=== PATIENT | female | born 1965 | race Caucasian/White ===

== ENCOUNTER 2020-06-06 19:05 | Emergency (ER) | payer MEDICAID, SELFPAY ==
[2020-06-06 19:06] VITALS: BP 134/71; PULSE 82; RESP 18; TEMP 36.7; O2SAT 98; BMI 25.7
--- NOTE | 2020-06-06 20:05 | RAD_ITS ---
STUDY: X-RAY - UNILATERAL RIBS ( LEFT ) WITH CHEST REASON FOR EXAM: Female, 54 years old. Left sided rib pain under breast. TECHNIQUE - RIBS: 4 view(s) of the ribs. TECHNIQUE - CHEST: COMPARISON: None. FINDINGS - RIBS: Normal visualized ribs without a demonstrated fracture. FINDINGS - CHEST: The lungs are clear and expanded. There is no demonstrated pleural abnormality. Normal size heart. Normal mediastinum and chiki. Normal visualized pulmonary arteries. Normal visualized aortic arch and descending thoracic aorta. Normal visualized thoracic spine. Normal visualized ribs, clavicles, and shoulders. There is no demonstrated abnormality of the visualized soft tissue structures of the upper abdomen. RAD/Ribs Uni Min 3V w/PA Chest IMPRESSION: RIBS: Normal x-ray examination of the ribs. CHEST: Normal x-ray examination of the chest. Electronically Signed: Alireza Pinon, at 21:06 EST Tel , Service support ,
--- NOTE | 2020-06-06 20:13 | ED.VIS.GEN ---
History of Present Illness Chief Complaint: Chest Other Detail of Chief Complaint: Chest pain Informant: Patient Onset: Hours - 2 Context: Sudden Onset - When rolled over onto her left side after being supine trying to fix the gas pedal of her car Timing: Continuous Quality: Sore/pain Location: Left inframammary chest wall Current Severity: Mild Maximum Severity: Severe Worsened by: Deep breathing, coughing, palpation, movement Relieved by: Tylenol that she took earlier Associated Symptoms: None Narrative: Patient had the sudden onset pop followed by pain in the area of her ribs beneath her left breast. - Past Medical History (1) Rheumatoid arthritis Status: Chronic (2) Asthma Status: Chronic Past Medical History - Allergies and Home Meds Allergies/Adverse Reactions: Allergies amoxicillin Allergy (Verified 06/06/20 19:08) Swelling morphine Allergy (Verified 06/06/20 19:08) PT UNSURE OF REACTION acetaminophen [From Percocet] Adverse Reaction (Verified 06/06/20 19:08) Vomiting oxycodone [From Percocet] Adverse Reaction (Verified 06/06/20 19:08) Vomiting Primary Care Physician: Doctor,Your [STAFF PHYSICIAN] - 1 Week if not improving Smoking Status: Current every day smoker Review of Systems General: Denies: Chills, Fever, Sweats Eyes: Denies: Visual changes - bilaterally, Diplopia ENT: Denies: Rhinorrhea, Sore throat Cardiovascular: Reports: Chest pain. Denies: Palpitations Respiratory: Denies: Dyspnea, Cough, Dyspnea on exertion Gastrointestinal: Denies: Abdominal pain, Nausea, Vomiting, Diarrhea, Melena, Hematochezia Genitourinary: Denies: Dysuria, Hematuria, Frequency Musculoskeletal: Reports: Arthralgias - Chronic unchanged. Denies: Swelling Skin: Denies: Rash, Wounds Neurological: Denies: Headache, Weakness, Numbness Physical Exam Vital Signs/Narrative: Vital Signs Temp Pulse Resp BP Pulse Ox 06/06/20 19:06 98.0 F 82 18 134/71 H 98 Inital Vital Signs reviewed: Yes General: Well nourished, Well developed, No Acute Distress Head: Normocephalic, Atraumatic Eyes: Perrl, EOMI ENT: Moist mucous membranes, No rhinorrhea Neck: Supple, Nontender Cardiovascular: Regular rate, Regular rhythm, No murmurs Respiratory: No distress, CTA bilaterally, Chest tenderness - Reproducing patient's pain, inframammary left rib, approximately rib 5 or 6, to about the anterior axillary line. No crepitance or step-off palpable. Abdomen: Soft, Nontender, Nondistended, Normal bowel sounds Extremities: Nontender, No edema Skin: Normal color, No rash, No Trauma Neurological: Alert, Oriented x3, Cranial nerves II-XII grossly intact, Normal Strength, Normal Sensation, Normal Gait Psychological: Normal affect, Normal Mood Diagnostic/Tx/Re-eval - Medical Decision Making On my interpretation, 5 view x-ray of the left ribs including PA chest is negative for acute fracture and negative for pneumothorax. Patient was reassured, likely either strained intercostals, bruised the ribs, has an occult fracture that is not visible on x-ray, or subluxed the rib. At this time medically I recommend pain control. She was offered something here but declined. Advise follow-up for persistent pain longer than a week. ED Disposition - Plan for ED Patient: Disposition: Home or Assisted Living Diagnosis: Contusion of rib on left side Instructions: ED Contusion Vs Minor Fx Rib Prescriptions: Naproxen [Naprosyn] 500 mg PO BID PRN #14 tab Prescription Printed traMADol [Ultram] 50 mg PO Q4H PRN PRN 2 Days #10 tab PRN Reason: Pain Prescription Printed Referrals: Doctor,Your [STAFF PHYSICIAN] - 1 Week if not improving
[2020-06-06 21:12] VITALS: RESP 17
== END 2020-06-06 21:13 | disposition home or self-care (01) ==
PROVIDERS: Emergency Provider Emergency Medicine
DX: S20.212A Contusion of left front wall of thorax, initial encounter (principal); F17.200 Nicotine dependence, unspecified, uncomplicated; X58.XXXA Exposure to other specified factors, initial encounter
CPT/HCPCS: 71101; 99282

== ENCOUNTER 2021-11-25 18:01 | Emergency (ER) | payer MEDICAID, SELFPAY ==
[2021-11-25 18:02] VITALS: BP 136/88; PULSE 106; RESP 18; TEMP 36.1; O2SAT 99; BMI 25.7
--- NOTE | 2021-11-25 18:30 | RAD_ITS ---
STUDY: X-RAY - RIGHT HAND REASON FOR EXAM: Female, 56 years old. PAIN/SWELLING TO RIGHT HAND FOR 7 MONTHS, HAS RA BUT NOT ON MEDS TECHNIQUE: 3 view(s) of the hand. COMPARISON: None. FINDINGS: Normal radiocarpal articulation. There is a negative ulnar variant of the distal radioulnar articulation. Normal visualized carpal bones. Normal carpal articulations Normal carpometacarpal articulation of the thumb. Normal second through fifth carpometacarpal joints. Diffuse osteopenia. Normal metacarpophalangeal joint of the thumb. Normal interphalangeal joint of the thumb. Normal proximal and distal phalanges of the thumb. Normal metacarpophalangeal joints of the second through fifth fingers. Indistinct cortical margins of the second and third metacarpal heads suggesting erosions. Normal phalanges of the second through fifth fingers. The soft tissue structures are unremarkable. RAD/Hand Min 3 Views IMPRESSION: No fracture or malalignment. Mild periarticular erosions of the second and third MCP joints compatible with history provided of rheumatoid arthritis. Electronically Signed: Oskar Cary MD ([place]) at 18:53 EDT Reading Location ID and State: [facility] / [place] , Service support ,
--- NOTE | 2021-11-25 19:02 | EX.ED.UPPERE ---
HPI History of Present Illness Chief Complaint: Upper Extremity Injury Detail of Chief Complaint: Right hand pain and swelling Informant: patient Narrative Narrative: Patient presents secondary to right hand pain and swelling for the last 7 months. It has been waxing and waning. She believes it is secondary to her rheumatoid arthritis but states no one is ever x-rayed and she is concerned she may have done something more. She has been on some intermittent steroid tapers which seems to help for short time but does not resolve the issue. She also complains of some mild redness on her nose. She had a previous laceration there and states there was a retained stitch that she trimmed out 2 years after the initial injury. She has noted some increased redness to the area and is concerned it may be getting infected. [facility] Medical History Asthma Rheumatoid arthritis Home Medications naproxen 500 mg PO BID PRN #14 tab 06/06/20 [Rx Last Taken Unknown] doxycycline monohydrate 100 mg PO BID #20 cap 11/25/21 [Rx Last Taken Unknown] prednisone See Taper PO DAILY #63 tab 11/25/21 [Rx Last Taken Unknown] Allergy/AdvReac Type Severity Reaction Status Date / Time amoxicillin Allergy Swelling Verified 11/25/21 18:04 morphine Allergy PT UNSURE Verified 11/25/21 18:04 OF REACTION acetaminophen [From Percocet] AdvReac Vomiting Verified 11/25/21 18:04 oxycodone [From Percocet] AdvReac Vomiting Verified 11/25/21 18:04 Social History Smoking Status: Current every day smoker tobacco type: cigarettes and e-cigarettes ROS ROS ED Constitutional Constitutional ED: Denies chills or fever(s) Eyes Eyes: Denies change in vision ENT ENT ED: Reports other Details: Nasal erythema ; Denies sore throat Cardiovascular Cardiovascular: Denies chest pain Respiratory/Chest Respiratory/Chest: Denies cough or dyspnea Gastrointestinal Gastrointestinal: Denies abdominal pain, nausea or vomiting Genitourinary Genitourinary ED: Denies dysuria Musculoskeletal Musculoskeletal: Reports other Details: Right hand pain and swelling ; Denies back pain or neck pain Integumentary Denies rash Neurologic Neurologic: Denies headache(s) Allergic/Immunologic Allergic/Immunologic ED: Denies urticaria EXAM Physical Exam Const Vital Signs: 11/25/21 18:02 Temperature 97 F L Temperature Source Temporal Pulse Rate 106 H Respiratory Rate 18 Blood Pressure 136/88 H Blood Pressure Mean 104 Pulse Ox 99 Oxygen Delivery Method Room Air Positive well nourished and well developed General Appearance ED: well developed HEENT HEENT Narrative: Mild erythema across the nasal bridge with underlying scar from prior laceration. No focal abscess. Eyes PERRL and EOMs intact bilaterally Neck supple Chest Wall inspection of chest normal and palpation of chest normal Resp normal respiratory effort and clear to auscultation bilaterally Cardio regular rate and regular rhythm GI non-tender Palpation: soft Extremity Extremity Narrative: Mild erythema and swelling noted to the MCP joints on her right hand. No focal bony tenderness. Good cap refill and sensation distally. Mild changes noted on the MCP joints of her left hand. Psych mental status grossly normal MDM MDM MDM Narrative Medical decision making narrative: Right hand x-rays obtained. Radiography Diagnostic Testing: Clinical Impression(s) from Imaging Studies Hand X-Ray 11/25/21 18:30 IMPRESSION: No fracture or malalignment. Mild periarticular erosions of the second and third MCP joints compatible with history provided of rheumatoid arthritis. Electronically Signed: Oskar Cary MD ([place]) at 18:53 EDT Reading Location ID and State: [facility] / [place] , Service support , Treatment and Re-Evaluation Narrative: Right hand x-ray per mitral rotation reveals chronic arthritic changes consistent with RA but no acute fracture. Radiologist rotation is also reviewed. Patient be treated with a course of doxycycline as well as prednisone taper. Discharge Plan Triage Chief Complaint: Upper Extremity Injury ED Provider: Sury Treviño Dx/Rx/DC Orders Clinical Impression: Rheumatoid arthritis, Folliculitis Instructions: ED Folliculitis, ED Rheumatoid Arthritis Prescriptions: New prednisone 10 mg tablet See Taper mg PO DAILY Qty: 63 RF: 0 doxycycline monohydrate 100 MG capsule 100 mg PO BID Qty: 20 RF: 0 No Action naproxen 500 MG tablet 500 mg PO BID PRN Qty: 14 RF: 0 Primary Care Provider: Care Physician,No Primary Referrals: Ananay Lin MD [STAFF PHYSICIAN] - As Needed Care Physician,No Primary [Primary Care Provider] - Disposition Disposition: Home, Self Care
[2021-11-25] MEDS: Doxycycline 100 MG CAPSULE PO (19:13)
[2021-11-25] MEDS: predniSONE 20 MG Tablet 60 MG PO (19:13)
[2021-11-25 19:14] VITALS: BP 135/94; PULSE 74; RESP 18; O2SAT 96
== END 2021-11-25 19:18 | disposition home or self-care (01) ==
PROVIDERS: Emergency Provider Emergency Medicine; Visit Provider Emergency Medicine
DX: M06.9 Rheumatoid arthritis, unspecified (principal); L73.9 Follicular disorder, unspecified; F17.210 Nicotine dependence, cigarettes, uncomplicated
CPT/HCPCS: 73130; 99283

== ENCOUNTER 2022-04-08 10:46 | Emergency (ER) | payer MEDICAID, SELFPAY ==
[2022-04-08 10:47] VITALS: BP 112/76; PULSE 89; RESP 18; TEMP 36.1; O2SAT 94; BMI 26.6
--- NOTE | 2022-04-08 11:52 | EDS_ITS ---
HPI HPI - URI History of Present Illness Chief Complaint: Cough Informant: patient Onset/Context/Timing Onset: Weeks Context: Gradual Onset Timing: Intermittent Current Severity: Mild Maximum Severity: Mild Associated Symptoms Associated Symptoms: Positive for Hemoptysis and Productive Cough Narrative Narrative: 60-year-old female history of asthma, 20 arthritis. She smokes. States she had a cough for 10 or 11 days. Today had multiple coughing episodes and coughed up small amount of blood. Said she coughed after that and it had resolved. Denies any chest pain. No history of DVT or PE. No recent travel, surgery or immobilization. She is on no hormone replacement. No family history of clotting disorder. No leg swelling. Denies any fever shortness of breath. Denies any. Leg pain. She is on no antibiotics. Prior similar symptoms: No Recent Illness/Hospitalization: No ROS ROS ED ROS Narrative Cough of clear phlegm. Review of Systems ROS Unobtainable: Denies due to encephalopathy Constitutional Constitutional ED: Denies chills or fever(s) Eyes Eyes: Denies blurry vision ENT ENT ED: Denies ear pain Cardiovascular Cardiovascular: Denies orthopnea or paroxysmal nocturnal dyspnea Respiratory/Chest Respiratory/Chest: Reports sputum; Denies cough, dyspnea, dyspnea on exertion, orthopnea or paroxysmal nocturnal dyspnea Gastrointestinal Gastrointestinal: Denies abdominal pain, melena, nausea or vomiting Genitourinary Genitourinary ED: Denies dysuria Musculoskeletal Musculoskeletal: Denies arthralgias Integumentary Denies abscess Neurologic Neurologic: Denies headache(s) Psychiatric Psychiatric: Denies anxiety Endocrine Endocrinology: Denies cold intolerance Hematologic/Lymphatic Hematologic/Lymphatic: Denies easy bleeding Allergic/Immunologic Allergic/Immunologic ED: Denies mouth swelling [facility] Medical History Asthma Rheumatoid arthritis Home Medications naproxen 500 mg tablet 500 mg PO BID PRN #14 tabs 06/06/20 [Rx Last Taken Unknown] doxycycline monohydrate 100 mg capsule 100 mg PO BID #20 caps 11/25/21 [Rx Last Taken Unknown] prednisone 10 mg tablet See Taper PO DAILY #63 tabs 11/25/21 [Rx Last Taken Unknown] prednisone 20 mg tablet 40 mg PO DAILY 7 days #14 tabs 04/08/22 [Rx Last Taken Unknown] Allergy/AdvReac Type Severity Reaction Status Date / Time amoxicillin Allergy Swelling Verified 04/08/22 10:47 morphine Allergy PT UNSURE Verified 04/08/22 10:47 OF REACTION acetaminophen [From Percocet] AdvReac Vomiting Verified 04/08/22 10:47 oxycodone [From Percocet] AdvReac Vomiting Verified 04/08/22 10:47 Social History Smoking Status: Current every day smoker tobacco type: cigarettes and e- cigarettes EXAM Physical Exam Narrative Exam Narrative: 36-year-old female no acute distress. Vital signs stable afebrile. Pulse ox 94% on room air no signs hypoxia. H EENT exam normal. Posterior pharynx normal. No trouble swallowing or breathing. Neck nontender no JVD. No lymphadenopathy. Lungs few scattered expiratory wheezes. No rales or rhonchi. Equal symmetrical. No distress. Heart regular rate and rhythm no murmur. Abdomen soft nontender. Moving all 4 extremities. Calves are nontender without edema or cords. She is awake and alert. Const Vital Signs: 04/08/22 10:47 04/08/22 11:54 Temperature 97 F L Temperature Source Temporal Pulse Rate 89 Respiratory Rate 18 Respiratory Effort Normal Respiratory Pattern Normal Blood Pressure 112/76 Blood Pressure Mean 88 Pulse Ox 94 Oxygen Delivery Method Room Air Room Air Positive well nourished and well developed; Negative for obese, cachectic or contractures General Appearance ED: well developed and NAD; Negative for cachectic, contractures, cyanotic, diaphoretic or pallor Nutritional Appearance: Negative for cachectic or obese HEENT Reports moist mucous membranes; Denies dry mucous membranes normocephalic and atraumatic Mouth ED: No dry mucous membranes Mouth: No dry mucous membranes Teeth and Gingiva: Negative for caries Throat: Negative for posterior oropharynx normal Eyes PERRL and EOMs intact bilaterally General Eye ED: Negative for pale conjunctiva or scleral icterus Neck no lymphadenopathy, supple, no meningeal signs and no JVD Resp normal respiratory effort and No clear to auscultation bilaterally Effort and Inspection: Negative for retractions Auscultation: wheezes; Negative for rales, rhonchi or diminished lung sounds Cardio S1 normal heart sound, S2 normal heart sound and no murmurs Rate: regular rate Rhythm: regular rhythm GI non-tender, non-distended and no masses Inspection: Negative for abdominal distention Auscultation: normoactive bowel sounds Palpation: soft; Negative for tender Back/Spine no CVA tenderness and normal ROM General Back: Negative for CVA tenderness Cervical Spine: Negative for cervical spine tenderness Thoracic Spine / Upper Back: Negative for thoracic spinal tenderness Lumbar Spine / Lower Back: Negative for lumbar spinal tenderness Sacrum: Negative for tenderness Extremity normal to inspection and full ROM General Extremety ED: Negative for cyanosis or tenderness General Extremity: Negative for cyanosis Neuro oriented x3 and CN's II-XII intact bilaterally Sensorium / Orientation: alert, oriented to person, oriented to place and oriented to time Motor Exam: strength 5/5 throughout Psych mental status grossly normal Attitude: No agitated Mood & Affect: Negative for depressed or anxious Skin General Skin Exam: Negative for jaundice or pallor Lesions: no lesions Rashes: no rashes Trauma: Negative for abrasion or laceration MDM MDM MDM Narrative Medical decision making narrative: Patient with cough suspect URI/bronchitis. She is a smoker. There is history expiratory wheezes. Chest x-ray to be obtained due to hemoptysis. She has no history or risk factors for DVT or PE. Repeat exam patient doing well. She and I went over her chest x-ray results. She will be discharged home. Written for prednisone given a dose here. She will be on prednisone 40 mg a day for 7 days. Return if increased hemoptysis. Otherwise follow-up with a local primary care physician. Radiography Diagnostic Testing: Clinical Impression(s) from Imaging Studies Chest X-Ray 04/08/22 11:58 IMPRESSION: No acute cardiopulmonary process. Electronically Signed: Amy Mendoza MD at 12:08 EDT , Chest x-ray, 2 views, AP and lateral, interpreted by myself shows Discharge Plan Triage Chief Complaint: Cough ED Provider: Boy Ingram Dx/Rx/DC Orders Clinical Impression: Bronchitis, Cough with hemoptysis, Bilateral wheezing Instructions: ED Bronchitis with Wheezing (Adult) Prescriptions: New prednisone 20 mg tablet 40 mg PO DAILY 7 Days Qty: 14 0RF No Action naproxen 500 MG tablet 500 mg PO BID PRN Qty: 14 0RF prednisone 10 mg tablet See Taper PO DAILY Qty: 63 0RF Taper: Prednisone Taper 60 mg WITH BREAKFAST for 3 Days and 0 Hour 50 mg WITH BREAKFAST for 3 Days and 0 Hour 40 mg WITH BREAKFAST for 3 Days and 0 Hour 30 mg WITH BREAKFAST for 3 Days and 0 Hour 20 mg WITH BREAKFAST for 3 Days and 0 Hour 10 mg WITH BREAKFAST for 3 Days and 0 Hour doxycycline monohydrate 100 MG capsule 100 mg PO BID Qty: 20 0RF Primary Care Provider: Care Physician,No Primary Referrals: Jim Pena MD [Med Staff - Head Wrestling Coach] - 1 Week if not improving Care Physician,No Primary [Primary Care Provider] - Activity Restrictions/Additional Instructions: You have bronchitis. We will place her on prednisone to decrease the wheezing. At this time I do not think you need an antibiotic. If it does not get better that may be an option. Your chest x-ray was unremarkable. Follow-up with a local primary care physician to ensure you are improving. If you have more blood that you are coughing up if there are large clots you need to be seen in the emergency department if not you need to follow-up and we need to get a CAT scan on you. Stop smoking !!! Disposition Disposition: Home, Self Care
[2022-04-08 11:54] VITALS: O2SAT 95
--- NOTE | 2022-04-08 11:58 | RAD_ITS ---
STUDY: X-RAY CHEST REASON FOR EXAM: Female, 56 years old. Cough TECHNIQUE: Frontal and lateral views of the chest. COMPARISON: 06/06/2020 FINDINGS: The lungs are clear and expanded. There is no demonstrated pleural abnormality. Normal size heart. Normal mediastinum and chiki. Normal visualized pulmonary arteries. Normal visualized aortic arch and descending thoracic aorta. Normal visualized thoracic spine. Normal visualized ribs, clavicles, and shoulders. There is no demonstrated abnormality of the visualized soft tissue structures of the upper abdomen. RAD/Chest PA and Lateral IMPRESSION: No acute cardiopulmonary process. Electronically Signed: Amy Mendoza MD at 12:08 EDT ,
[2022-04-08] MEDS: predniSONE 20 MG Tablet 60 MG PO (13:32)
== END 2022-04-08 13:36 | disposition home or self-care (01) ==
PROVIDERS: Emergency Provider Emergency Medicine; Visit Provider Emergency Medicine
DX: J40 Bronchitis, not specified as acute or chronic (principal); M06.9 Rheumatoid arthritis, unspecified; R04.2 Hemoptysis; R06.2 Wheezing; F17.210 Nicotine dependence, cigarettes, uncomplicated; Z79.899 Other long term (current) drug therapy; Z79.52 Long term (current) use of systemic steroids
CPT/HCPCS: 71046; 99283

== ENCOUNTER 2023-03-08 13:38 | Emergency (ER) | payer MEDICAID, SELFPAY ==
[2023-03-08 13:38] VITALS: BP 125/88; PULSE 86; RESP 18; TEMP 36.6; O2SAT 98; BMI 28.4
--- NOTE | 2023-03-08 14:17 | EX.ED.GENINJ ---
HPI History of Present Illness Chief Complaint: Head Injury Narrative Narrative: 57-year-old female who denies significant past medical history presents with injury to her face and mild headache with concussion type symptoms that she has had since last evening. She states that she was standing and the kids around her were playing football. She got hit in the face and mainly the bridge of the nose with a football at around 6 or 7 PM last evening almost 18 hours ago. She denies loss of consciousness, and she does not take any blood thinners. She noticed soreness of the bridge of her nose and may be some discoloration under her eyes but she did not have any nosebleeds. She states that she is having problems concentrating and feels off. No nausea or vomiting, no paresthesias. She states she went to [facility] and was told to come to the emergency department. She also had to take off work today because she was not feeling quite right. [facility] Medical History Asthma Rheumatoid arthritis Home Medications naproxen 500 mg tablet 500 mg PO BID PRN #14 tabs 06/06/20 [Rx Last Taken Unknown] doxycycline monohydrate 100 mg capsule 100 mg PO BID #20 caps 11/25/21 [Rx Last Taken Unknown] prednisone 10 mg tablet See Taper PO DAILY #63 tabs 11/25/21 [Rx Last Taken Unknown] prednisone 20 mg tablet 40 mg (2 x 20 mg) PO DAILY 7 days #14 tabs 04/08/22 [Rx Last Taken Unknown] Allergy/AdvReac Type Severity Reaction Status Date / Time amoxicillin Allergy Swelling Verified 03/08/23 13:40 morphine Allergy PT UNSURE Verified 03/08/23 13:40 OF REACTION acetaminophen [From Percocet] AdvReac Vomiting Verified 03/08/23 13:40 oxycodone [From Percocet] AdvReac Vomiting Verified 03/08/23 13:40 Social History Smoking Status: Current every day smoker tobacco type: cigarettes and e-cigarettes ROS ROS ED ROS Narrative Constitutional: No fever, no chills. HEENT: No sore throat. No neck pain. No loss of vision. No rhinorrhea. Mild nasal tenderness. No epistaxis. Cardiovascular: No chest pain. No palpitations. No pedal edema. Respiratory: No cough, no shortness of breath. Abdominal: No abdominal pain. No nausea. No vomiting. Genitourinary: No dysuria. No hematuria. Musculoskeletal: No myalgias. No arthralgias. Neurologic: Mild headaches. No dizziness. No lightheadedness. Skin: No rash. No change in color. Psychiatric: No depression. No anxiety. EXAM Physical Exam Narrative Exam Narrative: Afebrile. Vital signs noted. HEENT: Normocephalic. Atraumatic. PERRL, EOMI. Neck soft and supple. No point tenderness or step off. Mild tenderness on nasal bridge, no crepitance, no noted ecchymosis. No nasal septal hematoma. Cardiovascular: Regular rate and rhythm. No murmurs, rubs, or gallops appreciated. Respiratory: No tachypnea. Lungs clear to auscultation bilaterally. Gastrointestinal: Abdomen soft, nontender, with normoactive bowel sounds. No rebound or guarding. Neurological: Awake. Alert. Oriented x3. Nonfocal, nonlateralizing. Skin: No rash. Normal color. No pallor. Musculoskeletal: No pedal edema. Full range of motion extremities. Const Vital Signs: 03/08/23 13:38 03/08/23 13:42 Temperature 97.8 F Temperature Source Temporal Pulse Rate 86 Respiratory Rate 18 Respiratory Effort Normal Blood Pressure 125/88 H Blood Pressure Mean 100 Pulse Ox 98 Oxygen Delivery Method Room Air Room Air MDM MDM MDM Narrative Medical decision making narrative: In the differential diagnosis is closed head injury/minor concussion with facial contusion versus facial fracture. I do not feel that she requires CT imaging of the brain or of the face, as there is no clinical evidence of any facial fracture, no extraocular muscle entrapment, and I feel she has more of a facial contusion. She was instructed on brain rest and closed head injury instructions. She will take [id number] medications. She can use ice to apply to her face as needed. She was referred to a primary care provider. She was given a note to be off work for today and tomorrow, and was told that should her symptoms persist for longer than 7 to 10 days that she needs to see a primary care physician for possible referral to a neurologist. I do not feel any laboratory work is indicated nor do I feel that she requires observation or admission. I reviewed her prior ED visits and outpatient record and found it noncontributory to her current chief complaint. She was referred to a primary care provider. Return instructions were reviewed. Disposition is discharged home in stable condition. History & Record Review Discussion w/independent historian: Patient Additional record(s) reviewed:: Prior ED visit Discharge Plan Triage Chief Complaint: Head Injury ED Provider: Suhas Black Dx/Rx/DC Orders Clinical Impression: Concussion, Contusion of face Instructions: ED Concussion, ED Facial Contusion Prescriptions: No Action naproxen 500 MG tablet 500 mg PO BID PRN Qty: 14 0RF prednisone 10 mg tablet See Taper PO DAILY Qty: 63 0RF Taper: Prednisone Taper 60 mg WITH BREAKFAST for 3 Days and 0 Hour 50 mg WITH BREAKFAST for 3 Days and 0 Hour 40 mg WITH BREAKFAST for 3 Days and 0 Hour 30 mg WITH BREAKFAST for 3 Days and 0 Hour 20 mg WITH BREAKFAST for 3 Days and 0 Hour 10 mg WITH BREAKFAST for 3 Days and 0 Hour doxycycline monohydrate 100 MG capsule 100 mg PO BID Qty: 20 0RF prednisone 20 mg tablet 40 mg PO DAILY 7 Days Qty: 14 0RF Stand Alone Forms: ED Work / School Excuse Primary Care Provider: Care Physician,No Primary Referrals: Negrito Guerrero MD [Med Staff - Active Staff] - 1 Week if not improving Care Physician,No Primary [Primary Care Provider] - Disposition Disposition: Home, Self Care Discharge Date/Time: 03/08/23 14:23
== END 2023-03-08 14:23 | disposition home or self-care (01) ==
LOC: ED 14:14
PROVIDERS: Emergency Provider Emergency Medicine; Visit Provider Emergency Medicine
DX: S06.0X0A Concussion without loss of consciousness, initial encounter (principal); S00.83XA Contusion of other part of head, initial encounter; F17.210 Nicotine dependence, cigarettes, uncomplicated; X58.XXXA Exposure to other specified factors, initial encounter
CPT/HCPCS: 99282

== ENCOUNTER 2023-04-05 00:31 | Emergency (ER) | payer MEDICAID, SELFPAY ==
[2023-04-05 00:33] VITALS: BP 146/90; PULSE 85; RESP 18; TEMP 36.8; O2SAT 96; BMI 28.3
--- NOTE | 2023-04-05 00:50 | EDS_ITS ---
HPI History of Present Illness Chief Complaint: Allergic Reaction Informant: patient Onset/Context/Timing Onset: Hours Context: Gradual Onset Narrative Narrative: Patient presents due to concern for allergic reaction. Patient states that she had fallen asleep on the couch earlier this evening. After waking she decided to try some of the new perfume that she had made. She sprayed her forearms. About 30 minutes later she noted her cheeks were red and slightly swollen. She had a focal area of itching on the inside of her right wrist only. She is not sure if she is having an allergic reaction to the perfume, but states she does not know of anything else that is new or different. She does report having a recent cough. [facility] Medical History Asthma Rheumatoid arthritis Home Medications diphenhydramine HCl 50 mg capsule 50 mg PO Q8H PRN allergic reaction #14 caps 04/05/23 [Rx Last Taken Unknown] famotidine 40 mg tablet (Pepcid) 40 mg PO DAILY #4 tabs 04/05/23 [Rx Last Taken Unknown] prednisone 20 mg tablet 40 mg (2 x 20 mg) PO DAILY #8 tabs 04/05/23 [Rx Last Taken Unknown] Allergy/AdvReac Type Severity Reaction Status Date / Time amoxicillin Allergy Swelling Verified 04/05/23 00:32 morphine Allergy PT UNSURE Verified 04/05/23 00:32 OF REACTION acetaminophen [From Percocet] AdvReac Vomiting Verified 04/05/23 00:32 oxycodone [From Percocet] AdvReac Vomiting Verified 04/05/23 00:32 Social History Smoking Status: Current every day smoker tobacco type: cigarettes and e- cigarettes ROS ROS ED Constitutional Constitutional ED: Denies chills or fever(s) Eyes Eyes: Denies change in vision or discharge from eye(s) ENT ENT ED: Reports other Details: Facial swelling and redness ; Denies discharge from eye(s), rhinorrhea or sore throat Cardiovascular Cardiovascular: Denies chest pain or palpitations Respiratory/Chest Respiratory/Chest: Reports cough and other Details: Occasional wheezing, denies currently. ; Denies dyspnea Gastrointestinal Gastrointestinal: Denies abdominal pain, diarrhea, nausea or vomiting Musculoskeletal Musculoskeletal: Denies back pain or extremity pain Integumentary Reports rash; Denies Abrasions Neurologic Neurologic: Denies headache(s) or weakness Psychiatric Psychiatric: Denies anxiety or depression Allergic/Immunologic Allergic/Immunologic ED: Denies lip swelling or urticaria EXAM Physical Exam Const Vital Signs: 04/05/23 00:33 Temperature 98.3 F Temperature Source Temporal Pulse Rate 85 Respiratory Rate 18 Blood Pressure 146/90 H Blood Pressure Mean 108 Pulse Ox 96 Oxygen Delivery Method Room Air Positive well nourished and well developed General Appearance ED: well developed HEENT Reports normocephalic and head/scalp atraumatic HEENT Narrative: Mild erythema noted to the bilateral maxilla. No eyelid edema appreciated. No tongue thickness. Eyes PERRL and EOMs intact bilaterally Neck supple Chest Wall inspection of chest normal and palpation of chest normal Resp normal respiratory effort and clear to auscultation bilaterally Cardio regular rate and regular rhythm GI normal to inspection, nondistended, normoactive bowel sounds Palpation: soft Back/Spine no CVA tenderness Extremity normal to inspection Neuro oriented x3 and no sensory deficits noted Sensorium / Orientation: alert Motor Exam: strength 5/5 throughout Psych mental status grossly normal Skin Skin Narrative: Mild erythema noted to the maxilla bilaterally. No rash appreciated to the extremities. MDM MDM MDM Narrative Medical decision making narrative: Patient did drive herself to the emergency room. In light of this she is given prednisone and Pepcid. Due to concern for her cough COVID/influenza swab is sent. Treatment and Re-Evaluation :: Swab for COVID and influenza is negative. On repeat evaluation patient resting comfortably. She still has erythema noted to the maxilla bilaterally, but it is not worsened. She has no other lesions. She is having no difficulty breathing. Patient be discharged with prescriptions for Benadryl, Pepcid, and prednisone. She will continue to monitor her surroundings to see if she can figure out what it is she came into contact with. Although she did use this new perfume tonight, she has no erythema or lesions on her arms where was directly sprayed so I am unsure this is the culprit Discharge Plan Triage Chief Complaint: Allergic Reaction ED Provider: Suyr Treviño Dx/Rx/DC Orders Clinical Impression: Allergic reaction Instructions: ED Allergic Reaction Local Other Prescriptions: New prednisone 20 mg tablet 40 mg PO DAILY Qty: 8 0RF famotidine [Pepcid] 40 mg tablet 40 mg PO DAILY Qty: 4 0RF diphenhydramine HCl 50 mg capsule 50 mg PO Q8H PRN (Reason: allergic reaction) Qty: 14 0RF Primary Care Provider: Care Physician,No Primary Referrals: Rigoberto Hwang MD [Med Staff - Telephone Assembler] - As Needed Care Physician,No Primary [Primary Care Provider] - Disposition Disposition: Home, Self Care
[2023-04-05] MEDS: Famotidine 20 MG Tablet 40 MG PO (01:00)
[2023-04-05] MEDS: predniSONE 20 MG Tablet 60 MG PO (01:00)
== END 2023-04-05 02:03 | disposition home or self-care (01) ==
PROVIDERS: Emergency Provider Emergency Medicine; Visit Provider Emergency Medicine
DX: T78.40XA Allergy, unspecified, initial encounter (principal); F17.210 Nicotine dependence, cigarettes, uncomplicated; X58.XXXA Exposure to other specified factors, initial encounter
CPT/HCPCS: 87428; 99283

== ENCOUNTER 2023-04-23 10:46 | Emergency (ER) | payer SELFPAY ==
[2023-04-23 10:46] VITALS: BP 139/89; PULSE 80; RESP 18; TEMP 35.9; O2SAT 99; BMI 29.0
--- NOTE | 2023-04-23 11:05 | EDS_ITS ---
<Statement entered by Negrito Wnag MD - 04/23/23 20:41> I have personally performed a face to face assessment of the patient and have reviewed the BOYD Note. HPI History of Present Illness Chief Complaint: Wound Narrative Narrative: 57-year-old female had skin cancer removed from her nose 4 years ago and states the area became red and swollen yesterday. No drainage. No fever or chills. PFSH PFSH Medical History Asthma Rheumatoid arthritis Home Medications diphenhydramine HCl 50 mg capsule 50 mg PO Q8H PRN allergic reaction #14 caps 04/05/23 [Rx Last Taken Unknown] famotidine 40 mg tablet (Pepcid) 40 mg PO DAILY #4 tabs 04/05/23 [Rx Last Taken Unknown] prednisone 20 mg tablet 40 mg (2 x 20 mg) PO DAILY #8 tabs 04/05/23 [Rx Last Taken Unknown] doxycycline hyclate 100 mg capsule 100 mg PO BID 7 days #14 caps 04/23/23 [Rx Last Taken Unknown] Allergy/AdvReac Type Severity Reaction Status Date / Time amoxicillin Allergy Swelling Verified 04/05/23 00:32 morphine Allergy PT UNSURE Verified 04/05/23 00:32 OF REACTION acetaminophen [From Percocet] AdvReac Vomiting Verified 04/05/23 00:32 oxycodone [From Percocet] AdvReac Vomiting Verified 04/05/23 00:32 Social History Smoking Status: Current every day smoker tobacco type: cigarettes and e- cigarettes ROS ROS ED ROS Narrative Constitutional: Negative for fever, chills, malaise. ENT: Negative for sore throat, ear pain, rhinorrhea. Neuro: Negative for headache. Skin: Positive for redness. EXAM Physical Exam Narrative Exam Narrative: CONST: Patient sitting in no acute distress. EYES: Normal inspection. ENT: Scarring and erythema and warmth over the lower bridge of the nose, no fluctuance or crepitus, no drainage. Nares are clear, normal posterior oropharynx. NECK: Normal inspection. RESP: No respiratory distress, CTAB. CVS: Regular rate and rhythm, no murmur, no gallop. SKIN: Color normal, no rash, warm, dry, intact. EXTREMITIES: Normal appearance, no pedal edema. NEURO: Oriented x4. PSYCH: Normal affect. Const Vital Signs: 04/23/23 10:46 Temperature 96.6 F L Temperature Source Temporal Pulse Rate 80 Respiratory Rate 18 Blood Pressure 139/89 H Blood Pressure Mean 105 Pulse Ox 99 Oxygen Delivery Method Room Air MDM MDM MDM Narrative Medical decision making narrative: Patient has a scar on the lower bridge of her nose from skin cancer removal 4 years ago. The area looks red and inflamed which started yesterday. Appears consistent with cellulitis. She otherwise appears well and nontoxic and has normal vital signs. I prescribed doxycycline with return precautions and she was discharged in stable condition. Discharge Plan Triage Chief Complaint: Wound ED Midlevel Provider: Brigid Calvillo ED Provider: Negrito Wang Dx/Rx/DC Orders Clinical Impression: Cellulitis of external nose Instructions: Cellulitis Dc Prescriptions: New doxycycline hyclate 100 mg capsule 100 mg PO BID 7 Days Qty: 14 0RF No Action prednisone 20 mg tablet 40 mg PO DAILY Qty: 8 0RF famotidine [Pepcid] 40 mg tablet 40 mg PO DAILY Qty: 4 0RF diphenhydramine HCl 50 mg capsule 50 mg PO Q8H PRN (Reason: allergic reaction) Qty: 14 0RF Primary Care Provider: Care Physician,No Primary Referrals: Care Physician,No Primary [Primary Care Provider] - Activity Restrictions/Additional Instructions: Please be re-evaluated if symptoms worsen Disposition Disposition: Home, Self Care
== END 2023-04-23 11:25 | disposition home or self-care (01) ==
LOC: ED 11:17
PROVIDERS: Emergency Provider Emergency Medicine; Visit Provider Emergency Medicine
DX: J34.0 Abscess, furuncle and carbuncle of nose (principal); F17.210 Nicotine dependence, cigarettes, uncomplicated
CPT/HCPCS: 99282

== ENCOUNTER 2023-07-10 15:47 | Emergency (ER) | payer SELFPAY ==
[2023-07-10] VITALS (30 sets, daily range): BP systolic 94–125; BP diastolic 56–88; PULSE 98–129; RESP 13–22; TEMP 36.6–36.9; O2SAT 90–94; BMI 29.5
--- NOTE | 2023-07-10 16:26 | EKG12_ITS ---
Test Reason : SOB Blood Pressure : / mmHG Vent. Rate : 104 BPM Atrial Rate : 104 BPM P-R Int : 144 ms QRS Dur : 088 ms QT Int : 342 ms P-R-T Axes : 063 022 049 degrees QTc Int : 449 ms Sinus tachycardia Nonspecific ST and T wave abnormality Abnormal ECG Confirmed by EDDIE AMEZQUITA, RAFY ([id number]), assignment editor MANDIE LAZO ([id number]) on 07/19/2023 9:18:04 AM Referred By: Confirmed By:RAFY MORGAN MD
--- NOTE | 2023-07-10 16:28 | ED.VIS.DYS ---
HPI History of Present Illness Chief Complaint: Shortness of Breath Informant: patient Onset/Context/Timing Onset: Yesterday Context: gradual Timing: Continuous Worsened by: Nothing Relieved by: - (Activity) Associated Symptoms cough, rhinorrhea, subjective, chills and yellow sputum; Negative for post nasal drip, ear pain, fever, sore throat, sweats, clear sputum, white sputum or green sputum Chest Pain: Positive for None Narrative Narrative: Patient presents with shortness of breath that has been getting worse since yesterday. Patient states she noted her oxygen saturations dropping today. Patient states her breathing is actually better with activity. Patient states she is coughing up some yellow sputum. Patient admits to some subjective chills but denies any fevers. Patient denies any sore throat but admits to some rhinorrhea. Patient denies any chest pain. Patient states she has been feeling lightheaded at times. 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 Milton Wilder DO) Asthma Rheumatoid arthritis Home Medications albuterol sulfate 90 mcg/actuation aerosol inhaler (Ventolin HFA) 2 puff inhalation Q4H PRN PRN Wheezing ##1 07/10/23 [Rx Last Taken Unknown] oseltamivir 75 mg capsule 75 mg PO BID #10 CAPSULES 07/10/23 [Rx Last Taken Unknown] prednisone 20 mg tablet 60 mg (3 x 20 mg) PO DAILY #15 TABLETS 07/10/23 [Rx Last Taken Unknown] Allergy/AdvReac Type Severity Reaction Status Date / Time amoxicillin Allergy Swelling Verified 07/10/23 15:57 morphine Allergy PT UNSURE Verified 07/10/23 15:57 OF REACTION acetaminophen [From Percocet] AdvReac Vomiting Verified 07/10/23 15:57 oxycodone [From Percocet] AdvReac Vomiting Verified 07/10/23 15:57 Surgical History (Updated 07/10/23 @ 16:[address] Milton Wilder DO) H/O section Hx of tubal ligation Status post surgical removal of malignant neoplasm of skin Social History Smoking Status: Current every day smoker tobacco type: cigarettes and e-cigarettes ROS ROS ED Constitutional Constitutional ED: Reports chills; Denies fever(s) Eyes Eyes: Denies blurry vision or change in vision ENT ENT ED: Reports rhinorrhea; Denies sore throat Cardiovascular Cardiovascular: Denies chest pain or palpitations Respiratory/Chest Respiratory/Chest: Reports cough and dyspnea Gastrointestinal Gastrointestinal: Denies nausea or vomiting Genitourinary Genitourinary ED: Denies dysuria or hematuria Musculoskeletal Musculoskeletal: Denies back pain or neck pain Integumentary Denies abscess or rash Neurologic Neurologic: Reports headache(s); Denies weakness Allergic/Immunologic Allergic/Immunologic ED: Denies mouth swelling or urticaria EXAM Physical Exam Const Vital Signs: 07/10/23 15:54 07/10/23 15:48 07/10/23 16:00 Temperature 98.3 F Temperature Source Oral Pulse Rate 115 H 109 H Respiratory Rate 18 18 Respiratory Effort Short of Breath Respiratory Pattern Normal Blood Pressure 123/70 H 120/72 Blood Pressure Mean 87 88 Pulse Ox 91 93 Oxygen Delivery Method Room Air Nasal Cannula Oxygen Flow Rate (L/min) 2 07/10/23 16:02 07/10/23 16:37 07/10/23 16:57 Temperature 98.0 F Temperature Source Oral Pulse Rate 105 H 129 H Respiratory Rate 16 21 H Respiratory Effort Short of Breath Respiratory Pattern Normal Normal Blood Pressure 112/66 Blood Pressure Mean 81 Pulse Ox 94 Oxygen Delivery Method Nasal Cannula Room Air Oxygen Flow Rate (L/min) 2 07/10/23 16:08 07/10/23 16:10 07/10/23 16:15 Temperature Temperature Source Pulse Rate 106 H 105 H 100 Respiratory Rate 17 13 14 Respiratory Effort Respiratory Pattern Blood Pressure 115/68 Blood Pressure Mean 82 Pulse Ox Oxygen Delivery Method Oxygen Flow Rate (L/min) 07/10/23 16:20 07/10/23 16:30 07/10/23 16:40 Temperature Temperature Source Pulse Rate 104 H 109 H 109 H Respiratory Rate 19 H 13 13 Respiratory Effort Respiratory Pattern Blood Pressure 112/66 Blood Pressure Mean 80 Pulse Ox 94 Oxygen Delivery Method Room Air Oxygen Flow Rate (L/min) 07/10/23 16:55 07/10/23 16:54 07/10/23 18:00 Temperature 97.9 F Temperature Source Oral Pulse Rate 129 H 107 H Respiratory Rate 21 H 18 22 H Respiratory Effort Respiratory Pattern Blood Pressure 121/56 H Blood Pressure Mean 77 Pulse Ox 93 90 94 Oxygen Delivery Method Nasal Cannula Room Air Nasal Cannula Oxygen Flow Rate (L/min) 2 2 07/10/23 17:00 07/10/23 17:00 07/10/23 17:10 Temperature Temperature Source Pulse Rate 121 H 115 H Respiratory Rate 18 18 Respiratory Effort Respiratory Pattern Blood Pressure 122/68 H 122/68 H Blood Pressure Mean 85 85 Pulse Ox Oxygen Delivery Method Oxygen Flow Rate (L/min) 07/10/23 17:15 07/10/23 17:20 07/10/23 17:30 Temperature Temperature Source Pulse Rate 110 H 108 H Respiratory Rate 14 18 Respiratory Effort Respiratory Pattern Blood Pressure 121/60 H 108/60 Blood Pressure Mean 77 73 Pulse Ox Oxygen Delivery Method Oxygen Flow Rate (L/min) 07/10/23 17:40 07/10/23 17:45 07/10/23 17:50 Temperature Temperature Source Pulse Rate 104 H 103 H 102 H Respiratory Rate 18 13 16 Respiratory Effort Respiratory Pattern Blood Pressure 104/62 Blood Pressure Mean 76 Pulse Ox Oxygen Delivery Method Oxygen Flow Rate (L/min) 07/10/23 18:00 07/10/23 18:05 07/10/23 18:10 Temperature Temperature Source Pulse Rate 107 H 101 H Respiratory Rate 22 H 15 Respiratory Effort Respiratory Pattern Blood Pressure 121/56 H Blood Pressure Mean 71 Pulse Ox 94 Oxygen Delivery Method Nasal Cannula Oxygen Flow Rate (L/min) 2 07/10/23 18:15 07/10/23 18:20 07/10/23 18:30 Temperature Temperature Source Pulse Rate 106 H 101 H 100 Respiratory Rate 17 20 H 16 Respiratory Effort Respiratory Pattern Blood Pressure 94/68 111/66 Blood Pressure Mean 77 78 Pulse Ox 94 Oxygen Delivery Method Room Air Oxygen Flow Rate (L/min) Positive well nourished and well developed General Appearance ED: well developed and NAD HEENT Reports moist mucous membranes atraumatic Neck supple and no JVD Resp normal respiratory effort Auscultation: wheezes expiratory wheezes and throughout Cardio regular rate and regular rhythm GI non-tender and non-distended Palpation: soft Neuro oriented x3, CN's II-XII intact bilaterally and no sensory deficits noted Maribel Coma Scale: document GCS findings Spontaneous Obeys Commands Oriented 15 Sensorium / Orientation: alert Motor Exam: strength 5/5 throughout Psych mental status grossly normal Skin no wounds MDM MDM MDM Narrative Medical decision making narrative: Differential diagnosis includes COPD exacerbation, pneumonia, cardiac dysrhythmia, cardiac ischemia, pulmonary embolism, pneumothorax, urinary tract infection, and sepsis. Chest x-ray will be obtained to assess for pneumonia and pneumothorax. EKG will be obtained to assess for cardiac dysrhythmia and cardiac ischemia. CBC will be obtained to assess for leukocytosis and anemia. Basic metabolic profile will be obtained to assess for electrolyte abnormality and renal function. High-sensitivity troponin will be obtained to assess for cardiac ischemia. RSV rapid antigen will be obtained to assess for RSV infection. COVID-19 rapid antigen will be obtained to assess for COVID-19 infection. Influenza A and influenza B antigens will be obtained to assess for influenza infection. Lab Data Attestation: I reviewed the patient's lab results. Lab results narrative: CBC was reviewed and was within normal limits. Basic metabolic profile was reviewed. Potassium was low at 3.0. Glucose was slightly elevated at 116. The remainder was within normal limits. High-sensitivity troponin was reviewed and was normal at 3. D-dimer was reviewed and was elevated at 1.23. Urinalysis was reviewed. There is no evidence of urinary tract infection or hematuria. COVID-19 rapid antigen was reviewed and was negative. RSV rapid antigen was reviewed and was negative. Influenza A and influenza B antigens were reviewed and were positive for influenza A. Labs: Laboratory Results - last 24 hr 07/10/23 07/10/23 16:50 16:55 WBC 5.0 RBC 4.85 Hgb 13.7 Hct 42.5 MCV 87.6 MCH 28.2 MCHC 32.2 RDW Std Deviation 39.8 RDW Coeff of Patrick 12.5 Plt Count 176 MPV 9.8 Immature Gran % (Auto) 0.400 Neut % (Auto) 47.4 Lymph % (Auto) 35.4 [place] % (Auto) 16.2 H Eos % (Auto) 0.0 Baso % (Auto) 0.6 Absolute Neuts (auto) 2.4 Absolute Lymphs (auto) 1.77 Nucleated RBC % 0 D-Dimer Quant (PE/DVT) 1.23 H* Sodium 139 Potassium 3.0 L Chloride 107 Carbon Dioxide 26.0 Anion Gap 6 BUN 20 H Creatinine 0.75 Estim Creat Clear Calc 75.37 Est GFR (MDRD) Af Amer 103 Est GFR (MDRD) Non-Af 85 BUN/Creatinine Ratio 26.7 H Glucose 116 H Calcium 9.1 Troponin I High Sens 3 Urine Color Yellow Urine Clarity Clear Urine pH 5.0 Ur Specific [place] 1.030 Urine Protein 30 H Urine Glucose (UA) Normal Urine Ketones 5 H Urine Occult Blood 50 H Urine Nitrite Negative Urine Bilirubin Negative Urine Urobilinogen Normal Ur Leukocyte Esterase 25 H Urine RBC 0-5 SEEN Urine WBC 0-5 SEEN Ur Squamous Epith Cells 0-5 SEEN Urine Bacteria 1+ Urine Mucus 1+ Radiography Chest X-Ray - ED: 2 View, Read by ED Physician, Read by Radiologist and No Acute Disease CTA PE Study: No Evidence of PE and No Evidence of Dissection Diagnostic Testing: Clinical Impression(s) from Imaging Studies Chest X-Ray 07/10/23 17:00 IMPRESSION: Minimal right middle lobe atelectasis, otherwise no acute cardiopulmonary disease. Electronically Signed: Lulu Pat MD at 17:17 EST Reading Location ID and State: [facility] / [email or web address] , Service support , Chest CTA 07/10/23 17:55 IMPRESSION: Negative CTA chest examination, without a demonstrated pulmonary embolism or arterial dissection. Mild multifocal multilobar atelectasis otherwise no acute cardiopulmonary disease. Emphysematous changes as described. Low-attenuation structure within the right thyroid lobe measuring 3 mm, if indicated, follow-up with ultrasound in nonacute setting recommended. Electronically Signed: Lulu Pat MD at 18:22 EST Reading Location ID and State: [facility] / [place] , Service support , PA and lateral chest x-ray was obtained. There are 2 views. On my independent interpretation, lung dubois showed right middle lobe atelectasis. There is normal cardiac silhouette. Bony thorax is normal. There is no acute process noted. Radiologist also interpreted the x-ray and agrees. Because of the elevated D-dimer, CTA of the chest was obtained. There is no evidence of pulmonary embolism or aortic dissection. There are emphysematous changes noted. There is no acute cardiopulmonary process noted. This was interpreted by the radiologist was also independently reviewed by myself. EKG Initial EKG: Attestation: I personally reviewed and interpreted this EKG as follows: Interpretation: Sinus Tachycardia (104) and Non-Specific ST Changes Comments: EKG was obtained. On my independent interpretation, it showed a sinus tachycardia with a rate of 104. [place] interval, QRS interval, and QTc intervals were all normal. [place] was normal. There are nonspecific ST-T wave changes. Prior EKG tracings: not available for review Prior: No Prior Treatment and Re-Evaluation :: Patient was given a DuoNeb aerosol. Patient was given a dose of potassium. Patient was advised of her findings. Patient is feeling better on reevaluation. Patient was able to ambulate to the bathroom and back and maintain oxygen saturation of 93% on room air. Patient was given a dose of Tamiflu here. Patient was given a prescription for Tamiflu. Patient was also given a dose of prednisone here. Patient was also given a prescription for prednisone. Patient was also given a prescription for an albuterol inhaler. Patient was instructed to continue Tylenol and ibuprofen as needed for any aches or fevers. Patient was instructed to follow-up with her primary care physician in 3 to 5 days. Patient understood and was agreeable with the plan. All questions were answered. Discharge Plan Triage Chief Complaint: Shortness of Breath Other Complaint: Cold Sx Dizziness ED Provider: Milton Wilder Dx/Rx/DC Orders Clinical Impression: Influenza A, Dyspnea, Asthma Instructions: ED Influenza (Adult) Prescriptions: New prednisone 20 mg tablet 60 mg PO DAILY Qty: 15 0RF oseltamivir [oseltamivir] 75 mg capsule 75 mg PO BID Qty: 10 0RF albuterol sulfate [Ventolin HFA] 90 mcg/actuation HFA aerosol inhaler 2 puff inhalation Q4H PRN PRN (Reason: Wheezing) Qty: 1 0RF Discontinued albuterol sulfate 2 puff inhalation Q4H PRN Primary Care Provider: Care Physician,No Primary Referrals: Maira Bond DO [Med Staff - Instructor Physical] - 3-5 Days Care Physician,No Primary [Primary Care Provider] - Disposition Disposition: Home, Self Care
[2023-07-10] MEDS: Ipratropium/Albuterol Sulfate 3 ML AMPUL.NEB INHALATION (16:32)
[2023-07-10 17:00] LABS: Absolute Lymphocyte Count 1.77 X10^3/uL (0.83-4.51); Absolute Neutrophil Count 2.4 X10^3/uL (2.0-7.7); Basophil# 0.03 X10^3/uL; Basophil% 0.6 % (0-1); Hematocrit 42.5 % (37-47); Hemoglobin 13.7 g/dL (12.0-15.0); Lymphocyte # 1.77 X10^3/ul (0.83-4.51); Lymphocyte % 35.4 % (19-41); Mean Corp Hgb Conc 32.2 g/dL (32-36); Mean Corpuscular Hgb 28.2 pg (27.0-32.0); Mean Corpuscular Volume 87.6 fL (81-99); Mean Platelet Vol. 9.8 fl (6.2-12.0); Monocyte# 0.81 X10^3/uL; Monocyte% 16.2 % (0-10); NRBC Flagged by Analyzer 0 % (0-5); Neutrophil # 2.37 X10^3/uL (2.7-7.7); Neutrophil % 47.4 % (47-70); Platelet Count 176 K/mm3 (150-450); RBC Distribution Width CV 12.5 % (11.6-14.6); RBC Distribution Width SD 39.8 fl (35.1-43.9); Red Blood Count 4.85 M/mm3 (4.2-5.4)
--- NOTE | 2023-07-10 17:00 | RAD_ITS ---
STUDY: X-RAY CHEST REASON FOR EXAM: Female, 57 years old. Dyspnea TECHNIQUE: PA and lateral views of the chest. COMPARISON: 04/08/2022. FINDINGS: Minimal right middle lobe atelectasis, otherwise the lungs are clear and expanded. There is no demonstrated pleural abnormality. Normal size heart. Normal mediastinum and chiki. Normal visualized pulmonary arteries. Normal visualized aortic arch and descending thoracic aorta. Normal visualized thoracic spine. Normal visualized ribs, clavicles, and shoulders. There is no demonstrated abnormality of the visualized soft tissue structures of the upper abdomen. RAD/Chest PA and Lateral IMPRESSION: Minimal right middle lobe atelectasis, otherwise no acute cardiopulmonary disease. Electronically Signed: Lulu Pat MD at 17:17 EST ,
[2023-07-10 17:09] LABS: Color, Urine Yellow (Yellow); Glucose, Dipstick Normal (Normal); Ketone-Dipstick 5 mg/dl (Negative); Leukocyte Esterase-Dipstick 25 /ul (Negative); Nitrite-Dipstick Negative (Negative); Occult Blood-Urine 50 /ul (Negative); Protein-Dipstick 30 mg/dl (Negative); Urine Bilirubin Dipstick Negative (Negative); Urine Clarity Clear (Clear); Urine Urobilinogen Normal (Normal)
[2023-07-10 17:15] LABS: Anion Gap 6 (5-15); BUN 20 mg/dL (7-18); BUN/Creat Ratio 26.7 RATIO (10-20); Calcium,Total 9.1 mg/dL (8.5-10.1); Chloride 107 mmol/L (98-107); Creatinine, Serum 0.75 mg/dL (0.55-1.02); EST Glomerular Filtration Rate 85 mL/min (>60); Est Glom Filt Rate - Afr Amer 103 mL/min (>60); Estimated Creatinine Clearance 75.37 ml/min; Glucose 116 mg/dL (74-106); Sodium Level 139 mmol/L (136-145); Troponin-I HS 3 pg/mL (3.0-54.0)
[2023-07-10 17:18] LABS: Bacteria 1+ /hpf (None Seen); Mucous, Urine 1+ /hpf (<or=2+); Red Blood Cells-Urine 0-5 SEEN /hpf (0-5); Squamous Epithelial Cells - UA 0-5 SEEN /hpf (5-10); White Blood Cells 0-5 SEEN /hpf (0-5)
[2023-07-10 17:24] LABS: D-Dimer Quantitative (DVT/PE) 1.23 FEU/ug/m (0.27-0.49)
[2023-07-10] MEDS: Potassium Chloride Oral Tablet 20 MEQ 40 MEQ PO (17:50)
--- NOTE | 2023-07-10 17:55 | CT_ITS ---
STUDY: CTA CHEST REASON FOR EXAM: Female, 57 years old. Elevated D-dimer RADIATION DOSAGE (If Supplied By Facility): CTDIvol = ( 8.41 ) mGy, DLP = ( 348.66 ) mGycm TECHNIQUE: The examination was performed with the intravenous administration of IV 100mL Isovue-370. Post-processing of the angiographic images was performed, with multiplanar reformation and 3D reconstruction. Individualized dose optimization techniques were used for this CT. COMPARISON: None. FINDINGS: Exam is limited due to motion/breathing artifact. There is low attenuation structure within the right thyroid lobe measuring 3.5 mm. Normal enhancement of the main pulmonary artery and right and left pulmonary arteries. Normal enhancement of the bilateral peripheral pulmonary arteries. There is no demonstrated pulmonary embolism. There is mild atherosclerotic calcification of the aortic arch with tortuosity. There is no demonstrated aortic dissection. Normal heart and pericardium. Normal mediastinum. Normal hilar regions. Normal visualized trachea and bronchi. The lungs are well expanded. Mild diffuse emphysematous changes throughout the lung dubois, more significant in the lung apices. Multifocal mild atelectasis involving the bilateral lower lobe and left upper lobe. Otherwise lung dubois are clear. Normal pleura. Normal chest wall structures. Diffuse osteopenia with multilevel degenerative disease of the spine. No acute fracture or subluxation. Normal visualized upper abdomen. CT/CTA Chest W/WO Contrast IMPRESSION: Negative CTA chest examination, without a demonstrated pulmonary embolism or arterial dissection. Mild multifocal multilobar atelectasis otherwise no acute cardiopulmonary disease. Emphysematous changes as described. Low-attenuation structure within the right thyroid lobe measuring 3 mm, if indicated, follow-up with ultrasound in nonacute setting recommended. Electronically Signed: Lulu Pat MD at 18:22 EST ,
[2023-07-10] MEDS: predniSONE 20 MG Tablet 60 MG PO (18:43)
[2023-07-10] MEDS: Oseltamivir Phosphate 75 MG Capsule PO (18:43)
== END 2023-07-10 19:04 | disposition home or self-care (01) ==
PROVIDERS: Emergency Provider Emergency Medicine; Visit Provider Emergency Medicine
DX: J10.1 Influenza due to other identified influenza virus with other respiratory manifestations (principal); R06.00 Dyspnea, unspecified; J45.909 Unspecified asthma, uncomplicated; F17.210 Nicotine dependence, cigarettes, uncomplicated; F17.290 Nicotine dependence, other tobacco product, uncomplicated
CPT/HCPCS: 71046; 71275; 80048; 81001; 84484; 85025; 85379; 87040; 87428; 87807; 93005; 94640; 99285; Q9967; A4216

== ENCOUNTER 2024-05-21 14:30 | Outpatient (RCR) | payer MEDICAID, SELFPAY ==
--- NOTE | 2024-04-19 13:11 | HP.OTEVAL_ITS ---
Patient's Visit Information Visit Information Visit Information: DUNIA PENNINGTON is a 58 year old F, referred to Occupational Therapy by LUIS MANUEL Howard, with a diagnosis of RA. Date of Evaluation: 04/19/24 Occupational Therapist: Sil Hassan Subjective Subjective: This 58 year old arrives with dx of RA. pt has had dx for 8 years recently had to stop working in November due to worsening of dx and symptoms. 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 Pt is R hand dominant. Pt reports her R hand is worse than L unable to straighten it. increased assistance with self care tasks including fastening of bra and pulling pants up all the way over waist. daughter with down syndrome assists with cooking tasks. pt occ drops items when holding on to them. denies numbness or tingling. pt would benefit from OT services in order to provide training in joint protection and positioning as well as bracing and pain management. Pain R hand: Current Pain Intensity: 4 L hand: Current Pain Intensity: 6 Objective Objective/Observation: Pt arrives R hand MP swollen and ulnarly deviated ROM Shoulder: L 90 degrees R 105 degrees Elbow: L -45/WFL R -40/WFL Forearm: L supination wfl R supination 10 degrees Wrist: L 45/15 R 35/15 MP: L R -45/65 R 0/55 IP: L 0/ 90 R 0/55 Opposition: wfl ROM Comments: R hand 4 cm from palm MF L hand 6 cm from palm on MF R hand MP joints ulnar deviated no nodules present Strength Shoulder: R shoulder flexion 0# L shoulder flexion 4.6# Elbow: R bicep 4.4# L bicep 0# R tricep 9.2# L tricep 16# Casework Specialist: L 0# R 0# Lateral Pinch: L 3# R 0# Tripod Pinch: L 0# R 0# Edema Other: R MPs 20 cm L 19 cm Sensation Sensation Comments: denies [place] Peg Right: 35 sec Left: 28 sec Quick DASH-Disab of Arm,Shoulder& Hand Quick DASH Score: 63.6350 Goals Goal:: pt will improve L hand strength by 5# or more (0#) in order to improve I in ADL and IADL tasks pt will improve R hand strength by 5# or more (0#) in order to improve I in ADL and IADL tasks pt will improve R lateral pinch strength to 3# or more in order to maximize I in ADL and IADL tasks pt will improve B tripod pinch strength to 2# or more in order to maximize I in ADL and IADL tasks Goal:: pt will demonstrate ability to make composite fist with B hands for improved I in ADL and IADL tasks pt will improve B arm elbow extension to -10 or less in order to maximize I in ADL and IADL tasks Goal:: pt will decrease pain in B hands to 2/10 or less in order to maximize I in self care day to day tasks Goal:: Pt will improve R hand MP swelling equal to L side (19 cm) in order to maximize ROM and function Goal:: pt will verbalize/ demonstrate 100% accuracy in joint positioning and protection during day to day tasks Goal:: pt will be able to fasten own bra with AR in order to return to PLOF Goal:: pt will improve quick dash score by 15 points or more (63.63) in order to maximize functional use of B hands Goal:: pt will demonstrate 100% accuracy in proper fit and wear of appropriate bracing to prevent further joint deformity by discharge pt will be able to verbalize at least x3 different adaptive/ compensatory techniques to utilize day to day to maximize I in self care IADL tasks(adaptive cutting board ect) Rehabilitation General Assessment: This 58 year old female arrives with dx of RA presenting with decreased ROM, strength increased pain ulnar deviation of MPs R hand causing decreased ability to perform ADL/ IADL tasks. pt would benefit from OT services at this time 1-2x a week for 4-6 weeks in order to provide pain management ed on joint positioning and protection educate on options for bracing as well as adaptive equipment and promote proper ROM and strength for return to daily tasks. Rehabilitation Potential: Good Anticipated Interventions Anticipated Interventions: A/AAROM/PROM, Strengthening, Edema Control, Triggerpoint Release, Modalities, Orthoses, Joint Protection/Energy Conservation, Fine Motor Coord/[place], Education re assistive Equipment, Education re Diagnosis and Home Program Visit Plan Frequency: 1-2x /Week Duration: 4-6 Weeks General Plan: AROM/AAROM/PROM strengthening edema management bracing/ orthosis joint protection and positioning tendon glide pain management TEXT: Thank you for the opportunity to evaluate your patient. For Medicare and Medicare HMO plans, please review the plan of care and approve it. It will need to be FAXED BACK to us at [phone] for Medicare purposes. Please let me know if there are questions or concerns regarding this plan of care. Physician Signature: Date:
--- NOTE | 2024-04-23 13:00 | HP.PTEVAL_ITS ---
Patient's Visit Information Visit Information Visit Information: DUNIA PENNINGTON is a 58 year old F referred to Physical Therapy by LUIS MANUEL Howard with a diagnosis of NECK AND CHEPE ARM PAIN. Date of Evaluation: 04/19/24 Physical Therapist: Rossana Gaines, PT, Cert MDT Visit Plan Frequency: 2x /Week Duration: 4-6 Weeks Plan: Scapular Strengthening and B Pec/UT/Levator/Scalene Stretching to help red uce stress on Cervical Spine with Daily Activities. US at 1.3 W/CM2 100% to R Neck Musculature in Sitting. Moist Heat to Neck as needed. Instruction in Proper Posture Control, Ergonomics with ADL's and Appropriate Activity Modifications. HEP Instructions. Subjective Subjective: Work/Leisure: CURRENTLY UNEMPLOYED. Disability: NO. PATIENT HAS APPLIED. Present symptoms: CHEPE NECK AND UE PAIN. PATIENT JUST CAME FROM CONSULT WITH OT FOR CHEPE HANDS. PATIENT DENIES NUMBNESS AND TINGLING AND STATES SHE HAS CHIEF C/O PAIN AND STIFFNESS IN HER NECK AND SHLD'S. PT IS GOING TO FOCUS ON NECK AND SHLD'S TODAY. PATIENT IS AGREEABLE. Present since: ABOUT 8-10 YEARS AGO Pain Scale: Worst - 8/10 Least - 0/10 Currently: 7/10 Commenced as a result of: NO APPARENT REASON OTHER THAN LOOKING DOWN ALL THE TIME AT WORK. NOW BELIEVES IT IS FROM RA. Symptoms at onset: UPPER ARM PAIN. Worse: LOOKING DOWN ALOT, MOVING HEAD FROM SIDE TO SIDE, TRYING TO LIFT, USING ARMS Better: ICE PACKS, HEAT, BACK AND BODY MEDICINE, IBUPROFEN Disturbed sleep: YES Previous history/Previous treatment: STEROIDS OFF AND ON SEVERAL YEARS. NO NECK OR SHLD SURGERY. NO NECK OR SHLD INJECTIONS. This episode: CYMBALTA X 5 DAYS BUT STOPPED DUE TO SIDE EFFECTS. Dizziness: NO Tinnitus: NO Nausea: YES - CONSTANT Shortness of Breath: NO Difficulty Swollowing: AT TIMES Gait: NOT USING ANY AD'S. DENIES ANY FALLS. CAN DO HER OWN GROCERY SHOPPING. Unexplained weight loss: NO Imaging: NECK X-RAY BY [facility] 2 YEARS AGO AND DX'S WITH ARTHRITIS PER PATIENT REPORT. OTHERWISE NO NECK OR SHLD IMAGING PER PATIENT REPORT. PMH/Recent major surgery: RA. SKIN CANCER. ASTHMA. ANXIETY. DEPRESSION. Objective Objective: Sitting Posture/Standing Posture: POOR. VERY GUARDED AND RESTLESS. FORWARD HEAD AND ROUNDED SHOULDERS. Active Correction of posture: ABLE TO PARTIALLY CORRECT. DOES NOT MAINTAIN. DECREASES C/O NECK PAIN AND INCREASES C/O R SHLD PAIN. Other Observations: INDEP SLOW ANTALGIC GAIT INTO PT WITHOUT AD OR LOB. Sensory deficit: CHEPE UE LIGHT TOUCH SENSATION IS GROSSLY INTACT AND SYMMETRICAL - FOREARM AND HANDS NT. ROM deficit: 103 DEG ACTIVE ELEVATION R UE. 115 DEG ACTIVE ELEVATION L UE. PATIENT IS R HAND DOMINANT. Motor deficit: R SHLD STRENGTH GROSSLY 2+/5. L SHLD 3-/5. Reflexes: 2+ CHEPE BICEPS. Dural Signs: POSITIVE CHEPE UE'S. Cervical Mvmt Loss: Flex: MOD Pro: NIL Ext: MOD Ret: MOD RSB: MOD LSB: MOD R Rot: MIN L Rot: MIN PATIENT C/O INCREASED NECK AND SHLD PAIN WITH ROM TESTING ALL PLANES BUT ESPECIALLY NECK FLEXION. Postural strength: POOR Palpation: INCREASED MUSCLE TONE OF CHEPE UPPER BACK, NECK AND SHLD MUSCULATURE THROUGHOUT WITH MULTIPLE TRIGGER POINTS AND C/O TENDERNESS. TREATMENT: POSTURE CORRECTION/TRAINING. Balance/Special Test Scores Oswestry Neck Score: 24 Goals Goal 1:: DECREASE C/O NECK AND SHLD PAIN BY AT LEAST 50% TO EASE ADL'S Goal Time Frame: 4-6 Weeks Goal 2:: IMPROVE PERSONAL CARE, READING, SLEEP, DRIVING, LIFTING, WORK AND RECREATIONAL FUNCTION Goal Time Frame: 4-6 Weeks Goal 3:: INSTRUCT IN PROPHYLAXIS Goal Time Frame: 4-6 Weeks Rehabilitation Potential Physical Therapy Diagnosis: NECK AND SHOULDER STIFFNESS AND WEAKNESS. INCREASED MUSCLE TONE OF NECK AND SHOULDERS AND C/O TENDERNESS. Rehabilitation Potential: Fair Anticipated Interventions Patient/Client Instruction: Educate patient on: Condition, Plan of Care and Risk Factors For the Purpose of:: To improve self management Therapeutic Exercise to Include: Strength training, Body mechanics, Postural training, Flexibilty training, Neuromotor development, Relaxation training, Active ROM and Scapular Strength/Stabilization For the Purpose of:: To decrease pain, To increase ROM, To improve muscle performance and motor function, To improve ability to perform ADL's, To increase tolerance to activity/condition/position, To decrease level of supervision to perform tasks, To decrease soft tissue restriction, To increase flexibility/ROM and To improve self management Thermo therapy (hot pack): Yes Ultrasound (thermal/non thermal): Yes For the Purpose of:: To decrease pain and To improve nutrient delivery to tissue Text: Thank you for the opportunity to evaluate your patient. For Medicare and Medicare HMO plans, please review the plan of care and approve it. It will need to be FAXED BACK to us at [phone] for Medicare purposes. For Medicare only, by signing this I certify the plan of care. Please let me know if there are questions or concerns regarding this plan of care. Physician Signature: Date:
--- NOTE | 2024-05-17 15:31 | OTREVAL_ITS ---
Re-Evaluation Intro: Beverley Acuna, MEHDI-C, It has been my pleasure to treat DUNIA PENNINGTON over the last 9 visits for RA. Please see the progress note below for an update on the occupational therapy plan of care! Subjective Subjective: pt arrives after PT doing well. pt wearing braces on B hands which she reports have been helping her. states pain is good with her braces on even after going to PT currently at a 2. pt has one more visit sched for next week would like to continue therapy after because she believes it is helping her however has to figure out a car issue. 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 family development specialist 2# R hand family development specialist 0# L hand lateral pinch 2# R hand lateral pinch 0# L and R tripod pinch 0# pt is 1 cm MF to palm on L hand and 1.5 cm MF to palm on R hand unable to make full fist yet at this time MP joints positioned in UD -- joint deformity and subluxation limiting ROM Plan Plan Frequency: 1-2x /Week Duration: 4-6 Weeks Visits in this POC: 1-2x week (4-6 weeks) Plan: Continue POC: 1-2x week (4-6 weeks) Goals Goals Patient Goals: Regain Strength, Decrease Pain, Decrease Swelling/Stiffness, Use Hand/Wrist/Arm Normally Again, Increase ROM, Be More Independent in ADLS, Resume Former Household Responsibilities (Cooking,Cleaning,Yard, etc.) and Resume Hobbies Goal:: pt will improve L hand strength by 5# or more (0#) in order to improve I in ADL and IADL tasks L 2# pt will improve R hand strength by 5# or more (0#) in order to improve I in ADL and IADL tasks R 0# pt will improve R lateral pinch strength to 3# or more in order to maximize I in ADL and IADL tasks R0# L2# pt will improve B tripod pinch strength to 2# or more in order to maximize I in ADL and IADL tasks R and L 0# Goal:: pt will demonstrate ability to make composite fist with B hands for improved I in ADL and IADL tasks L 1cm MF to palm R1.5 cm MF to palm pt will improve B arm elbow extension to -10 or less in order to maximize I in ADL and IADL tasks Goal:: pt will decrease pain in B hands to 2/10 or less in order to maximize I in self care day to day tasks fluctuates depending on day Goal:: Pt will improve R hand MP swelling equal to L side (19 cm) in order to maximize ROM and function R 19.3 cm L 19 cm Goal:: pt will verbalize/ demonstrate 100% accuracy in joint positioning and protection during day to day tasks ongoing Goal:: pt will be able to fasten own bra with [place] in order to return to PLOF now able to do it with increased time Goal:: pt will improve quick dash score by 15 points or more (63.63) in order to maximize functional use of B hands Goal:: pt will demonstrate 100% accuracy in proper fit and wear of appropriate bracing to prevent further joint deformity by discharge GOAL MET pt will be able to verbalize at least x3 different adaptive/ compensatory techniques to utilize day to day to maximize I in self care IADL tasks(adaptive cutting board ect) GOAL MET Anticipated Interventions Anticipated Interventions Anticipated Interventions: A/AAROM/PROM, Strengthening, Edema Control, Triggerpoint Release, Modalities, Orthoses, Joint Protection/Energy Conservation, Fine Motor Coord/[place], Education re assistive Equipment, Education re Diagnosis and Home Program Re-Evaluation Ending Re-evaluation ending: Please do not hesitate to contact me at [phone] by phone or if you have questions or concerns regarding this new plan of care! Sincerely, Sil Hassan
--- NOTE | 2024-05-21 15:18 | HP.PTDCSUM_ITS ---
Discharge Summary D/C summary: It has been my pleasure to treat DUNIA PENNINGTON referred by Beverley Acuna NP- C, with the diagnosis of NECK AND CHEPE ARM PAIN for a total of 8 visit(s). Discharge Date: 05/21/24 Please see the following information for a summary of their discharge status. Subjective Subjective: PATIENT REPORTS SHE FEELS BETTER WHEN SHE COMES TO THERAPY AND THE EX'S REALLY HELP. SHE STATES THAT EVEN THOUGH THIS IS HELPING SHE NEEDS A BREAK AND WILL BE STOPPING OT AND PT FOR NOW. SHE PLANS TO CONTINUE THE HOME EX'S. HURTING TODAY FROM DOING MORE CLEANING THAN USUAL. Pain NECK: Pain Intensity (Out of 10): 3 SHLD'S: Pain Intensity (Out of 10): 3 Overall Improvement % Improvement: 30 Objective Objective/Function: PATIENT WAS SEEN TODAY FOR RE-ASSESSMENT OF PROGRESS TOWARD THE SET PT GOALS AND THE NEED FOR FURTHER PHYSICAL THERAPY VS READINESS FOR DISCHARGE. THIS PATIENT HAS MADE GREAT PROGRESS IN A RELATIVELY SHORT PERIOD OF TIME. SHE IS INDEP WITH A HEP AND ALTHOUGH SHE IS A GOOD CANDIDATE TO CONTINUE PT SHE WOULD LIKE TO TAKE A BREAK SO WE WILL D/C HER FOR NOW. UPONE EXAM TODAY: ROM deficit: 145 DEG ACTIVE ELEVATION R UE. 155 DEG ACTIVE ELEVATION L UE. PATIENT IS R HAND DOMINANT. Motor deficit: R SHLD STRENGTH GROSSLY 3+/5. L SHLD 3+/5 WITH MMT AT 90 DEG. Dural Signs: POSITIVE CHEPE UE'S. Cervical Mvmt Loss: Flex: NIL Pro: NIL Ext: MOD Ret: MOD RSB: MOD LSB: MOD R Rot: MIN L Rot: MIN PATIENT C/O TIGHTNESS WITH CERVICAL ROM TESTING ALL PLANES BUT LITTLE TO NO PAIN WITH TESTING. Postural strength: POOR Palpation: PATIENT CONTINUES TO HAVE INCREASED MUSCLE TONE OF CHEPE UPPER BACK, NECK AND SHLD MUSCULATURE THROUGHOUT WITH MULTIPLE TRIGGER POINTS AND C/O TENDERNESS BUT IMPROVED COMPARED TO INITIAL EVAL. Goals Goal 1:: DECREASE C/O NECK AND SHLD PAIN BY AT LEAST 50% TO EASE ADL'S Goal Progress: Progressing Goal 2:: IMPROVE PERSONAL CARE, READING, SLEEP, DRIVING, LIFTING, WORK AND REC REATIONAL FUNCTION Goal Progress: Goal Met Goal 3:: INSTRUCT IN PROPHYLAXIS Goal Progress: Goal Met Plan Plan: D/C D/C Information d/c sentence: If there are questions or concerns regarding this patient's physical therapy, please feel free to call me at [phone]. Thank you for the referral of this patient. Sincerely, Rossana Gaines, PT, Cert MDT Balance/Gait/Functional tests Balance/Special Test Scores Oswestry Neck Score: 15 Improvement % Improvement: 30
== END 2024-05-21 19:00 | disposition home or self-care (01) ==
LOC: PT 14:30
PROVIDERS: PCP Nurse Practitioner Primary Care; Referring Provider Nurse Practitioner Primary Care; Visit Provider Nurse Practitioner Primary Care
DX: M06.9 Rheumatoid arthritis, unspecified (principal); M79.601 Pain in right arm; M79.602 Pain in left arm; M54.2 Cervicalgia
CPT/HCPCS: 97035; 97110; 97140; 97162; 97165; 97530

== ENCOUNTER 2024-06-21 21:09 | Emergency (ER) | payer MEDICAID, SELFPAY ==
[2024-06-21 21:11] VITALS: BP 127/79; PULSE 88; RESP 16; TEMP 36.6; O2SAT 99; BMI 29.0
--- NOTE | 2024-06-21 21:38 | EKG12_ITS ---
Test Reason : DYSRHYTHMIA Blood Pressure : */* mmHG Vent. Rate : 69 BPM Atrial Rate : 69 BPM P-R Int : 146 ms QRS Dur : 80 ms QT Int : 392 ms P-R-T Axes : 59 29 38 degrees QTcB Int : 420 ms Normal sinus rhythm Normal ECG Confirmed by Nando Castro ([id number]), news copy editor MANDIE LAZO ([id number]) on 06/22/2024 1:47:03 PM Referred By: Confirmed By: Nando Castro
--- NOTE | 2024-06-21 21:39 | EX.ED.DYSGE1 ---
HPI History of Present Illness Chief Complaint: Abd Pain Informant: patient and family Narrative Narrative: Here with daughter epigastric pain nausea and vomiting x 4. No hematemesis. No diarrhea. She ate around 3 PM 6 hours ago had to take some Tums afterwards. Similar incident in the past self-limiting she discussed with her PCP was told would happen again to let her know. No abdominal surgeries in the past. No urinary symptoms. No chest pains. Denies any black or bloody stools. Denies any alcohol history. Prior similar symptoms: Yes PFSH PFSH Medical History Asthma Rheumatoid arthritis Home Medications ?Medication ?Instructions ?Recorded ?Last Taken ?Type albuterol sulfate 90 mcg/actuation 2 puff inhalation Q4H PRN PRN 07/10/23 Unknown Rx aerosol inhaler (Ventolin HFA) Wheezing ##1 oseltamivir 75 mg capsule 75 mg PO BID #10 CAPSULES 07/10/23 Unknown Rx prednisone 20 mg tablet 60 mg (3 x 20 mg) PO DAILY #15 07/10/23 Unknown Rx TABLETS ondansetron 4 mg disintegrating 4 mg PO Q8H PRN PRN Nausea #10 tabs 06/21/24 Unknown Rx tablet pantoprazole 40 mg tablet,delayed 40 mg PO DAILY #30 tabs 06/21/24 Unknown Rx release sucralfate 1 gram tablet (Carafate) 1 g PO Q6H #60 tabs 06/21/24 Unknown Rx Allergy/AdvReac Type Severity Reaction Status Date / Time amoxicillin Allergy Swelling Verified 06/21/24 21:13 morphine Allergy PT UNSURE Verified 06/21/24 21:13 OF REACTION acetaminophen (From Percocet) AdvReac Vomiting Verified 06/21/24 21:13 oxycodone (From Percocet) AdvReac Vomiting Verified 06/21/24 21:13 Surgical History Status post surgical removal of malignant neoplasm of skin H/O section Hx of tubal ligation Social History household members: family housing: apartment Smoking Status: Current every day smoker tobacco type: cigarettes and e-cigarettes ROS ROS ED Constitutional Constitutional ED: Denies chills, fever(s) or sweats Eyes Eyes: Denies change in vision ENT ENT ED: Denies dysphagia or sore throat Cardiovascular Cardiovascular: Denies chest pain, leg edema, palpitations or racing heartbeat Respiratory/Chest Respiratory/Chest: Denies cough, dyspnea or dyspnea on exertion Gastrointestinal Gastrointestinal: Reports abdominal pain, nausea and vomiting; Denies diarrhea Genitourinary Genitourinary ED: Denies dysuria, hematuria or urinary frequency Musculoskeletal Musculoskeletal: Denies back pain, extremity pain or neck pain Integumentary Denies rash or wounds Neurologic Neurologic: Denies headache(s), paresthesias or weakness EXAM Physical Exam Const Vital Signs: 06/21/24 21:11 Temperature 98 F Temperature Source Oral Pulse Rate 88 Respiratory Rate 16 Blood Pressure 127/79 H Blood Pressure Mean 95 Pulse Ox 99 Oxygen Delivery Method Room Air Positive well nourished and well developed General Appearance ED: well developed and NAD HEENT Reports moist mucous membranes normocephalic and atraumatic Eyes EOMs intact bilaterally and conjunctivae normal General Eye ED: Yes normal appearance of both eyes Neck no lymphadenopathy and supple General: Negative for tenderness Chest Wall Chest: Negative for tenderness Resp normal respiratory effort and normal air movement Effort and Inspection: symmetric chest movement; Negative for respiratory distress Cardio regular rate, regular rhythm and no murmurs Peripheral Pulses: pulses 2+ throughout GI normal to inspection, nondistended, normoactive bowel sounds GI Narrative: Epigastric tenderness negative Hernandez's McBurney's. No guarding or rebound. Palpation: Negative for guarding or rebound tenderness present Back/Spine no CVA tenderness and no thoracic nor lumbar tenderness Extremity normal to inspection General Extremety ED: Negative for edema or tenderness General Extremity: Negative for edema Neuro oriented x3 and no sensory deficits noted Sensorium / Orientation: awake and alert Skin no rashes or lesions noted and no wounds MDM MDM MDM Narrative Medical decision making narrative: Interventions / MDM: Differential diagnosis: Gastritis Diagnosis considered but do not suspect: No clinical cholecystitis or appendicitis. Pancreatitis however lipase normal. My EKG interpretation: Sinus rate of 69, no ST or T wave changes. Imaging independently reviewed and interpreted by myself: N/A External documents reviewed: N/A Test considered but not ordered:N/A ED course: Epigastric abdominal pain vomiting for the past few hours. Nonsurgical abdomen. Dry mucosal membranes. Will check abdominal labs IV fluids Zofran ordered. Pepcid ordered. GI cocktail ordered. 2250: Abdominal labs normal. Lipase at 65. Hemoglobin 13.1. Creatinine 0.85. Reevaluations transient relief of symptoms GI cocktail she was able to sleep a little bit. Symptoms slightly returned. Discussed gastritis with the patient. She will be placed on sucralfate and PPI. Zofran to use as needed. She will monitor for tarry black stools. Given follow-up with GI and her PCP. All questions were answered. Re-evaluation: stable Disposition discussed with patient/family/significant other: Patient and daughter Case discussed with consulting clinician: N/A This note was generated with [employer] dictation software. It may contain incorrect words, spelling, and punctuation that were not noted in checking the note before signing. Lab Data Attestation: I reviewed the patient's lab results. Labs: Laboratory Results - last 24 hr 06/21/24 21:32 WBC 5.3 RBC 5.02 Hgb 13.1 Hct 40.4 MCV 80.5 L MCH 26.1 L MCHC 32.4 RDW Std Deviation 41.7 RDW Coeff of Patrick 14.2 Plt Count 260 MPV 9.2 Immature Gran % (Auto) 0.200 Neut % (Auto) 58.0 Lymph % (Auto) 30.9 [place] % (Auto) 8.9 Eos % (Auto) 1.1 Baso % (Auto) 0.9 Absolute Neuts (auto) 3.1 Absolute Lymphs (auto) 1.63 Nucleated RBC % 0 Sodium 140 Potassium 3.9 Chloride 107 Carbon Dioxide 29.0 Anion Gap 4 L BUN 16 Creatinine 0.85 Estim Creat Clear Calc 75.94 Est GFR (MDRD) Af Amer 89 Est GFR (MDRD) Non-Af 74 BUN/Creatinine Ratio 18.9 Glucose 129 H Calcium 10.4 H Total Bilirubin 0.40 AST 19 ALT 27 Alkaline Phosphatase 99 Total Protein 8.2 Albumin 3.6 Globulin 4.6 H Albumin/Globulin Ratio 0.8 L Lipase 65 Discharge Plan Triage Chief Complaint: Abd Pain ED Provider: Lincoln Moulton Dx/Rx/DC Orders Clinical Impression: Gastritis, Abdominal pain, Vomiting Instructions: Abdominal Pain, ED Gastritis (Adult) Prescriptions: New sucralfate [Carafate] 1 gram tablet 1 g PO Q6H Qty: 60 0RF pantoprazole 40 mg tablet,delayed release (DR/EC) 40 mg PO DAILY Qty: 30 0RF ondansetron 4 mg tablet,disintegrating 4 mg PO Q8H PRN PRN (Reason: Nausea) Qty: 10 0RF No Action prednisone 20 mg tablet 60 mg PO DAILY Qty: 15 0RF oseltamivir [oseltamivir] 75 mg capsule 75 mg PO BID Qty: 10 0RF albuterol sulfate [Ventolin HFA] 90 mcg/actuation HFA aerosol inhaler 2 puff inhalation Q4H PRN PRN (Reason: Wheezing) Qty: 1 0RF Primary Care Provider: PodlogBeverley moyer NP Referrals: Fabrizio Monroy DO [Med Staff - Active Staff] - 1-2 Weeks PodlogBeverley moyer NP, DRIVER'S EDUCATION INSTRUCTOR-C [Primary Care Provider] - 1-2 Weeks Activity Restrictions/Additional Instructions: EKG normal. Abdominal labs are normal. Take medication as prescribed. Follow-up with GI and your PCP. Print Language: Tamazight Disposition Disposition: Home, Self Care
[2024-06-21] MEDS: Famotidine 200 MG/20 ML MDV 20 MG in 0.9% Normal Saline (Pres. free 8 ML 300 MG IV (21:45)
[2024-06-21] MEDS: Mag Hydrox/Al Hydrox/Simeth 30 ML UDC PO (21:45)
[2024-06-21] MEDS: Ondansetron 4 MG/2 ML Vial IV (21:45)
[2024-06-21] MEDS: 0.9% Normal Saline (1000mL) 1,000 ML 999 ML IV (21:45)
[2024-06-21] MEDS: Lidocaine 2% Viscous15 ML UDC 15 ML PO (21:45)
[2024-06-21 21:54] LABS: Absolute Lymphocyte Count 1.63 X10^3/uL (0.83-4.51); Absolute Neutrophil Count 3.1 X10^3/uL (2.0-7.7); Basophil# 0.05 X10^3/uL; Basophil% 0.9 % (0-1); Eosinophil# 0.06 X10^3/uL; Eosinophils% 1.1 % (0-5); Hematocrit 40.4 % (37-47); Hemoglobin 13.1 g/dL (12.0-15.0); Lymphocyte # 1.63 X10^3/ul (0.83-4.51); Lymphocyte % 30.9 % (19-41); Mean Corp Hgb Conc 32.4 g/dL (32-36); Mean Corpuscular Hgb 26.1 pg (27.0-32.0); Mean Corpuscular Volume 80.5 fL (81-99); Mean Platelet Vol. 9.2 fl (6.2-12.0); Monocyte# 0.47 X10^3/uL; Monocyte% 8.9 % (0-10); NRBC Flagged by Analyzer 0 % (0-5); Neutrophil # 3.06 X10^3/uL (2.7-7.7); Platelet Count 260 K/mm3 (150-450); RBC Distribution Width CV 14.2 % (11.6-14.6); RBC Distribution Width SD 41.7 fl (35.1-43.9); Red Blood Count 5.02 M/mm3 (4.2-5.4); White Blood Count 5.3 K/mm3 (4.4-11.0)
[2024-06-21 22:12] LABS: ALB/GLOB Ratio 0.8 RATIO (0.9-2.4); AST(SGOT) 19 U/L (15-37); Alanine Aminotransfer ALT/SGPT 27 U/L (13-56); Albumin, Serum 3.6 g/dL (3.2-5.0); Alkaline Phosphatase 99 U/L (45-117); Anion Gap 4 (5-15); BUN 16 mg/dL (7-18); BUN/Creat Ratio 18.9 RATIO (10-20); Calcium,Total 10.4 mg/dL (8.5-10.1); Chloride 107 mmol/L (98-107); Creatinine, Serum 0.85 mg/dL (0.55-1.02); EST Glomerular Filtration Rate 74 mL/min (>60); Est Glom Filt Rate - Afr Amer 89 mL/min (>60); Estimated Creatinine Clearance 75.94 ml/min; Globulin 4.6 g/dL (2.2-4.2); Glucose 129 mg/dL (74-106); Lipase 65 U/L (13-75); Potassium 3.9 mmol/L (3.5-5.1); Protein, Total 8.2 g/dL (6.4-8.2); Sodium Level 140 mmol/L (136-145)
[2024-06-21 23:11] VITALS: PULSE 77; RESP 18; O2SAT 96
== END 2024-06-21 23:48 | disposition home or self-care (01) ==
PROVIDERS: Emergency Provider Emergency Medicine; PCP Nurse Practitioner Primary Care; Visit Provider Emergency Medicine
DX: K29.70 Gastritis, unspecified, without bleeding (principal); F17.210 Nicotine dependence, cigarettes, uncomplicated; F17.290 Nicotine dependence, other tobacco product, uncomplicated
CPT/HCPCS: 80053; 83690; 85025; 93005; 96361; 96374; 96376; 99283; A4216; J2405

== ENCOUNTER 2025-01-22 13:27 | Emergency (ER) | payer MEDICAID, SELFPAY ==
[2025-01-22 13:30] VITALS: BP 144/65; PULSE 130; RESP 18; TEMP 36.3; O2SAT 93; BMI 26.6
--- NOTE | 2025-01-22 14:32 | EKG12_ITS ---
Test Reason : Blood Pressure : */* mmHG Vent. Rate : 89 BPM Atrial Rate : 89 BPM P-R Int : 120 ms QRS Dur : 82 ms QT Int : 354 ms P-R-T Axes : -21 6 0 degrees QTcB Int : 430 ms Normal sinus rhythm Normal ECG Confirmed by EDDIE AMEZQUITA, RAFY ([id number]), features editor MANDIE LAZO ([id number]) on 01/24/2025 6:34:40 AM Referred By: Confirmed By: RFAY MORGAN MD
[2025-01-22 14:49] LABS: Hematocrit 43.7 % (37-47); Hemoglobin 14.6 g/dL (12.0-15.0); Immature Granulocytes Count 0.020 X10^3/uL (0.0-0.0); Mean Corp Hgb Conc 33.4 g/dL (32-36); Mean Corpuscular Volume 80.8 fL (81-99); Mean Platelet Vol. 9.0 fl (6.2-12.0); NRBC Flagged by Analyzer 0 % (0-5); Platelet Count 250 K/mm3 (150-450); RBC Distribution Width CV 13.7 % (11.6-14.6); RBC Distribution Width SD 39.9 fl (35.1-43.9); Red Blood Count 5.41 M/mm3 (4.2-5.4); White Blood Count 6.5 K/mm3 (4.4-11.0)
--- NOTE | 2025-01-22 14:53 | ED.VIS.CHEST ---
HPI History of Present Illness Chief Complaint: Chest Other Narrative Narrative: Chief complaint and HPI: Epigastric abdominal pain. 59-year-old female with past medical history of rheumatoid arthritis not on medication presents for evaluation of epigastric abdominal pain. Patient states on 01/19 she developed epigastric abdominal pain which she describes as burning, radiates up into her throat. States she took some Mylanta with mild relief. She states she had some nausea and vomiting associated with this however this has improved. She states she has a remote history of GERD and was prescribed a PPI however she does not take this. She denies any pain in the chest. She denies any fever, chills, shortness of breath, diarrhea, constipation, dysuria. Review of systems: See HPI Medications: As listed on the chart Allergies: As listed on the chart PFSH: Per chart Vital signs: As listed on the chart. Reviewed. Physical exam: Gen: A&O x3, NAD Head: Normocephalic, atraumatic Eyes: No sclera icterus, conjunctiva clear ENT: Moist mucous membranes Neck: Trachea midline, No JVD CV: RRR, no murmurs, no peripheral edema Resp: Lungs CTA BL, no w/r/c GI: Abd soft, non-distended, nontender, no r/r/g : No CVA tenderness Musc: Full ROM, no deformity Skin: Warm, dry Neuro: Alert, oriented, grossly intact, sensation intact Psych: Cooperative, appropriate mood and affect [facility] Medical History (Updated 01/22/25 @ 13:57 by Roselia Carvajal) GERD (gastroesophageal reflux disease) Asthma Rheumatoid arthritis Home Medications ?Medication ?Instructions ?Recorded ?Last Taken ?Type albuterol sulfate 90 mcg/actuation 2 puff inhalation Q4H PRN PRN 07/10/23 Unknown Rx aerosol inhaler (Ventolin HFA) Wheezing ##1 oseltamivir 75 mg capsule 75 mg PO BID #10 CAPSULES 07/10/23 Unknown Rx prednisone 20 mg tablet 60 mg (3 x 20 mg) PO DAILY #15 07/10/23 Unknown Rx TABLETS ondansetron 4 mg disintegrating 4 mg PO Q8H PRN PRN Nausea #10 tabs 06/21/24 Unknown Rx tablet pantoprazole 40 mg tablet,delayed 40 mg PO DAILY #30 tabs 06/21/24 Unknown Rx release sucralfate 1 gram tablet (Carafate) 1 g PO Q6H #60 tabs 06/21/24 Unknown Rx Allergy/AdvReac Type Severity Reaction Status Date / Time amoxicillin Allergy Swelling Verified 01/22/25 13:29 morphine Allergy PT UNSURE Verified 01/22/25 13:29 OF REACTION acetaminophen (From Percocet) AdvReac Vomiting Verified 01/22/25 13:29 oxycodone (From Percocet) AdvReac Vomiting Verified 01/22/25 13:29 Surgical History Status post surgical removal of malignant neoplasm of skin H/O section Hx of tubal ligation Social History household members: family housing: apartment Smoking Status: Current every day smoker tobacco type: e-cigarettes EXAM Physical Exam Const Vital Signs: 01/22/25 13:30 01/22/25 13:52 Temperature 97.3 F L Temperature Source Temporal Pulse Rate 130 H Respiratory Rate 18 Respiratory Effort Normal Non-Labored Respiratory Pattern Normal Blood Pressure 144/65 H Blood Pressure Mean 91 Pulse Ox 93 Oxygen Delivery Method Room Air MDM MDM MDM Narrative Medical decision making narrative: 59-year-old female with past medical history of rheumatoid arthritis not on medication presents for evaluation of epigastric abdominal pain. Patient states on 01/19 she developed epigastric abdominal pain which she describes as burning, radiates up into her throat. States she took some Mylanta with mild relief. Has a remote history of GERD and supposed to be on PPI however does not take it. Differential diagnosis includes but is not limited to GERD, gastritis, PUD, pancreatitis, suspect less likely ACS as patient is not having chest pain. Patient is nontender on physical exam therefore do not think CT abdomen and pelvis is needed. Pepcid, GI cocktail ordered with NS bolus. Laboratory workup ordered. EKG reviewed see below. CBC without leukocytosis or anemia. Platelets unremarkable. CMP unremarkable without significant electrolyte abnormality or SILVERIO. No transaminitis. Lipase unremarkable. Troponin unremarkable. On reevaluation, patient states her pain has resolved. I suspect her pain is secondary to GERD. She is supposed to be taking a PPI but does not take this. She states she does not have any pills at home. Will place her on 40 mg of Protonix daily. Follow-up with PCP and GI. Return precautions explained. She appeared understand the plan. EKG: Interpreted by me/EM physician: EKG shows normal sinus rhythm without any acute ischemic changes. Heart rate 89 Impression: 1. Epigastric abdominal 2. GERD, noncompliant with medication Lab Data Labs: Laboratory Results - last 24 hr 01/22/25 14:41 WBC 6.5 RBC 5.41 H Hgb 14.6 Hct 43.7 MCV 80.8 L MCH 27.0 MCHC 33.4 RDW Std Deviation 39.9 RDW Coeff of Patrick 13.7 Plt Count 250 MPV 9.0 Immature Gran % (Auto) 0.300 Neut % (Auto) 52.1 Lymph % (Auto) 27.7 [place] % (Auto) 15.8 H Eos % (Auto) 3.2 Baso % (Auto) 0.9 Absolute Neuts (auto) 3.4 Absolute Lymphs (auto) 1.79 Nucleated RBC % 0 Sodium 137 Potassium 3.6 Chloride 100 Carbon Dioxide 23.3 Anion Gap 14 BUN 21 H Creatinine 0.92 Estim Creat Clear Calc 69.03 Est GFR (MDRD) Non-Af 72 BUN/Creatinine Ratio 22.6 H Glucose 111 H Calcium 9.2 Total Bilirubin 0.67 AST 19 ALT 16 Alkaline Phosphatase 89 Troponin T High Sens < 6 Total Protein 7.8 Albumin 3.8 Globulin 4.0 Albumin/Globulin Ratio 1.0 Lipase 36 Discharge Plan Triage Chief Complaint: Chest Other ED Provider: Reynold Gerard Dx/Rx/DC Orders Prescriptions: No Action prednisone 20 mg tablet 60 mg PO DAILY Qty: 15 0RF oseltamivir [oseltamivir] 75 mg capsule 75 mg PO BID Qty: 10 0RF albuterol sulfate [Ventolin HFA] 90 mcg/actuation HFA aerosol inhaler 2 puff inhalation Q4H PRN PRN (Reason: Wheezing) Qty: 1 0RF sucralfate [Carafate] 1 gram tablet 1 g PO Q6H Qty: 60 0RF pantoprazole 40 mg tablet,delayed release (DR/EC) 40 mg PO DAILY Qty: 30 0RF ondansetron 4 mg tablet,disintegrating 4 mg PO Q8H PRN PRN (Reason: Nausea) Qty: 10 0RF Primary Care Provider: Podlogar,Beverley [employer] MANAGER Referrals: Podlogar,Beverley [employer] PRO[employer]S MANAGER, [employer] MANAGER-C [Primary Care Provider] - Print Language: Mohawk
[2025-01-22] MEDS: Lidocaine 2% Viscous15 ML UDC 15 ML PO (15:00)
[2025-01-22] MEDS: 0.9% Normal Saline (1000mL) 1,000 ML 1000 ML IV (15:00)
[2025-01-22] MEDS: Famotidine 200 MG/20 ML MDV 20 MG in 0.9% Normal Saline (Pres. free 8 ML 300 MG IV (15:00)
[2025-01-22 16:27] LABS: AST(SGOT) 19 U/L (<=31); Alanine Aminotransfer ALT/SGPT 16 U/L (<=34); Albumin, Serum 3.8 g/dL (3.5-5.0); Alkaline Phosphatase 89 U/L (35-104); Anion Gap 14 (5-15); BUN 21 mg/dL (4-19); BUN/Creat Ratio 22.6 RATIO (10-20); Calcium,Total 9.2 mg/dL (7.6-11.0); Carbon Dioxide 23.3 mmol/L (21.0-32.0); Chloride 100 mmol/L (98-108); Estimated Creatinine Clearance 69.03 ml/min (50-250); Globulin 4.0 g/dL (2.2-4.2); Glucose 111 mg/dL (70-99); Lipase 36 U/L (13-75); Potassium 3.6 mmol/L (3.3-5.1); Troponin T High Sensitivity < 6 ng/L (<=14)
[2025-01-22 16:45] VITALS: BP 128/87; PULSE 90; RESP 17; TEMP 36.8; O2SAT 96
== END 2025-01-22 17:03 | disposition home or self-care (01) ==
PROVIDERS: Emergency Provider Surgery; PCP Nurse Practitioner Primary Care; Visit Provider Surgery
DX: R10.13 Epigastric pain (principal); K21.9 Gastro-esophageal reflux disease without esophagitis
CPT/HCPCS: 80053; 83690; 84484; 85025; 93005; 96360; 96361; 99284

== ENCOUNTER → 2025-03-09 | Outpatient (CLI) | payer MEDICAID, SELFPAY ==
--- NOTE | 2025-03-09 10:47 | US_ITS ---
PROCEDURE: ABDOMEN LIMITED 03/09/2025 REASON FOR EXAM: ABD PAIN Evaluation of right upper quadrant organs. TECHNIQUE: ABDOMEN LIMITED COMPARISON: None. FINDINGS: Liver: Liver size is normal with a length of 14.0 cm. Echogenicity is within normal limits. Bile ducts are not dilated normal hepatic color flow Gallbladder: Gallbladder length is 9.1 cm, within normal limits. Sonographic Hernandez's sign is absent. Multiple gallstones identified. No pericholecystic fluid. Gallbladder wall thickness: 2 mm. CBD diameter: 5 mm. Pancreas: Head and body of pancreas appear within normal limits. The tail is not visible. Kidneys: The right kidney measures 9.9 x 4.1 x 4.3 cm. Normal size and cortical thickness. No calculi identified. Cortical thickness is 1.0 cm. US/Abdomen Limited IMPRESSION: Cholelithiasis with multiple gallstones. No other abnormalities are detected. No cholecystitis Reading [facility]
--- OUTSIDE RECORDS SUMMARY | 2025-03-09 10:49 | XMS RPT_ITS | CCD ---
Author Organization [facility] Care Team Providers Care Chucker Name Role Phone Evie Coates Unavailable Unavailable Casey Hayes Unavailable Unavailable Allan [facility] [place].Candi HORVATH Primary Care Provider Allan [facility] [place].Candi HORVATH Primary Care Provider Unavailable Primary Care Provider Unavaildileep e Unavailable Primary Care Provider Unavaildileep e Martha Art MD Primary Care Provider Podlogar [facility] [place].Beverley HORVATH Unavailable NEGRITO PANDA Attending Unavailable Podlogar [employer] [place].Beverley HORVATH Unavailable MARTHA ART Primary Care Unavailab le PODLOGAR, BEVERLEY Attending Unavailable PODLOGAR, BEVERLEY Referring Unavailable MARTHA ART Primary Care Unavailab le PODLOGAR, BEVERLEY Referring Unavailable MARTHA ART Primary Care Unavailab le MARTHA ART Primary Care Unavailab le PODLOGAR, BEVERLEY Attending Unavailable PODLOGAR, BEVERLEY Referring Unavailable MARTHA ART Primary Care Unavailab le Knoble [facility] [place].Olimpia HORVATH Unavailable Knoble [facility] [place].Olimpia HORVATH Unavailable Knoble [facility].Olimpia HORVATH Unavailable Podlogar INTERNET SECURITY SPECIALIST-Beverley Hutchins Primary Care Provider Dr. Reynold Gerard DO Emergency Provider Kn[place]le [facility] [place].Olimpia HORVATH Unavailable Dr. Reynold Gerard DO Attending Provider Podlogar INTERNET SECURITY SPECIALIST-CBeverley Referring Provider Alejandra Gutierrez Attending Provider [phone] Alejandra Gee Attending Unavailable Podlogar INTERNET SECURITY SPECIALIST, Beverley Primary Care Unavailable Podlogar INTERNET SECURITY SPECIALIST, Beverley Referring Unavailable Podlogar INTERNET SECURITY SPECIALIST, Beverley Primary Care Unavailable Podlogar INTERNET SECURITY SPECIALIST, Beverley Attending Unavailable Podlogar INTERNET SECURITY SPECIALIST, Beverley Referring Unavailable Lincoln Moulton Attending Unavailable Podlogar INTERNET SECURITY SPECIALIST, Beverley Primary Care Unavailable Reynold Gerard Attending Unavailabl e Podlogar INTERNET SECURITY SPECIALIST, Beverley Primary Care Unavailable Podlogar INTERNET SECURITY SPECIALIST, Beverley Primary Care Unavailable Eliana Fabrizio Attending Unavailable Podlogar INTERNET SECURITY SPECIALIST, Beverley Primary Care Unavailable Alejandra Gee Attending Unavailable Alejandra Gee Referring Unavailable Allergies Allergy Classification Reported Allergen(s) Allergy Type Date of Onset Reaction(s) Facility (6 sources) Acetaminophen Drug Allergy 11-25-2021 [facility] (20 sources) Amoxicillin; Translations: [AMOXICILLIN] Drug Allergy 01-20-2017 Itching [facility] (20 sources) Morphine; Translations: [MORPHINE] Drug Allergy 01-20-2017 Unknown [facility] (6 sources) oxyCODONE Drug Allergy 11-25-2021 Vomiting [facility] (16 sources) Acetaminophen / HYDROcodone; Translations: [HYDROCODONE-ACETA MINOPHEN] Drug Allergy 01-20-2017 GI Upset [facility] (16 sources) Acetaminophen / oxyCODONE; Translations: [OXYCODONE-ACETAMI NOPHEN] [facility] Drug Allergy 01-22-2025 [facility] (1 source) Amoxicillin Drug Allergy 01-22-2025 [facility] (1 source) Morphine Drug Allergy 01-22-2025 [facility] (1 source) oxyCODONE Drug Allergy 01-22-2025 [facility] Medications Current Medications Medication Drug Class(es) Dates Sig (Normalized) Sig (Original) [id number] 200 actuat albuterol 0.09 mg/actuat metered dose inhaler (20 sources) beta2-Adrenergic Agonist Start: 03-08-2025 albuterol (PROVENTIL) 2.5 mg /3 mL (0.083 %) nebulizer solution Indications: Moderate asthma with acute exacerbation, unspecified whether persistent (HCC) Use 3 mL via nebulizer every 4 hours as needed for wheezing/shortness of breath. Use over 5-15minutes. 90 mL 03/08/2025 Active Start: 03-08-2025 take 2 puff(s) by in halation every four hours as needed albuterol HFA (PROAIR HFA) 90 mcg/actuation inhaler Inhale 2 puffs as instructed every 4 hours as needed. 1 each 03/08/2025 Active Start: 07-10-2023 Albuterol Sulf ate (Ventolin Hfa) 90 mcg/actuation HFA aerosol inhaler Active 2 NMA INHALATION EVERY 4 HOURS NEEDED as needed for Wheezing 1 0 July 10, 2023 1:00am Start: 07-10-2023 End: 07-10-2023 albuterol sulfate Discontinu ed 2 NMA INHALATION EVERY 4 HOURS NEEDED July 10, 2023 1:00am July 10, 2023 7:45pm SOB and wheezing Start: 07-10-2023 take 1 puff(s) by in halation every four hours as needed Albuterol Sulfate (Ventolin Hfa) 90 mcg/actuation HFA aerosol inhaler Active 2 PUFF INHALATION EVERY 4 HOURS NEEDED 1 July 10, 2023 12:00am Start: 07-10-2023 End: 07-10-2023 take 1 puff(s) by inhalation every four hours as needed albuterol sulfate Discontinued 2 PUFF INHALATION EVERY 4 HOURS NEEDED July 10, 2023 12:00am July 10, 2023 6:45pm Start: 11-21-2020 End: 03-27-2024 take 2 puff(s) by inhalation every four hours as needed albuterol HFA (PROAIR HFA) 90 mcg/actuation inhaler Inhale 2 Puffs as instructed every 4 hours as needed. 1 Each 11/21/2020 03/27/2024 Discontinued (Course of therapy completed) Start: 10-10-2020 End: 03-27-2024 albuterol (PROVENTIL) 2.5 mg /3 mL (0.083 %) nebulizer solution Indications: Moderate asthma with acute exacerbation, unspecified whether persistent Use 3 mL via nebulizer every 4 hours as needed for Wheezing/Shortness of Breath. Use over 5-15minutes. 1 Package 3 10/10/2020 03/27/2024 Discontinued (Course of therapy completed) Start: 10-10-2020 End: 03-27-2024 take 2 puff(s) by inhalation every six hours as needed albuterol HFA (PROAIR HFA) 90 mcg/actuation inhaler Indications: Moderate asthma with acute exacerbation, unspecified whether persistent Inhale 2 Puffs as instructed every 6 hours as needed. 18 g 6 10/10/2020 03/27/2024 Discontinued (Course of therapy completed) Comment on above: Inhale 2 Puffs as in structed every 6 hours as needed. Use 3 mL via nebuliz er every 4 hours as needed for Wheezing/Shortness of Breath. Use over 5-15minutes. Inhale 2 Puffs as in structed every 4 hours as needed. fluticasone propionate 0.05 mg/actuat metered dose nasal spray (6 sources) Corticosteroid Start: 025 take 2 spray(s) nasal route once daily fluticasone (FLONASE) 50 mcg/actuation nasal spray Indications: Seasonal allergic rhinitis, unspecified trigger Use 2 Sprays in each nostril once daily. 16 g 2 09/24/2024 Active olopatadine 1 mg/ml ophthalmic solution (6 sources) Histamine-1 Receptor Inhibitor Start: 025 take 1 drop(s) into the eye(s) twice daily olopatadine (PATANOL) 0.1 % ophthalmic solution Indications: Seasonal allergic rhinitis, unspecified trigger Use 1 Drop in both eyes two times a day. 5 mL 1 09/24/2024 Active pantoprazole 20 mg delayed release oral tablet (11 sources) Proton Pump Inhibitor Start: 025 take 1 tablet by mouth once daily pantoprazole DR (PROTONIX) 20 mg tablet Indications: Gastroesophageal reflux disease, unspecified whether esophagitis present Take 1 tablet by mouth once daily. 42 tablet 09/24/2024 Active Start: 06-21-2024 End: 02-05-2025 take 1 tablet by mouth once daily Pantoprazole (Protonix) 40 mg tablet,delayed release (DR/EC) Active 40 mg PO DAILY 90 3 February 05, 2025 2:20pm Completed/Discontinued Medications Medication Drug Class(es) Dates Sig (Normalized) Sig (Original) B Complex Vitamins capsule (7 sources) Start: 03-22-2018 End: 03-27-2024 take 1 capsule by mouth once daily B Complex Vitamins capsule Take 1 capsule by mouth once daily. 03/22/2018 03/27/2024 Discontinued (Course of therapy completed) Start: 03-22-2018 take 1 capsule by mo ut once daily B Complex Vitamins capsule Take 1 capsule by mouth once daily. 0 03/22/2018 Active Comment on above: Take 1 capsule by mo uth once daily. benzonatate 100 mg oral capsule (7 sources) Non-narcotic Antitussive Start: End: benzonatate (TESSALON PERLE) 100 mg capsule Tessalon Perles 1-2 every 8 hours, do not combine this with robitussin or delsym 30 capsule 11/21/2020 03/27/2024 Discontinued (Course of therapy completed) Comment on above: Tessalon Perles 1-2 every 8 hours, do not combine this with robitussin or delsym cholecalciferol 0.05 mg oral capsule (7 sources) Vitamin D Start: End: take 2 capsules by mouth once daily Cholecalciferol, Vitamin D3, (VITAMIN D-3) 2,000 unit cap Take 2 capsules by mouth once daily. 60 capsule 11 09/11/2018 03/27/2024 Discontinued (Course of therapy completed) Comment on above: Take 2 capsules by m outh once daily. diclofenac sodium 0.01 mg/mg topical gel (7 sources) Nonsteroidal Anti-inflammatory Drug Start: 019 End: 024 apply 2 g topically four times daily diclofenac sodium (VOLTAREN) 1 % topical gel Apply 2 g to affected area four times daily. 100 g 1 12/04/2018 03/27/2024 Discontinued (Course of therapy completed) Comment on above: Apply 2 g to affecte d area four times daily. diphenhydrAMINE hydrochloride 50 mg oral capsule (3 sources) Histamine-1 Receptor Antagonist Start: 023 End: take 1 capsule by mouth every eight hours as needed Diphenhydramine Hcl 50 mg capsule Discontinued 50 mg PO Q8H as needed for allergic reaction 14 0 April 05, 2023 12:00am July 10, 2023 5:02pm doxycycline hyclate 100 mg oral capsule (10 sources) Tetracycline-class Drug Start: 023 End: 023 take 1 capsule by mouth twice daily Doxycycline Hyclate 100 mg capsule Discontinued 100 mg PO TWICE A DAY 14 7 0 April 23, 2023 12:00am July 10, 2023 5:03pm Start: 03-23-2022 End: 04-02-2022 take 1 tablet by mouth twice daily doxycycline (VIBRA-TABS) 100 mg tablet Indications: Bacterial skin infection Take 1 tablet by mouth twice daily for 10 days. 20 tablet 0 03/23/2022 04/02/2022 Active Start: 11-25-2021 End: 04-05-2023 take 1 capsule by mouth twice daily Doxycycline Monohydrate 100 MG capsule Discontinued 100 mg PO TWICE A DAY November 25, 2021 12:00am April 05, 2023 12:37am Comment on above: Take 1 tablet by [facility] twice daily for 10 days. DULoxetine 30 mg delayed release oral capsule (4 sources) Serotonin and Norepinephrine Reuptake Inhibitor Start: 03-27-20 End: 09-25-19 take 1 capsule by mouth once daily DULoxetine (CYMBALTA) 30 mg capsule Indications: Depression, unspecified depression type Take 1 capsule by mouth once daily. 30 capsule 1 03/27/2024 09/24/2024 Discontinued (Course of therapy completed) famotidine 40 mg oral tablet (3 sources) Histamine-2 Receptor Antagonist Start: 04-05-20 End: 07-10-20 take 1 tablet by mouth once daily Famotidine (Pepcid) 40 mg tablet Discontinued 40 mg PO DAILY 4 0 April 05, 2023 12:00am July 10, 2023 5:03pm naproxen 500 mg oral tablet (6 sources) Nonsteroidal Anti-inflammatory Drug Start: 06-06-20 End: 04-05-20 take 1 tablet by mouth twice daily as needed Naproxen 500 MG tablet Discontinued 500 mg PO TWICE DAILY NEEDED June 06, 2020 1:00am April 05, 2023 12:37am ondansetron 4 mg disintegrating oral tablet (2 sources) Serotonin-3 Receptor Antagonist Start: 06-21-20 End: 02-06-20 take 1 tablet by mouth every eight hours as needed for nausea Ondansetron 4 mg tablet,disintegrati ng Discontinued 4 mg PO EVERY 8 HOURS NEEDED as needed for Nausea June 21, 2024 1:00am February 05, 2025 2:01pm oseltamivir 75 mg oral capsule (3 sources) Neuraminidase Inhibitor Start: 07-10-20 End: 02-06-20 take 1 capsule by mouth twice daily Oseltamivir 75 mg capsule Discontinued 75 mg PO TWICE A DAY July 10, 2023 1:00am February 05, 2025 2:01pm pravastatin sodium 10 mg oral tablet (7 sources) HMG-CoA Reductase Inhibitor Start: 01-02-20 End: 03-27-20 take 1 tablet by mouth once daily pravastatin (PRAVACHOL) 10 mg tablet Take 1 tablet by mouth once daily. 30 tablet 5 01/01/2019 03/27/2024 Discontinued (Course of therapy completed) Comment on above: Take 1 tablet by [facility] once daily. predniSONE 10 mg oral tablet (20 sources) Start: 02-02-20 End: 03-27-20 predniSONE (DELTASONE) 10 mg tablet Take 4 tabs daily for 3 days, then 2 tabs daily for 3 days, then 1 tab daily for 3 days with food. 21 tablet 02/02/2024 03/27/2024 Discontinued (Course of therapy completed) Start: 12-03-2023 End: 12-15-2023 predniSONE (DELTASONE) 10 mg tablet Take 6 tabs for 3 days, then 4 tabs for 3 days, then 2 tabs for 3 days then 1 tab for 3 days with food. 39 tablet 0 12/03/2023 12/15/2023 Active Start: 07-10-2023 End: 02-05-2025 take 3 tablets by mouth once daily Prednisone 20 mg tablet Discontinued 60 mg PO DAILY July 10, 2023 1:00am February 05, 2025 2:01pm Start: 07-10-2023 take 60 mg by mouth once daily Prednisone Active 60 MG PO DAILY July 10, 2023 12:00am Start: 04-08-2022 End: 07-10-2023 take 2 tablets by mouth once daily Prednisone 20 mg tablet Discontinued 40 mg PO DAILY 8 0 April 05, 2023 12:00am July 10, 2023 5:03pm Start: 04-08-2022 End: 07-10-2023 take 40 mg by mouth once daily Prednisone Discontinued 40 MG PO DAILY 8 April 04, 2023 11:00pm July 10, 2023 4:03pm Start: 11-25-2021 End: 04-05-2023 Prednisone 10 mg tablet Disc ontinued 0 mg PO DAILY 63 0 November 25, 2021 12:00am April 05, 2023 12:37am Please contact the information source for Taper Schedule details. Start: 11-25-2021 End: 04-05-2023 Prednisone Discontinued 0 MG PO DAILY 63 November 24, 2021 11:00pm April 04, 2023 11:37pm pseudoephedrine hydrochloride 30 mg oral tablet (7 sources) alpha-Adrenergic Agonist Start: 11-21-2020 End: 03-27-2024 take 2 tablets by mouth twice daily pseudoephedrine (SUDAFED) 30 mg tablet Take 2 tablets by mouth twice daily. 24 tablet 11/21/2020 03/27/2024 Discontinued (Course of therapy completed) Comment on above: Take 2 tablets by mo [facility] twice daily. sucralfate 1000 mg oral tablet (2 sources) Aluminum Complex Start: 06-21-2024 End: 02-05-2025 take 1 tablet by mouth every six hours Sucralfate (Carafate) 1 gram tablet Discontinued 1 g PO EVERY 6 HOURS 60 0 June 21, 2024 1:00am February 05, 2025 2:01pm traMADol hydrochloride 50 mg oral tablet (6 sources) Opioid Agonist Start: 06-06-2020 End: 06-08-2020 take 1 tablet by mouth every four hours as needed for pain Tramadol 50 MG tablet Discontinued 50 mg PO EVERY 4 HOURS NEEDED as needed for Pain 10 2 June 06, 2020 1:00am June 07, 2020 1:00am June 08, 2020 1:03am Problems Active Problems Problem Classification Problem Date Documented Date Episodic/Chronic Abdominal pain (6 sources) Abdominal pain; Translations: [Unspecified abdominal pain] Onset: 01-28-2025 06-29-2024 Episodic Allergic reactions (18 sources) Environmental allergy; Translations: [Other allergy status, other than to drugs and biological substances] 05-23-2018 Episodic Anxiety disorders (15 sources) Anxiety; Translations: [Anxiety disorder, unspecified] Onset: 09-29-2018 09-29-2018 Chronic Asthma (20 sources) Asthma; Translations: [Unspecified asthma, uncomplicated] 05-23-2018 Chronic Cardiac dysrhythmias (3 sources) Tachycardia; Translations: [Tachycardia, unspecified] Onset: 09-24-2024 09-24-2024 Episodic Chronic obstructive pulmonary disease and bronchiectasis (5 sources) Bronchitis; Translations: [Bronchitis, not specified as acute or chronic] 04-16-2022 Episodic Esophageal disorders (7 sources) Gastroesophageal reflux disease; Translations: [Gastro-esophageal reflux disease without esophagitis] Onset: 09-24-2024 09-24-2024 Chronic Gastritis and duodenitis (2 sources) Gastritis; Translations: [Gastritis, unspecified, without bleeding] 06-29-2024 Episodic Genitourinary symptoms and ill-defined conditions (2 sources) Foul smelling urine; Translations: [Unspecified abnormal findings in urine] Onset: 09-24-2024 09-24-2024 Episodic Influenza (3 sources) Influenza due to Influenza A virus; Translations: [Influenza due to other identified influenza virus with other respiratory manifestations] 07-10-2023 Episodic Intracranial injury (4 sources) Concussion injury of body structure; Translations: [Concussion] 03-08-2023 Episodic Mood disorders (2 sources) Depressive disorder; Translations: [Depression, unspecified depression type] 03-27-2024 Chronic Mood disorders (1 source) Mood disorders; Translations: [Depression, unspecified depression type] Onset: 03-27-2024 Nausea and vomiting (2 sources) Vomiting; Translations: [Vomiting, unspecified] 06-29-2024 Episodic Other connective tissue disease (1 source) Pain of bilateral upper limbs; Translations: [Pain in right arm] 03-27-2024 Episodic Other injuries and conditions due to external causes (1 source) Injury of head; Translations: [Unspecified injury of head, initial encounter] 03-08-2023 Episodic Other injuries and conditions due to external causes (2 sources) Other specified injuries of thorax, initial encounter; Translations: [Contusion of rib on left side] 06-07-2020 Episodic Other lower respiratory disease (5 sources) Wheezing; Translations: [Wheezing] 04-16-2022 Episodic Other lower respiratory disease (5 sources) Hemoptysis; Translations: [Hemoptysis] 04-16-2022 Episodic Other lower respiratory disease (3 sources) Dyspnea; Translations: [Dyspnea, unspecified] 07-10-2023 Episodic Other nervous system disorders (15 sources) Carpal tunnel syndrome; Translations: [Carpal tunnel syndrome, unspecified upper limb] Onset: 03-28-2014 12-04-2018 Chronic Other nutritional; endocrine; and metabolic disorders (15 sources) Overweight; Translations: [Overweight] 05-23-2018 Episodic Other screening for suspected conditions (not mental disorders or infectious disease) (20 sources) Raised low density lipoprotein cholesterol; Translations: [Other specified abnormal findings of blood chemistry] Onset: 12-04-2018 05-23-2018 Episodic Other skin disorders (6 sources) Folliculitis; Translations: [Follicular disorder, unspecified] 12-03-2021 Episodic Other skin disorders (15 sources) Skin lesion; Translations: [Disorder of the skin and subcutaneous tissue, unspecified] 05-23-2018 Episodic Other upper respiratory disease (1 source) Seasonal allergic rhinitis; Translations: [Other seasonal allergic rhinitis] 09-24-2024 Chronic Other upper respiratory disease (1 source) Other seasonal allergic rhinitis; Translations: [Seasonal allergic rhinitis, unspecified trigger] Onset: 09-24-2024 Chronic Other upper respiratory disease (3 sources) Cellulitis of external nose ; Translations: [Abscess, furuncle and carbuncle of nose] 05-01-2023 Episodic Residual codes; unclassified (15 sources) Tobacco use and exposure - finding; Translations: [Tobacco use] 05-23-2018 Episodic Residual codes; unclassified (1 source) Swelling; Translations: [Edema, unspecified] 04-19-2023 Episodic Rheumatoid arthritis and related disease (20 sources) Rheumatoid arthritis; Translations: [Rheumatoid arthritis, unspecified] Onset: 05-23-2018 05-23-2018 Chronic Skin and subcutaneous tissue infections (1 source) Bacterial infection of skin; Translations: [Local infection of the skin and subcutaneous tissue, unspecified] Episodic Superficial injury; contusion (8 sources) Contusion of rib; Translations: [Contusion of left front wall of thorax, initial encounter] 06-07-2020 Episodic Unclassified (1 source) Unknown / UNK(Unknown) Onset: 04-06-2018 Past or Other Problems Problem Classification Problem Date Documented Da te Episodic/Chronic Fracture of lower limb (20 sources) Closed fracture of upper end of fibula; Translations: [Other fracture of upper and lower end of unspecified fibula, initial encounter for closed fracture] Onset: 01-29-2016 12-04-2018 Episodic Immunizations and screening for infectious disease (3 sources) Patient encounter status; Translations: [Encounter for immunization] Onset: 03-27-2024 03-27-2024 Episodic Other and unspecified benign neoplasm (15 sources) Lipoma (clinical); Translations: [Benign lipomatous neoplasm, unspecified] Onset: 12-04-2018 12-04-2018 Episodic Other connective tissue disease (15 sources) Pain in limb; Translations: [Pain in unspecified limb] Onset: 10-27-2016 12-04-2018 Episodic Other connective tissue disease (15 sources) Lateral epicondylitis; Translations: [Lateral epicondylitis, unspecified elbow] Onset: 03-28-2014 12-04-2018 Episodic Other connective tissue disease (1 source) Pain in right arm; Translations: [Bilateral arm pain] Onset: 03-27-2024 Episodic Other connective tissue disease (1 source) Pain in left arm; Translations: [Bilateral arm pain] Onset: 03-27-2024 Episodic Other non-traumatic joint disorders (11 sources) Arthralgia of the upper arm; Translations: [Pain in unspecified elbow] Onset: 03-28-2014 12-04-2018 Episodic Other non-traumatic joint disorders (4 sources) Pain in upper arm; Translations: [Pain in unspecified elbow] Onset: 03-28-2014 12-04-2018 Episodic Screening and history of mental health and substance abuse codes (1 source) Encounter for screening for depression; Translations: [Screening for depression] Onset: 03-27-2024 Episodic Spondylosis; intervertebral disc disorders; other back problems (2 sources) Neck pain; Translations: [Cervicalgia] Onset: 03-27-2024 03-27-2024 Episodic Sprains and strains (15 sources) Sprain of foot; Translations: [Unspecified sprain of unspecified foot, initial encounter] Onset: 01-29-2016 12-04-2018 Episodic Unclassified (1 source) COLD,COUGH,CONGESTI ON Onset: 04-06-2018 Results Test Name Value Interpretation Reference Range Facility Gastroenterology Visit Repor chris 02-05-2025 Gastroenterology Visit Report [facility] [address] [place] [address] OFFICE VISIT Date of Service: 02/05/25 MR#: [id number] Acct: [id number] Name: DUNIA VARGAS Rep #: [id number] : 1965 Provider: IVORY Loya Age/Sex: 59/F [place] [facility] [place]: [place] Intake Vital Signs 01/22/25 13:30 Height 5 ft 6 in Intake Visit Reasons: Hospital FU Chief Complaint: epigastric pain Allergies amoxicillin Allergy (Verified 01/22/25 13:29) Swelling morphine Allergy (Verified 01/22/25 13:29) PT UNSURE OF REACTION acetaminophen (From Percocet) Adverse Reaction (Verified 01/22/25 13:29) Vomiting oxycodone (From Percocet) Adverse Reaction (Verified 01/22/25 13:29) Vomiting Nurse's Note: OV 02/05/25 Pt here for a f/u from ER. Pt reports gas, bloating, and heartburn. Denies nausea, vomiting, and abdominal pain. Pt has no prior hx of EGD or colonoscopy. Pt take pantoprazole daily. [facility] Medical History (Updated 02/05/25 @ 14:30 by IVORY Loya) GERD (gastroesophageal reflux disease) Asthma Rheumatoid arthritis Surgical History Status post surgical removal of malignant neoplasm of skin H/O section Hx of tubal ligation Social History household members: family housing: apartment Smoking Status: Current every day smoker tobacco type: e-cigarettes HPI HPI Chief Complaint: epigastric pain Details: DUNIA VARGAS, is a 59 F who presents to the office today for establishment with [facility]. [facility] ED 12.5.25 for abd pain [facility] 7.8.25 for epigastric pain. Hx of GERD not on PPI. Started on PPI and discharged OV 7.22.25 Pt has had 3 episodes over the past year of epigastric pain lasting about 3 hours. The last episode started in the middle of the night after eating a hamburger the night before. She had spasaming in her epigastric region followed by nausea and vomiting. This will last about 3 hours. She has not noticed any aggravating or alleviating factors. She does still have her gallbladder. No hx of EGD or colonoscopy. She notes her brother just had pre cancerous polyps removed. ROS Const Constitutional: No fatigue, fever(s) or weight change ENT ENT: No difficulty swallowing Gastro GI: Positive for bloating, constipation, heartburn, feeling full early and excessive flatus; No abdominal pain, belching, change in bowel habits, change in stool character, coffee ground emesis, cramping, diarrhea, difficulty swallowing, incontinent of stools, Vomiting blood/hematemesis, Blood in stool, loose stools, Black,tarry stools, nausea/dyspepsia, pain with swallowing, vomiting or other Musc Musculoskeletal: Positive for joint pain, joint swelling, muscle weakness, stiffness and Arthritis Skin Skin: No yellowing of the eye or itchy eyes Psych Psychiatric: No anxiety and No depression Endo Endocrine: No fatigue or weight change Aller/Imm Allergy/Immunologic: No itchy eyes Tahir/Lymp Hematologic/Lymphatic: No easy bleeding or easy bruising Exam Const General: cooperative and comfortable Orientation: alert HENMT Head: normal to inspection Eyes General: appearance normal, both eyes and all related structures Neck Neck: normal visual inspection Chest Chest palpation inspection: normal inspection of the chest Resp Effort Inspection: normal respiratory effort Cardio Rate: regular rate Rhythm: regular rhythm GI Inspection: normal to inspection Auscultation: normal bowel sounds Palpation: soft, not firm, no guarding and nontender Assessment and Plan Assessment and Plan (1) Abdominal pain: Status: Inactive (2) GERD (gastroesophageal reflux disease): Status: Acute Plan: Dunia is a 59 yo female pt here today for evaluation of episodes of epigastric pain. Pt has had these episodes 3x over the past year starting with epigastric pain and n/v following. She was seen in the ED on two occasions for these symptoms. GI cocktail has helped. She is on PPI daily. Will order gallbladder US to rule out biliary colic. She will also undergo EGD to evaluate her upper GI tact for inflammation, erosion or ulcers. SHe has never had a screening colonoscopy therefore will undergo screening at the same time. She was agreeable to plan. -Continue PPI -Gallbladder US -EGD -Colonscopy Orders: Orders Gallbladder Today R10.9 - Unspecified abdominal pain Medications: Changed From pantoprazole (Protonix) 40 mg PO DAILY 30 days 30 tabs 0RF To pantoprazole (Protonix) 40 mg PO DAILY 90 tabs 3RF Discontinued oseltamivir Discontinued Reason: Pt no longer taking 75 mg PO BID 10 CAPSULES 0RF prednisone Discontinued Reason: Pt no longer taking 60 mg (3 x 20 mg) PO DAILY 15 TABLETS 0RF sucralfate (C (more content not included)... Normal [facility] 12 Lead EKGon 01-22-2025 12 Lead EKG [facility] [address] [place] [address] 12 Lead EKG 01/22/25 1448 MR#: [id number] Acct: [id number] Name: DUNIA VARGAS Rep #: [id number] : 1965 59 From: Luis Madrid MD Attending Dr: Status: DEP ER Ordering Dr: Reynold Gerard DO Date: 5 Location: ED Sex: F C Admitted: Test Reason : Blood Pressure : */* mmHG Vent. Rate : 89 BPM Atrial Rate : 89 BPM P-R Int : 120 ms QRS Dur : 82 ms QT Int : 354 ms P-R-T Axes : -21 6 0 degrees QTcB Int : 430 ms Normal sinus rhythm Normal ECG Confirmed by LUIS MADRID MD ([id number]), website/blog editor MANDIE LAZO ([id number]) on 01/24/2025 6:34:40 AM Referred By: Confirmed By: LUIS MADRID MD 01/24/25 0634 Date Luis Madrid MD CC: INTERNET SECURITY SPECIALISTLou Lowery Podlogar; Dr. Reynold Gerard DO Signed Normal [facility] Absolute lymphocyte countOrd ered By: Reynold Gerard on 01-22-2025 Lymphocytes Auto (Unsp spec) [#/Vol] 1.79 10*3/uL 0.83-4.51 [facility] Absolute neutrophil countOrd ered By: Reynold Gerard on 01-22-2025 Neutrophils (Bld) [#/Vol] 3.4 10*3/uL 2.0-7.7 [facility] Anion gap in Serum or Plasma Ordered By: Reynold Gerard on 01-22-2025 Anion gap [Moles/Vol] 14 mmol/L 5-15 [facility] Automated lymphocyte count a s percentage of total leukocytesOrdered By: Reynold Gerard on 01-22-2025 Lymphocytes/100 WBC Auto (Unsp spec) 27.7 % 19-41 [facility] BUN/creatinine ratioOrdered By: Reynold Moustapha on 01-22-2025 Urea nitrogen/Creatinine [Mass ratio] 22.6 mg/mg High 10-20 [facility] Basophil percentageOrdered B y: Reynold Gerard on 01-22-2025 Basophils/100 WBC (Bld) 0.9 % 0-[address] [facility] Bilirubin, totalOrdered By: Reynold Gerard on 01-22-2025 Bilirubin [Mass/Vol] 0.67 mg/dL 0.00-1.30 [facility] CBC W/Diff, Automatedon Absolute Lymph 1.79 X10 3/uL Normal 0.83-4.51 [facility] Comment on above: Performed By: #### L 100.0100, L501.4021, L501.2450, L500.4050 #### [facility] [address] [place], [address] Absolute Neut 3.4 X10 3/uL Normal 2.0-7.7 [facility] Comment on above: Performed By: #### L 100.0100, L501.4021, L501.2450, L500.4050 #### [facility] [address] [place], [address] Basophils/100 WBC (Bld) 0.9 % Normal 0-[address] [facility] Comment on above: Performed By: #### L 100.0100, L501.4021, L501.2450, L500.4050 #### [facility] [address] [place], [address] Eosinophils/100 WBC (Bld) 3.2 % Normal 0-5 [facility] Comment on above: Performed By: #### L 100.0100, L501.4021, L501.2450, L500.4050 #### [facility] [address] [place], [address] Erythrocyte distribution width (RBC) [Ratio] 13.7 % Normal 11.6-14.6 [facility] Comment on above: Performed By: #### L 100.0100, L501.4021, L501.2450, L500.4050 #### [facility] [address] [place], [address] Hematocrit (Bld) [Volume fraction] 43.7 % Normal 37-47 [facility] Comment on above: Performed By: #### L 100.0100, L501.4021, L501.2450, L500.4050 #### [facility] [address] [place], [address] Hemoglobin (Bld) [Mass/Vol] 14.6 g/dL Normal 12.0-15.0 [facility] Comment on above: Performed By: #### L 100.0100, L501.4021, L501.2450, L500.4050 #### [facility] [address] [place], [address] IG% 0.300 Normal 0.0-0.9 [facility] Comment on above: Result Comment: IG% - Immature Granulocytes (promyelocytes, myelocytes and metamyelocytes) > 1% indicates that a LEFT SHIFT is Present. Performed By: #### L 100.0100, L501.4021, L501.2450, L500.4050 #### [facility] [address] [place], [address] Lymphocytes/100 WBC (Bld) 27.7 % Normal 19-41 [facility] Comment on above: Performed By: #### L 100.0100, L501.4021, L501.2450, L500.4050 #### [facility] [address], [address] MCH (RBC) [Entitic mass] 27.0 pg Normal 27.0-32.0 [facility] Comment on above: Performed By: #### L 100.0100, L501.4021, L501.2450, L500.4050 #### [facility] [address] [place], [address] MCHC (RBC) [Mass/Vol] 33.4 g/dL Normal 32-36 [facility] Comment on above: Performed By: #### L 100.0100, L501.4021, L501.2450, L500.4050 #### [facility] [address], [address] MCV (RBC) [Entitic vol] 80.8 fL Low 81-[address] [facility] Comment on above: Performed By: #### L 100.0100, L501.4021, L501.2450, L500.4050 #### [facility] [address] [place], [address] Monocytes/100 WBC (Bld) 15.8 % High 0-[address] [facility] Comment on above: Performed By: #### L 100.0100, L501.4021, L501.2450, L500.4050 #### [facility] [address] [place], [address] Neutrophils/100 WBC (Bld) 52.1 % Normal 47-70 [facility] Comment on above: Performed By: #### L 100.0100, L501.4021, L501.2450, L500.4050 #### [facility] [address], [address] Nucleated RBC (Bld) [#/Vol] 0 10*3/uL Normal 0-5 [facility] Comment on above: Performed By: #### L 100.0100, L501.4021, L501.2450, L500.4050 #### [facility] [address], [address] Platelet mean volume (Bld) [Entitic vol] 9.0 fL Normal 6.2-12.0 [facility] Comment on above: Performed By: #### L 100.0100, L501.4021, L501.2450, L500.4050 #### [facility] [address] [place], [address] Platelets (Bld) [#/Vol] 250 10*3/uL Normal 150-450 [facility] Comment on above: Performed By: #### L 100.0100, L501.4021, L501.2450, L500.4050 #### [facility] [address], [address] RBC (Bld) [#/Vol] 5.41 10*6/uL High 4.2-5.4 [facility] Comment on above: Performed By: #### L 100.0100, L501.4021, L501.2450, L500.4050 #### [facility] [address] [place], [address] RDW SD 39.9 fl Normal 35.1-43.9 [facility] Comment on above: Performed By: #### L 100.0100, L501.4021, L501.2450, L500.4050 #### [facility] [address] [place], [address] WBC (Bld) [#/Vol] 6.5 10*3/uL Normal 4.4-11.0 [facility] Comment on above: Performed By: #### L 100.0100, L501.4021, L501.2450, L500.4050 #### [facility] [address], [address] Carbon dioxide, total [Moles /volume] in Central venous bloodOrdered By: Reynold Gerard on 01-22-2025 CO2 [Moles/Vol] 23.3 mmol/L 21.0-32.0 [facility] Chloride assayOrdered By: João Gerard on 01-22-2025 Chloride [Moles/Vol] 100 mmol/L 98-108 [facility] Comprehensive Metabolic Prof ilon 01-22-2025 Albumin [Mass/Vol] 3.8 g/dL Normal 3.5-5.0 [facility] Comment on above: Performed By: #### L 100.0100, L501.4021, L501.2450, L500.4050 #### [facility] [address], [address] Albumin/Globulin [Mass ratio] 1.0 {ratio} Normal 0.9-2.4 [facility] Comment on above: Performed By: #### L 100.0100, L501.4021, L501.2450, L500.4050 #### [facility] [address] [place], [address] ALK PHOS 89 U/L Normal 35-104 [facility] Comment on above: Performed By: #### L 100.0100, L501.4021, L501.2450, L500.4050 #### [facility] [address] [place], [address] ALT [Catalytic activity/Vol] 16 U/L Normal <=34 [facility] Comment on above: Performed By: #### L 100.0100, L501.4021, L501.2450, L500.4050 #### [facility] [address] [place], [address] AST [Catalytic activity/Vol] 19 U/L Normal <=31 [facility] Comment on above: Performed By: #### L 100.0100, L501.4021, L501.2450, L500.4050 #### [facility] [address] [place], [address] Bilirubin [Mass/Vol] 0.67 mg/dL Normal 0.00-1.30 [facility] Comment on above: Performed By: #### L 100.0100, L501.4021, L501.2450, L500.4050 #### [facility] [address] [place], [address] BUN/CRE 22.6 RATIO High 10-20 [facility] Comment on above: Performed By: #### L 100.0100, L501.4021, L501.2450, L500.4050 #### [facility] [address] [place], [address] Calcium [Mass/Vol] 9.2 mg/dL Normal 7.6-11.0 [facility] Comment on above: Performed By: #### L 100.0100, L501.4021, L501.2450, L500.4050 #### [facility] [address] [place], [address] Chloride [Moles/Vol] 100 mmol/L Normal 98-108 [facility] Comment on above: Performed By: #### L 100.0100, L501.4021, L501.2450, L500.4050 #### [facility] [address] [place], [address] CO2 [Moles/Vol] 23.3 mmol/L Normal 21.0-32.0 [facility] Comment on above: Performed By: #### L 100.0100, L501.4021, L501.2450, L500.4050 #### [facility] [address] [place], [address] Creatinine [Mass/Vol] 0.92 mg/dL Normal 0.70-1.20 [facility] Comment on above: Performed By: #### L 100.0100, L501.4021, L501.2450, L500.4050 #### [facility] [address] [place], [address] ECRCL 69.03 ml/min Normal 50-250 [facility] Comment on above: Performed By: #### L 100.0100, L501.4021, L501.2450, L500.4050 #### [facility] [address] [place], [address] GAP 14 Normal 5-15 [facility] Comment on above: Performed By: #### L 100.0100, L501.4021, L501.2450, L500.4050 #### [facility] [address] [place], [address] GFR/1.73 sq M.predicted among non-blacks MDRD (S/P/Bld) [Vol rate/Area] 72 mL/min/{1.73_m2} Normal >60 [facility] Comment on above: Result Comment: mL/m in/1.73m2 CKD-EPI Creatinine Equation (2020) Performed By: #### L 100.0100, L501.4021, L501.2450, L500.4050 #### [facility] [address] [place], [address] Globulin (S) [Mass/Vol] 4.0 g/dL Normal 2.2-4.2 [facility] Comment on above: Performed By: #### L 100.0100, L501.4021, L501.2450, L500.4050 #### [facility] [address] [place], [address] Glucose [Mass/Vol] 111 mg/dL High 70-99 [facility] Comment on above: Performed By: #### L 100.0100, L501.4021, L501.2450, L500.4050 #### [facility] [address] [place], [address] Potassium [Moles/Vol] 3.6 mmol/L Normal 3.3-5.1 [facility] Comment on above: Performed By: #### L 100.0100, L501.4021, L501.2450, L500.4050 #### [facility] [address] [place], [address] Sodium [Moles/Vol] 137 mmol/L Normal 133-145 [facility] Comment on above: Performed By: #### L 100.0100, L501.4021, L501.2450, L500.4050 #### [facility] [address] [place], [address] T PROT 7.8 g/dL Normal 5.9-8.4 [facility] Comment on above: Performed By: #### L 100.0100, L501.4021, L501.2450, L500.4050 #### [facility] [address] [place], [address] Urea nitrogen [Mass/Vol] 21 mg/dL High 4-19 [facility] Comment on above: Performed By: #### L 100.0100, L501.4021, L501.2450, L500.4050 #### [facility] [address] [place], [address] Emergency Department Summary on 01-22-2025 Emergency Department Summary [facility] Medical Records Department [address] [place] [address] Emergency Department Summary 01/22/25 MR#: [id number] Acct: [id number] Name: DUNIA VARGAS Rep #: [id number] : 1965 59 From: Reynold Gerard DO PCP: Beverley Acuna, INTERNET SECURITY SPECIALIST-C Status:REG ER Location: ED HPI History of Present Illness Chief Complaint: Chest Other Narrative Narrative: Chief complaint and HPI: Epigastric abdominal pain. 59-year-old female with past medical history of rheumatoid arthritis not on medication presents for evaluation of epigastric abdominal pain. Patient states on 01/19 she developed epigastric abdominal pain which she describes as burning, radiates up into her throat. States she took some Mylanta with mild relief. She states she had some nausea and vomiting associated with this however this has improved. She states she has a remote history of GERD and was prescribed a PPI however she does not take this. She denies any pain in the chest. She denies any fever, chills, shortness of breath, diarrhea, constipation, dysuria. Review of systems: See HPI Medications: As listed on the chart Allergies: As listed on the chart PFSH: Per chart Vital signs: As listed on the chart. Reviewed. Physical exam: Gen: A O x3, NAD Head: Normocephalic, atraumatic Eyes: No sclera icterus, conjunctiva clear ENT: Moist mucous membranes Neck: Trachea midline, No JVD CV: RRR, no murmurs, no peripheral edema Resp: Lungs CTA BL, no w/r/c GI: Abd soft, non-distended, nontender, no r/r/g : No CVA tenderness Musc: Full ROM, no deformity Skin: Warm, dry Neuro: Alert, oriented, grossly intact, sensation intact Psych: Cooperative, appropriate mood and affect [facility] Medical History (Updated 01/22/25 @ 13:57 by Roselia Carvajal) GERD (gastroesophageal reflux disease) Asthma Rheumatoid arthritis Home Medications ???Medication ???Instructions ???Recorded ???Last Taken ???Type albuterol sulfate 90 mcg/actuation 2 puff inhalation Q4H PRN PRN Unknown Rx aerosol inhaler (Ventolin HFA) Wheezing ##1 oseltamivir 75 mg capsule 75 mg PO BID #10 CAPSULES 07/10/23 Unknown Rx prednisone 20 mg tablet 60 mg (3 x 20 mg) PO DAILY #15 Unknown Rx TABLETS ondansetron 4 mg disintegrating 4 mg PO Q8H PRN PRN Nausea #10 tab s 06/21/24 Unknown Rx tablet pantoprazole 40 mg tablet,delayed 40 mg PO DAILY #30 tabs 06/21/24 Unknown Rx release sucralfate 1 gram tablet (Carafate) 1 g PO Q6H #60 tabs 06/21/24 Un known Rx Allergy/AdvReac Type Severity Reaction Status Date / Time amoxicillin Allergy Swelling Verified 01/22/25 13:29 morphine Allergy PT UNSURE Verified 01/22/25 13:29 OF REACTION acetaminophen (From Percocet) AdvReac Vomiting Verified 01/22/25 13:29 oxycodone (From Percocet) AdvReac Vomiting Verified 01/22/25 13:29 Surgical History Status post surgical removal of malignant neoplasm of skin H/O section Hx of tubal ligation Social History household members: family housing: apartment Smoking Status: Current every day smoker tobacco type: e-cigarettes EXAM Physical Exam Const Vital Signs: 01/22/25 13:30 01/22/25 13:52 Temperature 97.3 F L Temperature Source Temporal Pulse Rate 130 H Respiratory Rate 18 Respiratory Effort Normal Non-Labored Respiratory Pattern Normal Blood Pressure 144/65 H Blood Pressure Mean 91 Pulse Ox 93 Oxygen Delivery Method Room Air MDM MDM MDM Narrative Medical decision making narrative: 59-year-old female with past medical history of rheumatoid arthritis not on medication presents for evaluation of epigastric abdominal pain. Patient states on 01/19 she developed epigastric abdominal pain which she describes as burning, radiates up into her throat. States she took some Mylanta with mild relief. Has a remote history of GERD and supposed to be on PPI however does not take it. Differential diagnosis includes but is not limited to GERD, gastritis, PUD, pancreatitis, suspect less likely ACS as patient is not having chest pain. Patient is nontender on physical exam therefore do not think CT abdomen and pelvis is needed. Pepcid, GI cocktail ordered with NS bolus. Laboratory workup ordered. EKG reviewed see below. CBC without leukocytosis or anemia. Platelets unremarkable. CMP unremarkable without significant electrolyte abnormality or SILVERIO. No transaminitis. Lipase unremarkable. Troponin unremarkable. On reevaluation, patient states her pain has resolved. I suspect her pain is secondary to GERD. She is supposed to be taking a PPI but does not take this. She states she does not have any pills at home. Will place her on 40 mg of Protonix da (more content not included)... Normal [facility] Eosinophil percentageOrdered By: Reynold Gerard on 01-22-2025 Eosinophils/100 WBC (Bld) 3.2 % 0-5 [facility] Erythrocyte distribution wid th ratioOrdered By: Reynold Gerard on 01-22-2025 Erythrocyte distribution width (RBC) [Ratio] 13.7 % 11.6-14.6 [facility] Erythrocyte distribution wid th standard deviationOrdered By: Reynold Rose on 01-22-2025 Erythrocyte distribution width (RBC) [Ratio] 39.9 fl 35.1-43.9 [facility] Glomerular filtration rate ( GFR) estimation/1.73 sq m using serum, plasma, or whole bOrdered By: Reynold Gerard on 01-22-2025 GFR/1.73 sq M.predicted among non-blacks MDRD (S/P/Bld) [Vol rate/Area] 72 mL/min/{1.73_m2} >60 [facility] Comment on above: mL/min/1.73m2 CKD-EP I Creatinine Equation (2020) Hematocrit Auto (Bld) [Volum e fraction]Ordered By: Reynold Gerard on 01-22-2025 Hematocrit (Bld) [Volume fraction] 43.7 % 37-47 [facility] Hemoglobin measurementOrdere d By: Reynold Gerard on 01-22-2025 Hemoglobin (Bld) [Mass/Vol] 14.6 g/dL 12.0-15.0 [facility] Immature granulocytes/100 WB C Auto (Bld)Ordered By: Reynold Gerard on 01-22-2025 Immature granulocytes/100 WBC (Bld) 0.300 % 0.0-0.9 [facility] Comment on above: IG% - Immature Granu locytes (promyelocytes, myelocytes and metamyelocytes) > 1% indicates that a LEFT SHIFT is Present. L501.4021on 01-22-2025 Trop T High Sen < 6 Normal <=14 [facility] Comment on above: Performed By: #### L 100.0100, L501.4021, L501.2450, L500.4050 #### [facility] [address] [facility] [place], [address] Laboratory - Chemistry and C hemistry - challengeOrdered By: Reynold Gerard on 01-22-2025 AST [Catalytic activity/Vol] 19 U/L <32 [facility] Lipaseon 01-22-2025 Lipase [Catalytic activity/Vol] 36 U/L Normal 13-75 [facility] Comment on above: Result Comment: Plea note: LIPASE revised reference range effective 22. New Lipase methodology. Expected to produce lower values than the previous assay method. NEW Reference Range: 13 - 75 U/L Performed By: #### L 100.0100, L501.4021, L501.2450, L500.4050 #### [facility] [address] [place], [address] Lipase measurementOrdered By : Reynold Gerard on 01-22-2025 Lipase [Catalytic activity/Vol] 36 U/L 13-75 [facility] Comment on above: Please note:LIPASE r evised reference range effective 22. New Lipase methodology. Expected to produce lower values than the previous assay method. NEW Reference Range: 13 - 75 U/L MCV (mean corpuscular volume ) determinationOrdered By: Reynold Gerard on 01-22-2025 MCV (RBC) [Entitic vol] 80.8 fL Low 81-[address] [facility] Mean corpuscular hemoglobin (MCH) determinationOrdered By: Reynold Gerard on 01-22-2025 MCH (RBC) [Entitic mass] 27.0 pg 27.0-32.0 [facility] Mean corpuscular hemoglobin concentration (MCHC) determinationOrdered By: Reynold Gerard on 01-22-2025 MCHC (RBC) [Mass/Vol] 33.4 g/dL 32-36 [facility] Mean platelet volume determi nationOrdered By: Reynold Gerard on 01-22-2025 Platelet mean volume (Bld) [Entitic vol] 9.0 fL 6.2-12.0 [facility] Monocyte percentageOrdered B y: Reynold Gerard on 01-22-2025 Monocytes/100 WBC (Bld) 15.8 % High 0-[address] [facility] Neutrophil percentageOrdered By: Reynold Gerard on 01-22-2025 Neutrophils/100 WBC (Bld) 52.1 % 47-70 [facility] Nucleated red blood cell per centageOrdered By: Reynold Gerard on 01-22-2025 Nucleated RBC/100 WBC (Bld) [Ratio] 0 % 0-5 [facility] Platelet countOrdered By: João Gerard on 01-22-2025 Platelets (Bld) [#/Vol] 250 10*3/uL 150-450 [facility] Potassium measurement (mass/ volume)Ordered By: Reynold Gerard on 01-22-2025 Potassium (Unsp spec) [Mass/Vol] 3.6 mmol/L 3.3-5.1 [facility] RBC Auto (Bld) [#/Vol]Ordere d By: Reynold Gerard on 01-22-2025 RBC (Bld) [#/Vol] 5.41 10*6/uL High 4.2-5.4 [facility] Serum creatinine measurement (mass/volume)Ordered By: Reynold Gerard on 01-22-2025 Creatinine [Mass/Vol] 0.92 mg/dL 0.70-1.20 [facility] Serum globulin measurementOr dered By: Reynold Gerard on 01-22-2025 Globulin (S) [Mass/Vol] 4.0 g/dL 2.2-4.2 [facility] Serum glucose measurement (m ass/volume)Ordered By: Reynold Gerard on 01-22-2025 Glucose [Mass/Vol] 111 mg/dL High 70-99 [facility] Serum or plasma alanine jj otransferase (ALT) measurementOrdered By: Reynold Gerard on 01-22-2025 ALT [Catalytic activity/Vol] 16 U/L <35 [facility] Serum or plasma albumin lidya urement (mass/volume)Ordered By: Reynold Rose on 01-22-2025 Albumin [Mass/Vol] 3.8 g/dL 3.5-5.0 [facility] Serum or plasma albumin/glob ulin mass ratioOrdered By: Reynold Gerard on 01-22-2025 Albumin/Globulin [Mass ratio] 1.0 {ratio} 0.9-2.4 [facility] [facility] Serum or plasma alkaline robert sphatase measurementOrdered By: Reynold Gerard on 01-22-2025 ALP [Catalytic activity/Vol] 89 U/L 35-104 [facility] Serum or plasma calcium lidya urement (mass/volume)Ordered By: Reynold Rose on 01-22-2025 Calcium [Mass/Vol] 9.2 mg/dL 7.6-11.0 [facility] Serum or plasma urea nitroge n measurement (mass/volume)Ordered By: Reynold Gerard on 01-22-2025 Urea nitrogen [Mass/Vol] 21 mg/dL High 4-19 [facility] Sodium levelOrdered By: Scotty Gerard on 01-22-2025 Sodium [Moles/Vol] 137 mmol/L 133-145 [facility] Total proteinOrdered By: James Gerard on 01-22-2025 Protein [Mass/Vol] 7.8 g/dL 5.9-8.4 [facility] Troponin T.cardiac [Mass/vol ume] in Serum or Plasma by High sensitivity methodOrdered By: Reynold Gerard on 01-22-2025 Troponin T.cardiac High sensitivity method [Mass/Vol] < 6 ng/L <14 [facility] White blood cell (WBC) count Ordered By: Reynold Gerard on 01-22-2025 WBC (Bld) [#/Vol] 6.5 10*3/uL 4.4-11.0 [facility] No Panel Informationon 10-13 Interpretation and review of laboratory results Normal [facility] T4 FREE/FREE THYROXINEon Free T4 [Mass/Vol] 1.2 ng/dL 0.9 - 1.7 ng/dL [facility] THYROID STIMULATING HORMONEo n 10-13-2024 TSH Qn 1.5 m[IU]/L [facility] T4 Free SerPl-mCncon 025 Free T4 [Mass/Vol] 1.2 ng/dL Normal 0.9-1.7 [facility] Comment on above: Order Comment: Debbie bernal Type: BLOOD SPECIMENOrdering Facility: [facility] Address: [address] [place] [address] Performed By: #### 3 024-7, 3016-3 ####[facility] LABCLIA [id number] [address] OF [facility] THYROID PEROXIDASE ANTIBODYo n 10-12-2024 Interpretation and review of laboratory results Normal [facility] TPO Ab Qn NINF [facility] Comment on above: Thyroid Peroxidase A ntibody test is used as an aid in diagnosis of autoimmune thyroid disease. Clinical correlation is required. [facility] TPO Ab Qn [IU]/mL Normal <5.6 [facility] Comment on above: Order Comment: Debbie bernal Type: BLOOD SPECIMENOrdering Facility: [facility] Address: [address] [place] [address] Result Comment: Thyr oid Peroxidase Antibody test is used as an aid in diagnosis of autoimmune thyroid disease. Clinical correlation is required. Performed By: #### M ICRO ####[facility] LABCLIA [id number] [place] [address] [place] TSH SerPl-aCncon 10-12-2024 TSH Qn 1.500 m[IU]/L Normal 0.270-4.200 [facility] Comment on above: Order Comment: Speci men Type: BLOOD SPECIMENOrdering Facility: [facility] Address: [address] [place] [address] Performed By: #### 3 024-7, 3016-3 ####[facility] LABCLIA [id number] [address] OF [place] Janine [facility]-20[facility] DUNIA VARGAS ([id number]) 1965 F Date Time Provider Department 09/25/24 [facility] During your visit today, we recorded the following information about you: Cee Portillo RN 09/25/2024 2:51 PM Signed Patient was seen yesterday by Sander Acuna CNP and was ordered Flonase for allergies. Reports she began to use the medication but today her sinus congestion is worse. Today she has sinus headache and is very stuffy today. Denies fever, chills, N/V/D, body aches, Pt asking if she should continue the Flonase? Pt states she contacted her pharmacy and they stated pt may have sinus infection and may require an antibiotic. Please advise patient. Cee Portillo RN Podlogar, DEBORAH Lowery.COSMETICS COUNTER MANAGER 09/25/2024 2:57 PM Signed She can try some saline nasal spray if she wishes. I would give the Flonase at least a week to see if it helps. If she feels she may have a sinus infection she would need appointment. Beverley Podlogar, [employer] [place].Cee Ortiz RN 09/25/2024 3:48 PM Signed Patient notified. Cee Portillo RN Allergies As of Date: 09/25/2024 Noted Allergy Reaction AMOXICILLIN 01/20/2017 9 - Itching HYDROCODONE-ACETAMINOP HEN 01/20/2017 8 - GI Upset MORPHINE 01/20/2017 16 - Unknown OXYCODONE-ACETAMINOPHE N 01/20/2017 8 - GI Upset Date Reviewed: 09/24/2024 Reviewed by: Marlon Licea LPN - Fully Assessed Reason for Visit: Patient Question [8887] Prescriptions as of 09/25/2024 - olopatadine (PATANOL) 0.1 % ophthalmic solution Use 1 Drop in both eyes two times a day. - fluticasone (FLONASE) 50 mcg/actuation nasal spray Use 2 Sprays in each nostril once daily. - pantoprazole DR (PROTONIX) 20 mg tablet Take 1 tablet by mouth once daily. Problem List As Of Date 09/25/2024 Noted Resolved Tobacco use [Z72.0] Skin lesion [L98.9] RA (rheumatoid arthritis) (HCC) [M06.9] Overweight [E66.3] High serum low-density lipoprotein (LDL) [R79.8* Environmental allergies [Z91.09] Asthma [J45.909] Anxiety [F41.9] 09/29/2018 Encounter for screening [Z13.9] 12/04/2018 Fatty tumor [D17.9] 12/04/2018 Sprain of foot [S93.609A] 01/29/2016 Pain in limb [M79.609] 10/27/2016 Lateral epicondylitis [M77.10] 03/28/2014 Closed fracture of upper end of fibula [S82.839*01/29/2016 Carpal tunnel syndrome [G56.00] 03/28/2014 Arthralgia of upper arm [M25.529] 03/28/2014 Closed fracture of lateral malleolus [S82.63XA] 01/29/2016 Encounter Status:Closed by CEE PORTILLO on 09/25/24 Normal [facility] CBC W Auto Differential pane l (Bld)on 09-24-2024 Basophils (Bld) [#/Vol] 0.06 10*3/uL [facility] Basophils/100 WBC (Bld) 0.9 % [facility] Differential cell count method Nom (Bld) Auto [facility] Eosinophils (Bld) [#/Vol] 0.21 10*3/uL [facility] Eosinophils/100 WBC (Bld) 3.3 % [facility] Erythrocyte distribution width (RBC) [Ratio] 14.3 % 11.5 - 15.0 % [facility] Hematocrit (Bld) [Volume fraction] 41.6 % 36.0 - 46.0 % [facility] Hemoglobin (Bld) [Mass/Vol] 13.4 g/dL 11.5 - 15.5 g/dL [facility] Immature granulocytes (Bld) [#/Vol] [facility] Immature granulocytes/100 WBC (Bld) 0.2 % [facility] Lymphocytes (Bld) [#/Vol] 3.61 10*3/uL [facility] Lymphocytes/100 WBC (Bld) 56.6 % [facility] MCH (RBC) [Entitic mass] 26.2 pg 26. 0 - 34.0 pg [facility] MCHC (RBC) [Mass/Vol] 32.2 g/dL 30.5 - 36.0 g/dL [facility] MCV (RBC) [Entitic vol] 81.3 fL 80.0 - 100.0 fL [facility] Monocytes (Bld) [#/Vol] 0.79 10*3/uL [facility] Monocytes/100 WBC (Bld) 12.4 % [facility] Neutrophils (Bld) [#/Vol] 1.7 10*3/uL [facility] Neutrophils/100 WBC (Bld) 26.6 % [facility] Nucleated RBC (Bld) [#/Vol] [facility] Nucleated RBC/100 WBC (Bld) [Ratio] 0 % /100 WBC [facility] Platelet mean volume (Bld) [Entitic vol] 9.6 fL 9.0 - 12.7 fL [facility] Platelets (Bld) [#/Vol] 289 10*3/uL [facility] RBC (Bld) [#/Vol] 5.12 10*6/uL 3.90 - 5.2 0 m/uL [facility] WBC (Bld) [#/Vol] 6.38 10*3/uL [facility] Basophils (Bld) [#/Vol] 0.06 10*3/uL Normal <0.11 [facility] Comment on above: Order Comment: Speci men Type: BLOOD SPECIMENOrdering Facility: [facility] Address: [address] [place] [address] Performed By: #### 5 7021-8 ####[facility] LABCLIA [id number] [place] [address] [place] Basophils/100 WBC (Bld) 0.9 % Normal [facility] Comment on above: Order Comment: Speci men Type: BLOOD SPECIMENOrdering Facility: [facility] Address: [address] [place] [address] Performed By: #### 5 7021-8 ####[facility] LABCLIA [id number] [place] [address] [place] Differential cell count method Nom (Bld) Auto Normal [facility] Comment on above: Order Comment: Speci men Type: BLOOD SPECIMENOrdering Facility: [facility] Address: [address] [place] [address] Performed By: #### 5 7021-8 ####[facility] LABCLIA [id number] [place] [address] [place] Eosinophils (Bld) [#/Vol] 0.21 10*3/uL Normal <0.46 [facility] Comment on above: Order Comment: Speci men Type: BLOOD SPECIMENOrdering Facility: [facility] Address: [address] [place] [address] Performed By: #### 5 7021-8 ####[facility] LABCLIA [id number] [place] [address] [place] Eosinophils/100 WBC (Bld) 3.3 % Normal [facility] Comment on above: Order Comment: Speci men Type: BLOOD SPECIMENOrdering Facility: [facility] Address: [address] [place] [address] Performed By: #### 5 7021-8 ####[facility] LABCLIA [id number] [place] [address] [place] Erythrocyte distribution width (RBC) [Ratio] 14.3 % Normal 11.5-15.0 [facility] Comment on above: Order Comment: Speci men Type: BLOOD SPECIMENOrdering Facility: [facility] Address: [address] [place] [address] Performed By: #### 5 7021-8 ####[facility] LABCLIA [id number] [place] [address] [place] Hematocrit (Bld) [Volume fraction] 41.6 % Normal 36.0-46.0 [facility] Comment on above: Order Comment: Speci men Type: BLOOD SPECIMENOrdering Facility: [facility] Address: [address] [place] [address] Performed By: #### 5 7021-8 ####[facility] LABCLIA [id number] [place] [address] [place] Hemoglobin (Bld) [Mass/Vol] 13.4 g/dL Normal 11.5-15.5 [facility] Comment on above: Order Comment: Speci men Type: BLOOD SPECIMENOrdering Facility: [facility] Address: [address] [place] [address] Performed By: #### 5 7021-8 ####[facility] LABCLIA [id number] [place] [address] [place] Immature granulocytes (Bld) [#/Vol] 10*3/uL Normal <0.10 [facility] Comment on above: Order Comment: Speci men Type: BLOOD SPECIMENOrdering Facility: [facility] Address: [address] [place] [address] Performed By: #### 5 7021-8 ####[facility] LABCLIA [id number] [place] [address] [place] Immature granulocytes/100 WBC (Bld) 0.2 % Normal [facility] Comment on above: Order Comment: Speci men Type: BLOOD SPECIMENOrdering Facility: [facility] Address: [address] [place] [address] Performed By: #### 5 7021-8 ####[facility] LABCLIA [id number] [place] [address] [place] Lymphocytes (Bld) [#/Vol] 3.61 10*3/uL Normal 1.00-4.00 [facility] Comment on above: Order Comment: Speci men Type: BLOOD SPECIMENOrdering Facility: [facility] Address: [address] [place] [address] Performed By: #### 5 7021-8 ####[facility] LABCLIA [id number] [place] [address] [place] Lymphocytes/100 WBC (Bld) 56.6 % Normal [facility] Comment on above: Order Comment: Speci men Type: BLOOD SPECIMENOrdering Facility: [facility] Address: [address] [place] [address] Performed By: #### 5 7021-8 ####[facility] LABCLIA [id number] [place] [id number] [place] MCH (RBC) [Entitic mass] 26.2 pg Normal 26.0-34.0 [facility] Comment on above: Order Comment: Speci men Type: BLOOD SPECIMENOrdering Facility: [facility] Address: [address] [place] [address] Performed By: #### 5 7021-8 ####[facility] LABCLIA [id number] [place] [id number] [place] MCHC (RBC) [Mass/Vol] 32.2 g/dL Normal 30.5-36.0 [facility] Comment on above: Order Comment: Speci men Type: BLOOD SPECIMENOrdering Facility: [facility] Address: [address] [place] [address] Performed By: #### 5 7021-8 ####[facility] LABCLIA [id number] [place] [address] [place] MCV (RBC) [Entitic vol] 81.3 fL Normal 80.0-100.0 C [facility] Comment on above: Order Comment: Speci men Type: BLOOD SPECIMENOrdering Facility: [facility] Address: [address] [place] [address] Performed By: #### 5 7021-8 ####[facility] LABCLIA [id number] [place] [address] [place] Monocytes (Bld) [#/Vol] 0.79 10*3/uL Normal <0.87 [facility] Comment on above: Order Comment: Speci men Type: BLOOD SPECIMENOrdering Facility: [facility] Address: [address] [place] [address] Performed By: #### 5 7021-8 ####[facility] LABCLIA [id number] [place] [address] [place] Monocytes/100 WBC (Bld) 12.4 % Normal [facility] Comment on above: Order Comment: Speci men Type: BLOOD SPECIMENOrdering Facility: [facility] Address: [address] [place] [address] Performed By: #### 5 7021-8 ####[facility] LABCLIA [id number] [place] [address] [place] Neutrophils (Bld) [#/Vol] 1.70 10*3/uL Normal 1.45-7.50 [facility] Comment on above: Order Comment: Speci men Type: BLOOD SPECIMENOrdering Facility: [facility] Address: [address] [place] [address] Performed By: #### 5 7021-8 ####[facility] LABCLIA [id number] [place] [address] [place] Neutrophils/100 WBC (Bld) 26.6 % Normal [facility] Comment on above: Order Comment: Speci men Type: BLOOD SPECIMENOrdering Facility: [facility] Address: [address] [place] [address] Performed By: #### 5 7021-8 ####[facility] LABCLIA [id number] [place] [address] [place] Nucleated RBC (Bld) [#/Vol] 10*3/uL Normal <0.01 [facility] Comment on above: Order Comment: Speci men Type: BLOOD SPECIMENOrdering Facility: [facility] Address: [address] [place] [address] Performed By: #### 5 7021-8 ####[facility] LABIA [id number] [place] [address] [place] Nucleated RBC/100 WBC (Bld) [Ratio] 0.0 /100 WBC Normal [facility] Comment on above: Order Comment: Speci men Type: BLOOD SPECIMENOrdering Facility: [facility] Address: [address] [place] [address] Performed By: #### 5 7021-8 ####[facility] LABCLIA [id number] [place] [address] [place] Platelet mean volume (Bld) [Entitic vol] 9.6 fL Normal 9.0-12.7 [facility] Comment on above: Order Comment: Speci men Type: BLOOD SPECIMENOrdering Facility: [facility] Address: [address] [place] [address] Performed By: #### 5 7021-8 ####[facility] LABCLIA [id number] [place] [address] [place] Platelets (Bld) [#/Vol] 289 10*3/uL Normal 150-400 [facility] Comment on above: Order Comment: Speci men Type: BLOOD SPECIMENOrdering Facility: [facility] Address: [address] [place] [address] Performed By: #### 5 7021-8 ####[facility] [id number] [place] [address] [place] RBC (Bld) [#/Vol] 5.12 10*6/uL Normal 3.90-5.20 [facility] Comment on above: Order Comment: Speci men Type: BLOOD SPECIMENOrdering Facility: [facility] Address: [address] [place] [address] Performed By: #### 5 7021-8 ####[facility] [id number] [place] [address] [place] WBC (Bld) [#/Vol] 6.38 10*3/uL Normal 3.70-11.00 [facility] Comment on above: Order Comment: Speci men Type: BLOOD SPECIMENOrdering Facility: [facility] Address: [address] [place] [address] Performed By: #### 5 7021-8 ####[facility] [id number] [place] [id number] [place] CNOVon 09-24-2024 CNOV Office Visit (FAMPWS ) DUNIA VARGAS ([id number]) 1965 F Date Time Provider Department 09/24/24 2:00 PM BEVERLEY ACUNA During your visit today, we recorded the following information about you: Pulse Respiration Blood pressure Weight 105/minute 18/minute 112/86 76.2 kg Beverley Acuna APRN.COSMETICS COUNTER MANAGER 09/24/2024 3:58 PM Signed 09/21/2024 Patient presents with: F/U 6 months SUBJECTIVE: This is a 58 year old that is here today for Above Complaints. Itchy and watery eyes. Does have seasonal allergies. Has some runny nose and stuffy nose. Not taking anything OTC for symptoms. Used to use Flonase OTC but can't afford unless prescribed Depression: not able to tolerate Cymbalta due to it made her gums bleed. Feels her depression is getting some better since weather is getting better. Does not attend counseling. Denies SI or HI Urine is a little darker at times. Reports it smells. Denies fevers, chills, abdominal pain, back pain, urinary frequency, dysuria or hematuria Some nausea at times. Was taking some pantoprazole prescribed at the hospital for abdominal pain. Admits to reflux at times Worried about her heart rate. Seems to be elevated the last few times she has been here. Sometimes feels like it beats fast. Admits she does have some anxiety at times. Drinks pop most of the day. Not much water. Denies accompanying lightheadedness, dizziness, SOB, dyspnea, or chest pain Latest Ref Rng 09/24/2024 GLUCOSE UA (POCT) Negative mg/dL Negative BILIRUBIN UA (POCT) Negative Negative KETONE UA (POCT) Negative mg/dL Negative SPECIFIC GRAVITY UA (POCT) 1.005 - 1.030 >=1.030 HEMOGLOBIN/BLOOD UA (POCT) Negative Negative PH UA (POCT) 4.5 - 8.0 5.5 PROTEIN UA (POCT) Negative mg/dL 30 ! UROBILINOGEN UA (POCT) Normal E.U./dL 0.2 NITRITE UA (POCT) Negative Negative LEUKOCYTES UA (POCT) Negative Negative COLOR UA (POCT) Dark yellow CLARITY UA (POCT) Slightly Cloudy Legend: ! Abnormal PAST MEDICAL HISTORY Diagnosis Date Asthma Basal cell carcinoma Environmental allergies High serum low-density lipoprotein (LDL) Overweight RA (rheumatoid arthritis) (HCC) Skin lesion Tobacco use ALLERGIES Amoxicillin, Hydrocodone-Acetaminop hen, Morphine, and Oxycodone-Acetaminophe n MEDICATIONS Current Outpatient Medications Medication Sig DULoxetine (CYMBALTA) 30 mg capsule Take 1 capsule by mouth once daily. No current facility-administered medications for this visit. Medications and allergies reviewed by this provider. SOCIAL HISTORY Social History Tobacco Use Smoking status: Former Current packs/day: 0.00 Average packs/day: 1 pack/day for 38.0 years (38.0 ttl pk-yrs) Types: Cigarettes Quit date: 07/10/2023 Years since quittin.2 Smokeless tobacco: Never Vaping Use Vaping status: Some Days Substances: Nicotine, CBD Devices: Disposable Substance Use Topics Alcohol use: Not Currently Drug use: No REVIEW OF SYSTEMS All other reviewed and negative other than HPI. OBJECTIVE: BP 112/86 Pulse 105 Resp 18 Wt 76.2 kg (168 lb) LMP (LMP Unknown) SpO2 97% BMI 27.86 kg/m? . Vital signs reviewed by this provider. APPEARANCE Well appearing, alert, in no acute distress, well-hydrated, well nourished. EYES conjunctiva and sclera normal. HEART normal S1 and S2, no murmurs, no gallops, no JVD appreciated and Rate tachycardia LUNG clear to auscultation. No wheezes rhonchi or rales ABDOMEN bowel sounds normoactive, no bruits, soft, non-tender, non-distended BACK: No CVA tenderness SKIN Skin color, texture, turgor normal, no suspicious rashes or lesions to exposed skin Latest Ref Rng 03/27/2024 WBC 3.70 - 11.00 k/uL 6.09 RBC 3.90 - 5.20 m/uL 5.23 (H) Hemoglobin 11.5 - 15.5 g/dL 14.1 Hematocrit 36.0 - 46.0 % 42.6 MCV 80.0 - 100.0 fL 81.5 MCH 26.0 - 34.0 pg 27.0 MCHC 30.5 - 36.0 g/dL 33.1 RDW-CV 11.5 - 15.0 % 13.6 Platelet Count 150 - 400 k/uL 281 MPV 9.0 - 12.7 fL 9.7 Neut% % 39.0 Abs Neut (ANC) 1.45 - 7.50 k/uL 2.38 Lymph% % 45.6 Abs Lymph 1.00 - 4.00 k/uL 2.78 Riley% % 12.2 Abs Riley <0.87 k/uL 0.74 Eosin% % 2.0 Abs Eosin <0.46 k/uL 0.12 Baso% % 1.0 Abs Baso <0.11 k/uL 0.06 Immature Gran % % 0.2 IMMATURE GRANS (ABS) <0.10 k/uL <0.03 NRBC /100 WBC 0.0 Absolute nRBC <0.01 k/uL <0.01 DTYPE Auto Protein, Total 6.3 - 8.0 g/dL 7.9 Albumin 3.9 - 4.9 g/dL 4.0 Calcium 8.5 - 10.2 mg/dL 10.0 Bilirubin, Total 0.2 - 1.3 mg/dL 0.3 Alkaline Phosphatase 34 - 123 U/L 98 AST 13 - 35 U/L 21 ALT 7 - 38 U/L 25 Glucose 74 - 99 mg/dL 91 BUN 7 - 21 mg/dL 15 Creatinine 0.58 - 0.96 mg/dL 0.82 Sodium 136 - 144 mmol/L 137 Potassium 3.7 - 5.1 mmol/L 4.4 Chloride 98 - 107 mmol/L 101 CO2 22 - 30 mmol/L 22 Anion Gap 8 - 15 mmol/L 14 eGFR >=60 mL/min/1.73m? 84 Cholesterol, Total <200 mg/dL 210 (H) Triglyceride <150 mg/dL 109 HDL Cholesterol >39 (more content not included)... Normal [facility] Comprehensive metabolic 2000 panelon 09-24-2024 Albumin [Mass/Vol] 4.1 g/dL Normal 3.9-4.9 [facility] Comment on above: Order Comment: Speci men Type: BLOOD SPECIMENOrdering Facility: [facility] Address: [address] [place] [address] Performed By: #### 2 4323-8, 3016-3 ####[facility] LABCLIA [id number] [address] [place] ALP [Catalytic activity/Vol] 90 U/L Normal 34-123 [facility] Comment on above: Order Comment: Speci men Type: BLOOD SPECIMENOrdering Facility: [facility] Address: [address] [place] [id number] Performed By: #### 2 4323-8, 3016-3 ####[facility] LABCLIA [id number] [address] [address] [place] ALT [Catalytic activity/Vol] 30 U/L Normal 7-38 [facility] Comment on above: Order Comment: Speci men Type: BLOOD SPECIMENOrdering Facility: [facility] Address: [address] [place], [place] [address] Performed By: #### 2 4323-8, 3015-3 ####[facility] LABCLIA [id number] [place] [id number] [place] Anion gap [Moles/Vol] 13 mmol/L Normal 8-15 [facility] Comment on above: Order Comment: Speci men Type: BLOOD SPECIMENOrdering Facility: [facility] Address: [address] [place] [address] Performed By: #### 2 4323-8, 6-3 ####[facility] LABCLIA [id number] [place] [id number] [place] AST [Catalytic activity/Vol] 26 U/L Normal 13-35 [facility] Comment on above: Order Comment: Speci men Type: BLOOD SPECIMENOrdering Facility: [facility] Address: [address] [place], [place] [id number] Performed By: #### 2 4323-8, 6-3 ####[facility] LABCLIA [id number] [address] [address] [place] Bilirubin [Mass/Vol] 0.3 mg/dL Normal 0.2-1.3 [facility] Comment on above: Order Comment: Speci men Type: BLOOD SPECIMENOrdering Facility: [facility] Address: [address] [place], [place] [id number] Performed By: #### 2 4323-8, 6-3 ####[facility] LABCLIA [id number] [facility] [place] [place] [id number] [address] [place] Calcium [Mass/Vol] 9.7 mg/dL Normal 8.5-10.2 [facility] Comment on above: Order Comment: Speci men Type: BLOOD SPECIMENOrdering Facility: [facility] Address: [address] [place], [place] [id number] Performed By: #### 2 4323-8, 6-3 ####[facility] LABCLIA [id number] [facility] [address] [place] [address] [place] Chloride [Moles/Vol] 104 mmol/L Normal 98-107 [facility] Comment on above: Order Comment: Speci men Type: BLOOD SPECIMENOrdering Facility: [facility] Address: [address] [place] [address] Performed By: #### 2 4323-8, 3015-3 ####[facility] [facility] LABCLIA [id number] [facility] [address] [place] [address] [place] CO2 [Moles/Vol] 26 mmol/L Normal 22-30 [facility] Comment on above: Order Comment: Speci men Type: BLOOD SPECIMENOrdering Facility: [facility] Address: [address] [place], [place] [address] Performed By: #### 2 4323-8, 6-3 ####[facility] LABCLIA [id number] [facility] [address] [place] [address] [place] Creatinine [Mass/Vol] 0.88 mg/dL Normal 0.58-0.96 [facility] Comment on above: Order Comment: Speci men Type: BLOOD SPECIMENOrdering Facility: [facility] Address: [address] [place], [place] [address] Performed By: #### 2 4323-8, 6-3 ####[facility] LABCLIA [id number] [facility] [address] [address] [place] Creatinine and Glomerular filtration rate.predicted panel (S/P/Bld) 77 mL/min/1.73m??? Normal >=60 [facility] Comment on above: Order Comment: Debbie bernal Type: BLOOD SPECIMENOrdering Facility: [facility] Address: [address] [place] [address] Result Comment: Sallie mated Glomerular Filtration Rate (eGFR) is calculated using the 2020 CKD-EPI creatinine equation. This equation utilizes serum creatinine, sex, and age as parameters. The creatinine assay has traceable calibration to isotope dilution-mass spectrometry. Refer to KDIGO guidelines for clinical interpretation. In patients with unstable renal function, e.g. those with acute kidney injury, the eGFR may not accurately reflect actual GFR. Performed By: #### 2 4323-8, 6-3 ####[facility] LABCLIA [id number] [place] [address] [place] Glucose [Mass/Vol] 97 mg/dL Normal 74-99 [facility] Comment on above: Order Comment: Debbie bernal Type: BLOOD SPECIMENOrdering Facility: [facility] Address: [address] [place] [address] Result Comment: The [place] Diabetes Association (ADA) provides guidance for cutoff values for fasting glucose and random glucose. The ADA defines fasting as no caloric intake for at least 8 hours. Fasting plasma glucose results between 100 to 125 mg/dL indicate increased risk for diabetes (prediabetes). Fasting plasma glucose results greater than or equal to 126 mg/dL meet the criteria for diagnosis of diabetes. In the absence of unequivocal hyperglycemia, results should be confirmed by repeat testing. In a patient with classic symptoms of hyperglycemia or hyperglycemic crisis, random plasma glucose results greater than or equal to 200 mg/dL meet the criteria for diagnosis of diabetes. Reference: Standards of Medical Care in Diabetes 2016, [place] [employer] Association. Diabetes Care. 2016.39(Suppl 1). Performed By: #### 2 4323-8, 6-3 ####[facility] LABCLIA [id number] [place] [id number] [place] Potassium [Moles/Vol] 3.8 mmol/L Normal 3.7-5.1 [facility] Comment on above: Order Comment: Speci men Type: BLOOD SPECIMENOrdering Facility: [facility] Address: [address] [place], [place] [address] Performed By: #### 2 4323-8, 3015-3 ####[facility] LABCLIA [id number] [address] [address] [place] Protein [Mass/Vol] 7.9 g/dL Normal 6.3-8.0 [facility] Comment on above: Order Comment: Speci men Type: BLOOD SPECIMENOrdering Facility: [facility] Address: [address] [place] [address] Performed By: #### 2 4323-8, 3015-3 ####[facility] LABCLIA [id number] [place] [id number] [place] Sodium [Moles/Vol] 143 mmol/L Normal 136-144 [facility] Comment on above: Order Comment: Speci men Type: BLOOD SPECIMENOrdering Facility: [facility] Address: [address] [place], [place] [address] Performed By: #### 2 4323-8, 3 ####[facility] LABCLIA [id number] [place] [id number] [place] Urea nitrogen [Mass/Vol] 17 mg/dL Normal 7-21 [facility] Comment on above: Order Comment: Speci men Type: BLOOD SPECIMENOrdering Facility: [facility] Address: [address] [place], [place] [address] Performed By: #### 2 4323-8, 6-3 ####[facility] LABCLIA [id number] [address] [address] [place] [id number] 09-24-2024 ECG01 Ventricular Rate : 9 9 BPM Atrial Rate : 99 BPM P-R Interval : 118 ms QRS Duration : 82 ms Q-T Interval : 358 ms QTC Calculation(Bazett) : 459 ms Calculated P [place] : -18 degrees Calculated R [place] : 15 degrees Calculated T [place] : 26 degrees NORMAL SINUS RHYTHM NORMAL ECG Confirmed by MD TRAN QARAB ([id number]) on 09/25/2024 2:45:50 PM NAME : DUNIA VARGAS PID : [id number] : 1965 Gender : Female Race : ORD : Procedure Date : Sep 24 2024 14:40:48 Edit Date : Sep 25 2024 14:45:50 Diagnosis: NORMAL SINUS RHYTHM NORMAL ECG Confirmed by MD TRAN QARAB ([id number]) on 09/25/2024 2:45:50 PM Test Reason : Location : 136 : [place] Overread By : MD TRAN QARAB Edited By : MD TRAN QARAB Referred By : Podlogar, Acquired by : [id number], Normal [facility] TSH SerPl-aCncon 09-24-2024 TSH Qn 4.330 m[IU]/L High 0.270-4.200 [facility] Comment on above: Order Comment: Speci men Type: BLOOD SPECIMENOrdering Facility: [facility] Address: [address] [place] [address] Performed By: #### 2 4323-8, 3016-3 ####[facility] LABCLIA [id number] [place] [address] [place] UA DIP, URINE (POC)on 2024 BILIRUBIN UA (POCT) Negative Negative [facility] CLARITY UA (POCT) Slightly Cloudy [facility] COLOR UA (POCT) Dark yellow [facility] GLUCOSE UA (POCT) Negative Negative mg/dL [facility] Hemoglobin Ql (U) Negative Negative [facility] Interpretation and review of laboratory results Abnormal [facility] KETONE UA (POCT) Negative Negative mg/dL [facility] LEUKOCYTES UA (POCT) Negative Negative [facility] NITRITE UA (POCT) Negative Negative [facility] PH UA (POCT) 5.5 4.5 - 8.0 [facility] Protein Ql (U) 30 mg/dL Abnormal Negative [facility] SPECIFIC GRAVITY UA (POCT) >=1.030 1.005 - 1.030 [facility] UROBILINOGEN UA (POCT) 0.2 Liset l E.U./dL [facility] Location:[facility], [address], [place], [address] [facility] POINT OF CARE [facility] 12 Lead EKGon 06-21-2024 12 Lead EKG [facility] Services [address] [place] [address] 12 Lead EKG 06/21/24 2156 MR#: [id number] Acct: [id number] Name: DUNIA VARGAS Rep #: [id number] : 1965 58 From: Nando Castro MD Attending Dr: Status: DEP ER Ordering Dr: Lincoln Moulton DO Date: 06/21/24 Location: ED Sex: F C Admitted: Test Reason : DYSRHYTHMIA Blood Pressure : */* mmHG Vent. Rate : 69 BPM Atrial Rate : 69 BPM P-R Int : 146 ms QRS Dur : 80 ms QT Int : 392 ms P-R-T Axes : 59 29 38 degrees QTcB Int : 420 ms Normal sinus rhythm Normal ECG Confirmed by Nando Castro ([id number]), website/blog editor MANDIE LAZO ([id number]) on 06/22/2024 1:47:03 PM Referred By: Confirmed By: Nando Castro 06/22/24 1347 Date Nando Castro MD CC: INTERNET SECURITY SPECIALIST-C Beverley Podlogar; Dr. Lincoln Moulton DO Signed Normal [facility] CBC W/Diff, Automatedon 12-0 Absolute Lymph 1.63 X10 3/uL Normal 0.83-4.51 [facility] Comment on above: Performed By: #### L 500.4050, L100.0100, L501.2450 #### [facility] [address] [place], [place], [id number] Absolute Neut 3.1 X10 3/uL Normal 2.0-7.7 [facility] Comment on above: Performed By: #### L 500.4050, L100.0100, L501.2450 #### [facility] [address] [place], [address] Basophils/100 WBC (Bld) 0.9 % Normal 0-[address] [facility] Comment on above: Performed By: #### L 500.4050, L100.0100, L501.2450 #### [facility] [address] [place], [address] Eosinophils/100 WBC (Bld) 1.1 % Normal 0-5 [facility] Comment on above: Performed By: #### L 500.4050, L100.0100, L501.2450 #### [facility] [address] [place], [address] Erythrocyte distribution width (RBC) [Ratio] 14.2 % Normal 11.6-14.6 [facility] Comment on above: Performed By: #### L 500.4050, L100.0100, L501.2450 #### [facility] [address] [place], [address] Hematocrit (Bld) [Volume fraction] 40.4 % Normal 37-47 [facility] Comment on above: Performed By: #### L 500.4050, L100.0100, L501.2450 #### [facility] [address] [place], [address] Hemoglobin (Bld) [Mass/Vol] 13.1 g/dL Normal 12.0-15.0 [facility] Comment on above: Performed By: #### L 500.4050, L100.0100, L501.2450 #### [facility] [address] [place], [address] IG% 0.200 Normal 0.0-0.9 [facility] Comment on above: Result Comment: IG% - Immature Granulocytes (promyelocytes, myelocytes and metamyelocytes) > 1% indicates that a LEFT SHIFT is Present. Performed By: #### L 500.4050, L100.0100, L501.2450 #### [facility] [address] [place], [address] Lymphocytes/100 WBC (Bld) 30.9 % Normal 19-41 [facility] Comment on above: Performed By: #### L 500.4050, L100.0100, L501.2450 #### [facility] [address] [place], [address] MCH (RBC) [Entitic mass] 26.1 pg Low 27.0-32.0 [facility] Comment on above: Performed By: #### L 500.4050, L100.0100, L501.2450 #### [facility] [address] [place], [address] MCHC (RBC) [Mass/Vol] 32.4 g/dL Normal 32-36 [facility] Comment on above: Performed By: #### L 500.4050, L100.0100, L501.2450 #### [facility] [address] [place], [address] MCV (RBC) [Entitic vol] 80.5 fL Low 81-99 [facility] Comment on above: Performed By: #### L 500.4050, L100.0100, L501.2450 #### [facility] [address] [place], [address] Monocytes/100 WBC (Bld) 8.9 % Normal 0-10 [facility] Comment on above: Performed By: #### L 500.4050, L100.0100, L501.2450 #### [facility] [address] [place], [address] Neutrophils/100 WBC (Bld) 58.0 % Normal 47-70 [facility] Comment on above: Performed By: #### L 500.4050, L100.0100, L501.2450 #### [facility] [address] [place], [address] Nucleated RBC (Bld) [#/Vol] 0 10*3/uL Normal 0-5 [facility] Comment on above: Performed By: #### L 500.4050, L100.0100, L501.2450 #### [facility] [address] [place], [address] Platelet mean volume (Bld) [Entitic vol] 9.2 fL Normal 6.2-12.0 [facility] Comment on above: Performed By: #### L 500.4050, L100.0100, L501.2450 #### [facility] [address] [place], [address] Platelets (Bld) [#/Vol] 260 10*3/uL Normal 150-450 [facility] Comment on above: Performed By: #### L 500.4050, L100.0100, L501.2450 #### [facility] [address] [place], [address] RBC (Bld) [#/Vol] 5.02 10*6/uL Normal 4.2-5.4 [facility] Comment on above: Performed By: #### L 500.4050, L100.0100, L501.2450 #### [facility] [address] [place], [address] RDW SD 41.7 fl Normal 35.1-43.9 [facility] Comment on above: Performed By: #### L 500.4050, L100.0100, L501.2450 #### [facility] [address] [place], [address] WBC (Bld) [#/Vol] 5.3 10*3/uL Normal 4.4-11.0 [facility] Comment on above: Performed By: #### L 500.4050, L100.0100, L501.2450 #### [facility] [address] [place], [address] Comprehensive Metabolic Prof ilon 06-21-2024 Albumin [Mass/Vol] 3.6 g/dL Normal 3.2-5.0 [facility] Comment on above: Performed By: #### L 500.4050, L100.0100, L501.2450 #### [facility] [address] [place], [address] Albumin/Globulin [Mass ratio] 0.8 {ratio} Low 0.9-2.4 [facility] Comment on above: Performed By: #### L 500.4050, L100.0100, L501.2450 #### [facility] [address] [place], [address] ALK P 99 U/L Normal 45-117 [facility] Comment on above: Performed By: #### L 500.4050, L100.0100, L501.2450 #### [facility] [address] [place], [address] ALT [Catalytic activity/Vol] 27 U/L Normal 13-56 [facility] Comment on above: Performed By: #### L 500.4050, L100.0100, L501.2450 #### [facility] [address] [place], [address] AST [Catalytic activity/Vol] 19 U/L Normal 15-37 [facility] Comment on above: Performed By: #### L 500.4050, L100.0100, L501.2450 #### [facility] [address] [place], [address] Bilirubin [Mass/Vol] 0.40 mg/dL Normal 0.20-1.00 [facility] Comment on above: Result Comment: For patients on eltrombopag therapy, use of Dimension [place] TBIL is not recommended. Performed By: #### L 500.4050, L100.0100, L501.2450 #### [facility] [address] [place], [address] BUN/CRE 18.9 RATIO Normal 10-20 [facility] Comment on above: Performed By: #### L 500.4050, L100.0100, L501.2450 #### [facility] [address] [place], [address] CA,Total 10.4 mg/dL High 8.5-10.1 [facility] Comment on above: Performed By: #### L 500.4050, L100.0100, L501.2450 #### [facility] [address] [place], [address] Chloride [Moles/Vol] 107 mmol/L Normal 98-107 [facility] Comment on above: Performed By: #### L 500.4050, L100.0100, L501.2450 #### [facility] [address] [place], [address] CO2 [Moles/Vol] 29.0 mmol/L Normal 21.0-32.0 [facility] Comment on above: Performed By: #### L 500.4050, L100.0100, L501.2450 #### [facility] [address] [place], [address] Creatinine [Mass/Vol] 0.85 mg/dL Normal 0.55-1.02 [facility] Comment on above: Result Comment: The validity of the calculated GFR GFRAA in patients over 70 years has not been determined. Clinical correlation is essential. Performed By: #### L 500.4050, L100.0100, L501.2450 #### [facility] [address] [place], [address] ECRCL 75.94 ml/min Normal [facility] Comment on above: Performed By: #### L 500.4050, L100.0100, L501.2450 #### [facility] [address] [place], [address] EST GFR - AA 89 mL/min Normal >60 [facility] Comment on above: Result Comment: Afri can [place] GFR Calc Performed By: #### L 500.4050, L100.0100, L501.2450 #### [facility] [address] [place], [address] GAP 4 Low 5-15 [facility] Comment on above: Performed By: #### L 500.4050, L100.0100, L501.2450 #### [facility] [address] [place], [address] GFR/1.73 sq M.predicted among non-blacks MDRD (S/P/Bld) [Vol rate/Area] 74 mL/min/{1.73_m2} Normal >60 [facility] Comment on above: Result Comment: Non- GFR Calc Performed By: #### L 500.4050, L100.0100, L501.2450 #### [facility] [address] [place], [address] Globulin (S) [Mass/Vol] 4.6 g/dL High 2.2-4.[address] [facility] Comment on above: Performed By: #### L 500.4050, L100.0100, L501.2450 #### [facility] [address] [place], [address] Glucose [Mass/Vol] 129 mg/dL High 74-106 [facility] Comment on above: Result Comment: Fast ing Glucose result greater than or equal to 126 mg/dL suggests DIABETES MELLITUS per A.D.A. criteria. Performed By: #### L 500.4050, L100.0100, L501.2450 #### [facility] [address] [place], [address] Potassium [Moles/Vol] 3.9 mmol/L Normal 3.5-5.1 [facility] Comment on above: Performed By: #### L 500.4050, L100.0100, L501.2450 #### [facility] [address] [place], [address] Sodium [Moles/Vol] 140 mmol/L Normal 136-145 [facility] Comment on above: Performed By: #### L 500.4050, L100.0100, L501.2450 #### [facility] [address] [place], [address] T PROT 8.2 g/dL Normal 6.4-8.2 [facility] Comment on above: Performed By: #### L 500.4050, L100.0100, L501.2450 #### [facility] [address] [place], [address] Urea nitrogen [Mass/Vol] 16 mg/dL Normal 7-18 [facility] Comment on above: Performed By: #### L 500.4050, L100.0100, L501.2450 #### [facility] [address] [place], [address] Emergency Department Summary on 06-21-2024 Emergency Department Summary [facility] Medical Records Department [address] [place] [address] Emergency Department Summary 06/21/24 MR#: [id number] Acct: [id number] Name: DUNIA VARGAS Rep #: [id number] : 1965 58 From: Lincoln Cochran PCP: Beverley Acuna, INTERNET SECURITY SPECIALIST-C Status:REG ER Location: ED HPI History of Present Illness Chief Complaint: Abd Pain Informant: patient and family Narrative Narrative: Here with daughter epigastric pain nausea and vomiting x 4. No hematemesis. No diarrhea. She ate around 3 PM 6 hours ago had to take some Tums afterwards. Similar incident in the past self- limiting she discussed with her PCP was told would happen again to let her know. No abdominal surgeries in the past. No urinary symptoms. No chest pains. Denies any black or bloody stools. Denies any alcohol history. Prior similar symptoms: Yes PFSH PFSH Medical History Asthma Rheumatoid arthritis Home Medications ???Medication ???Instructions ???Recorded ???Last Taken ???Type albuterol sulfate 90 mcg/actuation 2 puff inhalation Q4H PRN PRN 07/10/23 Unknown Rx aerosol inhaler (Ventolin HFA) Wheezing ##1 oseltamivir 75 mg capsule 75 mg PO BID #10 CAPSULES 07/10/23 Unknown Rx prednisone 20 mg tablet 60 mg (3 x 20 mg) PO DAILY #15 07/10/23 Unknown Rx TABLETS ondansetron 4 mg disintegrating 4 mg PO Q8H PRN PRN Nausea #10 tabs 06/21/24 Unknown Rx tablet pantoprazole 40 mg tablet,delayed 40 mg PO DAILY #30 tabs 06/21/24 Unknown Rx release sucralfate 1 gram tablet (Carafate) 1 g PO Q6H #60 tabs 06/21/24 Unknown Rx Allergy/AdvReac Type Severity Reaction Status Date / Time amoxicillin Allergy Swelling Verified 06/21/24 21:13 morphine Allergy PT UNSURE Verified 06/21/24 21:13 OF REACTION acetaminophen (From Percocet) AdvReac Vomiting Verified 06/21/24 21:13 oxycodone (From Percocet) AdvReac Vomiting Verified 06/21/24 21:13 Surgical History Status post surgical removal of malignant neoplasm of skin H/O section Hx of tubal ligation Social History household members: family housing: apartment Smoking Status: Current every day smoker tobacco type: cigarettes and e-cigarettes ROS ROS ED Constitutional Constitutional ED: Denies chills, fever(s) or sweats Eyes Eyes: Denies change in vision ENT ENT ED: Denies dysphagia or sore throat Cardiovascular Cardiovascular: Denies chest pain, leg edema, palpitations or racing heartbeat Respiratory/Chest Respiratory/Chest: Denies cough, dyspnea or dyspnea on exertion Gastrointestinal Gastrointestinal: Reports abdominal pain, nausea and vomiting; Denies diarrhea Genitourinary Genitourinary ED: Denies dysuria, hematuria or urinary frequency Musculoskeletal Musculoskeletal: Denies back pain, extremity pain or neck pain Integumentary Denies rash or wounds Neurologic Neurologic: Denies headache(s), paresthesias or weakness EXAM Physical Exam Const Vital Signs: 06/21/24 21:11 Temperature 98 F Temperature Source Oral Pulse Rate 88 Respiratory Rate 16 Blood Pressure 127/79 H Blood Pressure Mean 95 Pulse Ox 99 Oxygen Delivery Method Room Air Positive well nourished and well developed General Appearance ED: well developed and NAD HEENT Reports moist mucous membranes normocephalic and atraumatic Eyes EOMs intact bilaterally and conjunctivae normal General Eye ED: Yes normal appearance of both eyes Neck no lymphadenopathy and supple General: Negative for tenderness Chest Wall Chest: Negative for tenderness Resp normal respiratory effort and normal air movement Effort and Inspection: symmetric chest movement; Negative for respiratory distress Cardio regular rate, regular rhythm and no murmurs Peripheral Pulses: pulses 2+ throughout GI normal to inspection, nondistended, normoactive bowel sounds GI Narrative: Epigastric tenderness negative Hernandez's McBurney's. No guarding or rebound. Palpation: Negative for guarding or rebound tenderness present Back/Spine no CVA tenderness and no thoracic nor lumbar tenderness Extremity normal to inspection General Extremety ED: Negative for edema or tenderness General Extremity: Negative for edema Neuro oriented x3 and no sensory deficits noted Sensorium / Orientation: awake and alert Skin no rashes or lesions noted and no wounds MDM MDM MDM Narrative Medical decision making narrative: Interventions / MDM: Differential diagnosis: Gastritis Diagnosis considered but do not suspect: No clinical cholecystitis or appendicitis. Pancreatitis however lipase normal. My EKG interpretation: Sinus rate of 69, no ST or T wave changes. Imaging indepen (more content not included)... Normal [facility] Lipaseon 06-21-2024 Lipase [Catalytic activity/Vol] 65 U/L Normal 13-75 [facility] Comment on above: Result Comment: Mohit wright note: LIPASE revised reference range effective 22. New Lipase methodology. Expected to produce lower values than the previous assay method. NEW Reference Range: 13 - 75 U/L Performed By: #### L 500.4050, L100.0100, L501.2450 #### [facility] [address] [place], [address] PT D/C Summary (1)on 024 PT D/C Summary (1) [facility] [address] [place] [address] / REHABILITATION SERVICES DISCHARGE SUMMARY MR#: [id number] Acct: [id number] Name: DUNIA VARGAS Rep #: [id number] : 1965 58 From: Rossana Gaines PT, Cert. MDT Referring Dr.: LUIS MANUEL Acuna Status: REG R Insurance: [employer] SELF PAY INSURANCE Discharge Summary D/C summary: It has been my pleasure to treat DUNIA VARGAS referred by LUIS MANUEL Howard, with the diagnosis of NECK AND CHEPE ARM PAIN for a total of 8 visit(s). Discharge Date: 05/21/24 Please see the following information for a summary of their discharge status. Subjective Subjective: PATIENT REPORTS SHE FEELS BETTER WHEN SHE COMES TO THERAPY AND THE EX'S REALLY HELP. SHE STATES THAT EVEN THOUGH THIS IS HELPING SHE NEEDS A BREAK AND WILL BE STOPPING OT AND PT FOR NOW. SHE PLANS TO CONTINUE THE HOME EX'S. HURTING TODAY FROM DOING MORE CLEANING THAN USUAL. Pain NECK: Pain Intensity (Out of 10): 3 SHLD'S: Pain Intensity (Out of 10): 3 Overall Improvement % Improvement: 30 Objective Objective/Function: PATIENT WAS SEEN TODAY FOR RE-ASSESSMENT OF PROGRESS TOWARD THE SET PT GOALS AND THE NEED FOR FURTHER PHYSICAL THERAPY VS READINESS FOR DISCHARGE. THIS PATIENT HAS MADE GREAT PROGRESS IN A RELATIVELY SHORT PERIOD OF TIME. SHE IS INDEP WITH A HEP AND ALTHOUGH SHE IS A GOOD CANDIDATE TO CONTINUE PT SHE WOULD LIKE TO TAKE A BREAK SO WE WILL D/C HER FOR NOW. UPONE EXAM TODAY: ROM deficit: 145 DEG ACTIVE ELEVATION R UE. 155 DEG ACTIVE ELEVATION L UE. PATIENT IS R HAND DOMINANT. Motor deficit: R SHLD STRENGTH GROSSLY 3+/5. L SHLD 3+/5 WITH MMT AT 90 DEG. Dural Signs: POSITIVE CHEPE UE'S. Cervical Mvmt Loss: Flex: NIL Pro: NIL Ext: MOD Ret: MOD RSB: MOD LSB: MOD R Rot: MIN L Rot: MIN PATIENT C/O TIGHTNESS WITH CERVICAL ROM TESTING ALL PLANES BUT LITTLE TO NO PAIN WITH TESTING. Postural strength: POOR Palpation: PATIENT CONTINUES TO HAVE INCREASED MUSCLE TONE OF CHEPE UPPER BACK, NECK AND SHLD MUSCULATURE THROUGHOUT WITH MULTIPLE TRIGGER POINTS AND C/O TENDERNESS BUT IMPROVED COMPARED TO INITIAL EVAL. Goals Goal 1:: DECREASE C/O NECK AND SHLD PAIN BY AT LEAST 50% TO EASE ADL'S Goal Progress: Progressing Goal 2:: IMPROVE PERSONAL CARE, READING, SLEEP, DRIVING, LIFTING, WORK AND RECREATIONAL FUNCTION Goal Progress: Goal Met Goal 3:: INSTRUCT IN PROPHYLAXIS Goal Progress: Goal Met Plan Plan: D/C D/C Information d/c sentence: If there are questions or concerns regarding this patient's physical therapy, please feel free to call me at [phone]. Thank you for the referral of this patient. Sincerely, Rossana Gaines, PT, Cert MDT Balance/Gait/Functiona l tests Balance/Special Test Scores Oswestry Neck Score: 15 Improvement % Improvement: 30 05/21/24 1519 CC: LUIS MANUEL Lowery Podlogar HALINA Signed Normal [facility] Re-Evalution OT 05-17-2024 Re-Evalution OT [facility] Occupational Therapy Health[address] [place] [address] / REEVALUATION / MEDICARE RECERTIFICATION OCCUPATIONAL THERAPY MR#: [id number] Acct: [id number] Name: DUNIA VARGAS Rep #: [id number] : 1965 58 From: Sil Hassan Referring Dr.: LUIS MANUEL Lowery Podlogjoão Status: REG RCR Insurance: [facility]/[employer] [facility] Eval Date: SELF PAY INSURANCE Re-Evaluation Intro: Beverley Acuna, LUIS MANUEL, It has been my pleasure to treat DUNIA VARGAS over the last 9 visits for RA. Please see the progress note below for an update on the occupational therapy plan of care! Subjective Subjective: pt arrives after PT doing well. pt wearing braces on B hands which she reports have been helping her. states pain is good with her braces on even after going to PT currently at a 2. pt has one more visit sched for next week would like to continue therapy after because she believes it is helping her however has to figure out a car issue. 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 audio technician 2# R hand audio technician 0# L hand lateral pinch 2# R hand lateral pinch 0# L and R tripod pinch 0# pt is 1 cm MF to palm on L hand and 1.5 cm MF to palm on R hand unable to make full fist yet at this time MP joints positioned in UD -- joint deformity and subluxation limiting ROM Plan Plan Frequency: 1-2x /Week Duration: 4-6 Weeks Visits in this POC: 1-2x week (4-6 weeks) Plan: Continue POC: 1-2x week (4-6 weeks) Goals Goals Patient Goals: Regain Strength, Decrease Pain, Decrease Swelling/Stiffness, Use Hand/Wrist/Arm Normally Again, Increase ROM, Be More Independent in ADLS, Resume Former Household Responsibilities (Cooking,Cleaning,Yard , etc.) and Resume Hobbies Goal:: pt will improve L hand strength by 5# or more (0#) in order to improve I in ADL and IADL tasks L 2# pt will improve R hand strength by 5# or more (0#) in order to improve I in ADL and IADL tasks R 0# pt will improve R lateral pinch strength to 3# or more in order to maximize I in ADL and IADL tasks R0# L2# pt will improve B tripod pinch strength to 2# or more in order to maximize I in ADL and IADL tasks R and L 0# Goal:: pt will demonstrate ability to make composite fist with B hands for improved I in ADL and IADL tasks L 1cm MF to palm R1.5 cm MF to palm pt will improve B arm elbow extension to -10 or less in order to maximize I in ADL and IADL tasks Goal:: pt will decrease pain in B hands to 2/10 or less in order to maximize I in self care day to day tasks fluctuates depending on day Goal:: Pt will improve R hand MP swelling equal to L side (19 cm) in order to maximize ROM and function R 19.3 cm L 19 cm Goal:: pt will verbalize/ demonstrate 100% accuracy in joint positioning and protection during day to day tasks ongoing Goal:: pt will be able to fasten own bra with NC in order to return to PLOF now able to do it with increased time Goal:: pt will improve quick dash score by 15 points or more (63.63) in order to maximize functional use of B hands Goal:: pt will demonstrate 100% accuracy in proper fit and wear of appropriate bracing to prevent further joint deformity by discharge GOAL MET pt will be able to verbalize at least x3 different adaptive/ compensatory techniques to utilize day to day to maximize I in self care IADL tasks(adaptive cutting board ect) GOAL MET Anticipated Interventions Anticipated Interventions Anticipated Interventions: A/AAROM/PROM, Strengthening, Edema Control, Triggerpoint Release, Modalities, Orthoses, Joint Protection/Energy Conservation, Fine Motor Coord/Kodi, Education re assistive Equipment, Education re Diagnosis and Home Program Re-Evaluation Ending Re-evaluation ending: Please do not hesitate to contact me at [phone] by phone or if you have questions or concerns regarding this new plan of care! Sincerely, Sil Hassan 05/17/24 1535 CC: LUIS MANUEL Lowery Podlogar CK Signed For Medicare only, by signing this I certify the plan of care. Physicians Signature Date Normal [facility] Inital Evaluation (1) - PTon 04-23-2024 Inital Evaluation (1) - PT [facility] Physical Therapy [facility] [address] [place] [address]. [address] [place] [address] / REHABILITATION SERVICES INITIAL EVALUATION MR#: [id number] Acct: [id number] Name: DUNIA VARGAS Rep #: [id number] : 1965 58 From: Rossana A Cross PT, Cert. MDT Referring : LUIS MANUEL Howard Status: REG RCR Insurance: [facility]/[employer] SELF PAY INSURANCE Patient's Visit Information Visit Information Visit Information: DUNIA VARGAS is a 58 year old F referred to Physical Therapy by LUIS MANUEL Howard with a diagnosis of NECK AND CHPEE ARM PAIN. Date of Evaluation: 04/19/24 Physical Therapist: Rossana Gaines, PT, Cert MDT Visit Plan Frequency: 2x /Week Duration: 4-6 Weeks Plan: Scapular Strengthening and B Pec/UT/Levator/Scalene Stretching to help reduce stress on Cervical Spine with Daily Activities. US at 1.3 W/CM2 100% to R Neck Musculature in Sitting. Moist Heat to Neck as needed. Instruction in Proper Posture Control, Ergonomics with ADL's and Appropriate Activity Modifications. HEP Instructions. Subjective Subjective: Work/Leisure: CURRENTLY UNEMPLOYED. Disability: NO. PATIENT HAS APPLIED. Present symptoms: CHEPE NECK AND UE PAIN. PATIENT JUST CAME FROM CONSULT WITH OT FOR CHEPE HANDS. PATIENT DENIES NUMBNESS AND TINGLING AND STATES SHE HAS CHIEF C/O PAIN AND STIFFNESS IN HER NECK AND SHLD'S. PT IS GOING TO FOCUS ON NECK AND SHLD'S TODAY. PATIENT IS AGREEABLE. Present since: ABOUT 8-10 YEARS AGO Pain Scale: Worst - 8/10 Least - 0/10 Currently: 7/10 Commenced as a result of: NO APPARENT REASON OTHER THAN LOOKING DOWN ALL THE TIME AT WORK. NOW BELIEVES IT IS FROM RA. Symptoms at onset: UPPER ARM PAIN. Worse: LOOKING DOWN ALOT, MOVING HEAD FROM SIDE TO SIDE, TRYING TO LIFT, USING ARMS Better: ICE PACKS, HEAT, BACK AND BODY MEDICINE, IBUPROFEN Disturbed sleep: YES Previous history/Previous treatment: STEROIDS OFF AND ON SEVERAL YEARS. NO NECK OR SHLD SURGERY. NO NECK OR SHLD INJECTIONS. This episode: CYMBALTA X 5 DAYS BUT STOPPED DUE TO SIDE EFFECTS. Dizziness: NO Tinnitus: NO Nausea: YES - CONSTANT Shortness of Breath: NO Difficulty Swollowing: AT TIMES Gait: NOT USING ANY AD'S. DENIES ANY FALLS. CAN DO HER OWN GROCERY SHOPPING. Unexplained weight loss: NO Imaging: NECK X-RAY BY [facility] 2 YEARS AGO AND DX'S WITH ARTHRITIS PER PATIENT REPORT. OTHERWISE NO NECK OR SHLD IMAGING PER PATIENT REPORT. PMH/Recent major surgery: RA. SKIN CANCER. ASTHMA. ANXIETY. DEPRESSION. Objective Objective: Sitting Posture/Standing Posture: POOR. VERY GUARDED AND RESTLESS. FORWARD HEAD AND ROUNDED SHOULDERS. Active Correction of posture: ABLE TO PARTIALLY CORRECT. DOES NOT MAINTAIN. DECREASES C/O NECK PAIN AND INCREASES C/O R SHLD PAIN. Other Observations: INDEP SLOW ANTALGIC GAIT INTO PT WITHOUT AD OR LOB. Sensory deficit: CHEPE UE LIGHT TOUCH SENSATION IS GROSSLY INTACT AND SYMMETRICAL - FOREARM AND HANDS NT. ROM deficit: 103 DEG ACTIVE ELEVATION R UE. 115 DEG ACTIVE ELEVATION L UE. PATIENT IS R HAND DOMINANT. Motor deficit: R SHLD STRENGTH GROSSLY 2+/5. L SHLD 3-/5. Reflexes: 2+ CHEPE BICEPS. Dural Signs: POSITIVE CHEPE UE'S. Cervical Mvmt Loss: Flex: MOD Pro: NIL Ext: MOD Ret: MOD RSB: MOD LSB: MOD R Rot: MIN L Rot: MIN PATIENT C/O INCREASED NECK AND SHLD PAIN WITH ROM TESTING ALL PLANES BUT ESPECIALLY NECK FLEXION. Postural strength: POOR Palpation: INCREASED MUSCLE TONE OF CHEPE UPPER BACK, NECK AND SHLD MUSCULATURE THROUGHOUT WITH MULTIPLE TRIGGER POINTS AND C/O TENDERNESS. TREATMENT: POSTURE CORRECTION/TRAINING. Balance/Special Test Scores Oswestry Neck Score: 24 Goals Goal 1:: DECREASE C/O NECK AND SHLD PAIN BY AT LEAST 50% TO EASE ADL'S Goal Time Frame: 4-6 Weeks Goal 2:: IMPROVE PERSONAL CARE, READING, SLEEP, DRIVING, LIFTING, WORK AND RECREATIONAL FUNCTION Goal Time Frame: 4-6 Weeks Goal 3:: INSTRUCT IN PROPHYLAXIS Goal Time Frame: 4-6 Weeks Rehabilitation Potential Physical Therapy Diagnosis: NECK AND SHOULDER STIFFNESS AND WEAKNESS. INCREASED MUSCLE TONE OF NECK AND SHOULDERS AND C/O TENDERNESS. Rehabilitation Potential: Fair Anticipated Interventions Patient/Client Instruction: Educate patient on: Condition, Plan of Care and Risk Factors For the Purpose of:: To improve self management Therapeutic Exercise to Include: Strength training, Body mechanics, Postural training, Flexibilty training, Neuromotor development, Relaxation training, Active ROM and Scapular Strength/Stabilizati on For the Purpose of:: To decrease pain, To increase ROM, To improve muscle performance and motor function, To improve ability to perform ADL's, To increase tolerance to activity/condition/pos ition, To decrease level of supervision to perform tasks, To decrease soft tissue restriction, To increase flexibility/ROM and To improve self management Thermo t (more content not included)... Normal [facility] LEFT 2 VIEW KNEEon LEFT 2 VIEW KNEE EXAMINATION: TWO XRAY VIEWS OF THE LEFT KNEE 04/23/2024 2:49 pm COMPARISON: None. HISTORY: ORDERING SYSTEM PROVIDED HISTORY: PAIN FINDINGS: No evidence of acute fracture or dislocation. No focal osseous lesion. No evidence of joint effusion. No focal soft tissue abnormality. IMPRESSION: No acute abnormality of the knee. Normal [facility] RIGHT 2V HANDon 04-23-2024 RIGHT 2V HAND EXAMINATION: TWO XRAY VIEWS OF THE RIGHT HAND 04/23/2024 2:49 pm COMPARISON: None. HISTORY: ORDERING SYSTEM PROVIDED HISTORY: PAIN FINDINGS: Right hip alignment anatomic. No acute fracture. Generalized osteopenia [id number] degenerative change primarily interphalangeal joints. Soft tissues unremarkable. IMPRESSION: No acute findings. Degenerative change. Normal [facility] OT General Evaluationon OT General Evaluation [facility] Occupational Therapy Health[address] [place] [address] / REHABILITATION SERVICES INITIAL EVALUATION MR#: [id number] Acct: [id number] Name: DUNIA VARGAS Rep #: [id number] : 1965 58 From: Sil Hassan Referring Dr.: LUIS MANUEL Acuna Status: REG R Insurance: [facility] [employer] Pending sale to [facility] Date: SELF PAY INSURANCE Patient's Visit Information Visit Information Visit Information: DUNIA VARGAS is a 58 year old F, referred to Occupational Therapy by LUIS MANUEL Howard, with a diagnosis of RA. Date of Evaluation: 04/19/24 Occupational Therapist: Sil Hassan Subjective Subjective: This 58 year old arrives with dx of RA. pt has had dx for 8 years recently had to stop working in November due to worsening of dx and symptoms. 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 Pt is R hand dominant. Pt reports her R hand is worse than L unable to straighten it. increased assistance with self care tasks including fastening of bra and pulling pants up all the way over waist. daughter with down syndrome assists with cooking tasks. pt occ drops items when holding on to them. denies numbness or tingling. pt would benefit from OT services in order to provide training in joint protection and positioning as well as bracing and pain management. Pain R hand: Current Pain Intensity: 4 L hand: Current Pain Intensity: 6 Objective Objective/Observation: Pt arrives R hand MP swollen and ulnarly deviated ROM Shoulder: L 90 degrees R 105 degrees Elbow: L -45/WFL R -40/WFL Forearm: L supination wfl R supination 10 degrees Wrist: L 45/15 R 35/15 MP: L R -45/65 R 0/55 IP: L 0/ 90 R 0/55 Opposition: wfl ROM Comments: R hand 4 cm from palm MF L hand 6 cm from palm on MF R hand MP joints ulnar deviated no nodules present Strength Shoulder: R shoulder flexion 0# L shoulder flexion 4.6# Elbow: R bicep 4.4# L bicep 0# R tricep 9.2# L tricep 16# Associate Professor Of Automation: L 0# R 0# Lateral Pinch: L 3# R 0# Tripod Pinch: L 0# R 0# Edema Other: R MPs 20 cm L 19 cm Sensation Sensation Comments: denies Nine Hole Peg Right: 35 sec Left: 28 sec Quick DASH-Disab of Arm,Shoulder Hand Quick DASH Score: 63.6350 Goals Goal:: pt will improve L hand strength by 5# or more (0#) in order to improve I in ADL and IADL tasks pt will improve R hand strength by 5# or more (0#) in order to improve I in ADL and IADL tasks pt will improve R lateral pinch strength to 3# or more in order to maximize I in ADL and IADL tasks pt will improve B tripod pinch strength to 2# or more in order to maximize I in ADL and IADL tasks Goal:: pt will demonstrate ability to make composite fist with B hands for improved I in ADL and IADL tasks pt will improve B arm elbow extension to -10 or less in order to maximize I in ADL and IADL tasks Goal:: pt will decrease pain in B hands to 2/10 or less in order to maximize I in self care day to day tasks Goal:: Pt will improve R hand MP swelling equal to L side (19 cm) in order to maximize ROM and function Goal:: pt will verbalize/ demonstrate 100% accuracy in joint positioning and protection during day to day tasks Goal:: pt will be able to fasten own bra with NC in order to return to PLOF Goal:: pt will improve quick dash score by 15 points or more (63.63) in order to maximize functional use of B hands Goal:: pt will demonstrate 100% accuracy in proper fit and wear of appropriate bracing to prevent further joint deformity by discharge pt will be able to verbalize at least x3 different adaptive/ compensatory techniques to utilize day to day to maximize I in self care IADL tasks(adaptive cutting board ect) Rehabilitation General Assessment: This 58 year old female arrives with dx of RA presenting with decreased ROM, strength increased pain ulnar deviation of MPs R hand causing decreased ability to perform ADL/ IADL tasks. pt would benefit from OT services at this time 1-2x a week for 4-6 weeks in order to provide pain management ed on joint positioning and protection educate on options for bracing as well as adaptive equipment and promote proper ROM and strength for return to daily tasks. Rehabilitation Potential: Good Anticipated Interventions Anticipated Interventions: A/AAROM/PROM, Strengthening, Edema Control, Triggerpoint Release, Modalities, Orthoses, Joint Protection/Energy Conservation, Fine Motor Coord/Kodi, Education re assistive Equipment, Education re Diagnosis and Home Program Visit Plan Frequency: 1-2x /Week Duration: 4-6 Weeks General Plan: AROM/AAROM/PROM strengthening edema management bracing/ orthosis joint protection and positioning tendon glide pain management TEXT: Thank you for the opportunity to evaluate your patient. For Medicare and Medicare HMO plans, please review the plan of c (more content not included)... Normal [facility] Janine 04-09-2024 ANDRIY Telephone (FAMPWS) DUNIA VARGAS ([id number]) 1965 F Date Time Provider Department 04/09/24 BEVERLEY ACUNA During your visit today, we recorded the following information about you: Daria Dye LPN 04/09/2024 1:09 PM Signed Pt is calling to request PT order to be faxed to [facility]. Pt reports her son is going to therapy there so it would be easier on her for them to be in the same place. Pt is also requesting a consult to OT. Pt reports when she was signing up for PT the person noticed she has trouble with her hands because of rheumatoid arthritis and suggested OT also. Fax orders for PT and OT to [facility] @ [phone]. RAMESH Romano Christopher B, MD 04/09/2024 2:54 PM Signed Please fax rx [facility] to [facility]. I did not assess patient, so will wait for Beverley to return to determine if she would benefit from OT. Ladi Becker LPN 04/09/2024 4:20 PM Signed Phoned patient and advised her of provider's message. Advised her the order will be faxed and sent via senior operator. And once Beverley advises on the OT we will let her know on that as well. She voiced understanding. Ladi Becker LPN PodlogBeverley moyer APRN.ALEXANDRU 04/10/2024 7:15 AM Signed Order for OT placed, please fax as patient requested. Beverley Acuna APRN.Marlon Roche LPN 04/10/2024 8:30 AM Signed Unable to fax to [facility]. Orders, office note, demographics and insurance cards printed. Taken to senior operator to be taken to [facility]. Telephoned patient and notified. Marlon Licea LPN Allergies As of Date: 04/09/2024 Noted Allergy Reaction AMOXICILLIN 01/20/2017 9 - Itching HYDROCODONE-ACETAMINOP HEN 01/20/2017 8 - GI Upset MORPHINE 01/20/2017 16 - Unknown OXYCODONE-ACETAMINOPHE N 01/20/2017 8 - GI Upset Date Reviewed: 03/27/2024 Reviewed by: Marlon Licea LPN - Fully Assessed Reason for Visit: Orders [681] Primary Visit Diagnosis:Rheumatoid arthritis, involving unspecified site, unspecified whether rheumatoid factor present (HCC) [M06.9] Order(s):CONSULT TO [facility] APPRENTICE [[id number]] Order #: [id number]: 1 FUTURE Prescriptions as of 04/10/2024 - DULoxetine (CYMBALTA) 30 mg capsule Take 1 capsule by mouth once daily. Problem List As Of Date 04/09/2024 Noted Resolved Tobacco use [Z72.0] Skin lesion [L98.9] RA (rheumatoid arthritis) (HCC) [M06.9] Overweight [E66.3] High serum low-density lipoprotein (LDL) [R79.8* Environmental allergies [Z91.09] Asthma [J45.909] Anxiety [F41.9] 09/29/2018 Encounter for screening [Z13.9] 12/04/2018 Fatty tumor [D17.9] 12/04/2018 Sprain of foot [S93.609A] 01/29/2016 Pain in limb [M79.609] 10/27/2016 Lateral epicondylitis [M77.10] 03/28/2014 Closed fracture of upper end of fibula [S82.839*01/29/2016 Carpal tunnel syndrome [G56.00] 03/28/2014 Arthralgia of upper arm [M25.529] 03/28/2014 Closed fracture of lateral malleolus [S82.63XA] 01/29/2016 Encounter Status:Closed by MARLON LICEA [facility] Tele[facility] (INTMWS) DUNIA VARGAS ([id number]) 1965 F Date Time Provider Department 04/03/24 PODLOGARBEVERLEY During your visit today, we recorded the following information about you: Becki Willis LPN 04/03/2024 9:54 AM Signed Patient started on Cymbalta 30mg once daily, unable to eat, sleeping all the time, gums are bleeding. Patient did look up, advised to contact the Doctor if gums are bleeding. Patient has only been on the medication x5 days, has not taken yet today. Please review AND advise. Becki Willis LPN Podlogar, DEBORAH Lowery.ALEXANDRU 04/03/2024 10:11 AM Signed I would recommend she stop the medication. If gum bleeding persists follow-up in office. Beverley Gibsonlogar, DEBORAH.Candi Holder RN 04/03/2024 10:25 AM Signed Pt called and is notified of providers results and instructions. Pt voices understanding. Candi Lee RN Allergies As of Date: 04/03/2024 Noted Allergy Reaction AMOXICILLIN 01/20/2017 9 - Itching HYDROCODONE-ACETAMINOP HEN 01/20/2017 8 - GI Upset MORPHINE 01/20/2017 16 - Unknown OXYCODONE-ACETAMINOPHE N 01/20/2017 8 - GI Upset Date Reviewed: 03/27/2024 Reviewed by: Marlon Licea LPN - Fully Assessed Reason for Visit: Patient Update [1234] Prescriptions as of 04/03/2024 - DULoxetine (CYMBALTA) 30 mg capsule Take 1 capsule by mouth once daily. Problem List As Of Date 04/03/2024 Noted Resolved Tobacco use [Z72.0] Skin lesion [L98.9] RA (rheumatoid arthritis) (HCC) [M06.9] Overweight [E66.3] High serum low-density lipoprotein (LDL) [R79.8* Environmental allergies [Z91.09] Asthma [J45.909] Anxiety [F41.9] 09/29/2018 Encounter for screening [Z13.9] 12/04/2018 Fatty tumor [D17.9] 12/04/2018 Sprain of foot [S93.609A] 01/29/2016 Pain in limb [M79.609] 10/27/2016 Lateral epicondylitis [M77.10] 03/28/2014 Closed fracture of upper end of fibula [S82.839*01/29/2016 Carpal tunnel syndrome [G56.00] 03/28/2014 Arthralgia of upper arm [M25.529] 03/28/2014 Closed fracture of lateral malleolus [S82.63XA] 01/29/2016 Encounter Status:Closed by CANDI LEE on 04/03/24 Normal [facility] CBC W Auto Differential pane l (Bld)on 03-27-2024 Basophils (Bld) [#/Vol] 0.06 10*3/uL Normal <0.11 [facility] Comment on above: Order Comment: Speci men Type: BLOOD SPECIMENOrdering Facility: [facility] Address: [address] [place] [address] Performed By: #### 5 7021-8 ####[facility] LABCLIA [id number] [place] [address] [place] Basophils/100 WBC (Bld) 1.0 % Normal [facility] Comment on above: Order Comment: Speci men Type: BLOOD SPECIMENOrdering Facility: [facility] Address: [address] [place] [address] Performed By: #### 5 7021-8 ####[facility] LABCLIA [id number] [place] [address] [place] Differential cell count method Nom (Bld) Auto Normal [facility] Comment on above: Order Comment: Speci men Type: BLOOD SPECIMENOrdering Facility: [facility] Address: [address] [place] [address] Performed By: #### 5 7021-8 ####[facility] LABCLIA [id number] [place] [address] [place] Eosinophils (Bld) [#/Vol] 0.12 10*3/uL Normal <0.46 [facility] Comment on above: Order Comment: Speci men Type: BLOOD SPECIMENOrdering Facility: [facility] Address: [address] [place] [address] Performed By: #### 5 7021-8 ####[facility] LABCLIA [id number] [place] [address] [place] Eosinophils/100 WBC (Bld) 2.0 % Normal [facility] Comment on above: Order Comment: Speci men Type: BLOOD SPECIMENOrdering Facility: [facility] Address: [address] [place] [address] Performed By: #### 5 7021-8 ####[facility] LABCLIA [id number] [place] [address] [place] Erythrocyte distribution width (RBC) [Ratio] 13.6 % Normal 11.5-15.0 [facility] Comment on above: Order Comment: Speci men Type: BLOOD SPECIMENOrdering Facility: [facility] Address: [address] [place] [address] Performed By: #### 5 7021-8 ####[facility] LABCLIA [id number] [place] [address] [place] Hematocrit (Bld) [Volume fraction] 42.6 % Normal 36.0-46.0 [facility] Comment on above: Order Comment: Speci men Type: BLOOD SPECIMENOrdering Facility: [facility] Address: [address] [place] [address] Performed By: #### 5 7021-8 ####[facility] LABCLIA [id number] [place] [address] [place] Hemoglobin (Bld) [Mass/Vol] 14.1 g/dL Normal 11.5-15.5 [facility] Comment on above: Order Comment: Speci men Type: BLOOD SPECIMENOrdering Facility: [facility] Address: [address] [place] [address] Performed By: #### 5 7021-8 ####[facility] LABCLIA [id number] [place] [address] [place] Immature granulocytes (Bld) [#/Vol] 10*3/uL Normal <0.10 [facility] Comment on above: Order Comment: Speci men Type: BLOOD SPECIMENOrdering Facility: [facility] Address: [address] [place] [address] Performed By: #### 5 7021-8 ####[facility] LABCLIA [id number] [place] [address] [place] Immature granulocytes/100 WBC (Bld) 0.2 % Normal [facility] Comment on above: Order Comment: Speci men Type: BLOOD SPECIMENOrdering Facility: [facility] Address: [address] [place] [address] Performed By: #### 5 7021-8 ####[facility] LABIA [id number] [place] [address] [place] Lymphocytes (Bld) [#/Vol] 2.78 10*3/uL Normal 1.00-4.00 [facility] Comment on above: Order Comment: Speci men Type: BLOOD SPECIMENOrdering Facility: [facility] Address: [address] [place] [address] Performed By: #### 5 7021-8 ####[facility] LABIA [id number] [address] [place] Lymphocytes/100 WBC (Bld) 45.6 % Normal [facility] Comment on above: Order Comment: Speci men Type: BLOOD SPECIMENOrdering Facility: [facility] Address: [address] [place] [address] Performed By: #### 5 7021-8 ####[facility] LABIA [id number] [place] [address] [place] MCH (RBC) [Entitic mass] 27.0 pg Normal 26.0-34.0 [facility] Comment on above: Order Comment: Speci men Type: BLOOD SPECIMENOrdering Facility: [facility] Address: [address] [place] [address] Performed By: #### 5 7021-8 ####[facility] LABCLIA [id number] [place] [address] [place] MCHC (RBC) [Mass/Vol] 33.1 g/dL Normal 30.5-36.0 [facility] Comment on above: Order Comment: Speci men Type: BLOOD SPECIMENOrdering Facility: [facility] Address: [address] [place] [address] Performed By: #### 5 7021-8 ####[facility] LABCLIA [id number] [place] [address] [place] MCV (RBC) [Entitic vol] 81.5 fL Normal 80.0-100.0 [facility] Comment on above: Order Comment: Speci men Type: BLOOD SPECIMENOrdering Facility: [facility] Address: [address] [place] [address] Performed By: #### 5 7021-8 ####[facility] LABIA [id number] [place] [address] [place] Monocytes (Bld) [#/Vol] 0.74 10*3/uL Normal <0.87 [facility] Comment on above: Order Comment: Speci men Type: BLOOD SPECIMENOrdering Facility: [facility] Address: [address] [place] [address] Performed By: #### 5 7021-8 ####[facility] LABCLIA [id number] [place] [address] [place] Monocytes/100 WBC (Bld) 12.2 % Normal [facility] Comment on above: Order Comment: Speci men Type: BLOOD SPECIMENOrdering Facility: [facility] Address: [address] [place] [address] Performed By: #### 5 7021-8 ####[facility] LABIA [id number] [place] [address] [place] Neutrophils (Bld) [#/Vol] 2.38 10*3/uL Normal 1.45-7.50 [facility] Comment on above: Order Comment: Speci men Type: BLOOD SPECIMENOrdering Facility: [facility] Address: [address] [place] [address] Performed By: #### 5 7021-8 ####[facility] LABCLIA [id number] [place] [address] [place] Neutrophils/100 WBC (Bld) 39.0 % Normal [facility] Comment on above: Order Comment: Speci men Type: BLOOD SPECIMENOrdering Facility: [facility] Address: [address] [place] [address] Performed By: #### 5 7021-8 ####[facility] LABCLIA [id number] [place] [address] [place] Nucleated RBC (Bld) [#/Vol] 10*3/uL Normal <0.01 [facility] Comment on above: Order Comment: Speci men Type: BLOOD SPECIMENOrdering Facility: [facility] Address: [address] [place] [address] Performed By: #### 5 7021-8 ####[facility] LABIA [id number] [place] [address] [place] Nucleated RBC/100 WBC (Bld) [Ratio] 0.0 /100 WBC Normal [facility] Comment on above: Order Comment: Speci men Type: BLOOD SPECIMENOrdering Facility: [facility] Address: [address] [place] [address] Performed By: #### 5 7021-8 ####[facility] LABCLIA [id number] [place] [address] [place] Platelet mean volume (Bld) [Entitic vol] 9.7 fL Normal 9.0-12.7 [facility] Comment on above: Order Comment: Speci men Type: BLOOD SPECIMENOrdering Facility: [facility] Address: [address] [place] [address] Performed By: #### 5 7021-8 ####[facility] LABIA [id number] [place] [address] [place] Platelets (Bld) [#/Vol] 281 10*3/uL Normal 150-400 [facility] Comment on above: Order Comment: Speci men Type: BLOOD SPECIMENOrdering Facility: [facility] Address: [address] [place] [address] Performed By: #### 5 7021-8 ####[facility] LABIA [id number] [place] [address] [place] RBC (Bld) [#/Vol] 5.23 10*6/uL High 3.90-5.20 [facility] Comment on above: Order Comment: Speci men Type: BLOOD SPECIMENOrdering Facility: [facility] Address: [address] [place] [address] Performed By: #### 5 7021-8 ####[facility] LABIA [id number] [place] [address] [place] WBC (Bld) [#/Vol] 6.09 10*3/uL Normal 3.70-11.00 [facility] Comment on above: Order Comment: Speci men Type: BLOOD SPECIMENOrdering Facility: [facility] Address: [address] [place] [address] Performed By: #### 5 7021-8 ####[facility] LABIA [id number] [place] [id number] [facility] [place] CNOVon 03-27-2024 CNOV Office Visit (FAMPWS ) DUNIA [id number]) 1965 F Date Time Provider Department 03/27/24 2:00 PM BEVERLEY ACUNA During your visit today, we recorded the following information about you: Pulse Respiration Blood pressure Weight 107/minute 18/minute 104/84 78.7 kg Height 1.654 m Beverley Acuna APRN.COSMETICS COUNTER MANAGER 03/27/2024 3:06 PM Signed 03/27/2024 Patient presents with: Establish Care SUBJECTIVE: This is a 58 year old that is here today for Above Complaints. Has not seen primary care provider for some time Reports she has a hx of RA but has only seen rheumatology once. Reports pain to all joints but arms and her neck are the worst. [facility] and getting prednisone tapers which help for a short amount of time. Also using OTC NSAIDs with some short term relief Admits to depressive symptoms which she reports is mostly related to her pain. Has been on antidepressants in the past but not sure which one. Does not attend counseling. Denies SI, HI or insomnia Past medical, surgical,, family, social hx, medications, allergies and health maintenance reviewed and updated PAST MEDICAL HISTORY No date: Asthma No date: Environmental allergies No date: High serum low-density lipoprotein (LDL) No date: Overweight No date: RA (rheumatoid arthritis) (HCC) No date: Skin lesion No date: Tobacco use ALLERGIES Amoxicillin, Hydrocodone-Acetaminop hen, Morphine, and Oxycodone-Acetaminophe n MEDICATIONS Current Outpatient Medications Medication Sig DULoxetine (CYMBALTA) 30 mg capsule Take 1 capsule by mouth once daily. No current facility-administered medications for this visit. Medications and allergies reviewed by this provider. SOCIAL HISTORY Social History Tobacco Use Smoking status: Every Day Current packs/day: 1.00 Average packs/day: 1 pack/day for 38.0 years (38.0 ttl pk-yrs) Types: Cigarettes Smokeless tobacco: Never Vaping Use Vaping status: current everyday user Substances: Nicotine, CBD Substance Use Topics Alcohol use: Yes Drug use: No REVIEW OF SYSTEMS GENERAL: No weight loss, malaise or fevers HEENT: Negative for frequent or significant headaches, No changes in hearing or vision, no nose bleeds or other nasal problems NECK: Negative for lumps, goiter, and significant neck swelling RESPIRATORY: Negative for cough, hemoptysis, wheezing, COPD, dyspnea or shortness of breath CARDIOVASCULAR: Negative for chest pain, leg swelling, hypertension, CHF or palpitations GI: No nausea, vomiting, or diarrhea and some nausea for a week or so : No history of dysuria, frequency or incontinence SUPPLY TEACHER: Negative for abnormal vaginal bleeding, abnormal vaginal discharge MUSCULOSKELETAL: See HPI SKIN: Negative for lesions, rash, and itching PSYCH: See HPI HEMATOLOGY/LYMPHOLOGY: Negative for prolonged bleeding, bruising easily or swollen nodes ENDOCRINE: Negative for cold or heat intolerance, polyuria, polydipsia and goiter NEURO: No history of headaches, syncope, paralysis, seizures or tremors All other reviewed and negative other than HPI. OBJECTIVE: BP 104/84 Pulse 107 Resp 18 Ht 165.4 cm (5' 5.12) Wt 78.7 kg (173 lb 8 oz) LMP (LMP Unknown) SpO2 95% BMI 28.77 kg/m? . Vital signs reviewed by this provider. APPEARANCE Well appearing, alert, in no acute distress, well-hydrated, well nourished. EYES conjunctiva and sclera normal. EARS External ears normal, canals clear NECK Supple, no adenopathy; thyroid symmetric, normal size, no bruits HEART RRR with normal S1 and S2, no murmurs, no gallops, no JVD appreciated LUNG clear to auscultation. No wheezes, rhonchi or rales ABDOMEN bowel sounds normoactive, no bruits, soft, non-tender, non-distended EXTREMITIES some swelling of hands with nodules of metacarpals. BLE WNL SKIN Skin color, texture, turgor normal, no suspicious rashes or lesions to exposed skin Spirometry Never done DTaP,Tdap,Td Vaccine(1 - Tdap) Never done Hepatitis B Vaccine(1 of 3 - 19+ 3-dose series) Never done Mammogram Screening Never done Colorectal Cancer Screening Never done Cervical Cancer Screening due on 06/23/2013 Lung Cancer Screening Never done Diabetes Screening due on 10/11/2023 Covid-19 Vaccine( - season) Never done Hepatitis C Screening due on 03/27/2025 HIV Screening due on 03/27/2025 Shingrix Vaccine(2 of 2) due on 05/22/2024 Annual PCP Team Chronic Disease Visit due on 03/27/2025 Depression Screening due on 03/27/2025 Lipid Screening due on 10/10/2025 Influenza Vaccine Completed ASSESSMENT/PLAN: 1. Encounter for medical examination to establish care - ICD9: V70.9, ICD10: Z00.00 (primary diagnosis) - Counseled on healthy diet and regular exercise - Mammogram ordered - exam recommended once yearly - Lung cancer screening recommended - Smoking cessation encouraged; d (more content not included)... Normal [facility] Comprehensive metabolic 2000 panelon 03-27-2024 Albumin [Mass/Vol] 4.0 g/dL Normal 3.9-4.9 [facility] Comment on above: Order Comment: Speci men Type: BLOOD SPECIMENOrdering Facility: [facility] Address: [address] [place] [address] Performed By: #### 2 4323-8, 01087-2 ####[facility] LABCLIA [id number] [place] [address] [place] ALP [Catalytic activity/Vol] 98 U/L Normal 34-123 [facility] Comment on above: Order Comment: Speci men Type: BLOOD SPECIMENOrdering Facility: [facility] Address: [address] [place] [address] Performed By: #### 2 4323-8, 07216-2 ####[facility] LABCLIA [id number] [place] [address] [place] ALT [Catalytic activity/Vol] 25 U/L Normal 7-38 [facility] Comment on above: Order Comment: Speci men Type: BLOOD SPECIMENOrdering Facility: [facility] Address: [address] [place] [address] Performed By: #### 2 4323-8, 68036-9 ####[facility] LABCLIA [id number] [place] [address] [place] Anion gap [Moles/Vol] 14 mmol/L Normal 8-15 [facility] Comment on above: Order Comment: Speci men Type: BLOOD SPECIMENOrdering Facility: [facility] Address: [address] [place] [address] Performed By: #### 2 4323-8, 87357-8 ####[facility] LABCLIA [id number] [place] [address] [place] AST [Catalytic activity/Vol] 21 U/L Normal 13-35 [facility] Comment on above: Order Comment: Speci men Type: BLOOD SPECIMENOrdering Facility: [facility] Address: [address] [place] [address] Performed By: #### 2 4323-8, 84455-2 ####[facility] LABCLIA [id number] [place] [address] [place] Bilirubin [Mass/Vol] 0.3 mg/dL Normal 0.2-1.3 [facility] Comment on above: Order Comment: Speci men Type: BLOOD SPECIMENOrdering Facility: [facility] Address: [address] [place] [address] Performed By: #### 2 4323-8, 35696-3 ####[facility] LABCLIA [id number] [place] [address] [place] Calcium [Mass/Vol] 10.0 mg/dL Normal 8.5-10.2 [facility] Comment on above: Order Comment: Speci men Type: BLOOD SPECIMENOrdering Facility: [facility] Address: [address] [place] [address] Performed By: #### 2 4323-8, 68834-8 ####[facility] LABCLIA [id number] [place] [address] [place] Chloride [Moles/Vol] 101 mmol/L Normal 98-107 [facility] Comment on above: Order Comment: Speci men Type: BLOOD SPECIMENOrdering Facility: [facility] Address: [address] [place] [address] Performed By: #### 2 4323-8, 08773-5 ####[facility] LABCLIA [id number] [place] [address] [place] CO2 [Moles/Vol] 22 mmol/L Normal 22-30 [facility] Comment on above: Order Comment: Speci men Type: BLOOD SPECIMENOrdering Facility: [facility] Address: [address] [place] [address] Performed By: #### 2 4323-8, 39072-7 ####[facility] LABIA [id number] [place] [address] [place] Creatinine [Mass/Vol] 0.82 mg/dL Normal 0.58-0.96 [facility] Comment on above: Order Comment: Speci men Type: BLOOD SPECIMENOrdering Facility: [facility] Address: [address] [place] [address] Performed By: #### 2 4323-8, 10136-4 ####[facility] [id number] [place] [address] [place] Creatinine and Glomerular filtration rate.predicted panel (S/P/Bld) 84 mL/min/1.73m??? Normal >=60 [facility] Comment on above: Order Comment: Speci men Type: BLOOD SPECIMENOrdering Facility: [facility] Address: [address] [place] [address] Result Comment: Sallie mated Glomerular Filtration Rate (eGFR) is calculated using the 2020 CKD-EPI creatinine equation. This equation utilizes serum creatinine, sex, and age as parameters. The creatinine assay has traceable calibration to isotope dilution-mass spectrometry. Refer to KDIGO guidelines for clinical interpretation. In patients with unstable renal function, e.g. those with acute kidney injury, the eGFR may not accurately reflect actual GFR. Performed By: #### 2 4323-8, 33102-6 ####[facility] LABIA [id number] [place] [address] [place] Glucose [Mass/Vol] 91 mg/dL Normal 74-99 [facility] Comment on above: Order Comment: Speci men Type: BLOOD SPECIMENOrdering Facility: [facility] Address: [address] [place] [address] Result Comment: The [place] Diabetes [employer] (ADA) provides guidance for cutoff values for fasting glucose and random glucose. The ADA defines fasting as no caloric intake for at least 8 hours. Fasting plasma glucose results between 100 to 125 mg/dL indicate increased risk for diabetes (prediabetes). Fasting plasma glucose results greater than or equal to 126 mg/dL meet the criteria for diagnosis of diabetes. In the absence of unequivocal hyperglycemia, results should be confirmed by repeat testing. In a patient with classic symptoms of hyperglycemia or hyperglycemic crisis, random plasma glucose results greater than or equal to 200 mg/dL meet the criteria for diagnosis of diabetes. Reference: Standards of Medical Care in Diabetes 2016, [place] [employer]. Diabetes Care. 2016.39(Suppl 1). Performed By: #### 2 4323-8, 80299-3 ####[facility] LABCLIA [id number] [place] [address] [place] Potassium [Moles/Vol] 4.4 mmol/L Normal 3.7-5.1 [facility] Comment on above: Order Comment: Debbie bernal Type: BLOOD SPECIMENOrdering Facility: [facility] Address: [address] [place] [address] Performed By: #### 2 4323-8, 55908-9 ####[facility] LABCLIA [id number] [place] [address] [place] Protein [Mass/Vol] 7.9 g/dL Normal 6.3-8.0 [facility] Comment on above: Order Comment: Debbie bernal Type: BLOOD SPECIMENOrdering Facility: [facility] Address: [address] [place] [address] Performed By: #### 2 4323-8, 50963-8 ####[facility] LABCLIA [id number] [place] [address] [place] Sodium [Moles/Vol] 137 mmol/L Normal 136-144 [facility] Comment on above: Order Comment: Speci men Type: BLOOD SPECIMENOrdering Facility: [facility] Address: [address] [place] [address] Performed By: #### 2 4323-8, 25874-5 ####[facility] LABCLIA [id number] [address] [address] [place] Urea nitrogen [Mass/Vol] 15 mg/dL Normal 7-21 [facility] Comment on above: Order Comment: Speci men Type: BLOOD SPECIMENOrdering Facility: [facility] Address: [address] [place] [address] Performed By: #### 2 4323-8, 93302-7 ####[facility] LABCLIA [id number] [place] [address] [place] Lipid 1996 panelon 4 Cholesterol [Mass/Vol] 210 mg/dL High <200 [facility] Comment on above: Order Comment: Speci men Type: BLOOD SPECIMENOrdering Facility: [facility] Address: [address] [place] [address] Result Comment: <200 mg/dL, Desirable 200-239 mg/dL, Borderline high >239 mg/dL, High Performed By: #### 2 4323-8, 74088-7 ####[facility] LABCLIA [id number] [place] [address] [place] Cholesterol in HDL [Mass/Vol] 42 mg/dL Normal >39 [facility] Comment on above: Order Comment: Speci men Type: BLOOD SPECIMENOrdering Facility: [facility] Address: [address] [place] [address] Result Comment: 40-5 9 mg/dL, Acceptable >59 mg/dL, High: Negative risk factor for coronary heart disease <40 mg/dL, Low: Positive risk factor for coronary heart disease Performed By: #### 2 4323-8, 96136-3 ####[facility] LABCLIA [id number] [place] [address] [place] Cholesterol in LDL [Mass/Vol] 146 mg/dL High <100 [facility] Comment on above: Order Comment: Speci men Type: BLOOD SPECIMENOrdering Facility: [facility] Address: [address] [place] [address] Result Comment: <100 mg/dL, Optimal 100-129 mg/dL, Near optimal/above optimal 130-159 mg/dL, Borderline high 160-189 mg/dL, High >189 mg/dL, Very high Secondary prevention optimal LDL Cholesterol levels are recommended to be < 70 mg/dL Performed By: #### 2 4323-8, 17310-1 ####[facility] LABCLIA [id number] [address] [place] Cholesterol in LDL/Cholesterol in HDL [Mass ratio] 3.48 {ratio} High <2.54 [facility] Comment on above: Order Comment: Speci men Type: BLOOD SPECIMENOrdering Facility: [facility] Address: [address] [place] [address] Result Comment: Refe rence: 1. National Cholesterol Education Program ATP III Guideline At-A-Glance Quick Desk Reference: National Heart, Lung, and Blood [place]. National Institutes of Health. 2001: NIH Publication No. 01-3305. 2. An International Atherosclerosis Society position paper: global recommendations for the management of dyslipidemia: executive summary, Atherosclerosis. 2014: 232(2):410-413. Performed By: #### 2 4323-8, 24711-4 ####[facility] LABCLIA [id number] [place] [address] [place] Cholesterol in VLDL [Mass/Vol] 22 mg/dL Normal <30 [facility] Comment on above: Order Comment: Farzanai men Type: BLOOD SPECIMENOrdering Facility: [facility] Address: [address] [place] [address] Performed By: #### 2 4323-8, ####[facility] LABCLIA [id number] [place] [address] [place] Cholesterol non HDL [Mass/Vol] 168 mg/dL High <130 [facility] Comment on above: Order Comment: Speci men Type: BLOOD SPECIMENOrdering Facility: [facility] Address: [address] [place] [address] Result Comment: <130 mg/dL, Optimal 130-159 mg/dL, Near optimal/above optimal 160-189 mg/dL, Borderline high 190-219 mg/dL, High >219 mg/dL, Very high Secondary prevention optimal non HDL Cholesterol levels are recommended to be <100 mg/dL Performed By: #### 2 4323-8, 55777-1 ####[facility] LABCLIA [id number] [place] [address] [place] Cholesterol.total/Choles terol in HDL [Mass ratio] 5.00 {ratio} Normal <5.10 [facility] Comment on above: Order Comment: Speci men Type: BLOOD SPECIMENOrdering Facility: [facility] Address: [address] [place] [address] Performed By: #### 2 4323-8, 23256-1 ####[facility] LABCLIA [id number] [place] [address] [place] FASTING TIME 10 hrs Normal [facility] Comment on above: Order Comment: Speci men Type: BLOOD SPECIMENOrdering Facility: [facility] Address: [address] [place] [address] Performed By: #### 2 4323-8, 03993-3 ####[facility] LABCLIA [id number] [place] [address] [place] Triglyceride [Mass/Vol] 109 mg/dL Normal <150 [facility] Comment on above: Order Comment: Speci men Type: BLOOD SPECIMENOrdering Facility: [facility] Address: [address] [place] [address] Result Comment: <150 mg/dL, Normal 150-199 mg/dL, Borderline high 200-499 mg/dL, High >499 mg/dL, Very high Performed By: #### 2 4323-8, 50606-9 ####[facility] ROSLYN [id number] [address] [facility] CNOVon 02-02-2024 CNOV Office Visit (UCWSTR ) DUNIA VARGAS ([id number]) 1965 F Date Time Provider Department 02/02/24 4:15 PM DORIS ESQUIVEL [facility] During your visit today, we recorded the following information about you: Temperature Pulse Respiration Blood pressure 98.1 degrees 103/minute 18/minute 123/80 Weight 79.3 kg Doris Esquivel APRN.COSMETICS COUNTER MANAGER 02/02/2024 4:41 PM Signed This note was created using NoteWriter. Subjective Dunia Vargas is a 58 year old female. 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 She was encouraged to f/u with PCP and/or RA. Dr. Art accepted here to his panel. No appt made. The history is provided by the patient. No adoption counselor was used. Illness The current episode started more than 1 week ago. The onset was sudden. The problem occurs continuously. The problem has been rapidly worsening. Associated symptoms include muscle aches and neck pain. Pertinent negatives include no fever, no decreased vision, no double vision, no eye itching, no photophobia, no abdominal pain, no diarrhea, no nausea, no vomiting, no congestion, no ear discharge, no ear pain, no headaches, no hearing loss, no mouth sores, no rhinorrhea, no sore throat, no stridor, no swollen glands, no cough, no rash, no eye discharge, no eye pain and no eye redness. She has been Eating and drinking normally. Urine output has been normal. The last void occurred Less than 6 hours ago. 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 Services received include medications given. PAST MEDICAL HISTORY Diagnosis Date Asthma Environmental allergies High serum low-density lipoprotein (LDL) Overweight RA (rheumatoid arthritis) (HCC) Skin lesion Tobacco use PAST SURGICAL HISTORY Procedure Laterality Date CATARACT EXTRACTION HX Bilateral 2004 TUBAL LIGATION HX 1995 ALLERGIES Amoxicillin, Hydrocodone-Acetaminop hen, Morphine, and Oxycodone-Acetaminophe n MEDICATIONS albuterol HFA (PROAIR HFA) 90 mcg/actuation inhaler Inhale 2 Puffs as instructed every 4 hours as needed. albuterol HFA (PROAIR HFA) 90 mcg/actuation inhaler Inhale 2 Puffs as instructed every 6 hours as needed. albuterol (PROVENTIL) 2.5 mg /3 mL (0.083 %) nebulizer solution Use 3 mL via nebulizer every 4 hours as needed for Wheezing/Shortness of Breath. Use over 5-15minutes. B Complex Vitamins capsule Take 1 capsule by mouth once daily. Cholecalciferol, Vitamin D3, (VITAMIN D-3) 2,000 unit cap Take 2 capsules by mouth once daily. predniSONE (DELTASONE) 10 mg tablet Take 4 tabs daily for 3 days, then 2 tabs daily for 3 days, then 1 tab daily for 3 days with food. pseudoephedrine (SUDAFED) 30 mg tablet Take 2 tablets by mouth twice daily. (Patient not taking: Reported on 03/23/2022) benzonatate (TESSALON PERLE) 100 mg capsule Tessalon Perles 1-2 every 8 hours, do not combine this with robitussin or delsym (Patient not taking: Reported on 03/23/2022) pravastatin (PRAVACHOL) 10 mg tablet Take 1 tablet by mouth once daily. (Patient not taking: Reported on 09/26/2019 ) diclofenac sodium (VOLTAREN) 1 % topical gel Apply 2 g to affected area four times daily. (Patient not taking: Reported on 09/26/2019 ) FAMILY HISTORY Problem Relation Age of Onset Cancer Mother COPD Father COPD Brother Cancer Brother Kidney No Known Problems Brother Social History Tobacco Use Smoking status: Every Day Packs/day: 1.00 Years: 38.00 Additional pack years: 0.00 Total pack years: 38.00 Types: Cigarettes Smokeless tobacco: Never Vaping Use Vaping Use: current everyday user Substances: Nicotine, CBD Substance Use Topics Alcohol use: Yes Drug use: No Review of Systems Constitutional: Negative for activity change, appetite change and fever. HENT: Negative for congestion, ear discharge, ear pain, hearing loss, mouth sores, rhinorrhea and sore throat. Eyes: Negative for double vision, photophobia, pain, discharge, redness and itching. Respiratory: Negative for cough and stridor. Gastrointestinal: Negative for abdominal pain, diarrhea, nausea and vomiting. Musculoskeletal: Positive for arthralgias, back pain, myalgias, neck pain and neck stiffness. Skin: Negative for rash. Neurological: Negative for headaches. Hematological: Negative for adenopathy. Does not bruise/bleed easily. Psychiatric/Behavioral : Negative for agitation and behavioral problems. Objective LMP (LMP Unknown) BP 123/80 Pulse 103 Temp 36.7 ?C (98.1 ?F) Resp 18 Wt 79.3 kg (174 lb 13.2 oz) LMP (LMP Unknown) (more content not included)... Normal [place] 01-13-2024 [facility] Telephone (FAMWS) DUNIA VARGAS ([id number]) 1965 F Date Time Provider Department 01/13/24 MARTHA ART During your visit today, we recorded the following information about you: Deirdre Martin 01/13/2024 11:[address] Art is okay with patient establishing care with his practice. Deirdre Martin January 13, 2024 11:29 AM Allergies As of Date: 01/13/2024 Noted Allergy Reaction AMOXICILLIN 01/20/2017 9 - Itching HYDROCODONE-ACETAMINOP HEN 01/20/2017 8 - GI Upset MORPHINE 01/20/2017 16 - Unknown OXYCODONE-ACETAMINOPHE N 01/20/2017 8 - GI Upset Date Reviewed: 12/03/2023 Reviewed by: Poornima Obrien MA - Fully Assessed Reason for Visit: Patient Establishing Care with Dr. Art [Other] Prescriptions as of 01/13/2024 - pseudoephedrine (SUDAFED) 30 mg tablet Take 2 tablets by mouth twice daily. - benzonatate (TESSALON PERLE) 100 mg capsule Tessalon Perles 1-2 every 8 hours, do not combine this with robitussin or delsym - albuterol HFA (PROAIR HFA) 90 mcg/actuation inhaler Inhale 2 Puffs as instructed every 4 hours as needed. - albuterol HFA (PROAIR HFA) 90 mcg/actuation inhaler Inhale 2 Puffs as instructed every 6 hours as needed. - albuterol (PROVENTIL) 2.5 mg /3 mL (0.083 %) nebulizer solution Use 3 mL via nebulizer every 4 hours as needed for Wheezing/Shortness of Breath. Use over 5-15minutes. - pravastatin (PRAVACHOL) 10 mg tablet Take 1 tablet by mouth once daily. - B Complex Vitamins capsule Take 1 capsule by mouth once daily. - diclofenac sodium (VOLTAREN) 1 % topical gel Apply 2 g to affected area four times daily. - Cholecalciferol, Vitamin D3, (VITAMIN D-3) 2,000 unit cap Take 2 capsules by mouth once daily. 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] 12/04/2018 Sprain of foot [S93.609A] 01/29/2016 Pain in limb [M79.609] 10/27/2016 Lateral epicondylitis [M77.10] 03/28/2014 Closed fracture of upper end of fibula [S82.839*01/29/2016 Carpal tunnel syndrome [G56.00] 03/28/2014 Arthralgia of upper arm [M25.529] 03/28/2014 Closed fracture of lateral malleolus [S82.63XA] 01/29/2016 Encounter Status:Closed by DEIRDRE MARTIN on 01/13/24 Normal [facility] CNOVon 12-03-2023 CNOV Office Visit (UCWSTR ) TESSIE VARGASA Aurelia ([id number]) 1965 F Date Time Provider Department 12/03/23 9:30 AM WILFREDO HAWLEY [facility] During your visit today, we recorded the following information about you: Temperature Pulse Respiration Blood pressure 99.2 degrees 92/minute 16/minute 122/60 Weight 82.7 kg Wilfredo Hawley PA-C 12/03/2023 10:34 AM Signed This note was created using Knipriter. Subjective Dunia Vargas is a 58 year old female. HPI Presents with generalized arthralgias over the past 2 months. She has a history of RA that is not currently being treated. She states she has never been on medication for it. She tries to do homeopathic remedies but had a reaction to 1 that caused her face to swell so has not really been on anything. She has chronic deformities in her right hand and that has been more swollen recently. Her left hand also has been swollen. She has not increased pain in her neck and shoulders as well as her knees. No injuries. No fevers or chills. She does not currently have a PCP or medicare specialist. Review of Systems Constitutional: Negative. HENT: Negative. Respiratory: Negative. Cardiovascular: Negative. Gastrointestinal: Negative. Genitourinary: Negative. Musculoskeletal: Positive for arthralgias and joint swelling. Skin: Negative. All other systems reviewed and are negative. PAST MEDICAL HISTORY Diagnosis Date Asthma Environmental allergies High serum low-density lipoprotein (LDL) Overweight RA (rheumatoid arthritis) (HCC) Skin lesion Tobacco use Current Outpatient Medications Medication Sig Dispense Refill albuterol HFA (PROAIR HFA) 90 mcg/actuation inhaler Inhale 2 Puffs as instructed every 4 hours as needed. 1 Each 0 albuterol HFA (PROAIR HFA) 90 mcg/actuation inhaler Inhale 2 Puffs as instructed every 6 hours as needed. 18 g 6 albuterol (PROVENTIL) 2.5 mg /3 mL (0.083 %) nebulizer solution Use 3 mL via nebulizer every 4 hours as needed for Wheezing/Shortness of Breath. Use over 5-15minutes. 1 Package 3 B Complex Vitamins capsule Take 1 capsule by mouth once daily. Cholecalciferol, Vitamin D3, (VITAMIN D-3) 2,000 unit cap Take 2 capsules by mouth once daily. 60 capsule 11 predniSONE (DELTASONE) 10 mg tablet Take 6 tabs for 3 days, then 4 tabs for 3 days, then 2 tabs for 3 days then 1 tab for 3 days with food. 39 tablet 0 pseudoephedrine (SUDAFED) 30 mg tablet Take 2 tablets by mouth twice daily. (Patient not taking: Reported on 03/23/2022) 24 tablet 0 benzonatate (TESSALON PERLE) 100 mg capsule Tessalon Perles 1-2 every 8 hours, do not combine this with robitussin or delsym (Patient not taking: Reported on 03/23/2022) 30 capsule 0 pravastatin (PRAVACHOL) 10 mg tablet Take 1 tablet by mouth once daily. (Patient not taking: Reported on 09/26/2019 ) 30 tablet 5 diclofenac sodium (VOLTAREN) 1 % topical gel Apply 2 g to affected area four times daily. (Patient not taking: Reported on 09/26/2019 ) 100 g 1 No current facility-administered medications for this visit. PAST SURGICAL HISTORY Procedure Laterality Date CATARACT EXTRACTION HX Bilateral 2004 TUBAL LIGATION HX 1995 FAMILY HISTORY Problem Relation Age of Onset Cancer Mother COPD Father COPD Brother Cancer Brother Kidney No Known Problems Brother Social History Tobacco Use Smoking status: Every Day Packs/day: 1.00 Years: 38.00 Additional pack years: 0.00 Total pack years: 38.00 Types: Cigarettes Smokeless tobacco: Never Vaping Use Vaping Use: current everyday user Substances: Nicotine, CBD Substance Use Topics Alcohol use: Yes Drug use: No Objective BP 122/60 Pulse 92 Temp 37.3 ?C (99.2 ?F) Resp 16 Wt 82.7 kg (182 lb 5.1 oz) LMP (LMP Unknown) SpO2 98% BMI 28.96 kg/m? Physical Exam Vitals reviewed. Constitutional: Appearance: Normal appearance. HENT: Head: Normocephalic and atraumatic. Cardiovascular: Rate and Rhythm: Normal rate and regular rhythm. Heart sounds: Normal heart sounds. Pulmonary: Effort: Pulmonary effort is normal. Breath sounds: Normal breath sounds. Musculoskeletal: Comments: Patient has chronic hypertrophic changes to the MCPs of her hands bilaterally, right worse than left. Some generalized swelling noted to her hands as well. Pain with range of motion of the hands. Pain with range of motion of the shoulder and neck. Pain with ambulation. Skin: General: Skin is warm and dry. Neurological: Mental Status: She is alert. Assessment and Plan ASSESSMENT/PLAN: 1. Rheumatoid arthritis flare (HCC) - ICD9: 714.0, ICD10: M06.9 I will treat with a prednisone taper. Discussed with patient however I would recommend following up with PCP to establish. Also would recommend rheumatology. Patient educated on the longstanding effects of untreated RA. Patient voiced understanding to plan. Wilfredo Hawley, (more content not included)... Normal [facility] Absolute lymphocyte countOrd ered By: Milton Wilder on 07-10-2023 Lymphocytes Auto (Unsp spec) [#/Vol] 1.77 10*3/uL 0.83-4.51 [facility] Basophil percentageOrdered B y: Milton Wilder on 07-10-2023 Basophil percentage 0-5 SEEN /hpf 0-5 [facility] Basophils/100 WBC (Bld) 0.6 % 0-[address] [facility] Chloride [Moles/Vol] 107 mmol[facility]L 98-[facility] Eosin[facility]/100 WBC (Bld) 0.0 % 0-5 [facility] Glucose [Mass/Vol] 116 mg/dL 74-[facility] Comment on above: Fasting Glucose resu lt from 100 to 125 mg/dL suggests IMPAIRED HOMEOSTASIS per A.D.A. criteria. Neutrophils (Bld) [#/Vol] 2.4 10*3/uL 2.0-7.7 [facility] Neutrophils/100 WBC (Bld) 47.4 % 47-70 [facility] Potassium [Moles/Vol] 3.0 mmol/L 3.5-5.1 [facility] Sodium [Moles/Vol] 139 mmol/L 136-145 [facility] WBC (Bld) [#/Vol] 5.0 10*3/uL 4.4-11.0 [facility] Bilirubin Test strip Ql (U)O rdered By: Milton Wilder on 07-10-2023 Bilirubin Ql (U) Negative Negative [facility] Blood erythrocytes count (nu mber/volume)Ordered By: Milton Wilder on 07-10-2023 RBC (Bld) [#/Vol] 4.85 10*6/uL 4.2-5.4 [facility] Blood hemoglobin measurement (mass/volume)Ordered By: Milton Wilder on 07-10-2023 Hemoglobin (Bld) [Mass/Vol] 13.7 g/dL 12.0-15.0 [facility] Blood lymphocytes/100 leukoc ytesOrdered By: Milton Wilder on 07-10-2023 Lymphocytes/100 WBC (Bld) 35.4 % 19-41 [facility] Blood monocytes/100 leukocyt esOrdered By: Milton Wilder on 07-10-2023 Monocytes/100 WBC (Bld) 16.2 % 0-10 [facility] Blood platelet mean volumeOr dered By: Milton Wilder on 07-10-2023 Platelet mean volume (Bld) [Entitic vol] 9.8 fL 6.2-12.0 [facility] Determination of erythrocyte mean corpuscular volume (MCV)Ordered By: Milton Wilder on 07-10-2023 MCV (RBC) [Entitic vol] 87.6 fL 81-[address] [facility] Hematocrit Auto (Bld) [Volum e fraction]Ordered By: Milton Wilder on 07-10-2023 Hematocrit (Bld) [Volume fraction] 42.5 % 37-47 [facility] Influenza virus A and B and SARS-CoV-2 (COVID-19) Ag panel - Upper respiratory specimOrdered By: Milton Wilder on 07-10-2023 SARS-CoV-2 & FLU Antigen (Rapid) Influenzae A [facility] Ketones Test strip Ql (U)Ord ered By: Milton Wilder on 07-10-2023 Ketones Ql (U) 5 mg/dl Negative [facility] Laboratory - Chemistry and C hemistry - challengeOrdered By: Milton Wilder on 07-10-2023 CO2 [Moles/Vol] 26.0 mmol/L 21.0-32.0 [facility] Urea nitrogen/Creatinine [Mass ratio] 26.7 mg/mg 10-20 [facility] - Hematology and Cell countsOrdered By: Milton Wilder on 07-10-2023 Erythrocyte distribution width (RBC) [Entitic vol] 39.8 fL 35.1-43.9 [facility] Erythrocyte distribution width (RBC) [Ratio] 12.5 % 11.6-14.6 [facility] Immature granulocytes/100 WBC (Bld) 0.400 % 0.0-0.9 [facility] Comment on above: IG% - Immature Granu locytes (promyelocytes, myelocytes and metamyelocytes) > 1% indicates that a LEFT SHIFT is Present. MCH (RBC) [Entitic mass] 28.2 pg 27.0-32.0 [facility] Nucleated RBC/100 WBC (Bld) [Ratio] 0 % 0-5 [facility] MCHC Auto (RBC) [Mass/Vol]Or dered By: Milton Wilder on 07-10-2023 MCHC (RBC) [Mass/Vol] 32.2 g/dL 32-36 [facility] Mucus LM Ql (Urine sed)Order ed By: Milton Wilder on 07-10-2023 Mucus Ql (Urine sed) 1+ /hpf [facility] Nitrite Test strip Ql (U)Ord ered By: Milton Wilder on 07-10-2023 Nitrite Ql (U) Negative Negative [facility] No Panel InformationOrdered By: Milton Wilder on 07-10-2023 D-Dimer Quantitative (PE/DVT) 1.23 FEU/ug/m 0.27-0.49 [facility] Comment on above: D-Dimer ELEVATED (>0 .49): Additional studies and clinicalassessments are indicated to conclude diagnosis of:Deep Vein Thrombosis (DVT) or Pulmonary Embolism (PE)CRITICAL VALUE VERIFIED. CALLED TO [id number]/24/23 1707 Edyta Hodge.RESULTS READ BACK BY SAME . Estimated Creatinine Clearance Calc 75.37 ml/min [facility] Estimated GFR (MDRD) Amer 103 mL/min >60 [facility] Comment on above: GFR Calc Estimated GFR (MDRD) Non-Af Amer 85 mL/min >60 [facility] Comment on above: Non- GFR Calc Troponin I High Sensitivity 3 pg/mL 3.0-54.0 [facility] Comment on above: Please Note: New Nicole t Units and Gender Specific Reference Ranges. For more information see Policy Stat Procedure [place] High Sensitivity Troponin (TNIH) and attachments. Platelets bldOrdered By: Nelsy Wilder on 07-10-2023 Platelets (Bld) [#/Vol] 176 10*3/uL 150-450 [facility] Protein Test strip Ql (U)Ord ered By: Milton Wilder on 07-10-2023 Protein Ql (U) 30 mg/dl Negative [facility] Serum or plasma calcium lidya urement (mass/volume)Ordered By: Milton Wilder on 07-10-2023 Calcium [Mass/Vol] 9.1 mg/dL 8.5-10.1 [facility] Serum or plasma creatinine m easurement (mass/volume)Ordered By: Milton Wilder on 07-10-2023 Creatinine [Mass/Vol] 0.75 mg/dL 0.55-1.02 [facility] Comment on above: The validity of the calculated GFR & GFRAA in patients over 70 years has not been determined. Clinical correlation is essential. Serum or plasma urea nitroge n measurement (mass/volume)Ordered By: Milton Wilder on 07-10-2023 Urea nitrogen [Mass/Vol] 20 mg/dL 7-18 [facility] Squamous epithelial cells de tection in urine sediment by light microscopyOrdered By: Milton Wilder on 07-10-2023 Epithelial cells.squamous LM Ql (Urine sed) 0-5 SEEN /hpf 5-10 [facility] Thin prep Papanicolaou smear with manual screeningOrdered By: Milton Wilder on 07-10-2023 Thin prep Papanicolaou smear with manual screening 6 5-15 [facility] Urine blood detectionOrdered By: Milton Wilder on 07-10-2023 RBC Ql (U) 50 /ul Negative [facility] RBC Ql (U) 0-5 SEEN /hpf 0-5 [facility] Urine clarityOrdered By: Nelsy Wilder on 07-10-2023 Clarity (U) Clear Clear [facility] Urine color determinationOrd ered By: Milton Wilder on 07-10-2023 Color (U) Yellow Yellow [facility] Urine glucose detectionOrder ed By: Milton Wilder on 07-10-2023 Glucose Ql (U) Normal mg/dl Normal [facility] Urine leukocyte esterase det ection by dipstickOrdered By: Milton Wilder on 07-10-2023 Leukocyte esterase Test strip Ql (U) 25 /ul Negative [facility] Urine pHOrdered By: Milton stone on 07-10-2023 pH (U) 5.0 [pH] 5.0 - 8.0 [facility] Urine sediment bacteria coun t by microscopy (number/high power field)Ordered By: Milton Wilder on 07-10-2023 Bacteria LM.HPF (Urine sed) [#/Area] 1 /[HPF] None Seen [facility] Urine specific gravity measu rementOrdered By: Milton Wilder on 07-10-2023 Specific gravity (U) [Rel density] 1.030 1.002-1.030 [facility] Urobilinogen Auto test strip Ql (U)Ordered By: Milton Wilder on 07-10-2023 Urobilinogen Ql (U) Normal mg/dl Normal [facility] Influenza virus A and B and SARS-CoV-2 (COVID-19) Ag panel - Upper respiratory specimOrdered By: Sury Treviño on 04-05-2023 SARS-CoV-2 (COVID-19) RNA RADHA+probe Ql (Resp) [facility] HEPATIC PANELon 02-13-2019 A:G RATIO 1.68 Normal 1.1-2.5 [facility] Comment on above: Performed By: #### L 100.0030 #### [facility] - LABORATORY [address] [place] [address] [id number] Albumin [Mass/Vol] 4.2 g/dL Normal 3.5-5.2 [facility] Comment on above: Performed By: #### L 100.0030 #### [facility] [address] [place] [address] [phone] ALK. PHOS 74 U/L Normal 35-105 [facility] Comment on above: Performed By: #### L 100.0030 #### [facility] [address] [place] [address] 44676 ALT [Catalytic activity/Vol] 17 U/L Normal 5-33 [facility] Comment on above: Performed By: #### L 100.0030 #### [facility] [address] [place] [address] 01048 AST [Catalytic activity/Vol] 18 U/L Normal 5-32 [facility] Comment on above: Performed By: #### L 100.0030 #### [facility] [address] [place] [address] 71217 Bilirubin Ql (U) 0.3 mg/dL Normal 0.2-1.2 [facility] Comment on above: Performed By: #### L 100.0030 #### [facility] [address] [place] [address] 88359 DIRECT BILIRUBI <0.2 Normal 0.0-0.3 [facility] Comment on above: Performed By: #### L 100.0030 #### [facility] [address] [place] [address] 51301 Globulin (S) [Mass/Vol] 2.5 g/dL Normal 1.5-4.5 [facility] Comment on above: Performed By: #### L 100.0030 #### [facility] [address] [place] [address] 27899 Protein [Mass/Vol] 6.7 g/dL Normal 6.4-8.3 [facility] Comment on above: Performed By: #### L 100.0030 #### [facility] [address] [place] [address] 37588 VITAMIN Don 12-29-2018 VITAMIN D 36.2 ng/mL Normal 30-100 [facility] Comment on above: Performed By: #### L 100.0005, L100.0040, L304.0470 #### [facility] [address] [place] [address] 12889 CBCon 12-28-2018 Basophils (Bld) [#/Vol] 0.10 x10(3) Normal 0.00-0.10 [facility] Comment on above: Performed By: #### L 200.0010 #### [facility] [address] [place] [address] 95572 Basophils/100 WBC (Bld) 1.2 % High 0.0-1.0 [facility] Comment on above: Performed By: #### L 200.0010 #### [facility] [address] [place] [address] 71551 Eosinophils (Bld) [#/Vol] 0.20 x10(3) Normal 0.00-0.54 [facility] Comment on above: Performed By: #### L 200.0010 #### [facility] [address] [place] [address] 01479 Eosinophils/100 WBC (Bld) 4.3 % Normal 0.5-4.9 [facility] Comment on above: Performed By: #### L 200.0010 #### [facility] [address] [place] [address] 92337 Erythrocyte distribution width (RBC) [Ratio] 13.9 % Normal 12.5-15.7 [facility] Comment on above: Performed By: #### L 200.0010 #### [facility] [address] [place] [address] 45099 Hematocrit (Bld) [Volume fraction] 44.4 % Normal 36.0-48.0 [facility] Comment on above: Performed By: #### L 200.0010 #### [facility] [address] [place] [address] 05511 Hemoglobin (Bld) [Mass/Vol] 15.3 g/dL Normal 12.0-16.0 [facility] Comment on above: Performed By: #### L 200.0010 #### [facility] [address] [place] [address] 94679 Lymphocytes (Bld) [#/Vol] 2.60 x10(3) Normal 1.00-3.50 [facility] Comment on above: Performed By: #### L 200.0010 #### [facility] [address] [place] [address] 89450 Lymphocytes/100 WBC (Bld) 54.2 % High 16.0-48.0 [facility] Comment on above: Performed By: #### L 200.0010 #### [facility] [address] [place] [address] 08574 MCH (RBC) [Entitic mass] 29.4 pg Normal 28.5-32.9 [facility] Comment on above: Performed By: #### L 200.0010 #### [facility] [address] [place] [address] 90002 MCHC (RBC) [Mass/Vol] 34.5 g/dL Normal 33.0-36.0 [facility] Comment on above: Performed By: #### L 200.0010 #### [facility] [address] [place] [address] 14385 MCV (RBC) [Entitic vol] 85.3 fL Normal 80.0-99.0 [facility] Comment on above: Performed By: #### L 200.0010 #### [facility] [address] [place] [address] 80305 Monocytes (Bld) [#/Vol] 0.60 x10(3) Normal 0.30-0.80 [facility] Comment on above: Performed By: #### L 200.0010 #### [facility] [address] [place] [address] 64279 Monocytes/100 WBC (Bld) 11.8 % High 4.3-11.2 [facility] Comment on above: Performed By: #### L 200.0010 #### [facility] [address] [place] [address] 79809 Neutrophils (Bld) [#/Vol] 1.40 x10(3) Normal 1.40-6.50 [facility] Comment on above: Performed By: #### L 200.0010 #### [facility] [address] [place] [address] 67067 Neutrophils/100 WBC (Bld) 28.5 % Low 45.0-73.0 [facility] Comment on above: Performed By: #### L 200.0010 #### [facility] - LABORATORY [address] [place] [address] 91215 Platelet mean volume (Bld) [Entitic vol] 8.1 fL Normal 7.5-9.5 [facility] Comment on above: Performed By: #### L 200.0010 #### ML [facility] [address] [place] [address] 52469 Platelets (Bld) [#/Vol] 195 X10(3) Normal 150-450 U [facility] Comment on above: Performed By: #### L 200.0010 #### [facility] - LABORATORY [address] [place] [address] 69786 RBC (Bld) [#/Vol] 5.21 x10(6) High 3.30-5.00 [facility] Comment on above: Performed By: #### L 200.0010 #### [facility] - LABORATORY [address] [place] [address] 46771 WBC (Bld) [#/Vol] 4.8 x10(3) Normal 4.5-10.0 [facility] Comment on above: Performed By: #### L 200.0010 #### [facility] - LABORATORY [address] [place] [address] 95380 [facility] 12-28-2018 A:G RATIO 1.50 Normal 1.1-2.5 [facility] Comment on above: Performed By: #### L 100.0005, L100.0040, L304.0470 #### [facility] - LABORATORY [address] [place] [address] 37428 Albumin [Mass/Vol] 4.2 g/dL Normal 3.5-5.2 [facility] Comment on above: Performed By: #### L 100.0005, L100.0040, L304.0470 #### [facility] - [facility]ATORY [address] [place] [address] 09983 ALK. PHOS 83 U/L Normal 35-105 [facility] Comment on above: Performed By: #### L 100.0005, L100.0040, L304.0470 #### [facility] - [facility]ATORY [address] [place] [address] 13649 ALT [Catalytic activity/Vol] 16 U/L Normal 5-33 [facility] Comment on above: Performed By: #### L 100.0005, L100.0040, L304.0470 #### [facility] - [facility]ATORY [address] [place] [address] 93077 Anion gap [Moles/Vol] 16.7 mmol/L Normal 15-22 [facility] Comment on above: Performed By: #### L 100.0005, L100.0040, L304.0470 #### [facility] - [facility]ATORY [address] [place] [address] 68733 AST [Catalytic activity/Vol] 18 U/L Normal 5-32 [facility] Comment on above: Performed By: #### L 100.0005, L100.0040, L304.0470 #### [facility] - [facility]ATORY [address] [place] [address] 18748 Bilirubin Ql (U) 0.3 mg/dL Normal 0.2-1.2 [facility] Comment on above: Performed By: #### L 100.0005, L100.0040, L304.0470 #### [facility] - [facility]ATORY [address] [place] [address] 81018 Calcium [Mass/Vol] 9.5 mg/dL Normal 8.6-10.0 [facility] Comment on above: Performed By: #### L 100.0005, L100.0040, L304.0470 #### [facility] - LABORATORY [address] [place] [address] 29710 Chloride [Moles/Vol] 104 mmol/L Normal 98-107 [facility] Comment on above: Performed By: #### L 100.0005, L100.0040, L304.0470 #### - LABORATORY [address] [place] [address] 04286 CO2 [Moles/Vol] 27 mmol/L Normal 22-29 [facility] Comment on above: Performed By: #### L 100.0005, L100.0040, L304.0470 #### [facility] [address] [place] [address] 06279 Creatinine [Mass/Vol] 0.90 mg/dL Normal 0.50-0.90 [facility] Comment on above: Performed By: #### L 100.0005, L100.0040, L304.0470 #### [facility] [address] [place] [address] 87868 eGFR if AFR ANEL > 60 ml/min/1.73m2 Normal [facility] Comment on above: Result Comment: eGFR >= 60 Indicates normal kidney function. * eGFR IS AN ESTIMATE * (AFR ANEL = ) (non-AFR AM = NON-) MDRD calculation used in the eGFR should not be used to dose medications. For further limitations of the eGFR please refer to the Physician Website or the National Kidney Disease Education Program website (www.nkdep.nih.gov). Performed By: #### L 100.0005, L100.0040, L304.0470 #### [facility] - [facility]ORATORY [address] [place] [address] 00534 eGFR nonAFR Anel > 60 ml/Min/1.73m2 Normal [facility] Comment on above: Performed By: #### L 100.0005, L100.0040, L304.0470 #### [facility] [address] [place] [address] 48076 Globulin (S) [Mass/Vol] 2.8 g/dL Normal 1.5-4.5 [facility] Comment on above: Performed By: #### L 100.0005, L100.0040, L304.0470 #### [facility] [address] [place] [address] 62028 Glucose [Mass/Vol] 100 mg/dL Normal 74-106 [facility] Comment on above: Performed By: #### L 100.0005, L100.0040, L304.0470 #### [facility] [address] [place] [address] 24064 Potassium [Moles/Vol] 4.7 mmol/L Normal 3.5-5.0 [facility] Comment on above: Performed By: #### L 100.0005, L100.0040, L304.0470 #### [facility] [address] [place] [address] 17042 Protein [Mass/Vol] 7.0 g/dL Normal 6.4-8.3 [facility] Comment on above: Performed By: #### L 100.0005, L100.0040, L304.0470 #### [facility] [address] [place] [address] 28388 Sodium [Moles/Vol] 143 mmol/L Normal 135-145 [facility] Comment on above: Performed By: #### L 100.0005, L100.0040, L304.0470 #### [facility] [address] [place] [address] 82382 Urea nitrogen [Mass/Vol] 14 mg/dL Normal 6-20 [facility] Comment on above: Performed By: #### L 100.0005, L100.0040, L304.0470 #### [facility] [address] [place] [address] 76081 LIPID PANELon 12-28-2018 Cholesterol [Mass/Vol] 256 mg/dL High 130-200 [facility] Comment on above: Performed By: #### L 100.0005, L100.0040, L304.0470 #### [facility] [address] [place] [address] 69585 Cholesterol in HDL [Mass/Vol] 37 mg/dL Normal [facility] Comment on above: Result Comment: Pratima onal Cholesterol Education Program (NCEP) guidelines: <40 mg/dL: Low HDL-Cholesterol(major risk factor for CHD) > or = 60 mg/dL: High HDL-Cholesterol(negative risk factor for CHD) HDL-cholesterol is affected by a number of factors, e.g., smoking, exercise, hormones, sex, and age. 4th Generation Test; Results may be approximately 7% lower than previous values. Performed By: #### L 100.0005, L100.0040, L304.0470 #### [facility] - [facility]ATORY [address] [place] [address] 86218 Cholesterol in LDL [Mass/Vol] 188 mg/dL Normal [facility] Comment on above: Result Comment: LDL: OPTIMAL FOR PEOPLE AT VERY HIGH RISK <70 OPTIMAL <100 NEAR OPTIMAL 100-129 BORDERLINE HIGH 130-159 HIGH 160-189 VERY HIGH >=190 Source: 2008 NCEP ATP III, ADA Guidelines Reviewed: October, Performed By: #### L 100.0005, L100.0040, L304.0470 #### [facility] - [facility]ATORY [address] [place] [address] 64055 Cholesterol in LDL/Cholesterol in HDL [Mass ratio] 5.1 Normal [facility] Comment on above: Performed By: #### L 100.0005, L100.0040, L304.0470 #### [facility] [address] [place] [address] 17095 Cholesterol in VLDL [Mass/Vol] 31 mg/dL Normal 6-40 [facility] Comment on above: Performed By: #### L 100.0005, L100.0040, L304.0470 #### [facility] - [facility]ATORY [address] [place] [address] 11598 Triglyceride [Mass/Vol] 156 mg/dL Normal U [facility] Comment on above: Result Comment: TRIG : DESIRABLE: <150 mg/dL Performed By: #### L 100.0005, L100.0040, L304.0470 #### [facility] - LABORATORY [address] [place] [address] 30957 EMERGENCY DEPARTMENT REPORTo n 07-09-2018 EMERGENCY [place]PART[place] [address] HEALTH INFORMATION MANAGEMENT EMERGENCY DEPARTMENT REPORT Patient: DUNIA VARGAS HARJINDER BOBO D.O. [id number] F Status: [facility] ER ED Date of Service: 07/08/18 CHIEF COMPLAINT This is a 52-year-old with a chief complaint of right wrist pain. HISTORY OF PRESENT ILLNESS The patient says she was yesterday taking apart a bed and that bothered her a lot. Previously she had been caring for her special needs daughter and they got into a tussle and she ended up straining her wrist that day too she thinks. She has RA as well. She had been on Naprosyn and Motrin before but those have been discontinued. MEDICATIONS She is on Robaxin and Proventil. PHYSICAL EXAMINATION On exam vital signs are stable. She is afebrile. An alert, well-developed, well-nourished female in no distress. Examination of her wrist reveals that she does have discomfort with palpation of the distal radius. Radial deviation of the wrist against resistance is painful for her. Equal radial pulses. I do not appreciate focal deficits. Her skin is warm and dry. IMPRESSION Tendinitis. Her plain films are negative. PLAN I will put her on an NSAID and have her follow up with ortho as necessary. She is discharged in good condition. 08/03/18 0132 HARJINDER BOBO D.O. cc: HARJINDER BOBO D.O. << Signature on File>> Reported By: HARJINDER BOBO D.O. Signed By: HARJINDER BOBO D.O. Tests performed at: [address] [address] Normal [facility] FOREARMon 07-08-[address] [address] Name: DUNIA VARGAS Phys: HARJINDER BOBO D.O. : 67 Age: 52 Sex: F Acct: [id number] Loc: ED Exam Date: 07/08/18 Status: REG ER Radiology No.: [id number] Unit Number: [id number] Exam # Type/Exam [id number] RAD / FOREARM RT Clinical history: Right wrist pain. Comparison: None. AP and lateral views of the right forearm are obtained. There is no fracture or pathologic bone lesion. There is no evidence of any pathologic periosteal bone reaction. Soft tissues are normal. Adjacent articular structures, as visualized, are within normal limits. IMPRESSION: Normal right forearm. Professional interpretation provided by [facility], [place] on [id number]. Thank you for this referral. < > Reported By: FRANCK LÓPEZ M.D. Signed In [employer] By: FRANCK LÓPEZ M.D. << Signature on File>> Reported By: FRANCK LÓPEZ M.D. Signed By: FRANCK LÓPEZ M.D. Tests performed at: [address] [address] [facility] 04-06-2018 [facility] DATE OF SERVICE: 04/06/2018A 52-year-old female with chief complaint of cough, congestion, shortness of breath,fatigue. Patient states the symptoms have been present for the past 2 weeks. She isvery short of breath, has been using her albuterol more frequently. She has triedTussin [id number] which helps sometimes. 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 Currently smokes a pack of cigarettes daily, is on Wellbutrin to quitsmoking and uses albuterol.ALLERGIES: MORPHINE, AMOXICILLIN, PERCOCET.PHYSICAL EXAMINATION: Vital Signs: Are stable including pulse oximetry of 96%.General: Patient is in no acute distress. HEENT: Tympanic membranes intact.Frontal and maxillary sinus tenderness to palpation. Nasal turbinate hypertrophy.Oral mucosa is moist. Normal posterior pharynx. Neck: No cervical lymphadenopathy.Heart: Regular rate and rhythm. No murmurs, rubs, or gallops. Lungs: Havediffuse wheezes and rhonchi.ASSESSMENT:1. Sinusitis.2. Asthma exacerbation/bronchiti s.PLAN: Z-Reinier daily for 5 days. Prednisone 40 mg daily for 10 days. Continuealbuterol. Followup as needed. Evie Coates, [facility]/[id number]: 04/06/2018 19:21DT: 04/11/2018 10:22SSI File#: [id number] #: [id number]/Reviewe d by04/29/18 0917 [facility] PATIENT NAME: DUNIA VARGAS [id number] [facility] [address] [place] MEDICAL REC #: [id number] [address] STATCARE REPORT STATCARE PHYSICIAN Normal [facility] Normal [facility] VITAMIN Don 03-16-2018 VITAMIN D 46.4 ng/mL Normal 30-100 [facility] Comment on above: Performed By: #### L 100.0005, L100.0040, L304.0470 #### [facility] - LABORATORY [address] [place] [address] 95929 CBCon 03-15-2018 Basophils (Bld) [#/Vol] 0.10 x10(3) Normal 0.00-0.10 [facility] Comment on above: Performed By: #### L 200.0010 #### [facility] - LABORATORY [address] [place] [address] 96096 Basophils/100 WBC (Bld) 1.0 % Normal 0.0-1.0 U [facility] Comment on above: Performed By: #### L 200.0010 #### [facility] - LABORATORY [address] [place] [address] 23184 Eosinophils (Bld) [#/Vol] 0.20 x10(3) Normal 0.00-0.54 [facility] Comment on above: Performed By: #### L 200.0010 #### ML [facility] [address] [place] [address] 13317 Eosinophils/100 WBC (Bld) 4.4 % Normal 0.5-4.9 [facility] Comment on above: Performed By: #### L 200.0010 #### ML [facility] [address] [place] [address] 60330 Erythrocyte distribution width (RBC) [Ratio] 13.7 % Normal 12.5-15.7 [facility] Comment on above: Performed By: #### L 200.0010 #### ML [facility] [address] [place] [address] 99145 Hematocrit (Bld) [Volume fraction] 42.8 % Normal 36.0-48.0 [facility] Comment on above: Performed By: #### L 200.0010 #### ML [facility] [address] [place] [address] 53648 Hemoglobin (Bld) [Mass/Vol] 14.7 g/dL Normal 12.0-16.0 [facility] Comment on above: Performed By: #### L 200.0010 #### ML [facility] [address] [place] [address] 96828 Lymphocytes (Bld) [#/Vol] 2.70 x10(3) Normal 1.00-3.50 [facility] Comment on above: Performed By: #### L 200.0010 #### [facility] [address] [place] [address] 09359 Lymphocytes/100 WBC (Bld) 50.0 % High 16.0-48.0 [facility] Comment on above: Performed By: #### L 200.0010 #### ML [facility] [address] [place] [address] 46821 MCH (RBC) [Entitic mass] 30.4 pg Normal 28.5-32.9 [facility] Comment on above: Performed By: #### L 200.0010 #### ML [facility] [address] [place] [address] 96455 MCHC (RBC) [Mass/Vol] 34.4 g/dL Normal 33.0-36.0 [facility] Comment on above: Performed By: #### L 200.0010 #### ML - LABORATORY [address] [place] [address] 32576 MCV (RBC) [Entitic vol] 88.6 fL Normal 80.0-99.0 [facility] Comment on above: Performed By: #### L 200.0010 #### ML [facility] [address] [place] [address] 06733 Monocytes (Bld) [#/Vol] 0.60 x10(3) Normal 0.30-0.80 [facility] Comment on above: Performed By: #### L 200.0010 #### ML [facility] [address] [place] [address] 40666 Monocytes/100 WBC (Bld) 11.3 % High 4.3-11.2 [facility] Comment on above: Performed By: #### L 200.0010 #### ML [facility] [address] [place] [address] 43808 Neutrophils (Bld) [#/Vol] 1.80 x10(3) Normal 1.40-6.50 [facility] Comment on above: Performed By: #### L 200.0010 #### ML [facility] [address] [place] [address] 77211 Neutrophils/100 WBC (Bld) 33.3 % Low 45.0-73.0 [facility] Comment on above: Performed By: #### L 200.0010 #### ML [facility] [address] [place] [address] 84098 Platelet mean volume (Bld) [Entitic vol] 8.3 fL Normal 7.5-9.5 [facility] Comment on above: Performed By: #### L 200.0010 #### ML [facility] [address] [place] [address] 41451 Platelets (Bld) [#/Vol] 235 X10(3) Normal 150-450 U [facility] Comment on above: Performed By: #### L 200.0010 #### ML [facility] [address] [place] [address] RBC (Bld) [#/Vol] 4.84 x10(6) Normal 3.30-5.00 [facility] Comment on above: Performed By: #### L 200.0010 #### [facility] [address] [place] [address] 56710 WBC (Bld) [#/Vol] 5.3 x10(3) Normal 4.5-10.0 [facility] Comment on above: Performed By: #### L 200.0010 #### [facility] [address] [place] [address] 39359 CMPon 03-15-2018 A:G RATIO 1.83 Normal 1.1-2.5 [facility] Comment on above: Performed By: #### L 100.0005, L100.0040, L304.0470 #### ML [facility] [address] [place] [address] 32197 Albumin [Mass/Vol] 4.4 g/dL Normal 3.5-5.2 [facility] Comment on above: Performed By: #### L 100.0005, L100.0040, L304.0470 #### [facility] [address] [place] [address] 73022 ALK. PHOS 77 U/L Normal 35-105 [facility] Comment on above: Performed By: #### L 100.0005, L100.0040, L304.0470 #### ML [facility] [address] [place] [address] 05535 ALT [Catalytic activity/Vol] 20 U/L Normal 5-33 [facility] Comment on above: Performed By: #### L 100.0005, L100.0040, L304.0470 #### ML [facility] [address] [place] [address] 14063 Anion gap [Moles/Vol] 15.3 mmol/L Normal 15-22 [facility] Comment on above: Performed By: #### L 100.0005, L100.0040, L304.0470 #### [facility] [address] [place] [address] 60681 AST [Catalytic activity/Vol] 18 U/L Normal 5-32 [facility] Comment on above: Performed By: #### L 100.0005, L100.0040, L304.0470 #### [facility] - [facility]AT[facility] [address] [place] [address] 09557 Bilirubin Ql (U) 0.3 mg/dL Normal 0.2-1.2 [facility] Comment on above: Performed By: #### L 100.0005, L100.0040, L304.0470 #### [facility] - [facility] [address] [place] [address] 17376 Calcium [Mass/Vol] 9.3 mg/dL Normal 8.6-10.0 [facility] Comment on above: Performed By: #### L 100.0005, L100.0040, L304.0470 #### [facility] [address] [place] [address] 44679 Chloride [Moles/Vol] 106 mmol/L Normal 98-107 [facility] Comment on above: Performed By: #### L 100.0005, L100.0040, L304.0470 #### [facility] - [facility] [address] [place] [address] 54101 CO2 [Moles/Vol] 24 mmol/L Normal 22-29 [facility] Comment on above: Performed By: #### L 100.0005, L100.0040, L304.0470 #### [facility] [address] [place] [address] 59854 Creatinine [Mass/Vol] 0.74 mg/dL Normal 0.50-0.90 [facility] Comment on above: Performed By: #### L 100.0005, L100.0040, L304.0470 #### [facility] [address] [place] [address] 91607 eGFR if AFR ANEL > 60 ml/min/1.73m2 Normal [facility] Comment on above: Result Comment: eGFR >= 60 Indicates normal kidney function. * eGFR IS AN ESTIMATE * (AFR ANEL = ) (non-AFR AM = NON-) MDRD calculation used in the eGFR should not be used to dose medications. For further limitations of the eGFR please refer to the Physician Website or the National Kidney Disease Education Program website (www.nkdep.nih.gov). Performed By: #### L 100.0005, L100.0040, L304.0470 #### [facility] [address] [place] [address] 35712 eGFR nonAFR Anel > 60 ml/Min/1.73m2 Normal U [facility] Comment on above: Performed By: #### L 100.0005, L100.0040, L304.0470 #### [facility] [address] [place] [address] 19001 Globulin (S) [Mass/Vol] 2.4 g/dL Normal 1.5-4.5 [facility] Comment on above: Performed By: #### L 100.0005, L100.0040, L304.0470 #### [facility] [address] [place] [address] 64482 Glucose [Mass/Vol] 96 mg/dL Normal 74-106 [facility] Comment on above: Performed By: #### L 100.0005, L100.0040, L304.0470 #### [facility] [address] [place] [address] 01699 Potassium [Moles/Vol] 4.3 mmol/L Normal 3.5-5.0 [facility] Comment on above: Performed By: #### L 100.0005, L100.0040, L304.0470 #### [facility] [address] [place] [address] 47225 Protein [Mass/Vol] 6.8 g/dL Normal 6.4-8.3 [facility] Comment on above: Performed By: #### L 100.0005, L100.0040, L304.0470 #### - LABORATORY [address] [place] [address] 37366 Sodium [Moles/Vol] 141 mmol/L Normal 135-145 [facility] Comment on above: Performed By: #### L 100.0005, L100.0040, L304.0470 #### [facility] [address] [place] [address] 21591 Urea nitrogen [Mass/Vol] 20 mg/dL Normal 6-20 [facility] Comment on above: Performed By: #### L 100.0005, L100.0040, L304.0470 #### [facility] [address] [place] [address] 94681 LIPID PANELon 03-15-2018 Cholesterol [Mass/Vol] 266 mg/dL High 130-200 [facility] Comment on above: Performed By: #### L 100.0005, L100.0040, L304.0470 #### [facility] [address] [place] [address] 57136 Cholesterol in HDL [Mass/Vol] 41 mg/dL Normal [facility] Comment on above: Result Comment: Pratima onal Cholesterol Education Program (NCEP) guidelines: <40 mg/dL: Low HDL-Cholesterol(major risk factor for CHD) > or = 60 mg/dL: High HDL-Cholesterol(negative risk factor for CHD) HDL-cholesterol is affected by a number of factors, e.g., smoking, exercise, hormones, sex, and age. 4th Generation Test; Results may be approximately 7% lower than previous values. Performed By: #### L 100.0005, L100.0040, L304.0470 #### [facility] [address] [place] [address] 52029 Cholesterol in LDL [Mass/Vol] 189 mg/dL Normal [facility] Comment on above: Result Comment: LDL: OPTIMAL FOR PEOPLE AT VERY HIGH RISK <70 OPTIMAL <100 NEAR OPTIMAL 100-129 BORDERLINE HIGH 130-159 HIGH 160-189 VERY HIGH >=190 Source: 2009 NCEP ATP III, ADA Guidelines Reviewed: October, Performed By: #### L 100.0005, L100.0040, L304.0470 #### [facility] [address] [place] [address] 75951 Cholesterol in LDL/Cholesterol in HDL [Mass ratio] 4.6 Normal [facility] Comment on above: Performed By: #### L 100.0005, L100.0040, L304.0470 #### [facility] - [facility] [address] [place] [address] Cholesterol in VLDL [Mass/Vol] 36 mg/dL Normal 6-40 [facility] Comment on above: Performed By: #### L 100.0005, L100.0040, L304.0470 #### [facility] - [facility] [address] [place] [address] Triglyceride [Mass/Vol] 178 mg/dL Normal U [facility] Comment on above: Result Comment: TRIG : DESIRABLE: <150 mg/dL Performed By: #### L 100.0005, L100.0040, L304.0470 #### [facility] [address] [place] [address] 65690 Vital Signs Date Time Vital Sign Value Performing Clinician Facility 01-22-2025 16:45-0400 Body temperature 98.3 [degF] Beverley Podlogar [employer]IST[employer] Work Phone: [facility] 01-22-2025 16:45-0400 Diastolic blood pressure 87 mm[Hg] Beverley Podlogar [employer] SEC[employer] SPECIALIST-C Work Phone: [phone] [place] [address] 01-22-2025 16:45-0400 Heart rate 90 /min Beverley Podlogar [employer] SPECIALIST-C Work Phone: [phone] [place] [address] 01-22-2025 16:45-0400 Respiratory rate 17 /min Beverley Podlogar [employer] SECURITY SPECIALIST-C Work Phone: [facility] 01-22-2025 16:45-0400 SaO2% (BldA) [Mass fraction] 96 % Beverley Podlogar [employer] SEC[employer]ITY SPECIALIST-C Work Phone: [facility] 01-22-2025 16:45-0400 Systolic blood pressure 128 mm[Hg] Beverley Podlogar INTERNET SECURITY SPECIALIST-C Work Phone: [facility] 01-22-2025 13:30-0400 Body height 167.64 cm Beverley Podlogar INTERNET SECURITY SPECIALIST-C Work Phone: [facility] 01-22-2025 13:30-0400 Body mass index (BMI) [Ratio] 26.6 kg/m2 Beverley Podlogar INTERNET SECURITY SPECIALIST-C Work Phone: [facility] 01-22-2025 13:30-0400 Body weight 75.06 kg Beverley Podlogar INTERNET SECURITY SPECIALIST-C Work Phone: [facility] 09-24-2024 14:07-0400 Body mass index (BMI) [Ratio] 27.86 kg/m2 Beverley Podlogar [employer].COSMETICS COUNTER MANAGER Work Phone: [facility] 09-24-2024 14:07-0400 Body weight 76.2 kg Beverley Podlogar [employer].COSMETICS COUNTER MANAGER Work Phone: [facility] 09-24-2024 14:07-0400 Diastolic blood pressure 86 mm[Hg] Beverley Podlogar [employer].COSMETICS COUNTER MANAGER Work Phone: [facility] 09-24-2024 14:07-0400 Heart rate 105 /min Beverley Podlogar [employer].COSMETICS COUNTER MANAGER Work Phone: [facility] 09-24-2024 14:07-0400 Respiratory rate 18 /min Beverley Podlogar [employer].COSMETICS COUNTER MANAGER Work Phone: [facility] 09-24-2024 14:07-0400 SaO2% (BldA) [Mass fraction] 97 % Beverley Podlogar [employer].COSMETICS COUNTER MANAGER Work Phone: [facility] 09-24-2024 14:07-0400 Systolic blood pressure 112 mm[Hg] Beverley Podlogar [employer].COSMETICS COUNTER MANAGER Work Phone: [facility] 03-27-2024 14:03-0400 Body height 165.4 cm Beverley Podlogar [employer].COSMETICS COUNTER MANAGER Work Phone: [facility] 03-27-2024 14:03-0400 Body mass index (BMI) [Ratio] 28.77 kg/m2 Beverley Podlogar [employer].COSMETICS COUNTER MANAGER Work Phone: [facility] 03-27-2024 14:03-0400 Body weight 78.7 kg Beverley Podlogar [employer].COSMETICS COUNTER MANAGER Work Phone: [facility] 03-27-2024 14:03-0400 Diastolic blood pressure 84 mm[Hg] Beverley Podlogar [employer].COSMETICS COUNTER MANAGER Work Phone: [facility] 03-27-2024 14:03-0400 Heart rate 107 /min Bevreley Podlogar [employer].COSMETICS COUNTER MANAGER Work Phone: [facility] 03-27-2024 14:03-0400 Respiratory rate 18 /min Beverley Podlogar [employer].COSMETICS COUNTER MANAGER Work Phone: [facility] 03-27-2024 14:03-0400 SaO2% (BldA) [Mass fraction] 95 % Beverley Podlogar [employer].COSMETICS COUNTER MANAGER Work Phone: [facility] 03-27-2024 14:03-0400 Systolic blood pressure 104 mm[Hg] Beverley Podlogar [employer].COSMETICS COUNTER MANAGER Work Phone: [facility] 02-02-2024 16:24-0400 Body mass index (BMI) [Ratio] 27.77 kg/m2 Doris Esquivel [employer].COSMETICS COUNTER MANAGER Work Phone: [facility] 02-02-2024 16:24-0400 Body temperature 98.1 [degF] Doris Esquivel [employer].COSMETICS COUNTER MANAGER Work Phone: [facility] 02-02-2024 16:24-0400 Body weight 79.3 kg Doris Esquivel [employer].COSMETICS COUNTER MANAGER Work Phone: [facility] 02-02-2024 16:24-0400 Diastolic blood pressure 80 mm[Hg] Doris Esquivel [employer].COSMETICS COUNTER MANAGER Work Phone: [facility] 02-02-2024 16:24-0400 Heart rate 103 /min Doris Esquivel [employer].COSMETICS COUNTER MANAGER Work Phone: [facility] 02-02-2024 16:24-0400 Respiratory rate 18 /min Doris Esquivel [employer].COSMETICS COUNTER MANAGER Work Phone: [facility] 02-02-2024 16:24-0400 SaO2% (BldA) [Mass fraction] 96 % Doris Esquivel [employer].COSMETICS COUNTER MANAGER Work Phone: [facility] 02-02-2024 16:24-0400 Systolic blood pressure 123 mm[Hg] Doris Esquivel [employer].COSMETICS COUNTER MANAGER Work Phone: [facility] 12-03-2023 09:50-0400 Body mass index (BMI) [Ratio] 28.96 kg/m2 Wilfredo Athy PA-C Work Phone: [facility] 12-03-2023 09:50-0400 Body temperature 99.19 [degF] Wilfredo Athy PA-C Work Phone: [facility] 12-03-2023 09:50-0400 Body weight 82.7 kg Wilfredo Athy PA-C Work Phone: [facility] 12-03-2023 09:50-0400 Diastolic blood pressure 60 mm[Hg] Wilfredo Athy PA-C Work Phone: [facility] 12-03-2023 09:50-0400 Heart rate 92 /min Wilfredo Athy PA-C Work Phone: [facility] 12-03-2023 09:50-0400 Respiratory rate 16 /min Wilfredo Athy PA-C Work Phone: [facility] 12-03-2023 09:50-0400 SaO2% (BldA) [Mass fraction] 98 % Wilfredo Athy PA-C Work Phone: [facility] 12-03-2023 09:50-0400 Systolic blood pressure 122 mm[Hg] Wilfredo Athy PA-C Work Phone: [facility] 07-10-2023 18:50-0500 Body temperature 98.5 [degF] [facility] 07-10-2023 18:50-0500 Heart rate 98 /min [facility] 07-10-2023 18:50-0500 Respiratory rate 14 /min [facility] 07-10-2023 18:50-0500 SaO2% (BldA) [Mass fraction] 92 % [facility] 07-10-2023 18:45-0500 Diastolic blood pressure 88 mm[Hg] [facility] 07-10-2023 18:45-0500 Systolic blood pressure 125 mm[Hg] [facility] 07-10-2023 18:00-0500 Inhaled oxygen flow rate 2 L/min [facility] 07-10-2023 15:54-0500 Body height 165.1 cm [facility] 07-10-2023 15:54-0500 Body mass index (BMI) [Ratio] 29.5 kg/m2 [facility] 07-10-2023 15:54-0500 Body weight 80.3 kg [facility] 04-23-2023 10:46-0400 Body mass index (BMI) [Ratio] 29 kg/m2 [facility] 04-23-2023 10:46-0400 Body temperature 96.6 [degF] [facility] 04-23-2023 10:46-0400 Body weight 79.33 kg [facility] 04-23-2023 10:46-0400 Diastolic blood pressure 89 mm[Hg] [facility] 04-23-2023 10:46-0400 Heart rate 80 /min [facility] 04-23-2023 10:46-0400 Respiratory rate 18 /min [facility] 04-23-2023 10:46-0400 SaO2% (BldA) [Mass fraction] 99 % [facility] 04-23-2023 10:46-0400 Systolic blood pressure 139 mm[Hg] [facility] 04-19-2023 09:02-0400 Body temperature 98.29 [degF] Ashley Mcnally APRN.CNP Work Phone: [facility] 04-19-2023 09:02-0400 Body weight 78.65 kg Ashley Mcnally APRN.CNP Work Phone: [facility] 04-19-2023 09:02-0400 Diastolic blood pressure 83 mm[Hg] Ashley Mcnally APRN.CNP Work Phone: [facility] 04-19-2023 09:02-0400 Heart rate 83 /min Ashley Mcnally APRN.COSMETICS COUNTER MANAGER Work Phone: [facility] 04-19-2023 09:02-0400 Respiratory rate 20 /min Ashley Mcnally APRN.COSMETICS COUNTER MANAGER Work Phone: [facility] 04-19-2023 09:02-0400 SaO2% (BldA) [Mass fraction] 98 % Ashley Mcnally APRN.COSMETICS COUNTER MANAGER Work Phone: [facility] 04-19-2023 09:02-0400 Systolic blood pressure 121 mm[Hg] Ashley Mcnally APRN.COSMETICS COUNTER MANAGER Work Phone: [facility] 04-05-2023 00:33-0400 Body mass index (BMI) [Ratio] 28.3 kg/m2 [facility] 04-05-2023 00:33-0400 Body temperature 98.3 [degF] [facility] 04-05-2023 00:33-0400 Body weight 77.11 kg [facility] 04-05-2023 00:33-0400 Diastolic blood pressure 90 mm[Hg] [facility] 04-05-2023 00:33-0400 Heart rate 85 /min [facility] 04-05-2023 00:33-0400 Respiratory rate 18 /min [facility] 04-05-2023 00:33-0400 SaO2% (BldA) [Mass fraction] 96 % [facility] 04-05-2023 00:33-0400 Systolic blood pressure 146 mm[Hg] [facility] 03-08-2023 13:38-0400 Body height 165.1 cm [facility] 03-08-2023 13:38-0400 Body mass index (BMI) [Ratio] 28.4 kg/m2 [facility] 03-08-2023 13:38-0400 Body temperature 97.8 [degF] [facility] 03-08-2023 13:38-0400 Body weight 77.56 kg [facility] 03-08-2023 13:38-0400 Diastolic blood pressure 88 mm[Hg] [facility] 03-08-2023 13:38-0400 Heart rate 86 /min [facility] 03-08-2023 13:38-0400 Respiratory rate 18 /min [facility] 03-08-2023 13:38-0400 SaO2% (BldA) [Mass fraction] 98 % [facility] 03-08-2023 13:38-0400 Systolic blood pressure 125 mm[Hg] [facility] 04-08-2022 10:47-0400 Body height 165.1 cm [facility] Work Phone: 04-08-2022 10:47-0400 Body mass index (BMI) [Ratio] 26.6 kg/m2 [facility] Work Phone: 04-08-2022 10:47-0400 Body temperature 97 [degF] [facility] Work Phone: 04-08-2022 10:47-0400 Body weight 72.57 kg [facility] Work Phone: 04-08-2022 10:47-0400 Diastolic blood pressure 76 mm[Hg] [facility] Work Phone: 04-08-2022 10:47-0400 Heart rate 89 /min [facility] Work Phone: 04-08-2022 10:47-0400 Respiratory rate 18 /min [facility] Work Phone: 04-08-2022 10:47-0400 SaO2% (BldA) [Mass fraction] 94 % [facility] Work Phone: 04-08-2022 10:47-0400 Systolic blood pressure 112 mm[Hg] [facility] Work Phone: 03-23-2022 16:40-0400 Body temperature 97.5 [degF] Renita Genao APRN.[facility] Work Phone: [facility] 03-23-2022 16:40-0400 Body weight 72.48 kg Renita Praisler-Wood [employer]IST[employer].COSMETICS COUNTER MANAGER Work Phone: [facility] 03-23-2022 16:40-0400 Diastolic blood pressure 78 mm[Hg] Renita Praisler-Wood [employer]IST[employer].COSMETICS COUNTER MANAGER Work Phone: [facility] 03-23-2022 16:40-0400 Heart rate 87 /min Renita Praisler-Wood [employer].COSMETICS COUNTER MANAGER Work Phone: [facility] 03-23-2022 16:40-0400 Respiratory rate 16 /min Renita Praisler-Wood [employer].[facility] Work Phone: [facility] 03-23-2022 16:40-0400 SaO2% (BldA) [Mass fraction] 99 % Renita Praisler-Wood [employer].[facility] Work Phone: [facility] 03-23-2022 16:40-0400 Systolic blood pressure 126 mm[Hg] Renita Praisler-Wood [employer]ING [employer].[facility] Work Phone: [facility] 11-25-2021 19:14-0400 Diastolic blood pressure 94 mm[Hg] [facility] Work Phone: 11-25-2021 19:14-0400 Heart rate 74 /min [facility] Work Phone: 11-25-2021 19:14-0400 Respiratory rate 18 /min [facility] Work Phone: 11-25-2021 19:14-0400 SaO2% (BldA) [Mass fraction] 96 % [facility] Work Phone: 11-25-2021 19:14-0400 Systolic blood pressure 135 mm[Hg] [facility] Work Phone: 11-25-2021 18:02-0400 Body height 165.1 cm [facility] Work Phone: 11-25-2021 18:02-0400 Body mass index (BMI) [Ratio] 25.7 kg/m2 [facility] Work Phone: 11-25-2021 18:02-0400 Body temperature 97 [degF] [facility] Work Phone: 11-25-2021 18:02-0400 Body weight 70.3 kg [facility] Work Phone: Encounters Encounter Date Encounter Type Care Provider Facility Start: 03-26-2025 ambulatory Beverley Podlogar INTERNET SECURITY SPECIALIST Facil ity:[facility] Start: 03-09-2025 ambulatory Beverley Podlogar INTERNET SECURITY SPECIALIST Facil ity:[facility] Start: 03-08-2025 End: 03-08-2025 Refill Martha Art MD Work Phone: [facility] [place] Comment on above: Refill Request Start: 02-05-2025 End: 02-05-2025 Patient encounter procedure Alejandra Gee [place] -[facility] Work Phone: Start: 02-05-2025 End: 02-05-2025 ambulatory Beverley Podlogar INTERNET SECURITY SPECIALIST-C Work Phone: -[facility] Start: 01-22-2025 End: 01-22-2025 ambulatory Martha Art MD Work Phone: [facility] [place] Comment on above: Chest Pain Start: 01-22-2025 End: 01-22-2025 Emergency department patient visit Beverley Podlogar INTERNET SECURITY SPECIALIST-C Work Phone: -Emergency Department Work Phone: Start: 10-15-2024 End: 12-15-2024 Follow-up encounter Martha Art MD Work Phone: [facility] [place] Start: 10-12-2024 End: 10-12-2024 ambulatory BEVERLEY PODLOGAR Facility:[facility] Start: 09-25-2024 End: 11-25-2024 Follow-up encounter Beverley Acuna APRN.CNP Work Phone: [facility] [place] Start: 09-25-2024 End: 09-25-2024 Telephone encounter Martha Art MD Work Phone: [facility] [place] Comment on above: Patient Question Start: 09-24-2024 End: 09-24-2024 ambulatory BEVERLEY PODLOGAR Facility:[facility] Start: 09-24-2024 End: 09-24-2024 Patient encounter procedure Beverley Podlogar [employer].COSMETICS COUNTER MANAGER Work Phone: [facility] [place] Comment on above: Depression, unspecif ied depression type (Primary Dx); Tachycardia; Bad odor of urine; Seasonal allergic rhinitis, unspecified trigger; Gastroesophageal reflux disease, unspecified whether esophagitis present Start: 09-24-2024 End: 09-24-2024 ambulatory MARTHA ART Facility:[facility] Start: 06-21-2024 End: 06-21-2024 Emergency department patient visit Lincoln Saige Facility:[facility] Start: 05-21-2024 End: 05-21-2024 ambulatory Beverley Gibsonlogar INTERNET SECURITY SPECIALIST Facility:[facility] Start: 04-23-2024 ambulatory [facility] Facility:[facility] Start: 04-09-2024 End: 04-10-2024 Telephone encounter Beverley Podlogar [employer].COSMETICS COUNTER MANAGER Work Phone: [facility] [place] Comment on above: Orders Start: 04-03-2024 End: 04-03-2024 Telephone encounter Beverley Podlogar [employer].COSMETICS COUNTER MANAGER Work Phone: [facility] [place] Comment on above: Patient Update Start: 03-27-2024 End: 03-27-2024 ambulatory BEVERLEY PODLOGAR Facility:[facility] Start: 03-27-2024 End: 03-27-2024 Patient encounter procedure Beverley Podlogar [employer].COSMETICS COUNTER MANAGER Work Phone: [facility] [place] Comment on above: Encounter for medica l examination to establish care (Primary Dx); Rheumatoid arthritis, involving unspecified site, unspecified whether rheumatoid factor present (HCC); Screening for colon cancer; Encounter for screening mammogram for breast cancer; Screening for hyperlipidemia; Screening for depression; Encounter for screening for lung cancer; Encounter for immunization; Bilateral arm pain; Neck pain; Depression, unspecified depression type Start: 03-27-2024 End: 03-27-2024 Patient encounter status Beverley Acuna [employer].COSMETICS COUNTER MANAGER Work Phone: [facility] Start: 03-27-2024 End: 03-27-2024 ambulatory MARTHA ART Facility:[facility] Start: 03-27-2024 Encounter for genera l adult medical examination without abnormal findings BEVERLEY ACUNA [facility] Start: 02-02-2024 End: 02-02-2024 ambulatory [facility] Facility:[facility] Start: 02-02-2024 End: 02-02-2024 Patient encounter procedure Dorisidalia Esquivel [employer].COSMETICS COUNTER MANAGER Work Phone: [facility] Comment on above: Rheumatoid arthritis flare (HCC) (Primary Dx) Start: 01-13-2024 Telephone encounter Cleveland Art MD Work Phone: [facility] [place] Comment on above: Patient Establishing Care with Dr. Art Start: 12-03-2023 End: 12-03-2023 ambulatory MARTHA ART Facility:[facility] Start: 12-03-2023 End: 12-03-2023 Patient encounter procedure Wilfredo Hawley PA-C Work Phone: [facility] Comment on above: Rheumatoid arthritis flare (HCC) (Primary Dx) Start: 07-10-2023 End: 07-10-2023 [facility] Start: 04-23-2023 End: 04-23-2023 Emergency department patient visit [facility] Work Phone: Start: 04-19-2023 End: 04-19-2023 Patient encounter procedure Ashley Mcnally APRN.COSMETICS COUNTER MANAGER Work Phone: [facility] Comment on above: Swelling (Primary Dx ) Start: 04-05-2023 End: 04-05-2023 [facility] Start: 03-08-2023 End: 03-08-2023 [facility] Start: 03-08-2023 End: 03-08-2023 Patient encounter procedure Luisito Bush [employer].COSMETICS COUNTER MANAGER Work Phone: [facility] Comment on above: Head injuries, initi al encounter (Primary Dx) Start: 04-08-2022 End: 04-08-2022 [facility] Start: 03-23-2022 End: 03-23-2022 Patient encounter procedure Renita Birgit [employer].COSMETICS COUNTER MANAGER Work Phone: [facility] Comment on above: Bacterial skin infec tion (Primary Dx) Start: 11-25-2021 End: 11-25-2021 [facility] Start: 07-15-2018 Patient encounter procedure Casey [place] Hayes Facility:[facility] Start: 04-06-2018 Patient encounter procedure Evie Coates Facility:[facility] Procedures Date Procedure Procedure Detail Performing Clinician Start: 01-22-2025 Estimated creatinine clearance Beverley Acuna INTERNET SECURITY SPECIALIST-C Work Phone: Start: 09-24-2024 Ecg routine ecg w/le ast 12 lds i&r only [facility] Provider Start: 09-24-2024 Urnls dip stick/tabl et rgnt auto w/o microscopy Beverley Podlogar [employer].COSMETICS COUNTER MANAGER Work Phone: Start: 03-27-2024 Adult depression scr eening assessment Beverley Podlogar [employer].COSMETICS COUNTER MANAGER Work Phone: Start: 03-27-2024 Lipid 1996 panel - S jane or Plasma Beverley Podlogar [employer].COSMETICS COUNTER MANAGER Work Phone: Start: 07-10-2023 CT angiography of ch est with contrast Start: 07-10-2023 Plain chest X-ray Start: 07-10-2023 SARS-CoV-2 & FLU Ant igen (Rapid) Start: 04-05-2023 SARS-CoV-2 & FLU Ant igen (Rapid) Start: 04-08-2022 Plain chest X-ray Start: 11-25-2021 Plain x-ray of hand Start: 10-10-2020 Lipid 1996 panel - S jane or Plasma Ashley Mcnally [employer].COSMETICS COUNTER MANAGER Work Phone: Start: 09-11-2018 Adult depression scr eening assessment Renita Genao APRN.[facility] Work Phone: Plan of Treatment Date Care Activity Detail Author Start: 03-27-2029 Lipid panel Lipid Screening [facility] Start: 09-25-2027 Diabetes Screening Diabetes Screenin g [facility] Start: 03-27-2027 Diabetes Screening Diabetes Screenin g [facility] Start: 10-10-2025 Lipid 1996 panel - S jane or Plasma Lipid Screening [facility] Start: 10-10-2025 Lipid panel Lipid Screening [facility] Start: 10-10-2025 LIPID SCREEN LIPID SCREEN [facility] Start: 09-24-2025 Annual PCP Team Sustainability Officer josiah Disease Visit Annual PCP Team Chronic Disease Visit [facility] Start: 03-27-2025 Annual PCP Team Sustainability Officer josiah Disease Visit Annual PCP Team Chronic Disease Visit [facility] Start: 03-27-2025 Depression Screening Depression Scre ening [facility] Start: 03-27-2025 Hepatitis C screening Hepatitis C Sc [facility] Comment on above: Postponed from 10/02 (Declined at this time) Start: 03-27-2025 HIV screening HIV Screening [facility] Comment on above: Postponed from 10/02 (Declined at this time) Start: 03-26-2025 End: 03-26-2025 Patient encounter procedure 03/26/2025 9:20 AM EDT Office Visit [facility] [place] [address] [place] [address] PodBeverley fierro APRN.COSMETICS COUNTER MANAGER [address] [place], [place] [id number] Physical [facility] [place] Comment on above: Physical Start: 03-18-2025 Influenza vaccination Influenza Vacc ine (#1) [facility] Start: 01-22-2025 [facility] Start: 01-22-2025 End: 01-22-2025 [facility] Start: 09-24-2024 End: 12-24-2024 Comprehensive metabolic 2000 panel - Serum or Plasma [facility] Comment on above: Expected: 09/24/2024 , Expires: 12/24/2024 Start: 09-24-2024 End: 09-24-2024 Patient encounter procedure 09/24/2024 2:00 PM EDT Office Visit Family [facility] [place] [address] [facility] [place] [address] PodlogarBeverley APRN.COSMETICS COUNTER MANAGER [address] [facility] [place] [address] 6 month follow up [facility] Comment on above: 6 month follow up Start: 09-24-2024 End: 12-24-2024 Thyrotropin [Units/volume] in Serum or Plasma [facility] Comment on above: Expected: 09/24/2024 , Expires: 12/24/2024 Start: 05-26-2024 Hzv zoster vacc recombinant adjuvanted im njx ZOSTER VACCINE, RECOMBINANT (SHINGRIX) Immunization/Injection Routine Encounter for immunization Expected: 05/26/2024 [facility] Comment on above: Expected: 05/26/2024 Start: 05-22-2024 Shingrix Vaccine (2 of 2) Shingrix Vaccine (2 of 2) [facility] Start: 04-19-2024 End: 04-19-2024 ambulatory 04/19/2024 12:15 PM EDT OT/PT/Speech Visit [facility] [address] [place] [address] Pablo Patel, PT [address] [facility] [place] [address] Bilateral arm pain [M79.601, M79.602] [facility] Comment on above: Bilateral arm pain [ M79.601, M79.602] Start: 03-27-2024 End: 06-26-2024 CBC W Auto Differential panel - Blood [facility] Comment on above: Expected: 03/27/2024 , Expires: 06/26/2024 Start: 03-27-2024 End: 06-26-2024 Comprehensive metabolic 2000 panel - Serum or Plasma [facility] Comment on above: Expected: 03/27/2024 , Expires: 06/26/2024 Start: 03-27-2024 End: 06-26-2024 Lipid 1996 panel - Serum or Plasma [facility] Comment on above: Expected: 03/27/2024 , Expires: 06/26/2024 Start: 03-27-2024 End: 03-27-2024 Patient encounter procedure 03/27/2024 2:00 PM EDT Office [facility] [place] [address] [facility] [place] [address] PodlogarBeverley APRN.COSMETICS COUNTER MANAGER [address] [place] [address] New patient [facility] [place] Comment on above: New patient Start: 03-18-2024 Covid-19 Vaccine () Covid-19 Vaccine () [facility] Start: 03-18-2024 Covid-19 Vaccine () Covid-19 Vaccine () [facility] Start: 03-18-2024 Influenza vaccination [facility] Start: 10-11-2023 DIABETES SCREEN DIABETES SCREEN [facility] Start: 10-11-2023 Diabetes Screening Diabetes Screenin g [facility] Start: 07-18-2023 Behavioral Health Screening Behavioral Health Screening [facility] Start: 07-10-2023 [facility] Start: 07-10-2023 Blood culture [facility] Start: 07-10-2023 Bacteria identified in Blood by Culture Blood Culture [facility] Start: 04-23-2023 [facility] Start: 03-18-2023 Covid-19 Vaccine ( season) Covid-19 Vaccine () [facility] Start: 03-18-2023 Influenza vaccination [facility] Start: 07-18-2022 DEPRESSION ASSESSMENT DEPRESSION ASS ESSMENT [facility] Start: 03-18-2022 Influenza vaccination INFLUENZA (#1) [facility] [facility] Start: 10-10-2021 ANNUAL PCP TEAM DATA ABSTRACTOR JOSIAH DISEASE VISIT ANNUAL PCP TEAM CHRONIC DISEASE VISIT [facility] Start: 09-11-2019 Adult depression screening assessment DEPRESSION SCREENING [facility] Start: 2016 Influenza vaccination LUNG CANCER [facility] Start: 2016 Pneumococcal Vaccine : 50+ (1 of 1 - PCV) Pneumococcal Vaccine: 50+ (1 of 1 - PCV) [facility] Start: 2016 Screening for malign ant neoplasm of lung Lung Cancer Screening [facility] Start: 2016 SHINGRIX VACCINE (1 of 2) SHINGRIX VACCINE (1 of 2) [facility] Start: 06-23-2015 PAP TESTING PAP TESTING [facility] Start: 06-23-2015 Screening for malign ant neoplasm of cervix Pap Testing [facility] Start: 06-23-2013 Screening for malign ant neoplasm of cervix Cervical Cancer Screening [facility] Start: 10-03-2011 COLOGUARD (FIT-DNA) COLOGUARD (FIT-D NA) [facility] Start: 10-03-2011 Colonoscopy COLONOSCOPY [facility] Start: 10-03-2011 COLORECTAL CANCER SCREENING COLORECTAL CANCER SCREENING [facility] Start: 10-03-[address] COLONOGRAPHY [facility] Start: 10-03-2011 FECAL OCCULT BLOOD FECAL OCCULT BLOO D [facility] Start: 10-03-2011 Screening for malign ant neoplasm of colon [facility] Start: 10-03-2011 SIGMOIDOSCOPY SIGMOIDOSCOPY [facility] Start: 2006 Mammography [facility] Start: 2006 Screening for malign ant neoplasm of breast Mammogram Screening [facility] Start: 1996 HPV TESTING HPV TESTING [facility] Start: 1996 Screening for malign ant neoplasm of cervix HPV Testing [facility] Start: 1985 Hepatitis B Vaccine (1 of 3 - 19+ 3-dose series) Hepatitis B Vaccine (1 of 3 - 19+ 3-dose series) [facility] Start: 1985 Urine microalbumin profile [facility] Start: 1984 HEPATITIS C SCREENING HEPATITIS C [facility] Start: 1984 Hepatitis C screening Hepatitis C [facility] Start: 1984 HIV SCREENING HIV SCREENING [facility] Start: 1984 HIV screening HIV Screening [facility] Start: 1984 SPIROMETRY SPIROMETRY [facility] Start: 1984 zzSpirometry (Retired) zzSpirometry (Retired) [facility] Start: 1972 PNEUMOCOCCAL (1 - PCV) PNEUMOCOCCAL (1 - PCV) [facility] Start: 1972 Pneumococcal vaccination [facility] Start: 04-04-1967 COVID-19 VACCINE (#1) COVID-19 VACCI NE (#1) [facility] Start: 1966 HEPATITIS B (1 of 3 - 3-dose series) HEPATITIS B (1 of 3 - 3-dose series) [facility] Start: 1966 Hepatitis B Vaccine (1 of 3 - 3-dose series) Hepatitis B Vaccine (1 of 3 - 3-dose series) [facility] End: 04-26-2025 DBT Breast - bilateral screening SERJIO SCREENING [facility] Radiology Routine Encounter for screening mammogram for breast cancer 1 Occurrences starting 03/27/2024 until 04/26/2025 [facility] Comment on above: 1 Occurrences starti ng 03/27/2024 until 04/26/2025 ECG COMPLETE [facility] Work Phone: Comment on above: Ordered: 09/24/2024 Patient Education [facility] Work Phone: Patient referral [place] Work Phone: End: 03-27-2025 Screening colonoscopy COLONOSCOPY SCREENING Endoscopy Routine Screening for colon cancer 1 Occurrences starting 03/27/2024 until 03/27/2025 [facility] Work Phone: Comment on above: 1 Occurrences starti ng 03/27/2024 until 03/27/2025 US Gallbladder [facility] Immunizations Immunization Date Immunization Notes Care Provider Fa kem 03-27-2024 influenza, seasonal, injectable Beverley Acuna [employer] Work Phone: [facility] 03-27-2024 zoster vaccine recombinant Beverley Acuna [employer] MANA[employer] Work Phone: [facility] 03-27-2024 influenza virus vaccine, unspecified formulation Martha Art MD Work Phone: [facility] Payers Date Payer Category Payer Self-pay [id number] 2023 Unknown [id number] 2019 Medicaid [id number] 2017 Unknown [id number] Unknown [id number] 2.16.8 [id number] Unknown [id number] 2.16.8 [id number] Unknown [id number] Unknown [id number] 2.16.8 [id number] Unknown [id number] 2.16.8 [id number] Unknown [id number] 2.16.8 [id number] Unknown [id number] 2.16.8 [id number] Unknown [id number] 2.16.8 [id number] Unknown [id number] 2.16.8 [id number] Social History Date Type Detail Facility Start: 11-25-2021 End: 07-10-2023 Tobacco smoking status [facility] Unknown if ever smoked [facility] Start: 1965 Sex Assigned At Female W [facility] Start: 05-23-2018 End: 01-22-2025 Tobacco smoking status NMIS Smokes tobacco daily [facility] End: 07-10-2023 History of tobacco use Cigarette Smoker [facility] Start: 05-23-2018 End: 05-23-2023 Cigarettes smoked current (pack per day) - Reported 1 [facility] Start: 05-23-2018 End: 03-27-2024 Tobacco use and exposure Smokeless tobacco non-user [facility] Start: 03-23-2022 End: 02-02-2024 Alcohol intake Current drinker of alcohol (finding) [facility] Start: 1965 Sex Assigned At Not on file [facility] Start: 03-23-2022 End: 05-23-2023 Tobacco use panel [facility] Start: 03-02-2018 Adult Depression Screening Assessment 3 [facility] Start: 03-27-2024 Tobacco smoking stat us NHIS Ex-smoker [facility] End: 07-10-2023 History of tobacco use Current smoker [facility] Start: 03-27-2024 End: 09-24-2024 Alcoholic beverage intake Ex-drinker (finding) [facility] Has the [employer], or getupp threatened to shut off services in your home in past 12Mo No [facility] Are you now , , , , never or living with a partner? [facility] How often to you hav e a drink containing alcohol? Never [facility] How hard is it for y ou to pay for the very basics like food, housing, medical care, and heating Not very hard [facility] Do you feel stress - tense, restless, nervous, or anxious, or unable to sleep at night because your mind is troubled all the time - these days [OSQ] To some extent [facility] (I/We) worried [facility] (my/our) food would run out before (I/we) got money to buy more. Never true [facility] Mental Status Date Assessment Result Facility 01-22-2025 Cognitive function Voice/Name [facility] Work Phone: 07-10-2023 Cognitive function Level Of Cons ciousness Awake;Alert;Appropriate;Follow s Commands [facility] Work Phone: Clinical Notes 03-23-2022 to 03-08-2025 Telephone Encounter - Breanna Todd LPN - 03/08/2025 1:51 PM EDTTelephone Encounter - Breanna Tdod LPN - 03/08/2025 1:51 PM EDT Note Date & Type Note Facility 03-08-2025 Telephone encount er Note The patient has been identified by name and date of : Yes Caregiver verified no other encounters exist for this prescription request: Yes Caregiver confirmed with patient/requestor that no other refills are due, in the near future, with this provider at this time: Yes The last office visit in the department: 09/24/2024 Does the patient have a future office visit with this provider/department: No no future appt scheduled Requested Prescriptions Pending Prescriptions Disp Refills albuterol HFA (PROAIR HFA) 90 mcg/actuation inhaler 1 each 0 Sig: Inhale 2 puffs as instructed every 4 hours as needed. albuterol (PROVENTIL) 2.5 mg /3 mL (0.083 %) nebulizer solution Sig: Use 3 mL via nebulizer every 4 hours as needed for wheezing/shortness of breath. Use over 5-15minutes. Patient asking for new rx to have on hand if she gets ill, just threw away her old stuff. Breanna Todd LPN March 08, 2025 1:53 PM [facility] 03-08-2025 Miscellaneous Notes Formattin g of this note is different from the original. The patient has been identified by name and date of : Yes Caregiver verified no other encounters exist for this prescription request: Yes Caregiver confirmed with patient/requestor that no other refills are due, in the near future, with this provider at this time: Yes The last office visit in the department: 09/24/2024 Does the patient have a future office visit with this provider/department: No no future appt scheduled Requested Prescriptions Pending Prescriptions Disp Refills albuterol HFA (PROAIR HFA) 90 mcg/actuation inhaler 1 each 0 Sig: Inhale 2 puffs as instructed every 4 hours as needed. albuterol (PROVENTIL) 2.5 mg /3 mL (0.083 %) nebulizer solution Sig: Use 3 mL via nebulizer every 4 hours as needed for wheezing/shortness of breath. Use over 5-15minutes. Patient asking for new rx to have on hand if she gets ill, just threw away her old stuff. Breanna Todd LPN March 08, 2025 1:53 PM documented in this encounter [facility] 02-05-2025 Progress note [facility] 02-05-2025 Progress note Note Date/Time February 05, 2025 2:34pm [facility] [address] [place] [address] OFFICE VISIT Date of Service: 02/05/25 MR#: [id number] Acct: [id number] Name: DUNIA VARGAS Rep #: [id number] : 1965 Provider: IVORY Loya Age/Sex: 59/F Location: [facility] Status: Signed Intake Vital Signs 01/22/25 13:30 Height 5 ft 6 in Intake Visit Reasons: Hospital FU Chief Complaint: epigastric pain Allergies amoxicillin Allergy (Verified 01/22/25 13:29) Swelling morphine Allergy (Verified 01/22/25 13:29) PT UNSURE OF REACTION acetaminophen (From Percocet) Adverse Reaction (Verified 01/22/25 13:29) Vomiting oxycodone (From Percocet) Adverse Reaction (Verified 01/22/25 13:29) Vomiting Nurse's Note: OV 02/05/25 Pt here for a f/u from ER. Pt reports gas, bloating, and heartburn. Denies nausea, vomiting, and abdominal pain. Pt has no prior hx of EGD or colonoscopy. Pt take pantoprazole daily. [facility] Medical History (Updated 02/05/25 @ 14:30 by IVORY Loya) GERD (gastroesophageal reflux disease) Asthma Rheumatoid arthritis Surgical History Status post surgical removal of malignant neoplasm of skin H/O section Hx of tubal ligation Social History household members: family housing: apartment Smoking Status: Current every day smoker tobacco type: e-cigarettes HPI HPI Chief Complaint: epigastric pain Details: DUNIA VARGAS, is a 59 F who presents to the office today for establishment with [facility]. [facility] ED 12..25 for abd pain [facility] ED 7.8.25 for epigastric pain. Hx of GERD not on PPI. Started on PPI and discharged OV 7..25 Pt has had 3 episodes over the past year of epigastric pain lasting about 3 hours. The last episode started in the middle of the night after eating a hamburger the night before. She had spasaming in her epigastric region followed by nausea and vomiting. This will last about 3 hours. She has not noticed any aggravating or alleviating factors. She does still have her gallbladder. No hx of EGD or colonoscopy. She notes her brother just had pre cancerous polyps removed. ROS Const Constitutional: No fatigue, fever(s) or weight change ENT ENT: No difficulty swallowing Gastro GI: Positive for bloating, constipation, heartburn, feeling full early and excessive flatus; No abdominal pain, belching, change in bowel habits, change in stool character, coffee ground emesis, cramping, diarrhea, difficulty swallowing, incontinent of stools, Vomiting blood/hematemesis, Blood in stool, loose stools, Black,tarry stools, nausea/dyspepsia, pain with swallowing, vomiting or other Musc Musculoskeletal: Positive for joint pain, joint swelling, muscle weakness, stiffness and Arthritis Skin Skin: No yellowing of the eye or itchy eyes Psych Psychiatric: No anxiety and No depression Endo Endocrine: No fatigue or weight change Aller/Imm Allergy/Immunologic: No itchy eyes Tahir/Lymp Hematologic/Lymphatic: No easy bleeding or easy bruising Exam Const General: cooperative and comfortable Orientation: alert HENMT Head: normal to inspection Eyes General: appearance normal, both eyes and all related structures Neck Neck: normal visual inspection Chest Chest palpation & inspection: normal inspection of the chest Resp Effort & Inspection: normal respiratory effort Cardio Rate: regular rate Rhythm: regular rhythm GI Inspection: normal to inspection Auscultation: normal bowel sounds Palpation: soft, not firm, no guarding and nontender Assessment and Plan Assessment and Plan (1) Abdominal pain: Status: Inactive (2) GERD (gastroesophageal reflux disease): Status: Acute Plan: uDnia is a 59 yo female pt here today for evaluation of episodes of epigastric pain. Pt has had these episodes 3x over the past year starting with epigastric pain and n/v following. She was seen in the ED on two occasions for these symptoms. GI cocktail has helped. She is on PPI daily. Will order gallbladder USto rule out biliary colic. She will also undergo EGD to evaluate her upper GI tact for inflammation, erosion or ulcers. SHe has never had a screening colonoscopy therefore will undergo screening at the same time. She was agreeableto plan. -Continue PPI -Gallbladder US -EGD -Colonscopy Orders: Orders Gallbladder Today R10.9 - Unspecified abdominal pain Medications: Changed From pantoprazole (Protonix) 40 mg PO DAILY 30 days 30 tabs 0RF To pantoprazole (Protonix) 40 mg PO DAILY 90 tabs 3RF Discontinued oseltamivir Discontinued Reason: Pt no longer taking 75 mg PO BID 10 CAPSULES 0RF prednisone Discontinued Reason: Pt no longer taking 60 mg (3 x 20 mg) PO DAILY 15 TABLETS 0RF sucralfate (Carafate) Discontinued Reason: Pt no longer taking 1 g PO Q6H 60 tabs 0RF ondansetron Discontinued Reason: Pt no longer taking 4 mg PO Q8H PRN PRN 10 tabs 0RF Nausea Coding Level of Care Code Off vis,new,level 4 Diagnoses Abdominal pain R10.9 GERD (gastroesophageal reflux disease) K21.9 02/05/25 1434 <Electronically signed by Alejandra DODSON> Date _ Alejandra DODSON Cosigner Signature: Date (if applicable) CC: ~ [facility] Work Phone: 1(149) 683-744207-08-2025 Discharge summary [facility] Medical Records Department [address] [place] [address] Emergency Department Summary 01/22/25 MR#: [id number] Acct: [id number] Name: DUNIA VARGAS Rep #:[id number] : 1965 59 From: Reynold hebert DO PCP: LUIS MANUEL Howard Status:REG E R Location: ED HPI History of Present Illness Chief Complaint: Chest Other Narrative Narrative: Chief complaint and HPI: Epigastric abdominal pain. 59-year-old female with past medical history ofrheumatoid arthritis not on medication presents for evaluation of epigastric abdominal pain. Patient states on 01/19 she developed epigastric abdominal pain which she describes as burning, radiates up into her throat. States she took some Mylanta with mild relief. She states she had somenausea and vomiting associated with this however this has improved. She states she has a remote history of GERD and was prescribed a PPI however she does not take this. She denies any pain in the chest. She deniesany fever, chills, shortness of breath, diarrhea, constipation, dysuria. Review of systems: See HPI Medications: As listed on the chart Allergies: As listed on the chart PFSH: Per chart Vital signs: As listed on the chart. Reviewed. Physical exam: Gen: A&O x3, NAD Head: Normocephalic, atraumatic Eyes: No sclera icterus, conjunctiva clear ENT: Moist mucous membranes Neck: Trachea midline, No JVD CV: RRR, no murmurs, no peripheral edema Resp: Lungs CTA BL, no w/r/c GI: Abd soft, non-distended, nontender, no r/r/g : No CVA tenderness Musc: Full ROM, no deformity Skin: Warm, dry Neuro: Alert, oriented, grossly intact, sensation intact Psych: Cooperative, appropriate mood and affect [facility] Medical History (Updated 01/22/25 @ 13:57 by Roselia Carvajal) GERD (gastroesophageal reflux disease) Asthma Rheumatoid arthritis Home Medications ?Medication ?Instructions ?Recorded ?Last Taken ?Type albuterol sulfate 90 mcg/actuation 2 puff inhalation Q 4H PRN PRN 07/10/23 Unknown Rx aerosol inhaler (Ventolin HFA) Wheezing ##1 oseltamivir 75 mg capsule 75 mg PO BID #10 CAPSULES Unknown Rx prednisone 20 mg tablet 60 mg (3 x 20 mg) PO DAILY # 15 07/10/23 Unknown Rx TABLETS ondansetron 4 mg disintegrating 4 mg PO Q8H PRN PRN Na usea #10 tabs 06/21/24 Unknown Rx tablet pantoprazole 40 mg tablet,delayed 40 mg PO DAILY #30 t abs 06/21/24 Unknown Rx release sucralfate 1 gram tablet (Carafate) 1 g PO Q6H #60 tab s 06/21/24 Unknown Rx Allergy/AdvReac Type Severity Reaction Status Date / Time amoxicillin Allergy Swelling Verified 01/22/25 13:29 morphine Allergy PT UNSURE Verified 01/22/25 13:29 OF REACTION acetaminophen (From Percocet) AdvReac Vomiting Verified 01/22/25 13:29 oxycodone (From Percocet) AdvReac Vomiting Verified 01/22/25 13:29 Surgical History Status post surgical removal of malignant neoplasm of skin H/O section Hx of tubal ligation Social History household members: family housing: apartment Smoking Status: Current every day smoker tobacco type: e-cigarettes EXAM Physical Exam Const Vital Signs: 01/22/25 13:30 01/22/25 13:52 Temperature 97.3 F L Temperature Source Temporal Pulse Rate 130 H Respiratory Rate 18 Respiratory Effort Normal Non-Labored Respiratory Pattern Normal Blood Pressure 144/65 H Blood Pressure Mean 91 Pulse Ox 93 Oxygen Delivery Method Room Air MDM MDM MDM Narrative Medical decision making narrative: 59-year-old female with past medical history of rheumatoid arthritis not on medication presents forevaluation of epigastric abdominal pain. Patient stateson 01/19 she developed epigastric abdominal pain which she describes as burning, radiates up into her throat. States she took some Mylanta with mild relief. Has a remote history of GERD and supposed to be on PPI however does not take it. Differential diagnosis includes but is not limited to GERD, gastritis, PUD, pancreatitis, suspect less likely ACS as patient is not having chest pain. Patient is nontender on physical exam therefore do not think CT abdomen and pelvis is needed. Pepcid, GI cocktail ordered with NS bolus. Laboratory workupordered. EKG reviewed see below. CBC without leukocytosis or anemia. Platelets unremarkable. CMP unremarkable without significant electrolyte abnormality or SILVERIO. No transaminitis. Lipase unremarkable. Troponin unremarkable. On reevaluation, patient states her pain has resolved. I suspecther pain is secondary to GERD. She is supposed to be taking a PPI but does not take this. She states she does not have any pills at home. Will place her on 40 mg of Protonix daily. Follow-up with PCP and GI. Return precautions explained. She appeared understand the plan. EKG: Interpreted by me/EM physician: EKG shows normal sinus rhythm without any acute ischemic changes. Heart rate 89 Impression: 1. Epigastric abdominal 2. GERD, noncompliant with medication Lab Data Labs: Laboratory Results - last 24 hr 01/22/25 14:41 WBC 6.5 RBC 5.41 H Hgb 14.6 Hct 43.7 MCV 80.8 L MCH 27.0 MCHC 33.4 RDW Std Deviation 39.9 RDW Coeff of Patrick 13.7 Plt Count 250 MPV 9.0 Immature Gran % (Auto) 0.300 Neut % (Auto) 52.1 Lymph % (Auto) 27.7 Riley % (Auto) 15.8 H Eos % (Auto) 3.2 Baso % (Auto) 0.9 Absolute Neuts (auto) 3.4 Absolute Lymphs (auto) 1.79 Nucleated RBC % 0 Sodium 137 Potassium 3.6 Chloride 100 Carbon Dioxide 23.3 Anion Gap 14 BUN 21 H Creatinine 0.92 Estim Creat Clear Calc 69.03 Est GFR (MDRD) Non-Af 72 BUN/Creatinine Ratio 22.6 H Glucose 111 H Calcium 9.2 Total Bilirubin 0.67 AST 19 ALT 16 Alkaline Phosphatase 89 Troponin T High Sens < 6 Total Protein 7.8 Albumin 3.8 Globulin 4.0 Albumin/Globulin Ratio 1.0 Lipase 36 Discharge Plan Triage Chief Complaint: Chest Other ED Provider: Reynold Gerard Dx/Rx/DC Orders Prescriptions: No Action prednisone 20 mg tablet 60 mg PO DAILY Qty: 15 0RF oseltamivir [oseltamivir] 75 mg capsule 75 mg PO BID Qty: 10 0RF albuterol sulfate [Ventolin HFA] 90 mcg/actuation HFA aerosol inhaler 2 puff inhalation Q4H PRN PRN (Reason: Wheezing) Qty: 1 0RF sucralfate [Carafate] 1 gram tablet 1 g PO Q6H Qty: 60 0RF pantoprazole 40 mg tablet,delayed release (DR/EC) 40 mg PO DAILY Qty: 30 0RF ondansetron 4 mg tablet,disintegrating 4 mg PO Q8H PRN PRN (Reason: Nausea) Qty: 10 0RF Primary Care Provider: Beverley Acuan NP Referrals: Beverley Acuna NP, INTERNET SECURITY SPECIALIST-C [Primary Care Provider] - Print Language: Swazi What to do if you have Problems For any increased pain, shortness of breath, bleeding, nausea or vomiting, chestpain, or any unexpected problems, contact your Primary Care Provider. Call [facility] ([phone]) or report tothe closest Emergency Room. Call 911 if necessary. 01/22/25 1645 Cosigner Signature (if applicable): CC: INTERNET SECURITY SPECIALIST-Liset Gibsonlogar ~ Signed [facility]07-08-2025 Discharge summary Author Reynold Gerard [facility] Note Date/Time January 22, 2025 4:45p m [facility] Medical Records Department [address] [place] [address] Emergency Department Summary 01/22/25 MR#: [id number] Acct: [id number] Name: DUNIA VARGAS Rep #:[id number] : 1965 59 From: Reynold Estrella ggett DO PCP: LUIS MANUEL Howard Status:REG E R Location: ED HPI History of Present Illness Chief Complaint: Chest Other Narrative Narrative: Chief complaint and HPI: Epigastric abdominal pain. 59-year-old female with past medical history of rheumatoid arthritis not on medication presents for evaluation of epigastric abdominal pain. Patient states on 01/19 she developed epigastric abdominal pain which she describes as burning, radiates up into her throat. States she took some Mylanta with mild relief. She states she had somenausea and vomiting associated with this however this has improved. She states she has a remote history of GERD and was prescribed a PPI however she does not take this. She denies any pain in the chest. She denies any fever, chills, shortness of breath, diarrhea, constipation, dysuria. Review of systems: See HPI Medications: As listed on the chart Allergies: As listed on the chart PFSH: Per chart Vital signs: As listed on the chart. Reviewed. Physical exam: Gen: A&O x3, NAD Head: Normocephalic, atraumatic Eyes: No sclera icterus, conjunctiva clear ENT: Moist mucous membranes Neck: Trachea midline, No JVD CV: RRR, no murmurs, no peripheral edema Resp: Lungs CTA BL, no w/r/c GI: Abd soft, non-distended, nontender, no r/r/g : No CVA tenderness Musc: Full ROM, no deformity Skin: Warm, dry Neuro: Alert, oriented, grossly intact, sensation intact Psych: Cooperative, appropriate mood and affect PFSH [facility] Medical History (Updated 01/22/25 @ 13:57 by Roselia Carvajal) GERD (gastroesophageal reflux disease) Asthma Rheumatoid arthritis Home Medications ?Medication ?Instructions ?Recorded ?Last Taken ?Type albuterol sulfate 90 mcg/actuation 2 puff inhalation Q 4H PRN PRN 07/10/23 Unknown Rx aerosol inhaler (Ventolin HFA) Wheezing ##1 oseltamivir 75 mg capsule 75 mg PO BID #10 CAPSULES Unknown Rx prednisone 20 mg tablet 60 mg (3 x 20 mg) PO DAILY # 15 07/10/23 Unknown Rx TABLETS ondansetron 4 mg disintegrating 4 mg PO Q8H PRN PRN Na usea #10 tabs 06/21/24 Unknown Rx tablet pantoprazole 40 mg tablet,delayed 40 mg PO DAILY #30 t abs 06/21/24 Unknown Rx release sucralfate 1 gram tablet (Carafate) 1 g PO Q6H #60 tab s 06/21/24 Unknown Rx Allergy/AdvReac Type Severity Reaction Status Date / Time amoxicillin Allergy Swelling Verified 01/22/25 13:29 morphine Allergy PT UNSURE Verified 01/22/25 13:29 OF REACTION acetaminophen (From Percocet) AdvReac Vomiting Verified 01/22/25 13:29 oxycodone (From Percocet) AdvReac Vomiting Verified 01/22/25 13:29 Surgical History Status post surgical removal of malignant neoplasm of skin H/O section Hx of tubal ligation Social History household members: family housing: apartment Smoking Status: Current every day smoker tobacco type: e-cigarettes EXAM Physical Exam Const Vital Signs: 01/22/25 13:30 01/22/25 13:52 Temperature 97.3 F L Temperature Source Temporal Pulse Rate 130 H Respiratory Rate 18 Respiratory Effort Normal Non-Labored Respiratory Pattern Normal Blood Pressure 144/65 H Blood Pressure Mean 91 Pulse Ox 93 Oxygen Delivery Method Room Air MDM MDM MDM Narrative Medical decision making narrative: 59-year-old female with past medical history of rheumatoid arthritis not on medication presents for evaluation of epigastric abdominal pain. Patient stateson 01/19 she developed epigastric abdominal pain which she describes as burning, radiates up into her throat. States she took some Mylanta with mild relief. Has a remote history of GERD and supposed to be on PPI however does not take it. Differential diagnosis includes but is not limited to GERD, gastritis, PUD, pancreatitis, suspect less likely ACS as patient is not having chest pain. Patient is nontender on physical exam therefore do not think CT abdomen and pelvis is needed. Pepcid, GI cocktail ordered with NS bolus. Laboratory workupordered. EKG reviewed see below. CBC without leukocytosis or anemia. Platelets unremarkable. CMP unremarkable without significant electrolyte abnormality or SILVERIO. No transaminitis. Lipase unremarkable. Troponin unremarkable. On reevaluation, patient states her pain has resolved. I suspecther pain is secondary to GERD. She is supposed to be taking a PPI but does not take this. She states she does not have any pills at home. Will place her on 40 mg of Protonix daily. Follow-up with PCP and GI. Return precautions explained. She appeared understand the plan. EKG: Interpreted by me/EM physician: EKG shows normal sinus rhythm without any acute ischemic changes. Heart rate 89 Impression: 1. Epigastric abdominal 2. GERD, noncompliant with medication Lab Data Labs: Laboratory Results - last 24 hr 01/22/25 14:41 WBC 6.5 RBC 5.41 H Hgb 14.6 Hct 43.7 MCV 80.8 L MCH 27.0 MCHC 33.4 RDW Std Deviation 39.9 RDW Coeff of Patrick 13.7 Plt Count 250 MPV 9.0 Immature Gran % (Auto) 0.300 Neut % (Auto) 52.1 Lymph % (Auto) 27.7 Riley % (Auto) 15.8 H Eos % (Auto) 3.2 Baso % (Auto) 0.9 Absolute Neuts (auto) 3.4 Absolute Lymphs (auto) 1.79 Nucleated RBC % 0 Sodium 137 Potassium 3.6 Chloride 100 Carbon Dioxide 23.3 Anion Gap 14 BUN 21 H Creatinine 0.92 Estim Creat Clear Calc 69.03 Est GFR (MDRD) Non-Af 72 BUN/Creatinine Ratio 22.6 H Glucose 111 H Calcium 9.2 Total Bilirubin 0.67 AST 19 ALT 16 Alkaline Phosphatase 89 Troponin T High Sens < 6 Total Protein 7.8 Albumin 3.8 Globulin 4.0 Albumin/Globulin Ratio 1.0 Lipase 36 Discharge Plan Triage Chief Complaint: Chest Other ED Provider: Reynold Gerard Dx/Rx/DC Orders Prescriptions: No Action prednisone 20 mg tablet 60 mg PO DAILY Qty: 15 0RF oseltamivir [oseltamivir] 75 mg capsule 75 mg PO BID Qty: 10 0RF albuterol sulfate [Ventolin HFA] 90 mcg/actuation HFA aerosol inhaler 2 puff inhalation Q4H PRN PRN (Reason: Wheezing) Qty: 1 0RF sucralfate [Carafate] 1 gram tablet 1 g PO Q6H Qty: 60 0RF pantoprazole 40 mg tablet,delayed release (DR/EC) 40 mg PO DAILY Qty: 30 0RF ondansetron 4 mg tablet,disintegrating 4 mg PO Q8H PRN PRN (Reason: Nausea) Qty: 10 0RF Primary Care Provider: Beverley Acuna NP Referrals: Beverley Acuna NP, INTERNET SECURITY SPECIALIST-C [Primary Care Provider] - Print Language: Swazi What to do if you have Problems For any increased pain, shortness of breath, bleeding, nausea or vomiting, chestpain, or any unexpected problems, contact your Primary Care Provider. Call [facility] ([phone]) or report to the closest Emergency Room. Call 911 if necessary. 01/22/25 1645 <Electronically signed by Reynold Gerard DO> Cosigner Signature (if applicable): CC: LUIS MANUEL Acuna ~ Signed [facility] Work Phone: 1(529) 476-698907-08-2025 Telephone encounter Note* Telephone Encounter - Martha Art MD - 01/22/2025 1:32 PM EDT Agree with calling EMS for ER evaluation. [facility] Work Phone: 1(264) 847-828707-08-2025 Miscellaneous Notes* Telephone Encounter - Martha Art MD - 01/22/2025 1:32 PM EDT Agree with calling EMS for ER evaluation. * Telephone Encounter - Lashanda Dugan RN - 01/22/2025 12:25 PM EDT Patient calls for chest pain/burning/upper abdomen pain/back pain, vomiting, nausea. Mylanta was ineffective. Nurse triage completed and protocol recommends call EMS now. Patient agreeable to going to ER and having someone transport now. Will go to [facility] ER. Care advice reviewed with verbalized understanding. Reason for Disposition [1] Chest pain lasts > 5 minutes AND [2] age > 44 Answer Assessment - Initial Assessment Questions 1. LOCATION: Patient reports center of the chest radiates upward, into abdomen, and around to back.Started on January 19 in the early AM with chest pain, muscle spasm and vomiting so many times she couldn't keep track. Reports she is drinking very little fluids and what she is drinking is Dr. Hung. No tolerating food well. 2. RADIATION:Starts at sternum goes down into abdomen around to back and up into chest. 3. ONSET: January 19 4. PATTERN: Constant. Worse with exertion and coughing. 5. DURATION: Constant 6. SEVERITY: - SEVERE (8-10): Excruciating pain, unable to do any normal activities. Reports drinking very little and eating very little d/t the severe pain and burning sensation. 7. CARDIAC RISK FACTORS: Smoker. No angina, prior heart attack; diabetes, high blood pressure, highcholesterol, or strong family history of heart disease. 8. PULMONARY RISK FACTORS:Asthma. No blood clots in lung, asthma, emphysema, control pills. 9. CAUSE: Patient not certain. Has not had an episode quite like this before. 10. OTHER SYMPTOMS: Vomiting on the . Now nausea, cough. No dizziness, sweating, fever, difficulty breathing. Protocols used: Chest [id number] documented in this encounterFire[facility]07-[facility]25 Telephone encounter Note * Telephone Encounter - Lashanda Dugan RN - 01/22/2025 12:25 PM EDT Patient calls for chest pain/burning/upper abdomen pain/back pain, vomiting, nausea. Mylanta was ineffective. Nurse triage completed and protocol recommends call EMS now. Patient agreeable to going to ER and having someone transport now. Will go to [facility] ER. Care advice reviewed with verbalized understanding. Reason for Disposition [1] Chest pain lasts > 5 minutes AND [2] age > 44 Answer Assessment - Initial Assessment Questions 1. LOCATION: Patient reports center of the chest radiates upward, into abdomen, and around to back.Started on January 19 in the early AM with chest pain, muscle spasm and vomiting so many times she couldn't keep track. Reports she is drinking very little fluids and what she is drinking is Dr. Hung. No tolerating food well. 2. RADIATION:Starts at sternum goes down into abdomen around to back and up into chest. 3. ONSET: January 19 4. PATTERN: Constant. Worse with exertion and coughing. 5. DURATION: Constant 6. SEVERITY: - SEVERE (8-10): Excruciating pain, unable to do any normal activities. Reports drinking very little and eating very little d/t the severe pain and burning sensation. 7. CARDIAC RISK FACTORS: Smoker. No angina, prior heart attack; diabetes, high blood pressure, highcholesterol, or strong family history of heart disease. 8. PULMONARY RISK FACTORS:Asthma. No blood clots in lung, asthma, emphysema, control pills. 9. CAUSE: Patient not certain. Has not had an episode quite like this before. 10. OTHER SYMPTOMS: Vomiting on the . Now nausea, cough. No dizziness, sweating, fever, difficulty breathing. Protocols used: Chest [id number] [facility]03-11-2025 Telephone encounter Note* Telephone Encounter - Cee Portillo RN - 09/25/2024 3:48 PM EDT Patient notified. Cee Portillo RN [facility]03-11-2025 Miscellaneous Notes* Telephone Encounter - Cee Portillo RN - 09/25/2024 3:48 PM EDT Patient notified. Cee Portillo RN * Telephone Encounter - Beverley Acuna APRN.CNP - 09/25/2024 2:57 PM EDT She can try some saline nasal spray if she wishes. I would give the Flonase at least a week to see if it helps. If she feels she may have a sinus infection she would need appointment. Beverley Acuna APRN.CNP * Telephone Encounter - Cee Portillo RN - 09/25/2024 2:46 PM EDT Patient was seen yesterday by Sander Acuna CNP and was ordered Flonase for allergies. Reports she began to use the medication but today her sinus congestion is worse. Today she has sinus headache and is very stuffy today. Denies fever, chills, N/V/D, body aches, Pt asking if she should continue the Flonase? Pt states she contacted her pharmacy and they stated pt may have sinus infection and may require anantibiotic. Please advise patient. Cee Portillo RN documented in this encounterFirelands [facility] Center03-11-2025 Telephone encounter Note * Telephone Encounter - Beverley Acuna APRN.CNP - 09/25/2024 2:57 PM EDT She can try some saline nasal spray if she wishes. I would give the Flonase at least a week to see if it helps. If she feels she may have a sinus infection she would need appointment. Beverley Acuna APRN.CNP [facility]03-11-2025 Telephone encounter Note* Telephone Encounter - Cee Portillo RN - 09/25/2024 2:46 PM EDT Patient was seen yesterday by Sander Acuna CNP and was ordered Flonase for allergies. Reports she began to use the medication but today her sinus congestion is worse. Today she has sinus headache and is very stuffy today. Denies fever, chills, N/V/D, body aches, Pt asking if she should continue the Flonase? Pt states she contacted her pharmacy and they stated pt may have sinus infection and may require anantibiotic. Please advise patient. Cee Portillo RN [facility]03-11-2025 Progress note* Result Encounter Note - Marlon Licea LPN - 09/25/2024 9:31 AM EDT Telephone call placed to patient. Notified of results and additional lab work ordered. Voices understanding. [facility]03-11-2025 Miscellaneous Notes* Result Encounter Note - Marlon Licea LPN - 09/25/2024 9:31 AM EDT Telephone call placed to patient. Notified of results and additional lab work ordered. Voices understanding. * Telephone Encounter - Beverley Acuna APRN.CNP - 09/25/2024 8:34 AM EDT Thyroid stimulating Hormone is a little elevated. Would like to recheck with some additional blood work. The rest of her blood work is normal. Beverley Acuna APRN.CNP documented in this encounterFirelands [facility] Center03-11-2025 Telephone encounter Note * Telephone Encounter - Beverley Acuna APRN.CNP - 09/25/2024 8:34 AM EDT Thyroid stimulating Hormone is a little elevated. Would like to recheck with some additional blood work. The rest of her blood work is normal. Beverley Acuna APRN.CNP [facility]03-10-2025 Instructions* Patient Instructions* Beverley Acuna APRN.CNP - 09/24/2024 2:44 PM EDT Ask insurance if they will cover ZIO patch documented in this encounterFirelands [facility] Medical Center03-10-2025 History of Present illness Narrative* Beverley Acuna APRN.CNP - 09/24/2024 2:00 PM EDT 09/21/2024 Patient presents with: F/U 6 months SUBJECTIVE: This is a 58 year old that is here today for Above Complaints. Itchy and watery eyes. Does have seasonal allergies. Has some runny nose and stuffy nose. Not taking anything OTC for symptoms. Used to use Flonase OTC but can't afford unless prescribed Depression: not able to tolerate Cymbalta due to it made her gums bleed. Feels her depression is getting some better since weather is getting better. Does not attend counseling. Denies SI or HI Urine is a little darker at times. Reports it smells. Denies fevers, chills, abdominal pain, back pain, urinary frequency, dysuria or hematuria Some nausea at times. Was taking some pantoprazole prescribed at the hospital for abdominal pain. Admits to reflux at times Worried about her heart rate. Seems to be elevated the last few times she has been here. Sometimes feels like it beats fast. Admits she does have some anxiety at times. Drinks pop most of the day. Not much water. Denies accompanying lightheadedness, dizziness, SOB, dyspnea, or chest pain Latest Ref Rng 09/24/2024 GLUCOSE UA (POCT) Negative mg/dL Negative BILIRUBIN UA (POCT) Negative Negative KETONE UA (POCT) Negative mg/dL Negative SPECIFIC GRAVITY UA (POCT) 1.005 - 1.030 >=1.030 HEMOGLOBIN/BLOOD UA (POCT) Negative Negative PH UA (POCT) 4.5 - 8.0 5.5 PROTEIN UA (POCT) Negative mg/dL 30 ! UROBILINOGEN UA (POCT) Normal E.U./dL 0.2 NITRITE UA (POCT) Negative Negative LEUKOCYTES UA (POCT) Negative Negative COLOR UA (POCT) Dark yellow CLARITY UA (POCT) Slightly Cloudy Legend: ! Abnormal PAST MEDICAL HISTORY Diagnosis Date Asthma Basal cell carcinoma Environmental allergies High serum low-density lipoprotein (LDL) Overweight RA (rheumatoid arthritis) (HCC) Skin lesion Tobacco use ALLERGIES Amoxicillin, Hydrocodone-Acetaminophen, Morphine, and Oxycodone-Acetaminophen MEDICATIONS Current Outpatient Medications Medication Sig DULoxetine (CYMBALTA) 30 mg capsule Take 1 capsule by mouth once daily. No current facility-administered medications for this visit. Medications and allergies reviewed by this provider. SOCIAL HISTORY Social History Tobacco Use Smoking status: Former Current packs/day: 0.00 Average packs/day: 1 pack/day for 38.0 years (38.0 ttl pk-yrs) Types: Cigarettes Quit date: 07/10/2023 Years since quittin.2 Smokeless tobacco: Never Vaping Use Vaping status: Some Days Substances: Nicotine, CBD Devices: Disposable Substance Use Topics Alcohol use: Not Currently Drug use: No REVIEW OF SYSTEMS All other reviewed and negative other than HPI. OBJECTIVE: BP 112/86 Pulse 105 Resp 18 Wt 76.2 kg (168 lb) LMP (LMP Unknown) SpO2 97% BMI 27.86 kg/m . Vital signs reviewed by this provider. APPEARANCE Well appearing, alert, in no acute distress, well-hydrated, well nourished. EYES conjunctiva and sclera normal. HEART normal S1 and S2, no murmurs, no gallops, no JVD appreciated and Rate tachycardia LUNG clear to auscultation. No wheezes rhonchi or rales ABDOMEN bowel sounds normoactive, no bruits, soft, non-tender, non-distended BACK: No CVA tenderness SKIN Skin color, texture, turgor normal, no suspicious rashes or lesions to exposed skin Latest Ref [facility] [place] 03/27/2024 WBC 3.70 - 11.00 k/uL 6.09 RBC 3.90 - 5.20 m/uL 5.23 (H) Hemoglobin 11.5 - 15.5 g/dL 14.1 Hematocrit 36.0 - 46.0 % 42.6 MCV 80.0 - 100.0 fL 81.5 MCH 26.0 - 34.0 pg 27.0 MCHC 30.5 - 36.0 g/dL 33.1 RDW-CV 11.5 - 15.0 % 13.6 Platelet Count 150 - 400 k/uL 281 MPV 9.0 - 12.7 fL 9.7 Neut% % 39.0 Abs Neut (ANC) 1.45 - 7.50 k/uL 2.38 Lymph% % 45.6 Abs Lymph 1.00 - 4.00 k/uL 2.78 Riley% % 12.2 Abs Riley <0.87 k/uL 0.74 Eosin% % 2.0 Abs Eosin <0.46 k/uL 0.12 Baso% % 1.0 Abs Baso <0.11 k/uL 0.06 Immature Gran % % 0.2 IMMATURE GRANS (ABS) <0.10 k/uL <0.03 NRBC /100 WBC 0.0 Absolute nRBC <0.01 k/uL <0.01 DTYPE Auto Protein, Total 6.3 - 8.0 g/dL 7.9 Albumin 3.9 - 4.9 g/dL 4.0 Calcium 8.5 - 10.2 mg/dL 10.0 Bilirubin, Total 0.2 - 1.3 mg/dL 0.3 Alkaline Phosphatase 34 - 123 U/L 98 AST 13 - 35 U/L 21 ALT 7 - 38 U/L 25 Glucose 74 - 99 mg/dL 91 BUN 7 - 21 mg/dL 15 Creatinine 0.58 - 0.96 mg/dL 0.82 Sodium 136 - 144 mmol/L 137 Potassium 3.7 - 5.1 mmol/L 4.4 Chloride 98 - 107 mmol/L 101 CO2 22 - 30 mmol/L 22 Anion Gap 8 - 15 mmol/L 14 eGFR >=60 mL/min/1.73m 84 Cholesterol, Total <200 mg/dL 210 (H) Triglyceride <150 mg/dL 109 HDL Cholesterol >39 mg/dL 42 Non HDL Cholesterol <130 mg/dL 168 (H) Fasting Time hrs 10 VLDL Cholesterol <30 mg/dL 22 TC:HDL Ratio <5.10 5.00 LDL Cholesterol <100 mg/dL 146 (H) LDL:HDL Ratio <2.54 3.48 (H) Legend: (H) High Spirometry Never done DTaP,Tdap,Td Vaccine(1 - Tdap) Never done Hepatitis B Vaccine(1 of 3 - 19+ 3-dose series) Never done Mammogram Screening Never done Colorectal Cancer Screening Never done Cervical Cancer Screening due on 06/23/2013 Lung Cancer Screening Never done Pneumococcal Vaccine: 50+(1 of 1 - PCV) Never done Covid-19 Vaccine(1 - 2023-) Never done Shingrix Vaccine(2 of 2) due on 05/22/2024 Hepatitis C Screening due on 03/27/2025 HIV Screening due on 03/27/2025 Depression Screening due on 03/27/2025 Annual PCP Team Chronic Disease Visit due on 09/24/2025 Diabetes Screening due on 03/27/2027 Lipid Screening due on 03/27/2029 Influenza Vaccine Completed ASSESSMENT/PLAN: 1. Depression, unspecified depression type - ICD9: 311, ICD10: F32.A (primary diagnosis) - she feels she is improving - follow-up as needed 2. Tachycardia - ICD9: 785.0, ICD10: R00.0 - NSR on EKG in office -no red flag symptoms or exam findings - red flag symptoms dicussed, verbalizes understanding - ECG COMPLETE - THYROID STIMULATING HORMONE - COMPREHENSIVE METABOLIC PANEL - COMPLETE BLOOD COUNT AND DIFFERENTIAL - ECG COMPLETE - decrease caffeine - increase water intake - she will check with insurance to see if they cover ZIO patch and let us know 3. Bad odor of urine - ICD9: 791.9, ICD10: R82.90 - normal urine today - UA DIP, URINE (POC) - increase water intake 4. Seasonal allergic rhinitis, unspecified trigger - ICD9: 477.9, ICD10: J30.2 - OLOPATADINE 0.1 % EYE DROPS - FLUTICASONE PROPIONATE 50 MCG/ACTUATION NASAL SPRAY,SUSPENSION - follow-up if symptoms fail to improve 5. Gastroesophageal reflux disease, unspecified whether esophagitis present - ICD9: 530.81, ICD10: K21.9 - Discussed lifestyle modifications including losing weight, limiting caffeine, no meals three hours before sleep, and head of bed elevation - PANTOPRAZOLE 20 MG TABLET,DELAYED RELEASE - take daily for 6 weeks - follow-up if symptoms persist Beverley Acuna APRN.COSMETICS COUNTER MANAGER Prescription instructions reviewed with patient as applicable. Patient advised if symptoms do not improve or if symptoms worsen sooner, to contact their primary care physician. Potential red flag symptoms discussed with the patient. Reviewed appropriate action plan to take if red flag symptoms occur. Patient agreeable to treatment plan. Medical Decision Making: Problems: Moderate: 2+ stable chronic illnesses and New problem with uncertain prognosis Data: Unique test(s) ordered: 3+ Risk: Moderate: Drug management Medical Decision Making Level: 4 - Moderate documented in this encounterFirelands [facility] Medical Center03-10-2025 NoteHNO ID: [id number] Author: BEVERLEY ACUNA APRN.ALEXANDRU Service: ? Author Type: Nurse Practitioner Type: Progress Notes Filed: 09/24/2024 15:58 Note Text: 09/21/2024 Patient presents with: F/U 6 months SUBJECTIVE: This is a 58 year old that is here today for Above Complaints. Itchy and watery eyes. Does have seasonal allergies. Has some runny nose and stuffy nose. Not taking anything OTC for symptoms. Used to use Flonase OTC but can't afford unless prescribed Depression: not able to tolerate Cymbalta due to it made her gums bleed. Feels her depression is getting some better since weather is getting better. Does not attend counseling. Denies SI or HI Urine is a little darker at times. Reports it smells. Denies fevers, chills, abdominal pain, back pain, urinary frequency, dysuria or hematuria Some nausea at times. Was taking some pantoprazole prescribed at the hospital for abdominal pain. Admits to reflux at times Worried about her heart rate. Seems to be elevated the last few times she has been here. Sometimes feels like it beats fast. Admits she does have some anxiety at times. Drinks pop most of the day. Not much water. Denies accompanying lightheadedness, dizziness, SOB, dyspnea, or chest pain Latest Ref Rng 09/24/2024 GLUCOSE UA (POCT) Negative mg/dL Negative BILIRUBIN UA (POCT) Negative Negative KETONE UA (POCT) Negative mg/dL Negative SPECIFIC GRAVITY UA (POCT) 1.005 - 1.030 >=1.030 HEMOGLOBIN/BLOOD UA (POCT) Negative Negative PH UA (POCT) 4.5 - 8.0 5.5 PROTEIN UA (POCT) Negative mg/dL 30 ! UROBILINOGEN UA (POCT) Normal E.U./dL 0.2 NITRITE UA (POCT) Negative Negative LEUKOCYTES UA (POCT) Negative Negative COLOR UA (POCT) Dark yellow CLARITY UA (POCT) Slightly Cloudy Legend: ! Abnormal PAST MEDICAL HISTORY Diagnosis Date Asthma Basal cell carcinoma Environmental allergies High serum low-density lipoprotein (LDL) Overweight RA (rheumatoid arthritis) (HCC) Skin lesion Tobacco use ALLERGIES Amoxicillin, Hydrocodone-Acetaminophen, Morphine, and Oxycodone-Acetaminophen MEDICATIONS Current Outpatient Medications Medication Sig DULoxetine (CYMBALTA) 30 mg capsule Take 1 capsule by mouth once daily. No current facility-administered medications for this visit. Medications and allergies reviewed by this provider. SOCIAL HISTORY Social History Tobacco Use Smoking status: Former Current packs/day: 0.00 Average packs/day: 1 pack/day for 38.0 years (38.0 ttl pk-yrs) Types: Cigarettes Quit date: 07/10/2023 Years since quittin.2 Smokeless tobacco: Never Vaping Use Vaping status: Some Days Substances: Nicotine, CBD Devices: Disposable Substance Use Topics Alcohol use: Not Currently Drug use: No REVIEW OF SYSTEMS All other reviewed and negative other than HPI. OBJECTIVE: BP 112/86 Pulse 105 Resp 18 Wt 76.2 kg (168 lb) LMP (LMP Unknown) SpO2 97% BMI 27.86 kg/m? . Vital signs reviewed by this provider. APPEARANCE Well appearing, alert, in no acute distress, well-hydrated, well nourished. EYES conjunctiva and sclera normal. HEART normal S1 and S2, no murmurs, no gallops, no JVD appreciated and Rate tachycardia LUNG clear to auscultation. No wheezes rhonchi or rales ABDOMEN bowel sounds normoactive, no bruits, soft, non-tender, non-distended BACK: No CVA tenderness SKIN Skin color, texture, turgor normal, no suspicious rashes or lesions to exposed skin Latest Ref [facility] [place] 03/27/2024 WBC 3.70 - 11.00 k/uL 6.09 RBC 3.90 - 5.20 m/uL 5.23 (H) Hemoglobin 11.5 - 15.5 g/dL 14.1 Hematocrit 36.0 - 46.0 % 42.6 MCV 80.0 - 100.0 fL 81.5 MCH 26.0 - 34.0 pg 27.0 MCHC 30.5 - 36.0 g/dL 33.1 RDW-CV 11.5 - 15.0 % 13.6 Platelet Count 150 - 400 k/uL 281 MPV 9.0 - 12.7 fL 9.7 Neut% % 39.0 Abs Neut (ANC) 1.45 - 7.50 k/uL 2.38 Lymph% % 45.6 Abs Lymph 1.00 - 4.00 k/uL 2.78 Riley% % 12.2 Abs Riley <0.87 k/uL 0.74 Eosin% % 2.0 Abs Eosin <0.46 k/uL 0.12 Baso% % 1.0 Abs Baso <0.11 k/uL 0.06 Immature Gran % % 0.2 IMMATURE GRANS (ABS) <0.10 k/uL <0.03 NRBC /100 WBC 0.0 Absolute nRBC <0.01 k/uL <0.01 DTYPE Auto Protein, Total 6.3 - 8.0 g/dL 7.9 Albumin 3.9 - 4.9 g/dL 4.0 Calcium 8.5 - 10.2 mg/dL 10.0 Bilirubin, Total 0.2 - 1.3 mg/dL 0.3 Alkaline Phosphatase 34 - 123 U/L 98 AST 13 - 35 U/L 21 ALT 7 - 38 U/L 25 Glucose 74 - 99 mg/dL 91 BUN 7 - 21 mg/dL 15 Creatinine 0.58 - 0.96 mg/dL 0.82 Sodium 136 - 144 mmol/L 137 Potassium 3.7 - 5.1 mmol/L 4.4 Chloride 98 - 107 mmol/L 101 CO2 22 - 30 mmol/L 22 Anion Gap 8 - 15 mmol/L 14 eGFR >=60 mL/min/1.73m? 84 Cholesterol, Total <200 mg/dL 210 (H) Triglyceride <150 mg/dL 109 HDL Cholesterol >39 mg/dL 42 Non HDL Cholesterol <130 mg/dL 168 (H) Fasting Time hrs 10 VLDL Cholesterol <30 mg/dL 22 TC:HDL Ratio <5.10 5.00 LDL Cholesterol <100 mg/dL 146 (H) LDL:HDL Ratio <2.54 3.48 (H) Legend: (H) High Spirometry Never done DTaP,Tdap,Td Vacc (more content not included)...[facility] 04-10-2024 Telephone encounter Note* Telephone Encounter - Marlon Licea LPN - 04/10/2024 8:28 AM EDT Unable to fax to [facility]. Orders, office note, demographics and insurance cards printed. [employer] senior operator to be taken to [facility]. Telephoned patient and notified. Marlon Licea LPN [facility]09-24-2024 Miscellaneous Notes* Telephone Encounter - Marlon Licea LPN - 04/10/2024 8:28 AM EDT Unable to fax to [facility]. Orders, office note, demographics and insurance cards printed. [employer] senior operator to be [facility] to [facility]. Telephoned patient and notified. Marlon Licea LPN * Telephone Encounter - Beverley Acuna APRN.CNP - 04/10/2024 7:15 AM EDT Order for OT placed, please fax as patient requested. Beverley Acuna APRN.ALEXANDRU * Telephone Encounter - Ladi Becker LPN - 04/09/2024 4:19 PM EDT Phoned patient and advised her of provider's message. Advised her the order will be faxed and sent via senior operator. And once Beverley advises on the OT we will let her know on that as well. She voiced understanding. Ladi Becker LPN * Telephone Encounter - Martha Art MD - 04/09/2024 2:53 PM EDT Please fax rx for PT to [facility]. I did not assess patient, so [facility] * Telephone Encounter - Daria Dye LPN - 04/09/2024 12:57 PM EDT Pt is calling to request PT order to be faxed to [facility]. Pt reports her son is going to therapy there so it would be easier on her for them to be in the same place. Pt is also requesting a consult to OT. Pt reports when she was signing up for PT the person marilyn has trouble with her hands because of rheumatoid arthritis and suggested OT also. Fax orders for PT and OT to [facility] @ [phone]. Daria Dey LPN documented in this encounterFire[facility]09-[facility]24 Telephone encounter Note * Telephone Encounter - Beverley Acuna APRN.CNP - 04/10/2024 7:15 AM EDT Order for OT placed, please fax as patient requested. Beverley Acuna APRN.CNP [facility]09-23-2024 Telephone encounter Note* Telephone Encounter - Ladi Becker LPN - 04/09/2024 4:19 PM EDT Phoned patient and advised her of provider's message. Advised her the order will be faxed and sent via senior operator. And once Beverley advises on the OT we will let her know on that as well. She voiced understanding. Ladi Becker LPN [facility]09-23-2024 Telephone encounter Note* Telephone Encounter - Martha Art MD - 04/09/2024 2:53 PM EDT Please fax rx for PT to [facility]. I did not assess patient, so [facility]. [facility] Work Phone: [phone]) 686-424409-23-2024 Telephone encounter Note* Telephone Encounter - Daria Dye LPN - 04/09/2024 12:57 PM EDT Pt is calling to request PT order to be faxed to [facility]. Pt reports her son is going to therapy there so it would be easier on her for them to be in the same place. Pt is also requesting a consult to OT. Pt reports when she was signing up for PT the person marilyn has trouble with her hands because of rheumatoid arthritis and suggested OT also. Fax orders for PT and OT to [facility] @ [phone]. Daria Dye LPN [facility]09-17-2024 Telephone encounter Note* Telephone Encounter - Candi Lee RN - 04/03/2024 10:24 AM EDT Pt called and is notified of providers results and instructions. Pt voices understanding. Candi Lee RN [facility]09-17-2024 Miscellaneous Notes* Telephone Encounter - Candi Lee RN - 04/03/2024 10:24 AM EDT Pt called and is notified of providers results and instructions. Pt voices understanding. Candi Lee RN * Telephone Encounter - Beverley Acuna APRN.CNP - 04/03/2024 10:11 AM EDT I would recommend she stop the medication. If gum bleeding persists follow-up in office. Beverley Acuna APRN.CNP * Telephone Encounter - Becki Willis LPN - 04/03/2024 9:51 AM EDT Patient started on Cymbalta 30mg once daily, unable to eat, sleeping all the time, gums are bleeding. Patient did look up, advised to contact the Doctor if gums are bleeding. Patient has only been onthe medication x5 days, has not taken yet today. Please review & advise. Becki Willis LPN documented in this encounterFirelands [facility] Center09-17-2024 Telephone encounter Note * Telephone Encounter - Beverley Acuna APRN.CNP - 04/03/2024 10:11 AM EDT I would recommend she stop the medication. If gum bleeding persists follow-up in office. Beverley Acuna APRN.CNP [facility]09-17-2024 Telephone encounter Note* Telephone Encounter - Becki Willis LPN - 04/03/2024 9:51 AM EDT Patient started on Cymbalta 30mg once daily, unable to eat, sleeping all the time, gums are bleeding. Patient did look up, advised to contact the Doctor if gums are bleeding. Patient has only been onthe medication x5 days, has not taken yet today. Please review & advise. Becki Willis LPN [facility]09-10-2024 Instructions* Patient Instructions* Beverley Acuna APRN.COSMETICS COUNTER MANAGER - 03/27/2024 2:15 PM EDT Images from the original note were not included. - Dr. Lin Bowel Preparation Instructions for: Miralax-Gatorade Preparations IF YOU DO NOT FOLLOW THESE DIRECTIONS, YOUR COLONOSCOPY WILL BE CANCELLED. [place] Instructions: Your bowel must be empty so that your doctor can clearly view your colon. Follow all of the instructions in this handout EXACTLY as they are written. Do NOT eat any solid food the ENTIRE day before your colonoscopy. Buy your bowel preparation at least 5 days before your colonoscopy. Four (4) Dulcolax laxative tablets containing 5mg of bisacodyl each (NOT Dulcolax stool softener) One (1) 8.3oz. bottle Miralax (238 grams) or generic equivalent 2 x 32oz. Bottles of Gatorade (NOT RED) Diabetic Patients: Use G2 (Gatorade 2) TRANSPORTATION on the Day of Your Exam A responsible adult MUST be present with you at Check In prior to your colonoscopy and REMAIN in the endoscopy area until you are discharged. You are NOT ALLOWED to drive, take a taxi or bus, or leave the Endoscopy Center ALONE. If you do not have a responsible food service driver (family member or friend) withyou to take you home, your exam cannot be done with sedation and will be cancelled. Please bring a list of all of your current medications, including any Nejl-fhc-Dnshmdm medications with you. Medications If you take insulin, diabetic medications or blood thinners such as Coumadin (warfarin), Plavix (clopidogrel), Ticlid (ticlopidine hydrochloride), Agrylin (anagrelide), Xarelto (Rivaroxaban), Pradaxa(Dabigatran), Eliquis (Apixaban), and Effient (Prasugrel). You MUST call the doctors who orders those medicines for instructions on altering the dosage before your colonoscopy. All other medications should be taken the day of the exam with a sip of water including ASPIRIN. Five (5) Days Before Your Colonoscopy Do NOT take medicines that stop diarrhea - such as Imodium, Kaopectate, or Pepto Bismol. Do NOT take fiber supplements - such as Metamucil, Citrucel, or Perdiem. Do NOT take products that contain iron - such as multi-vitamins (the label lists what is in the products). Three (3) Days Before Your Colonoscopy Do NOT eat high-fiber foods - such as popcorn, beans, seeds (flax, sunflower, quinoa), multigrain bread, nuts, salad/vegetables, or fresh and dried fruit. 1 Bowel Preparation Instructions for: Miralax-Gatorade Preparations One (1) Day Before Your Colonoscopy Only drink clear liquids the ENTIRE DAY before your colonoscopy. Do NOT eat any solid foods. Drink at least 8 ounces of clear liquids every hour after waking up. The clear liquids you can drink include: Clear Liquid (NO RED LIQUIDS) DO NOT DRINK Gatorade, Pedialyte or Powerade Clear broth or bouillon Coffee or tea (no milk or non-dairy creamer) Carbonated and non-carbonated soft drinks Harjinder-Aid or other fruit flavored drinks Strained fruit juices (no pulp) Jell-O, popsicles, hard candy Water Alcohol Milk or non-dairy creamers Noodles or vegetables in soup Juice with pulp Liquid you cannot see through Do not use tobacco/vaping products Mix 1/2 of Miralax bottle (119 grams) in each 32 ounces of Gatorade bottle until dissolved. Keep cool in the refrigerator. DO NOT ADD ICE. The bowel preparation solution will be consumed in two parts. Part 1 5:00 PM - Evening before your colonoscopy Take 4 Dulcolax tablets. 6 PM - Evening before your colonoscopy Drink 32 oz. of the mixed solution. Drink an 8 oz. glass of bowel preparation every 15 minutes for a total of 4 glasses. Fifteen (15) minutes later, drink an 8 oz. glass of of clear liquids every 15 minutes for a total of 2 glasses. You may continue to drink clear liquids till midnight. Part 2 On the day of your colonoscopy you may drink clear liquids up to (three) 3 hours prior to procedure. 4 1/2 hours before your colonoscopy Take another 32 oz. bottle of mixed solution. Drink an 8 oz. glass of bowel prep every 15 minutes for a total of 4 glasses. Fifteen (15) minutes later, drink an 8 oz. glass of clear liquids every 15 minutes for a total of 2glasses. You may continue to drink clear liquids up to (three) 3 hours before your exam. 2 06/2019 documented in this encounterFirelands [facility] Center09-10-2024 NoteHNO ID: [id number] Author: BEVERLEY ACUNA APRN.COSMETICS COUNTER MANAGER Service: ? Author Type: Nurse Practitioner Type: Progress Notes Filed: 03/27/2024 15:06 Note Text: 03/27/2024 Patient presents with: Establish Care SUBJECTIVE: This is a 58 year old that is here today for Above Complaints. Has not seen primary care provider for some time Reports she has a hx of RA but has only seen rheumatology once. Reports pain to all joints but arms and her neck are the worst. [facility] and getting prednisone tapers which help for a short amount of time. Also using OTC NSAIDs with some short term relief Admits to depressive symptoms which she reports is mostly related to her pain. Has been on antidepressants in the past but not sure which one. Does not attend counseling. Denies SI, HI or insomnia Past medical, surgical,, family, social hx, medications, allergies and health maintenance reviewed and updated PAST MEDICAL HISTORY No date: Asthma No date: Environmental allergies No date: High serum low-density lipoprotein (LDL) No date: Overweight No date: RA (rheumatoid arthritis) (HCC) No date: Skin lesion No date: Tobacco use ALLERGIES Amoxicillin, Hydrocodone-Acetaminophen, Morphine, and Oxycodone-Acetaminophen MEDICATIONS Current Outpatient Medications Medication Sig DULoxetine (CYMBALTA) 30 mg capsule Take 1 capsule by mouth once daily. No current facility-administered medications for this visit. Medications and allergies reviewed by this provider. SOCIAL HISTORY Social History Tobacco Use Smoking status: Every Day Current packs/day: 1.00 Average packs/day: 1 pack/day for 38.0 years (38.0 ttl pk-yrs) Types: Cigarettes Smokeless tobacco: Never Vaping Use Vaping status: current everyday user Substances: Nicotine, CBD Substance Use Topics Alcohol use: Yes Drug use: No REVIEW OF SYSTEMS GENERAL: No weight loss, malaise or fevers HEENT: Negative for frequent or significant headaches, No changes in hearing or vision, no nose bleeds or other nasal problems NECK: Negative for lumps, goiter, and significant neck swelling RESPIRATORY: Negative for cough, hemoptysis, wheezing, COPD, dyspnea or shortness of breath CARDIOVASCULAR: Negative for chest pain, leg swelling, hypertension, CHF or palpitations GI: No nausea, vomiting, or diarrhea and some nausea for a week or so : No history of dysuria, frequency or incontinence SUPPLY TEACHER: Negative for abnormal vaginal bleeding, abnormal vaginal discharge MUSCULOSKELETAL: See HPI SKIN: Negative for lesions, rash, and itching PSYCH: See HPI HEMATOLOGY/LYMPHOLOGY: Negative for prolonged bleeding, bruising easily or swollen nodes ENDOCRINE: Negative for cold or heat intolerance, polyuria, polydipsia and goiter NEURO: No history of headaches, syncope, paralysis, seizures or tremors All other reviewed and negative other than HPI. OBJECTIVE: BP 104/84 Pulse 107 Resp 18 Ht 165.4 cm (5' 5.12) Wt 78.7 kg (173 lb 8 oz) LMP (LMP Unknown) SpO2 95% BMI 28.77 kg/m? . Vital signs reviewed by this provider. APPEARANCE Well appearing, alert, in no acute distress, well-hydrated, well nourished. EYES conjunctiva and sclera normal. EARS External ears normal, canals clear NECK Supple, no adenopathy; thyroid symmetric, normal size, no bruits HEART RRR with normal S1 and S2, no murmurs, no gallops, no JVD appreciated LUNG clear to auscultation. No wheezes, rhonchi or rales ABDOMEN bowel sounds normoactive, no bruits, soft, non-tender, non-distended EXTREMITIES some swelling of hands with nodules of metacarpals. BLE WNL SKIN Skin color, texture, turgor normal, no suspicious rashes or lesions to exposed skin Spirometry Never done DTaP,Tdap,Td Vaccine(1 - Tdap) Never done Hepatitis B Vaccine(1 of 3 - 19+ 3-dose series) Never done Mammogram Screening Never done Colorectal Cancer Screening Never done Cervical Cancer Screening due on 06/23/2013 Lung Cancer Screening Never done Diabetes Screening due on 10/11/2023 Covid-19 Vaccine( season) Never done Hepatitis C Screening due on 03/27/2025 HIV Screening due on 03/27/2025 Shingrix Vaccine(2 of 2) due on 05/22/2024 Annual PCP Team Chronic Disease Visit due on 03/27/2025 Depression Screening due on 03/27/2025 Lipid Screening due on 10/10/2025 Influenza Vaccine Completed ASSESSMENT/PLAN: 1. Encounter for medical examination to establish care - ICD9: V70.9, ICD10: Z00.00 (primary diagnosis) - Counseled on healthy diet and regular exercise - Mammogram ordered - exam recommended once yearly - Lung cancer screening recommended - Smoking cessation encouraged; discussed risks to health and quitting strategies. Patient is contemplative - LIPID PANEL BASIC - COMPREHENSIVE METABOLIC PANEL - COMPLETE BLOOD COUNT AND DIFFERENTIAL - Follow up for annual exam in one year 2. Rheumatoid arthritis, involving unspecified site, unspecifie (more content not included)...[facility]09-10-2024 History of Present illness Narrative* Beverley Acuna APRN.ALEXANDRU - 03/27/2024 1:58 PM EDT 03/27/2024 Patient presents with: Establish Care SUBJECTIVE: This is a 58 year old that is here today for Above Complaints. Has not seen primary care provider for some time Reports she has a hx of RA but has only seen rheumatology once. Reports pain to all joints but armsand her neck are the worst. [facility] been going to [facility] and getting prednisone tapers which helpfor a short amount of time. Also using OTC NSAIDs with some short term relief Admits to depressive symptoms which she reports is mostly related to her pain. Has been on antidepressants in the past but not sure which one. Does not attend counseling. Denies SI, HI or insomnia Past medical, surgical,, family, social hx, medications, allergies and health maintenance reviewed and updated PAST MEDICAL HISTORY No date: Asthma No date: Environmental allergies No date: High serum low-density lipoprotein (LDL) No date: Overweight No date: RA (rheumatoid arthritis) (HCC) No date: Skin lesion No date: Tobacco use ALLERGIES Amoxicillin, Hydrocodone-Acetaminophen, Morphine, and Oxycodone-Acetaminophen MEDICATIONS Current Outpatient Medications Medication Sig DULoxetine (CYMBALTA) 30 mg capsule Take 1 capsule by mouth once daily. No current facility-administered medications for this visit. Medications and allergies reviewed by this provider. SOCIAL HISTORY Social History Tobacco Use Smoking status: Every Day Current packs/day: 1.00 Average packs/day: 1 pack/day for 38.0 years (38.0 ttl pk-yrs) Types: Cigarettes Smokeless tobacco: Never Vaping Use Vaping status: current everyday user Substances: Nicotine, CBD Substance Use Topics Alcohol use: Yes Drug use: No REVIEW OF SYSTEMS GENERAL: No weight loss, malaise or fevers HEENT: Negative for frequent or significant headaches, No changes in hearing or vision, no nose bleeds or other nasal problems NECK: Negative for lumps, goiter, and significant neck swelling RESPIRATORY: Negative for cough, hemoptysis, wheezing, COPD, dyspnea or shortness of breath CARDIOVASCULAR: Negative for chest pain, leg swelling, hypertension, CHF or palpitations GI: No nausea, vomiting, or diarrhea and some nausea for a week or so : No history of dysuria, frequency or incontinence SUPPLY TEACHER: Negative for abnormal vaginal bleeding, abnormal vaginal discharge MUSCULOSKELETAL: See HPI SKIN: Negative for lesions, rash, and itching PSYCH: See HPI HEMATOLOGY/LYMPHOLOGY: Negative for prolonged bleeding, bruising easily or swollen nodes ENDOCRINE: Negative for cold or heat intolerance, polyuria, polydipsia and goiter NEURO: No history of headaches, syncope, paralysis, seizures or tremors All other reviewed and negative other than HPI. OBJECTIVE: BP 104/84 Pulse 107 Resp 18 Ht 165.4 cm (5' 5.12) Wt 78.7 kg (173 lb 8 oz) LMP (LMP Unknown) SpO2 95% BMI 28.77 kg/m . Vital signs reviewed by this provider. APPEARANCE Well appearing, alert, in no acute distress, well-hydrated, well nourished. EYES conjunctiva and sclera normal. EARS External ears normal, canals clear NECK Supple, no adenopathy; thyroid symmetric, normal size, no bruits HEART RRR with normal S1 and S2, no murmurs, no gallops, no JVD appreciated LUNG clear to auscultation. No wheezes, rhonchi or rales ABDOMEN bowel sounds normoactive, no bruits, soft, non-tender, non-distended EXTREMITIES some swelling of hands with nodules of metacarpals. BLE WNL SKIN Skin color, texture, turgor normal, no suspicious rashes or lesions to exposed skin Spirometry Never done DTaP,Tdap,Td Vaccine(1 - Tdap) Never done Hepatitis B Vaccine(1 of 3 - 19+ 3-dose series) Never done Mammogram Screening Never done Colorectal Cancer Screening Never done Cervical Cancer Screening due on 06/23/2013 Lung Cancer Screening Never done Diabetes Screening due on 10/11/2023 Covid-19 Vaccine( - 2022- season) Never done Hepatitis C Screening due on 03/27/2025 HIV Screening due on 03/27/2025 Shingrix Vaccine(2 of 2) due on 05/22/2024 Annual PCP Team Chronic Disease Visit due on 03/27/2025 Depression Screening due on 03/27/2025 Lipid Screening due on 10/10/2025 Influenza Vaccine Completed ASSESSMENT/PLAN: 1. Encounter for medical examination to establish care - ICD9: V70.9, ICD10: Z00.00 (primary diagnosis) - Counseled on healthy diet and regular exercise - Mammogram ordered - exam recommended once yearly - Lung cancer screening recommended - Smoking cessation encouraged; discussed risks to health and quitting strategies. Patient is contemplative - LIPID PANEL BASIC - COMPREHENSIVE METABOLIC PANEL - COMPLETE BLOOD COUNT AND DIFFERENTIAL - Follow up for annual exam in one year 2. Rheumatoid arthritis, involving unspecified site, unspecified whether rheumatoid factor present (HCC) - ICD9: 714.0, ICD10: M06.9 - CONSULT TO RHEUM/IMMUN DISEASE 3. Screening for colon cancer - ICD9: V76.51, ICD10: Z12.11 - COLONOSCOPY SCREENING 4. Encounter for screening mammogram for breast cancer - ICD9: V76.12, ICD10: Z12.31 - SERJIO SCREENING W SOHEILA 5. Screening for hyperlipidemia - ICD9: V77.91, ICD10: Z13.220 - LIPID PANEL BASIC 6. Screening for depression - ICD9: V79.0, ICD10: Z13.31 - DEPRESSION SCREENING 7. Encounter for screening for lung cancer - ICD9: V76.0, ICD10: Z12.2 - CONSULT LUNG CANCER SCREENING CLINIC 8. Encounter for immunization - ICD9: V03.89, ICD10: Z23 - INFLUENZA VACCINE, AGE 6MO-64YR, TRIVALENT (AFLURIA, FLULAVAL, FLUVIRIN, FLUZONE) - ZOSTER VACCINE, RECOMBINANT (SHINGRIX) - ZOSTER VACCINE, RECOMBINANT (SHINGRIX) 9. Bilateral arm pain - ICD9: 729.5, ICD10: M79.601, M79.602 - CONSULT TO PHYSICAL THERAPY 10. Neck pain - ICD9: 723.1, ICD10: M54.2 - CONSULT TO PHYSICAL THERAPY 11. Depression, unspecified depression type - ICD9: 311, ICD10: F32.A - - Discussed concept of neurochemical imbalance wth depression/anxiety - Option of Medication use discussed - Risks/benefits of SSRIs - Common side effects - Sleep Hygeine - advised counseling to improve management of stressors - follow up in 3 weeks - Instructed patient to contact office or [id number] after-hours promptly should condition worsen or any new symptoms appear. - Counseling Center [facility] and after hours crisis line - [place] phone number or - DULOXETINE 30 MG CAPSULE,DELAYED RELEASE - follow-up if symptoms fail to improve Beverley Acuna APRN.CNP Prescription instructions reviewed with patient as applicable. Patient advised if symptoms do not improve or if symptoms worsen sooner, to contact their primary care physician. Potential red flag symptoms discussed with the patient. Reviewed appropriate action plan to take if red flag symptoms occur. Patient agreeable to treatment plan. Medical Decision Making: Problems: Moderate: New problem with uncertain prognosis and 1+ chronic illnesses with change Data: Unique test(s) ordered: 3+ Risk: Moderate: Moderate risk from testing/treatment Medical Decision Making Level: 4 - Moderate documented in this encounterFirelands [facility] Center07-18-2024 NoteHNO ID: [id number] Author: DORIS ESQUIVEL APRN.[facility] Service: ? Author Type: Nurse Practitioner Type: Progress Notes Filed: 02/02/2024 16:41 Note Text: This note was created using NoteWriter. Subjective Dunia Vargas is a 58 year old female. 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 She was encouraged to f/u with PCP and/or RA. Dr. Art accepted here to his panel. No appt made. The history is provided by the patient. No adoption counselor was used. Illness The current episode started more than 1 week ago. The onset was sudden. The problem occurs continuously. The problem has been rapidly worsening. Associated symptoms include muscle aches and neck pain. Pertinent negatives include no fever, no decreased vision, no double vision, no eye itching, no photophobia, no abdominal pain, no diarrhea, no nausea, no vomiting, no congestion, no ear discharge, no ear pain, no headaches, no hearing loss, no mouth sores, no rhinorrhea, no sore throat, no stridor, no swollen glands, no cough, no rash, no eye discharge, no eye pain and no eye redness. She has been Eating and drinking normally. Urine output has been normal. The last void occurred Less than 6 hours ago. 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 Services received include medications given. PAST MEDICAL HISTORY Diagnosis Date Asthma Environmental allergies High serum low-density lipoprotein (LDL) Overweight RA (rheumatoid arthritis) (HCC) Skin lesion Tobacco use PAST SURGICAL HISTORY Procedure Laterality Date CATARACT EXTRACTION HX Bilateral 2004 TUBAL LIGATION HX 1995 ALLERGIES Amoxicillin, Hydrocodone-Acetaminophen, Morphine, and Oxycodone-Acetaminophen MEDICATIONS albuterol HFA (PROAIR HFA) 90 mcg/actuation inhaler Inhale 2 Puffs as instructed every 4 hours as needed. albuterol HFA (PROAIR HFA) 90 mcg/actuation inhaler Inhale 2 Puffs as instructed every 6 hours as needed. albuterol (PROVENTIL) 2.5 mg /3 mL (0.083 %) nebulizer solution Use 3 mL via nebulizer every 4 hours as needed for Wheezing/Shortness of Breath. Use over 5-15minutes. B Complex Vitamins capsule Take 1 capsule by mouth once daily. Cholecalciferol, Vitamin D3, (VITAMIN D-3) 2,000 unit cap Take 2 capsules by mouth once daily. predniSONE (DELTASONE) 10 mg tablet Take 4 tabs daily for 3 days, then 2 tabs daily for 3 days, then 1 tab daily for 3 days with food. pseudoephedrine (SUDAFED) 30 mg tablet Take 2 tablets by mouth twice daily. (Patient not taking: Reported on 03/23/2022) benzonatate (TESSALON PERLE) 100 mg capsule Tessalon Perles 1-2 every 8 hours, do not combine this with robitussin or delsym (Patient not taking: Reported on 03/23/2022) pravastatin (PRAVACHOL) 10 mg tablet Take 1 tablet by mouth once daily. (Patient not taking: Reported on 09/26/2019 ) diclofenac sodium (VOLTAREN) 1 % topical gel Apply 2 g to affected area four times daily. (Patient not taking: Reported on 09/26/2019 ) FAMILY HISTORY Problem Relation Age of Onset Cancer Mother COPD Father COPD Brother Cancer Brother Kidney No Known Problems Brother Social History Tobacco Use Smoking status: Every Day Packs/day: 1.00 Years: 38.00 Additional pack years: 0.00 Total pack years: 38.00 Types: Cigarettes Smokeless tobacco: Never Vaping Use Vaping Use: current everyday user Substances: Nicotine, CBD Substance Use Topics Alcohol use: Yes Drug use: No Review of Systems Constitutional: Negative for activity change, appetite change and fever. HENT: Negative for congestion, ear discharge, ear pain, hearing loss, mouth sores, rhinorrhea and sore throat. Eyes: Negative for double vision, photophobia, pain, discharge, redness and itching. Respiratory: Negative for cough and stridor. Gastrointestinal: Negative for abdominal pain, diarrhea, nausea and vomiting. Musculoskeletal: Positive for arthralgias, back pain, myalgias, neck pain and neck stiffness. Skin: Negative for rash. Neurological: Negative for headaches. Hematological: Negative for adenopathy. Does not bruise/bleed easily. Psychiatric/Behavioral: Negative for agitation and behavioral problems. Objective LMP (LMP Unknown) BP 123/80 Pulse 103 Temp 36.7 ?C (98.1 ?F) Resp 18 Wt 79.3 kg (174 lb 13.2 oz) LMP (LMP Unknown) SpO2 96% BMI 27.77 kg/m? Physical Exam Vitals and nursing note reviewed. Constitutional: General: She is not in acute distress. Appearance: Normal appearance. She is normal weight. She is not ill-appearing, toxic-appearing or diaphoretic. HENT: Head: Normocephalic and a (more content not included)...[facility]07-18-2024 History of Present illness Narrative* Doris Esquivel APRN.COSMETICS COUNTER MANAGER - 02/02/2024 4:24 PM EDT This note was created using [employer]. Subjective Dunia Vargas is a 58 year old female. 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 She was encouraged to f/u with PCP and/or RA. Dr. Art accepted here to his panel. No appt made. The history is provided by the patient. No adoption counselor was used. Illness The current episode started more than 1 week ago. The onset was sudden. The problem occurs continuously. The problem has been rapidly worsening. Associated symptoms include muscle aches and neck pain. Pertinent negatives include no fever, no decreased vision, no double vision, no eye itching, no photophobia, no abdominal pain, no diarrhea, no nausea, no vomiting, no congestion, no ear discharge, no ear pain, no headaches, no hearing loss, no mouth sores, no rhinorrhea, no sore throat, no stridor, no swollen glands, no cough, no rash, no eye discharge, no eye pain and no eye redness. She has been Eating and drinking normally. Urine output has been normal. The last void occurred Less than 6 ho urs ago. 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 Services received include medications given. PAST MEDICAL HISTORY Diagnosis Date Asthma Environmental allergies High serum low-density lipoprotein (LDL) Overweight RA (rheumatoid arthritis) (HCC) Skin lesion Tobacco use PAST SURGICAL HISTORY Procedure Laterality Date CATARACT EXTRACTION HX Bilateral 2005 TUBAL LIGATION HX 1996 ALLERGIES Amoxicillin, Hydrocodone-Acetaminophen, Morphine, and Oxycodone-Acetaminophen MEDICATIONS albuterol HFA (PROAIR HFA) 90 mcg/actuation inhaler Inhale 2 Puffs as instructed every 4 hours as needed. albuterol HFA (PROAIR HFA) 90 mcg/actuation inhaler Inhale 2 Puffs as instructed every 6 hours as needed. albuterol (PROVENTIL) 2.5 mg /3 mL (0.083 %) nebulizer solution Use 3 mL via nebulizer every 4 hours as needed for Wheezing/Shortness of Breath. Use over 5-15minutes. B Complex Vitamins capsule Take 1 capsule by mouth once daily. Cholecalciferol, Vitamin D3, (VITAMIN D-3) 2,000 unit cap Take 2 capsules by mouth once daily. predniSONE (DELTASONE) 10 mg tablet Take 4 tabs daily for 3 days, then 2 tabs daily for 3 days, then 1 tab daily for 3 days with food. pseudoephedrine (SUDAFED) 30 mg tablet Take 2 tablets by mouth twice daily. (Patient not taking: Reported on 03/23/2022) benzonatate (TESSALON PERLE) 100 mg capsule Tessalon Perles 1-2 every 8 hours, do not combine this with robitussin or delsym (Patient not taking: Reported on 03/23/2022) pravastatin (PRAVACHOL) 10 mg tablet Take 1 tablet by mouth once daily. (Patient not taking: Reported on 09/26/2019 ) diclofenac sodium (VOLTAREN) 1 % topical gel Apply 2 g to affected area four times daily. (Patient not taking: Reported on 09/26/2019 ) FAMILY HISTORY Problem Relation Age of Onset Cancer Mother COPD Father COPD Brother Cancer Brother Kidney No Known Problems Brother Social History Tobacco Use Smoking status: Every Day Packs/day: 1.00 Years: 38.00 Additional pack years: 0.00 Total pack years: 38.00 Types: Cigarettes Smokeless tobacco: Never Vaping Use Vaping Use: current everyday user Substances: Nicotine, CBD Substance Use Topics Alcohol use: Yes Drug use: No Review of Systems Constitutional: Negative for activity change, appetite change and fever. HENT: Negative for congestion, ear discharge, ear pain, hearing loss, mouth sores, rhinorrhea and sore throat. Eyes: Negative for double vision, photophobia, pain, discharge, redness and itching. Respiratory: Negative for cough and stridor. Gastrointestinal: Negative for abdominal pain, diarrhea, nausea and vomiting. Musculoskeletal: Positive for arthralgias, back pain, myalgias, neck pain and neck stiffness. Skin: Negative for rash. Neurological: Negative for headaches. Hematological: Negative for adenopathy. Does not bruise/bleed easily. Psychiatric/Behavioral: Negative for agitation and behavioral problems. Objective LMP (LMP Unknown) BP 123/80 Pulse 103 Temp 36.7 C (98.1 F) Resp 18 Wt 79.3 kg (174 lb 13.2 oz) LMP (LMP Unknown) SpO2 96% BMI 27.77 kg/m Physical Exam Vitals and nursing note reviewed. Constitutional: General: She is not in acute distress. Appearance: Normal appearance. She is normal weight. She is not ill-appearing, toxic-appearing or diaphoretic. HENT: Head: Normocephalic and atraumatic. Right Ear: Ear canal and external ear normal. Left Ear: Ear canal and external ear normal. Nose: Nose normal. No congestion or rhinorrhea. Mouth/Throat: Mouth: Mucous membranes are moist. Pharynx: No oropharyngeal exudate or posterior oropharyngeal erythema. Eyes: General: Right eye: No discharge. Left eye: No discharge. Extraocular Movements: Extraocular movements intact. Conjunctiva/sclera: Conjunctivae normal. Pupils: Pupils are equal, round, and reactive to light. Cardiovascular: Rate and Rhythm: Normal rate and regular rhythm. Pulses: Normal pulses. Heart sounds: Normal heart sounds. No murmur heard. No friction rub. Pulmonary: Effort: Pulmonary effort is normal. No respiratory distress. Breath sounds: Normal breath sounds. No stridor. No wheezing, rhonchi or rales. Chest: Chest wall: No tenderness. Abdominal: General: Abdomen is flat. There is no distension. Palpations: Abdomen is soft. There is no mass. Tenderness: There is no abdominal tenderness. There is no right CVA tenderness, left CVA tenderness, guarding or rebound. Hernia: No hernia is present. Musculoskeletal: General: No swelling, tenderness, deformity or signs of injury. Cervical back: Normal range of motion and neck supple. No rigidity. Right lower leg: No edema. Left lower leg: No edema. Comments: Reduced ROM left upper extremity Neck with no nuccal ridgidity, but with reduced ROM with extension Slow to rise DIffuse TTP upper thighs bilaterally Lymphadenopathy: Cervical: No cervical adenopathy. Skin: General: Skin is warm and dry. Capillary Refill: Capillary refill takes less than 2 seconds. Coloration: Skin is not jaundiced or pale. Findings: No bruising, erythema, lesion or rash. Neurological: General: No focal deficit present. Mental Status: She is alert and oriented to person, place, and time. Cranial Nerves: No cranial nerve deficit. Sensory: No sensory deficit. Motor: No weakness. Coordination: Coordination normal. Gait: Gait normal. Psychiatric: Mood and Affect: Mood normal. Behavior: Behavior normal. Thought Content: Thought content normal. Judgment: Judgment normal. Assessment and Plan ASSESSMENT/PLAN: 1. 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 Will provide taper She has made appt here with Sander Podlogar on 03/27/24 Doris Esquivel APRN.COSMETICS COUNTER MANAGER documented in this encounterFire[facility] Telephone encounter Note * Telephone Encounter - Deirdre Martin - 01/13/2024 11:[address] Art is okay with patient establishing care with his practice. Deirdre Martin January 13, 2024 11:29 AM [facility]06-[facility] Miscellaneous Notes* Telephone Encounter - Deirdre Martin - 01/13/2024 11:[address] Art is okay with patient establishing care with his practice. Deirdre Martin January 13, 2024 11:29 AM documented in this encounterFirelands [facility]05-18-2024 NoteHNO ID: [id number] Author: WILFREDO HAWLEY PA-C Service: ? Author Type: Physician Kaiako Kura [place] Type: Progress Notes Filed: 12/03/2023 10:34 Note Text: This note was created using [employer]. Subjective Dunia Vargas is a 58 year old female. HPI Presents with generalized arthralgias over the past 2 months. She has a history of RA that is not currently being treated. She states she has never been on medication for it. She tries to do homeopathic remedies but had a reaction to 1 that caused her face to swell so has not really been on anything. She has chronic deformities in her right hand and that has been more swollen recently. Her left hand also has been swollen. She has not increased pain in her neck and shoulders as well as her knees. No injuries. No fevers or chills. She does not currently have a PCP or medicare specialist. Review of Systems Constitutional: Negative. HENT: Negative. Respiratory: Negative. Cardiovascular: Negative. Gastrointestinal: Negative. Genitourinary: Negative. Musculoskeletal: Positive for arthralgias and joint swelling. Skin: Negative. All other systems reviewed and are negative. PAST MEDICAL HISTORY Diagnosis Date Asthma Environmental allergies High serum low-density lipoprotein (LDL) Overweight RA (rheumatoid arthritis) (HCC) Skin lesion Tobacco use Current Outpatient Medications Medication Sig Dispense Refill albuterol HFA (PROAIR HFA) 90 mcg/actuation inhaler Inhale 2 Puffs as instructed every 4 hours as needed. 1 Each 0 albuterol HFA (PROAIR HFA) 90 mcg/actuation inhaler Inhale 2 Puffs as instructed every 6 hours as needed. 18 g 6 albuterol (PROVENTIL) 2.5 mg /3 mL (0.083 %) nebulizer solution Use 3 mL via nebulizer every 4 hours as needed for Wheezing/Shortness of Breath. Use over 5-15minutes. 1 Package 3 B Complex Vitamins capsule Take 1 capsule by mouth once daily. Cholecalciferol, Vitamin D3, (VITAMIN D-3) 2,000 unit cap Take 2 capsules by mouth once daily. 60 capsule 11 predniSONE (DELTASONE) 10 mg tablet Take 6 tabs for 3 days, then 4 tabs for 3 days, then 2 tabs for 3 days then 1 tab for 3 days with food. 39 tablet 0 pseudoephedrine (SUDAFED) 30 mg tablet Take 2 tablets by mouth twice daily. (Patient not taking: Reported on 03/23/2022) 24 tablet 0 benzonatate (TESSALON PERLE) 100 mg capsule Tessalon Perles 1-2 every 8 hours, do not combine this with robitussin or delsym (Patient not taking: Reported on 03/23/2022) 30 capsule 0 pravastatin (PRAVACHOL) 10 mg tablet Take 1 tablet by mouth once daily. (Patient not taking: Reported on 09/26/2019 ) 30 tablet 5 diclofenac sodium (VOLTAREN) 1 % topical gel Apply 2 g to affected area four times daily. (Patient not taking: Reported on 09/26/2019 ) 100 g 1 No current facility-administered medications for this visit. PAST SURGICAL HISTORY Procedure Laterality Date CATARACT EXTRACTION HX Bilateral 2004 TUBAL LIGATION HX 1995 FAMILY HISTORY Problem Relation Age of Onset Cancer Mother COPD Father COPD Brother Cancer Brother Kidney No Known Problems Brother Social History Tobacco Use Smoking status: Every Day Packs/day: 1.00 Years: 38.00 Additional pack years: 0.00 Total pack years: 38.00 Types: Cigarettes Smokeless tobacco: Never Vaping Use Vaping Use: current everyday user Substances: Nicotine, CBD Substance Use Topics Alcohol use: Yes Drug use: No Objective BP 122/60 Pulse 92 Temp 37.3 ?C (99.2 ?F) Resp 16 Wt 82.7 kg (182 lb 5.1 oz) LMP (LMP Unknown) SpO2 98% BMI 28.96 kg/m? Physical Exam Vitals reviewed. Constitutional: Appearance: Normal appearance. HENT: Head: Normocephalic and atraumatic. Cardiovascular: Rate and Rhythm: Normal rate and regular rhythm. Heart sounds: Normal heart sounds. Pulmonary: Effort: Pulmonary effort is normal. Breath sounds: Normal breath sounds. Musculoskeletal: Comments: Patient has chronic hypertrophic changes to the MCPs of her hands bilaterally, right worse than left. Some generalized swelling noted to her hands as well. Pain with range of motion of the hands. Pain with range of motion of the shoulder and neck. Pain with ambulation. Skin: General: Skin is warm and dry. Neurological: Mental Status: She is alert. Assessment and Plan ASSESSMENT/PLAN: 1. Rheumatoid arthritis flare (HCC) - ICD9: 714.0, ICD10: M06.9 I will treat with a prednisone taper. Discussed with patient however I would recommend following up with PCP to establish. Also would recommend rheumatology. Patient educated on the longstanding effects of untreated RA. Patient voiced understanding to plan. [facility] History of Present illness Narrative* Wilfredo Hawley PA-C - 12/03/2023 10:31 AM EDT This note was created using [employer]. Subjective Dunia Vargas is a 58 year old female. HPI Presents with generalized arthralgias over the past 2 months. She has a history of RA that is not currently being treated. She states she has never been on medication for it. She tries to do homeopathic remedies but had a reaction to 1 that caused her face to swell so has not really been on anything. She has chronic deformities in her right hand and that has been more swollen recently. Her left hand also has been swollen. She has not increased pain in her neck and shoulders as well as her knees. No injuries. No fevers or chills. She does not currently have a PCP or medicare specialist. Review of Systems Constitutional: Negative. HENT: Negative. Respiratory: Negative. Cardiovascular: Negative. Gastrointestinal: Negative. Genitourinary: Negative. Musculoskeletal: Positive for arthralgias and joint swelling. Skin: Negative. All other systems reviewed and are negative. PAST MEDICAL HISTORY Diagnosis Date Asthma Environmental allergies High serum low-density lipoprotein (LDL) Overweight RA (rheumatoid arthritis) (HCC) Skin lesion Tobacco use Current Outpatient Medications Medication Sig Dispense Refill albuterol HFA (PROAIR HFA) 90 mcg/actuation inhaler Inhale 2 Puffs as instructed every 4 hours as needed. 1 Each 0 albuterol HFA (PROAIR HFA) 90 mcg/actuation inhaler Inhale 2 Puffs as instructed every 6 hours as needed. 18 g 6 albuterol (PROVENTIL) 2.5 mg /3 mL (0.083 %) nebulizer solution Use 3 mL via nebulizer every 4 hours as needed for Wheezing/Shortness of Breath. Use over 5- 15minutes. 1 Package 3 B Complex Vitamins capsule Take 1 capsule by mouth once daily. Cholecalciferol, Vitamin D3, (VITAMIN D-3) 2,000 unit cap Take 2 capsules by mouth once daily. 60 capsule 11 predniSONE (DELTASONE) 10 mg tablet Take 6 tabs for 3 days, then 4 tabs for 3 days, then 2 tabs for3 days then 1 tab for 3 days with food. 39 tablet 0 pseudoephedrine (SUDAFED) 30 mg tablet Take 2 tablets by mouth twice daily. (Patient not taking: Reported on 03/23/2022) 24 tablet 0 benzonatate (TESSALON PERLE) 100 mg capsule Tessalon Perles 1-2 every 8 hours, do not combine this with robitussin or delsym (Patient not taking: Reported on 03/23/2022) 30 capsule 0 pravastatin (PRAVACHOL) 10 mg tablet Take 1 tablet by mouth once daily. (Patient not taking: Reported on 09/26/2019 ) 30 tablet 5 diclofenac sodium (VOLTAREN) 1 % topical gel Apply 2 g to affected area four times daily. (Patient not taking: Reported on 09/26/2019 ) 100 g 1 No current facility-administered medications for this visit. PAST SURGICAL HISTORY Procedure Laterality Date CATARACT EXTRACTION HX Bilateral 2004 TUBAL LIGATION HX 1995 FAMILY HISTORY Problem Relation Age of Onset Cancer Mother COPD Father COPD Brother Cancer Brother Kidney No Known Problems Brother Social History Tobacco Use Smoking status: Every Day Packs/day: 1.00 Years: 38.00 Additional pack years: 0.00 Total pack years: 38.00 Types: Cigarettes Smokeless tobacco: Never Vaping Use Vaping Use: current everyday user Substances: Nicotine, CBD Substance Use Topics Alcohol use: Yes Drug use: No Objective BP 122/60 Pulse 92 Temp 37.3 C (99.2 F) Resp 16 Wt 82.7 kg (182 lb 5.1 oz) LMP (LMP Unknown) SpO2 98% BMI 28.96 kg/m Physical Exam Vitals reviewed. Constitutional: Appearance: Normal appearance. HENT: Head: Normocephalic and atraumatic. Cardiovascular: Rate and Rhythm: Normal rate and regular rhythm. Heart sounds: Normal heart sounds. Pulmonary: Effort: Pulmonary effort is normal. Breath sounds: Normal breath sounds. Musculoskeletal: Comments: Patient has chronic hypertrophic changes to the MCPs of her hands bilaterally, right worse than left. Some generalized swelling noted to her hands as well. Pain with range of motion of the hands. Pain with range of motion of the shoulder and neck. Pain with ambulation. Skin: General: Skin is warm and dry. Neurological: Mental Status: She is alert. Assessment and Plan ASSESSMENT/PLAN: 1. Rheumatoid arthritis flare (HCC) - ICD9: 714.0, ICD10: M06.9 I will treat with a prednisone taper. Discussed with patient however I would recommend following upwith PCP to establish. Also would recommend rheumatology. Patient educated on the longstanding effects of untreated RA. Patient voiced understanding to plan. Wilfredo Hawley PA-C documented in this encounterFire[facility]10-03-2023 History of Present illness Narrative* Ashley Mcnally APRN.[facility] - 04/19/2023 9:21 AM EDT Subjective Patient came in with complaints of facial swelling. Patient denies any lip or tongue swelling. Patient denies any difficulty breathing or swallowing. Patient says its been going on for about 2 weeks.Patient says she did initially go to the ER they gave her Benadryl and steroids that did not do anything. Patient has been taking some sort of herbal tea for the last few months. She says there are many herbs in it and it helps with her rheumatoid arthritis. Denies any other symptoms at this time. Not been to the doctor in 4 years. The history is provided by the patient. No adoption counselor was used. Edema Review of Systems Constitutional: Negative. Skin: Negative. Objective Physical Exam Constitutional: Appearance: Normal appearance. HENT: Head: Comments: Mild edema noted in the face. Pulmonary: Effort: Pulmonary effort is normal. Neurological: Mental Status: She is alert. PAST MEDICAL HISTORY Diagnosis Date Asthma Environmental allergies High serum low-density lipoprotein (LDL) Overweight RA (rheumatoid arthritis) (HCC) Skin lesion Tobacco use PAST SURGICAL HISTORY Procedure Laterality Date CATARACT EXTRACTION HX Bilateral 2004 TUBAL LIGATION HX 1995 ALLERGIES Amoxicillin, Hydrocodone-Acetaminophen, Morphine, and Oxycodone-Acetaminophen MEDICATIONS albuterol HFA (PROAIR HFA) 90 mcg/actuation inhaler Inhale 2 Puffs as instructed every 4 hours as needed. albuterol HFA (PROAIR HFA) 90 mcg/actuation inhaler Inhale 2 Puffs as instructed every 6 hours as needed. albuterol (PROVENTIL) 2.5 mg /3 mL (0.083 %) nebulizer solution Use 3 mL via nebulizer every 4 hours as needed for Wheezing/Shortness of Breath. Use over 5-15minutes. B Complex Vitamins capsule Take 1 capsule by mouth once daily. Cholecalciferol, Vitamin D3, (VITAMIN D-3) 2,000 unit cap Take 2 capsules by mouth once daily. pseudoephedrine (SUDAFED) 30 mg tablet Take 2 tablets by mouth twice daily. (Patient not taking: Reported on 03/23/2022) benzonatate (TESSALON PERLE) 100 mg capsule Tessalon Perles 1-2 every 8 hours, do not combine this with robitussin or delsym (Patient not taking: Reported on 03/23/2022) pravastatin (PRAVACHOL) 10 mg tablet Take 1 tablet by mouth once daily. (Patient not taking: Reported on 09/26/2019 ) diclofenac sodium (VOLTAREN) 1 % topical gel Apply 2 g to affected area four times daily. (Patient not taking: Reported on 09/26/2019 ) FAMILY HISTORY Problem Relation Age of Onset Cancer Mother COPD Father COPD Brother Cancer Brother Kidney No Known Problems Brother Social History Tobacco Use Smoking status: Every Day Packs/day: 1.00 Years: 38.00 Additional pack years: 0.00 Total pack years: 38.00 Types: Cigarettes Smokeless tobacco: Never Vaping Use Vaping Use: current everyday user Substances: Nicotine, CBD Substance Use Topics Alcohol use: Yes Drug use: No ASSESSMENT/PLAN: 1. Swelling - ICD9: 782.3, ICD10: R60.9 At this time patient was instructed to do some research on the herbs and the tea and see if any could be causing it and stop the tea for a week or 2. Patient was also instructed to set up an appointment with primary care. Patient was okay with this care plan. If anything worsens patient will go to the emergency room. Ashley Mcnally APRN.[facility]AN[facility] documented in this encounterFirelands [facility] Center08-22-2023 History of Present illness Narrative* Luisito Bush APRN.CNP - 03/08/2023 11:38 AM EDT Patient triaged at [facility]. Here today with nose/head injury. Nose bridge is visibly crushed. Is reporting chronic headache since being hit with foot ball. I will refer to ER. documented in this encounterFirelands [facility] Center09-06-2022 History of Present illness Narrative* Renita Genao APRN.CNP - 03/23/2022 4:57 PM EDT Images from the original note were not included. Subjective HPI Dunia Vargas is a 56 year old female who presents with a spot on her nose that she feels is infected. She states the site is where she had surgery done by Jesika Chavis for skin cancer. 3 years after the surgery she pulled a stitch out of the area. Since then the spot occasionally fills up with pus and she squeezes it out. In the past few days she has had to do this repeatedly and it just keeps reoccurring. She denies pain or bleeding at the site. Review of Systems Constitutional: Negative for chills and fever. HENT: See HPI Skin: Negative for itching and rash. See HPI BP 126/78 Pulse 87 Temp 36.4 C (97.5 F) (Tympanic) Resp 16 Wt 72.5 kg (159 lb 12.8 oz) LMP (LMP Unknown) SpO2 99% BMI 25.38 kg/m PAST MEDICAL HISTORY Diagnosis Date Asthma Environmental allergies High serum low-density lipoprotein (LDL) Overweight RA (rheumatoid arthritis) (HCC) Skin lesion Tobacco use PAST SURGICAL HISTORY Procedure Laterality Date CATARACT EXTRACTION HX Bilateral 2004 TUBAL LIGATION HX 1995 ALLERGIES Amoxicillin, Hydrocodone-Acetaminophen, Morphine, and Oxycodone-Acetaminophen MEDICATIONS albuterol HFA (PROAIR HFA) 90 mcg/actuation inhaler Inhale 2 Puffs as instructed every 4 hours as needed. albuterol HFA (PROAIR HFA) 90 mcg/actuation inhaler Inhale 2 Puffs as instructed every 6 hours as needed. albuterol (PROVENTIL) 2.5 mg /3 mL (0.083 %) nebulizer solution Use 3 mL via nebulizer every 4 hours as needed for Wheezing/Shortness of Breath. Use over 5-15minutes. B Complex Vitamins capsule Take 1 capsule by mouth once daily. Cholecalciferol, Vitamin D3, (VITAMIN D-3) 2,000 unit cap Take 2 capsules by mouth once daily. doxycycline (VIBRA-TABS) 100 mg tablet Take 1 tablet by mouth twice daily for 10 days. pseudoephedrine (SUDAFED) 30 mg tablet Take 2 tablets by mouth twice daily. (Patient not taking: Reported on 03/23/2022) benzonatate (TESSALON PERLE) 100 mg capsule Tessalon Perles 1-2 every 8 hours, do not combine this with robitussin or delsym (Patient not taking: Reported on 03/23/2022) pravastatin (PRAVACHOL) 10 mg tablet Take 1 tablet by mouth once daily. (Patient not taking: Reported on 09/26/2019 ) diclofenac sodium (VOLTAREN) 1 % topical gel Apply 2 g to affected area four times daily. (Patient not taking: Reported on 09/26/2019 ) FAMILY HISTORY Problem Relation Age of Onset Cancer Mother COPD Father COPD Brother Cancer Brother Kidney No Known Problems Brother Social History Tobacco Use Smoking status: Every Day Packs/day: 1.00 Years: 38.00 Pack years: 38.00 Types: Cigarettes Smokeless tobacco: Never Vaping Use Vaping Use: current everyday user Substances: Nicotine, CBD Substance Use Topics Alcohol use: Yes Drug use: No Objective Physical Exam Vitals and nursing note reviewed. Constitutional: Appearance: Normal appearance. HENT: Nose: Skin: General: Skin is warm and dry. Findings: No erythema or rash. Neurological: Mental Status: She is alert. ASSESSMENT/PLAN: 1. Bacterial skin infection - ICD9: 686.9, 041.9, ICD10: L08.9, B96.89 - Begin treatment with doxycycline - follow up with fire truck driver if infection persists. - DOXYCYCLINE HYCLATE 100 MG TABLET Renita Genao APRN.CNP documented [facility] Instructions* Patient Instructions* Renita Genao APRN.CNP - 03/23/2022 4:57 PM EDT ASSESSMENT/PLAN: 1. Bacterial skin infection - ICD9: 686.9, 041.9, ICD10: L08.9, B96.89 - Begin treatment with doxycycline - follow up with fire truck driver if infection persists. - DOXYCYCLINE HYCLATE 100 MG TABLET Renita Genao APRN.CNP [facility] noteNo assessment information availableWMercy Health St. [facility] Work Phone: Evaluation note* Diagnosis Bacterial skin infection- Primary Unspecified local infection of skin and subcutaneous tissue documented in this encounter [facility] note* Diagnosis Head injuries, initial encounter- Primary documented in this encounter [facility] note* Diagnosis Swelling- Primary Edema documented in this encounter [facility] note* Diagnosis Rheumatoid arthritis flare (HCC)- Primary Rheumatoid arthritis documented in this encounter [facility] note* Diagnosis Encounter for medical examination to establish care- Primary Rheumatoid arthritis, involving unspecified site, unspecified whether rheumatoid factor present (HCC) Screening for colon cancer Special screening for malignant neoplasms, colon Encounter for screening mammogram for breast cancer Screening for hyperlipidemia Screening for lipoid disorders Screening for depression Encounter for screening for lung cancer Encounter for immunization Need for other specified prophylactic vaccination against single bacterial disease Bilateral arm pain Pain in limb Neck pain Cervicalgia Depression, unspecified depression type documented in this encounter [facility] note* Diagnosis Rheumatoid arthritis, involving unspecified site, unspecified whether rheumatoid factor present (HCC)- Primary documented in this encounter [facility] note* Diagnosis Depression, unspecified depression type- Primary Tachycardia Tachycardia, unspecified Bad odor of urine Other nonspecific finding on examination of urine Seasonal allergic rhinitis, unspecified trigger Gastroesophageal reflux disease, unspecified whether esophagitis present [facility]* Diagnosis Elevated TSH- Primary Nonspecific abnormal results of thyroid function study documented in this encounter [facility]* Diagnosis Onset Date Resolution Status Admit Date GERD (gastroesophageal reflu x disease) acute February 05, 2025 1:45pm Abdominal pain inactive February 05, 2025 1:45pm [facility] Work Phone: Evaluation note* Diagnosis Moderate asthma with acute exacerbation, unspecified whether persistent (HCC) [facility] Additional Instructions You have bronchitis. We will place her on prednisone to decrease the wheezing. At this time I do not think you need an antibiotic. If it does not get better that may be an option. Your chest x-ray was unremarkable. Follow-up with a local primary care physician to ensure you are improving. If you have more blood that you are coughing up if there are large clots you need to be seen in the emergency department if not you need to follow-up and we need to get a CAT scan on you. Stop smoking !!![facility] Work Phone: Hospital Discharge instructionsAdditional Instructions Follow-up with primary care physician and GI. Take your Protonix daily.[facility] Work Phone: Reason for referral (narrative)No reason for referral information availableWooUniversity Hospitals [facility] Work Phone: Summary Purpose Family History No Family History Records FoundNo Family History Records FoundNo Family History Records FoundNo Family History Records FoundNo Family History Records FoundNo Family History Records Found Advance Directives Advance Directive Response Recorded Date/ Time Living Will No November 25, 2021 6 :09pm Power of Assistant Professor Of Drama No November 25, 2021 6:09pm Advance Directive Response Recorded Date/ Time Living Will No April 08, 2022 11:52am Power of Assistant Professor Of Drama No March 11:52am Advance Directive Response Recorded Date/ Time Living Will No March 08 1:43pm Power of Assistant Professor Of Drama No March 08 023 1:43pm Advance Directive Response Recorded Date/ Time Living Will No Nas 24th, 2 023 3:58pm Power of Assistant Professor Of Drama No July 10, 2023 3:58pm Advance Directive Response Recorded Date/ Time Do you have a Healthcare Power of Assistant Professor Of Drama? No January 22, 2025 1:51pm Chief Complaint and Reason for Visit Chief Complaint RIGHT HAND SWELLING Chief Complaint cough, coughed up bl ood Chief Complaint HEAD INJURY Chief Complaint allergic rxn INFECTION SOB Chief Complaint Admit Date chest other January 22, 2025 1:27p m Chief Complaint Admit Date chest other January 22, 2025 1:27p m Hospital FU February 05, 2025 1:45 pm Reason for Visit Admit Date GERD (gastroesophageal reflux disease) J rosenda 2024 1:45pm Abdominal pain February 05, 2025 1:45 pm Reason for Referral Specialty Diagnoses / Procedures Referred By Jaswant millan Referred To Contact [facility] Diagnoses Bilateral arm pain Neck pain Procedures CONSULT TO PHYSICAL THERAPY PHYSICAL THERAPY EVALUATION HIGH COMPLEX 45 MINS Beverley Acuna APRN.COSMETICS COUNTER MANAGER [address] [place] [address] [facility] [place] [address] [place] [address] Referral ID Status Reason Start Date Expiration Date Visits Requested Visits Authorized [id number] Pending Review Auto-Generat ed Referral 03/27/2024 03/27/2025 1 1 Specialty Diagnoses / Procedures Referred By Jaswant millan Referred To Contact [facility] Diagnoses Encounter for screening mammogram for breast cancer Procedures SERJIO SCREENING W SOHEILA SCREENING DIGITAL BREAST TOMOSYNTHESIS BI SCREENING MAMMOGRAPHY BI 2-VIEW BREAST INC CAD Beverley Acuna APRN.COSMETICS COUNTER MANAGER [address] [place] [address] [facility] [address] [place] [address] Referral ID Status Reason Start Date Expiration Date Visits Requested Visits Authorized [id number] New Request Auto-Generat ed Referral 03/27/2024 04/26/2025 1 1 Specialty Diagnoses / Procedures Referred By Jaswant millan Referred To Contact [facility] Diagnoses Screening for colon cancer Procedures COLONOSCOPY SCREENING COLONOSCOPY FLX DX W/COLLJ SPEC WHEN PFRMD Beverley Acuna APRN.COSMETICS COUNTER MANAGER [address] [place] [address] [facility] [place] [address] [place] [address] Referral ID Status Reason Start Date Expiration Date Visits Requested Visits Authorized [id number] New Request Auto-Generat ed Referral 03/27/2024 03/27/2025 1 1 Specialty Diagnoses / Procedures Referred By Contac t Referred To Contact Rheumatology Diagnoses Rheumatoid arthritis, involving unspecified site, unspecified whether rheumatoid factor present (HCC) Procedures CONSULT TO RHEUM/IMMUN DISEASE OFFICE/OUTPATIENT NEW HIGH MDM 60 MINUTES PodlogarBeverley APRN.COSMETICS COUNTER MANAGER [address] [place] [address] Referral ID Status Reason Start Date Expiration Date Visits Requested Visits Authorized [id number] Authorized PCP Requested Referral 03/27/2024 03/27/2025 1 1 Specialty Diagnoses / Procedures Referred By Contac t Referred To Contact [facility] Diagnoses Rheumatoid arthritis, involving unspecified site, unspecified whether rheumatoid factor present (HCC) Procedures CONSULT TO [employer] APPRENTICE OCCUPATIONAL THERAPY EVAL HIGH COMPLEX 60 MINS PodlogarBeverley APRN.COSMETICS COUNTER MANAGER [address] [place] [address] [facility] [address] [address] Referral ID Status Reason Start Date Expiration Date Visits Requested Visits Authorized [id number] Pending Review Auto-Generat ed Referral 04/10/2024 04/10/2025 1 1 Additional Source Comments INFORMATION SOURCE (unrecogn ized section and content) DATE CREATED AUTHOR 07/16/2018 [facility] linda Stephenson DATE CREATED AUTHOR AUTHOR'S ORGANIZ ATION 01/02/2019 [facility] DATE CREATED AUTHOR AUTHOR'S ORGANIZ ATION 02/17/2019 [facility] DATE CREATED AUTHOR AUTHOR'S ORGANIZ ATION 04/24/2024 [facility] DATE CREATED AUTHOR AUTHOR'S ORGANIZ ATION 10/13/2024 [facility] DATE CREATED AUTHOR AUTHOR'S ORGANIZ ATION 03/05/2025 [facility] Goals (unrecognized section and content) Goals may be documented in a n alternate sectionGoals may be documented in an alternate sectionGoals may be documented in an alternate sectionGoals may be documented in an alternate sectionGoals may be documented in an alternate sectionGoals may be documented in an alternate section Source Comments (unrecognize d section and content) In the event this informatio n is protected by the Federal Confidentiality of Alcohol and Drug Abuse Patient Records regulations: The Federal rules restrict any use of the information to criminally investigate or prosecute any alcohol or drug abuse patient.[facility] CenterIn the event this information is protected by the Federal Confidentiality of Alcohol and Drug Abuse Patient Records regulations: The Federal rules restrict any use of the information to criminally investigate or prosecute any alcohol or drug abuse patient.[facility] CenterIn the event this information is protected by the Federal Confidentiality of Alcohol and Drug Abuse Patient Records regulations: The Federal rules restrict any use of the information to criminally investigate or prosecute any alcohol or drug abuse patient.[facility] CenterIn the event this information is protected by the Federal Confidentiality of Alcohol and Drug Abuse Patient Records regulations: The Federal rules restrict any use of the information to criminally investigate or prosecute any alcohol or drug abuse patient.[facility] CenterIn the event this information is protected by the Federal Confidentiality of Alcohol and Drug Abuse Patient Records regulations: The Federal rules restrict any use of the information to criminally investigate or prosecute any alcohol or drug abuse patient.[facility] CenterIn the event this information is protected by the Federal Confidentiality of Alcohol and Drug Abuse Patient Records regulations: The Federal rules restrict any use of the information to criminally investigate or prosecute any alcohol or drug abuse patient.[facility] CenterIn the event this information is protected by the Federal Confidentiality of Alcohol and Drug Abuse Patient Records regulations: The Federal rules restrict any use of the information to criminally investigate or prosecute any alcohol or drug abuse patient.[facility] CenterIn the event this information is protected by the Federal Confidentiality of Alcohol and Drug Abuse Patient Records regulations: The Federal rules restrict any use of the information to criminally investigate or prosecute any alcohol or drug abuse patient.[facility] CenterIn the event this information is protected by the Federal Confidentiality of Alcohol and Drug Abuse Patient Records regulations: The Federal rules restrict any use of the information to criminally investigate or prosecute any alcohol or drug abuse patient.[facility] CenterIn the event this information is protected by the Federal Confidentiality of Alcohol and Drug Abuse Patient Records regulations: The Federal rules restrict any use of the information to criminally investigate or prosecute any alcohol or drug abuse patient.[facility] CenterIn the event this information is protected by the Federal Confidentiality of Alcohol and Drug Abuse Patient Records regulations: The Federal rules restrict any use of the information to criminally investigate or prosecute any alcohol or drug abuse patient.[facility] CenterIn the event this information is protected by the Federal Confidentiality of Alcohol and Drug Abuse Patient Records regulations: The Federal rules restrict any use of the information to criminally investigate or prosecute any alcohol or drug abuse patient.[facility] CenterIn the event this information is protected by the Federal Confidentiality of Alcohol and Drug Abuse Patient Records regulations: The Federal rules restrict any use of the information to criminally investigate or prosecute any alcohol or drug abuse patient.[facility] CenterIn the event this information is protected by the Federal Confidentiality of Alcohol and Drug Abuse Patient Records regulations: The Federal rules restrict any use of the information to criminally investigate or prosecute any alcohol or drug abuse patient.[facility] CenterIn the event this information is protected by the Federal Confidentiality of Alcohol and Drug Abuse Patient Records regulations: The Federal rules restrict any use of the information to criminally investigate or prosecute any alcohol or drug abuse patient.[facility] Reason for Visit (unrecogniz ed section and content) Reason Comments infection on top of nose X 2 weeks Reason Comments Edema In face x 2 weeks fe els tight and achy Reason Comments Pain generalized has RA p ain and swelling Reason Comments Patient Establishing Care with Dr. Shauna smith Reason Comments Rheumatoid Arthritis Flare x1 month Reason Comments Establish Care Reason Comments Patient Update Reason Comments Orders Reason Comments F/U 6 months Reason Comments Patient Question Reason Comments Chest Pain Reason Onset Date Comments Refill Request 03/08/2025 Care Teams (unrecognized sec tion and content) Chucker Relationship Specialty Start Date End Date Candi Lemus, [employer].COSMETICS COUNTER MANAGER [address] [place], [place] [id number] PCP - General Nurse Practitioner 09/11/18 Team Status: Active Member Role Status Dates No Primary Care Physician Primary Care Provider Active Team Status: Inactive Member Role Status Dates No Primary Care Physician Primary Care Provider Active Suhas Black MD Emergency Provider Active Chucker Relationship Specialty Start Date End Date Candi Lemus, [employer].COSMETICS COUNTER MANAGER [address] [place], [place] [id number] PCP - General Nurse Practitioner 09/11/18 Team Status: Inactive Member Role Status Dates No Primary Care Physician Primary Care Provider Active Dr. Sury Treviño MD Attending Provider, Emergency Provider Active Team Status: Inactive Member Role Status Dates No Primary Care Physician Primary Care Provider Active Dr. Negrito Wang MD Attending Provider, Emergency [facility] Active Team Status: Inactive Member Role Status Dates No Primary Care Physician Primary Care Provider Active Dr. Milton Wilder DO Emergency Provider Active Chucker Relationship Specialty Start Date End Date Martha Art MD [address] [facility] [place], [place] [id number] PCP - General Family Medicine 03/27/24 PodlogarBeverley, CAT[employer]ING [employer].COSMETICS COUNTER MANAGER [address] [facility] [place] [address] Family Medicine 03/27/24 Chucker Relationship Specialty Start Date End Date Martha Art MD [address] [place] [address] PCP - General Family Medicine 03/27/24 Podlogar, DEBORAH Lowery.COSMETICS COUNTER MANAGER [address] [place] [address] Family Medicine 03/27/24 Chucker Relationship Specialty Start Date End Date Martha Art MD [address] [facility] [place] [place] [address] PCP - General Family Medicine 03/27/24 Podlogar, DEBORAH Lowery.COSMETICS COUNTER MANAGER [address] [place] [address] Family Medicine 03/27/24 Chucker Relationship Specialty Start Date End Date Martha Art MD [address] [place] [address] PCP - General Family Medicine 03/27/24 Podlogar, DEBORAH Lowery.COSMETICS COUNTER MANAGER [address] [place] [address] Family Medicine 03/27/24 Podlogar, DEBORAH Lowery.COSMETICS COUNTER MANAGER [address] [place] [address] Staffing Executive Family Medicine 06/23/24 Chucker Relationship Specialty Start Date End Date Martha Art MD [address] [place] [address] PCP - General Family Medicine 03/27/24 Podlogar, DEBORAH Lowery.COSMETICS COUNTER MANAGER [address] [facility] [place] [address] Family Medicine 03/27/24 Podlogar, DEBORAH Lowery.COSMETICS COUNTER MANAGER [address] [place] [address] Staffing Executive Family [facility] 06/23/24 Chucker Relationship Specialty Start Date End Date Martha Art MD [address] [place] [address] PCP - General Family Medicine 03/27/24 Podlogar, JANICE LoweryN.COSMETICS COUNTER MANAGER [address] [place] [address] Family Medicine 03/27/24 Podlogar, JANICE LoweryN.COSMETICS COUNTER MANAGER [address] [place] [address] Staffing Executive [facility] 06/23/24 Olimpia Lopez APRN.COSMETICS COUNTER MANAGER [address] [place] [address] Staffing Executive Family [facility] 09/28/24 10/07/24 Olimpia Lopez APRN.COSMETICS COUNTER MANAGER [address] [place] [address] Staffing Executive Family [facility] 10/08/24 Chucker Relationship Specialty Start Date End Date Martha Art MD [address] [place], [place] [id number] PCP - General Family Medicine 03/27/24 Podlogar, Beverley, CATERING [employer]IST[employer].COSMETICS COUNTER MANAGER [address] [place] [address] Family Medicine 03/27/24 Podlogar, DEBORAH Lowery.COSMETICS COUNTER MANAGER [address] [facility] [place], [place] [address] Staffing Executive Family [facility] 06/23/24 Olimpia Lopez APRN.COSMETICS COUNTER MANAGER [address] [facility] [place], [place] [address] Staffing Executive Family Medicine 10/08/24 12/02/24 Team Status: Active Member Role/Relationship Status Dates Beverley Podlogar INTERNET SECURITY SPECIALIST, INTERNET SECURITY SPECIALIST-C Primary Care Provider Active Team Status: Inactive Member Role/Relationship Status Dates Beverley Podlogar INTERNET SECURITY SPECIALIST, INTERNET SECURITY SPECIALIST-C Primary Care Provider Active Start: January 22, 2025 End: January 22, 2025 Dr. Reynold Klein-Rose , Emergency Provider Activ e Start: January 22, 2025 End: January 22, 2025 Chucker Relationship Specialty Start Date End Date Martha Art MD [address] [facility] [place], [place] [id number] PCP - General Family Medicine 03/27/24 Podlogar, DEBORAH Lowery.COSMETICS COUNTER MANAGER [address] [facility] [place] [address] Family Medicine 03/27/24 PodlogarBeverley APRN.COSMETICS COUNTER MANAGER [address] [facility] [place], [place] [address] Staffing Executive Family Medicine 06/23/24 Olimpia Lopez APRN.COSMETICS COUNTER MANAGER [address] [facility] [place], [place] [address] Staffing Executive Family Medicine 12/27/24 Team Status: Inactive Member Role/Relationship Status Dates Beverley Podlogar INTERNET SECURITY SPECIALIST, INTERNET SECURITY SPECIALIST-C Primary Care Provider Active Start: January 22, 2025 End: January 22, 2025 Dr. Reynold Gerard , DO Attending Provider Activ e Start: January 22, 2025 End: January 22, 2025 Dr. Reynold Gerard , DO Emergency Provider Activ e Start: January 22, 2025 End: January 22, 2025 Team Status: Inactive Member Role/Relationship Status Dates Beverley Podlogar INTERNET SECURITY SPECIALIST, INTERNET SECURITY SPECIALIST-C Primary Care Provider Active Start: February 05, 2025 End: February 05, 2025 Beverley Podlogar INTERNET SECURITY SPECIALIST, INTERNET SECURITY SPECIALIST-C Referring Provider Active Start: February 05, 2025 End: February 05, 2025 IVORY Loya Attending Provider Active Start: February 05, 2025 End: February 05, 2025 Chucker Relationship Specialty Start Date End Date Martha Art MD [address] [place], [place] [address] PCP - General Family Medicine 03/27/24 PodlogarBeverley APRN.COSMETICS COUNTER MANAGER [address] [place], [place] [address] Family Medicine 03/27/24 PodlogarBeverley APRN.COSMETICS COUNTER MANAGER [address] [place], [place] [address] [facility] 06/23/24 Olimpia Lopez APRN.COSMETICS COUNTER MANAGER [address] [place], [place] [id number] [facility] 12/27/24 FOR RECORDS PERTAINING TO PATIENTS WHO ARE OR HAVE BEEN ENROLLED IN A CHEMICAL DEPENDENCY/SUBSTANCEABUSE PROGRAM, SOME INFORMATION MAY BE OMITTED. This clinical summary was aggregated from multiple sources. Caution should be exercised in using it in the provision of clinical care. This summary normalizes information from multiple sources, and as a consequence, information in this document may materially change the coding, format and clinical context of patient data. In addition, data may be omitted in some cases. CLINICAL DECISIONS SHOULD BE BASED ON THE PRIMARY CLINICAL RECORDS. [facility], [facility]. provides no warranty or guarantee of the accuracy or completeness of information in this document.
== END | disposition home or self-care (01) ==
LOC: US 10:46
PROVIDERS: PCP Nurse Practitioner Primary Care; Referring Provider Student in an Organized Health Care Education/Training Program; Visit Provider Student in an Organized Health Care Education/Training Program
DX: R10.9 Unspecified abdominal pain (principal)
CPT/HCPCS: 76705

== ENCOUNTER 2025-05-13 16:21 | Emergency (ER) | payer MEDICAID, SELFPAY ==
[2025-05-13 16:21] VITALS: BP 135/92; PULSE 102; RESP 18; TEMP 37.3; O2SAT 99; BMI 27.3
--- NOTE | 2025-05-13 20:10 | EX.ED.DYSGE1 ---
HPI History of Present Illness Chief Complaint: Sore Throat Narrative Narrative: 59-year-old female presents with her daughter because of weeks of intermittent dysphagia and foreign body sensation in her throat. She states she has past medical history of GERD but over the last 4 days has not taken her medication because she is afraid that it might go down the wrong pipe, or if she feels like something like it stuck there. She has been able to drink liquids but she states she is afraid to eat. She was post to have endoscopy, upper and colonoscopy performed at the same time by Dr. Monroy, but she canceled because she was ill at the time. She states that she has not had fevers or chills, no nausea or vomiting, but right at the base of her neck she feels that the area might be swollen or that there is a foreign body there. She denies any difficulty breathing. While she had this previously, her symptoms resolved. However, they returned and have been intermittent over the last few weeks. [facility] Medical History Post-menopausal Wears glasses Cancer Depression Anxiety High cholesterol Difficulty swallowing Smoker GERD (gastroesophageal reflux disease) Asthma Rheumatoid arthritis Home Medications ?Medication ?Instructions ?Recorded ?Last Taken ?Type albuterol sulfate 90 mcg/actuation 2 puff inhalation Q4H PRN PRN 07/10/23 Unknown Rx aerosol inhaler (Ventolin HFA) Wheezing ##1 pantoprazole 40 mg tablet,delayed 40 mg PO DAILY #90 tabs 02/21/25 Unknown Rx release (Protonix) fluticasone propionate 50 2 spray intranasal DAILY 03/22/25 Unknown History mcg/actuation nasal spray,suspension olopatadine 0.1 % eye drops 1 drp ophthalmic (eye) BID 03/22/25 Unknown History Allergy/AdvReac Type Severity Reaction Status Date / Time amoxicillin Allergy Swelling Verified 05/13/25 16:21 morphine Allergy PT UNSURE Verified 05/13/25 16:21 OF REACTION acetaminophen (From Percocet) AdvReac Vomiting Verified 05/13/25 16:21 oxycodone (From Percocet) AdvReac Vomiting Verified 05/13/25 16:21 Surgical History History of cataract surgery Status post surgical removal of malignant neoplasm of skin H/O section Hx of tubal ligation Social History household members: family housing: apartment Smoking Status: Current every day smoker tobacco type: e-cigarettes ROS ROS ED ROS Narrative Review of systems positive for intermittent dysphagia with foreign body sensation especially over the last 4 days. Has been happening over the last few weeks. History of GERD and RA. No exacerbating or alleviating factors. No other symptoms. EXAM Physical Exam Narrative Exam Narrative: Afebrile. Vital signs noted. Nontoxic-appearing. Cardiovascular examination reveals regular rate and rhythm. Lungs are clear to auscultation bilaterally. Abdomen soft and nontender. HEENT examination shows no drooling or trismus. No pharyngeal erythema. Airway patent. No Bhaskar angina. No crepitance of neck or erythema. Const Vital Signs: 05/13/25 16:21 Temperature 99.1 F Temperature Source Oral Pulse Rate 102 H Respiratory Rate 18 Blood Pressure 135/92 H Blood Pressure Mean 106 Pulse Ox 99 Oxygen Delivery Method Room Air MDM MDM MDM Narrative Medical decision making narrative: Differential diagnosis includes but not limited to globus hystericus versus GERD versus dysphagia versus epiglottitis versus retropharyngeal abscess. Patient has not been coughing recently. She denies any difficulty with phonation. She has been tolerating liquids and states that she drank a canned and a half of soda today. Pulse ox is 99% on room air without evidence of hypoxia. Patient is not diabetic so I doubt retropharyngeal abscess. X-rays will be obtained to help rule out epiglottitis as well as retropharyngeal swelling. Pulse ox 99% on room air without evidence of hypoxia. My independent interpretation of the x-ray of the soft tissue neck, the airway is patent. There is no swollen epiglottis or retropharyngeal swelling or air. I reviewed the radiologist report which confirms my independent interpretation and states unremarkable neck radiographs. No radiopaque foreign body or unusual mineralization. Upon repeat examination, she is sitting up at the end of the bed on the telephone. I feel she can be discharged to follow-up. She was told to start taking her GERD medication again and follow-up with gastroenterology for upper endoscopy as well as colonoscopy. Return instructions to the emergency department were reviewed. Disposition is discharged home in stable condition. History & Record Review Discussion w/independent historian: Patient and Family Radiography Diagnostic Testing: Clinical Impression(s) from Imaging Studies Soft Tissue Neck X-Ray 05/13/25 20:15 IMPRESSION: Unremarkable neck radiographs. No radiopaque foreign body or unusual mineralization. Reading Location: [facility] Discharge Plan Triage Chief Complaint: Sore Throat ED Provider: Suhas Black Dx/Rx/DC Orders Clinical Impression: Foreign body sensation in throat, Dysphagia Instructions: ED Dysphagia (Adult) Prescriptions: No Action albuterol sulfate [Ventolin HFA] 90 mcg/actuation HFA aerosol inhaler 2 puff inhalation Q4H PRN PRN (Reason: Wheezing) Qty: 1 0RF olopatadine 0.1 % drops 1 drp ophthalmic (eye) BID fluticasone propionate 50 mcg/actuation spray,suspension 2 spray INTRANASAL DAILY pantoprazole [Protonix] 40 mg tablet,delayed release (DR/EC) 40 mg PO DAILY Qty: 90 3RF Primary Care Provider: PaigelogBeverley moyer NP Referrals: Fabrizio Monroy DO [Med Staff - Active Staff, Gastroenterology] - As soon as possible Beverley Acuna NP, SEWER AND INSPECTOR-C [Primary Care Provider, Medical] Activity Restrictions/Additional Instructions: Continue your previous medications and routine. Follow-up with gastroenterology as soon as possible for upper endoscopy. Return to the emergency department with difficulty swallowing, new or worsening symptoms. Print Language: Belarusian Disposition Disposition: Home, Self Care
--- NOTE | 2025-05-13 20:15 | RAD_ITS ---
PROCEDURE: RAD/Neck for Soft Tissue
[2025-05-13 20:21] VITALS: BP 150/94; PULSE 110; RESP 18; TEMP 36.6; O2SAT 97
[2025-05-13 21:30] VITALS: BP 150/94; PULSE 110; RESP 18; TEMP 36.6; O2SAT 97
== END 2025-05-13 21:33 | disposition home or self-care (01) ==
PROVIDERS: Emergency Provider Emergency Medicine; PCP Nurse Practitioner Primary Care; Visit Provider Emergency Medicine
DX: R13.10 Dysphagia, unspecified (principal); R09.A2 Foreign body sensation, throat; E78.00 Pure hypercholesterolemia, unspecified; K21.9 Gastro-esophageal reflux disease without esophagitis; Z79.899 Other long term (current) drug therapy; J45.909 Unspecified asthma, uncomplicated; Z79.51 Long term (current) use of inhaled steroids; F17.290 Nicotine dependence, other tobacco product, uncomplicated
CPT/HCPCS: 70360; 99282

== ENCOUNTER 2025-06-06 07:09 | Day surgery (SDC) | payer MEDICAID, SELFPAY ==
[2025-06-06] VITALS (7 sets, daily range): BP systolic 76–114; BP diastolic 56–87; PULSE 71–107; RESP 16; TEMP 36.2–36.4; O2SAT 94–97; BMI 25.8
--- NOTE | 2025-06-06 07:14 | PRE.ANES_ITS ---
ASA Classification* ASA Classification ASA Classification: 2 Assessment & Plan Anesthesia* Anesthesia Assessment Anesthesia Assessment: Discussed sedation and/or anesthesia options, risks, benefits, and alternatives with patient/parents/legal guardian/POA. Questions invited. The patient/parents/legal guardian/POA seems to understand and agrees to proceed with anesthesia plan. Reviewed the physical assessment, medical history, allergy history and patient home medications list prior to surgery/procedure/anesthetic and documented any changes. Performed airway and anesthesia risk assessments. Anesthesia Type Anesthesia Type: MAC Anesthesia Focused Assessment* Airway Assessment Mouth opens: >3 cm Mallampati Score: II Labs Anesthesia Preop lab: CBC WBC, (4.4-11.0) 6.5 K/mm3 01/22/25, 14:41 RBC, (4.2-5.4) 5.41 M/mm3 H 01/22/25, 14:41 Hgb, (12.0-15.0) 14.6 g/dL 01/22/25, 14: Hct, (37-47) 43.7 % 01/22/25, 14:41 Plt Count, (150-450) 250 K/mm3 01/22/25, 14:41 CHEMISTRY Potassium, (3.3-5.1) 3.6 mmol/L 01/22/25, 14:41 Sodium, (133-145) 137 mmol/L 01/22/25, 14:41 BUN, (4-19) 21 mg/dL H 01/22/25, 14:41 Creatinine, (0.70-1.20) 0.92 mg/dL 01/22/25, 14:41 Glucose, (70-99) 111 mg/dL H 01/22/25, 14:41 COAG Pre-Assessment Diagnosis/Proposed Procedure Planned Operative Procedure(s): EGD, COLONOSCOPY Anesthesia History 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 When Was Last Pacemaker Check QUESTION #4 FULL TEXT: You/Your Family Experience fever (hyperthermia) with Anesthesia Last Oral Intake Last Oral intake: Last Oral Intake NPO since Meds taken in AM with sips of water? 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 Female Yes 06/03/25 11:08 HX of Motion Sickness No 06/03/25 11:08 HX of N/V After Surgery Yes 06/03/25 11:08 Non-Smoker No 06/03/25 11:08 Duration of Surgery greater No 06/03/25 11:08 than 60 minutes Number of Risk Factors 2 06/03/25 11:08 PONV Score Moderate Risk 06/03/25 11:08 Height & Weight Height & Weight: Anesthesia: Height & Weight Height 5 ft 6 in 05/13/25 16:21 Respiratory Assessment Respiratory Assessment - pest control service sales agent: Respiratory Tract Infection Hx - pest control service sales agent Hx Respiratory Tract Infection No 06/03/25 11:08 STOP Sleep Apnea STOP Sleep Apnea - pest control service sales agent: STOP Sleep Apnea - pest control service sales agent Hx Hypertension Yes 06/03/25 11:08 Hx Sleep Apnea No 06/03/25 11:08 CPAP BIPAP Do you snore loudly (louder Yes 06/03/25 11:08 than talking or can be heard Do you often feel tired/ Yes 06/03/25 11:08 fatigued/ sleepy during daytime? Has anyone observed you stop No 06/03/25 11:08 breathing during sleep? STOP Results Positive 06/03/25 11:08 QUESTION #5 FULL TEXT : Do you snore loudly (louder than talking or can be heard through closed doors)? 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 Specify any problems Hx of Preganancy in last 3 No 06/03/25 11:08 Months Nurse Filling Out Transfusion [facility] 06/03/25 11:08 & Questions: Date: 06/03/25 06/03/25 11:08 Time: 11:15 06/03/25 11:08 Patient unable to answer at this time (ie. 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: /Reproductive Hx- pest control service sales agent Hx Now Gestational Age (in weeks): EDC: Hx Hx Para Hx Section SAB No 06/03/25 11:08 Does the father of the baby or his family experience fever w Father of the baby Malignant Hypertension history comment [facility] [place] Medical History Gastric reflux Hypertension Post-menopausal Wears glasses Cancer Depression Anxiety High cholesterol Difficulty swallowing Smoker GERD (gastroesophageal reflux disease) Asthma Rheumatoid arthritis Home Medications ?Medication ?Instructions ?Recorded ?Last Taken ?Type albuterol sulfate 90 mcg/actuation 2 puff inhalation Q 4H PRN PRN 07/10/23 Unknown Rx aerosol inhaler (Ventolin HFA) Wheezing ##1 pantoprazole 40 mg tablet,delayed 40 mg PO DAILY #90 t abs 02/21/25 Unknown Rx release (Protonix) fluticasone propionate 50 2 spray intranasal DAILY 12/09 Unknown History mcg/actuation nasal spray,suspension olopatadine 0.1 % eye drops 1 drp ophthalmic (eye) BID 03/22/25 Unknown History Allergy/AdvReac Type Severity Reaction Status Date / Time amoxicillin Allergy Swelling Verified 05/13/25 16:21 morphine Allergy PT UNSURE Verified 05/13/25 16:21 OF REACTION acetaminophen (From Percocet) AdvReac Vomiting Verified 05/13/25 16:21 oxycodone (From Percocet) AdvReac Vomiting Verified 05/13/25 16:21 Surgical History History of cataract surgery Status post surgical removal of malignant neoplasm of skin H/O section Hx of tubal ligation Social History household members: family housing: apartment Smoking Status: Current every day smoker tobacco type: e-cigarettes Review of Systems (Anesthesia) ROS Narrative System reviewed and no additional complaints, except as documented.
[2025-06-06] MEDS: Lactated Ringers 1,000 ML 15 ML IV (07:41)
--- NOTE | 2025-06-06 08:00 | COLBX_PTH ---
PATIENT: DUNIA PENNINGTON LOC: EN U#:[id number] AGE/SX: 59/F ROOM: RE06/06/[address]: Dr. Fabrizio Monroy DO : 1965 BED: DIS: 06/06/2025 SPEC #: [id number] RECD: 06/06/25 09:32 STATUS: RYLAN SHANTELL #: [id number] ELLEN: 06/06/25 08:[address]: Fabrizio Monroy DEPT: SURGICAL PATHOLOGY RECD BY: Elías Kauffman ENTERED: 06/06/25 10:03 SP TYPE: COLON BX OTHR DR: Beverley Acuna, RADIOTELEPHONE TECHNICAL OPERATOR-C Tissues: A - Duodenum, NOS B - Gastric mucous membrane C - Esophagus, NOS D - Descending colon Procedures: Surgery Specimen Level IV HEADER OPERATION: Colonoscopy, EGD, biopsy, dilation, polypectomy PRE-OP DIAGNOSIS: Epigastric abdominal pain, cyclic vomiting syndrome, cannabis abuse, weight loss TISSUE SUBMITTED: A- Duodenum biopsy, B- Gastric body biopsy, C- Distal esophagus biopsy, D- Descending polyp MICROSCOPIC DIAGNOSIS A. Small intestine, duodenum, biopsies: - Benign duodenal mucosa without active inflammation B. Stomach, body: * Oxyntic mucosa with slight chronic inflammation * No Helicobacter pylori-like organisms are identified in these H & E stained sections C. Esophagus, distal: * Benign squamous epithelium * Oxynto-cardiac mucosa with chronic inflammation * No goblet cell metaplasia is identified D. Large intestine, descending polyp: * Tubular adenoma MICROSCOPIC DESCRIPTION Slides are reviewed. GROSS DESCRIPTION A. Received in fixative is one container labeled with the patient's name and designated Duodenum biopsy. The specimen consists of two irregular fragments of francis tissue that measure 0.2 and 0.4 cm. The specimen is totally submitted in one cassette. B. Received in fixative is one container labeled with the patient's name and designated Gastric body biopsy. The specimen consists of two irregular fragments of francis tissue that measure 0.3 and 0.4 cm. The specimen is totally submitted in one cassette. C. Received in fixative is one container labeled with the patient's name and designated Distal esophagus biopsy. The specimen consists of two irregular fragments of francis tissue that measure 0.4 and 0.7 cm. The specimen is totally submitted in one cassette. D. Received in fixative is one container labeled with the patient's name and designated Descending polyp. The specimen consists of multiple irregular fragments of francis tissue that in aggregate measure 0.9 x 0.5 x 0.1 cm. The specimen is totally submitted in one cassette. [place] 06/06/2025 CPT:98854v5
--- NOTE | 2025-06-06 08:13 | PCM.HP.STD ---
HPI - General General Date of Admission: 06/06/25 Date of Service: 06/06/25 Chief Complaint: Abdominal pain dysphagia and screening colonoscopy HPI Narrative DUNIA PENNINGTON, is a 59 F who presents [Chief Complaint: epigastric pain, dysphagia and need for screening colonoscopy [facility] ED 12.5.25 for abd pain [facility] ED 7.8.25 for epigastric pain. Hx of GERD not on PPI. Started on PPI and discharged OV 7..25 Pt has had 3 episodes over the past year of epigastric pain lasting about 3 hours. The last episode started in the middle of the night after eating a hamburger the night before. She had spasaming in her epigastric region followed by nausea and vomiting. This will last about 3 hours. She has not noticed any aggravating or alleviating factors. She does still have her gallbladder. No hx of EGD or colonoscopy. She notes her brother just had pre cancerous polyps removed. ] [facility] Medical History (Updated 06/06/25 @ 08:[address] Dinh Friend, DO) Gastric reflux Hypertension Post-menopausal Wears glasses Cancer Depression Anxiety High cholesterol Difficulty swallowing Smoker GERD (gastroesophageal reflux disease) Asthma Rheumatoid arthritis Home Medications ?Medication ?Instructions ?Recorded ?Last Taken ?Type albuterol sulfate 90 mcg/actuation 2 puff inhalation Q4H PRN PRN 07/10/23 Unknown Rx aerosol inhaler (Ventolin HFA) Wheezing ##1 pantoprazole 40 mg tablet,delayed 40 mg PO DAILY #90 tabs 02/21/25 Unknown Rx release (Protonix) fluticasone propionate 50 2 spray intranasal DAILY 03/22/25 Unknown History mcg/actuation nasal spray,suspension olopatadine 0.1 % eye drops 1 drp ophthalmic (eye) BID 03/22/25 Unknown History Allergy/AdvReac Type Severity Reaction Status Date / Time amoxicillin Allergy Swelling Verified 05/13/25 16:21 morphine Allergy PT UNSURE Verified 05/13/25 16:21 OF REACTION oxycodone (From Percocet) AdvReac Vomiting Verified 05/13/25 16:21 Surgical History History of cataract surgery Status post surgical removal of malignant neoplasm of skin H/O section Hx of tubal ligation Social History household members: family housing: apartment Smoking Status: Current every day smoker tobacco type: e-cigarettes ROS Constitutional Constitutional: Denies fatigue, fever(s), poor appetite, weight gain or weight loss Gastrointestinal Gastrointestinal: Denies belching, bloating, change in bowel habits, change in stool character, chewing difficulty, coffee ground emesis, constipation, cramping, diarrhea, dyspepsia, dysphagia, early satiety, excessive flatus, fecal incontinence, heartburn, hematemesis, hematochezia, hemorrhoids, loose stools, melena, nausea, odynophagia, rectal bleeding, tenesmus, vomiting or weight changes Vital Signs Vital Signs Vital Signs: 06/06/25 07:32 06/06/25 07:32 06/06/25 07:32 Temperature 97.6 F L Temperature Source Temporal Pulse Rate 107 H Respiratory Rate 16 Respiratory Pattern Normal Blood Pressure 114/87 H Blood Pressure Mean 96 Blood Pressure Source Monitor Blood Pressure Position Sitting Blood Pressure Location Left Arm Baseline BP 114/87 Pulse Ox 95 Oxygen Delivery Method Room Air Weight Weight: 160 lb 0.889 oz Body Mass Index (BMI) 25.8 Physical Exam Const alert, oriented x3, no apparent distress and healthy appearing General Appearance: cooperative GI normal to inspection, nondistended, normoactive bowel sounds, soft to palpation, non-tender and non-distended Percussion: normal to percussion Rectal Exam: deferred Assessment & Plan Assessment/Plan (1) GERD (gastroesophageal reflux disease): (2) Screening for colon cancer: (3) Difficulty swallowing: PLAN: Assessment and Plan Assessment and Plan (1) Abdominal pain: Status: Inactive (2) GERD (gastroesophageal reflux disease): Status: Acute Plan: Dunia is a 59 yo female pt here today for evaluation of episodes of epigastric pain. Pt has had these episodes 3x over the past year starting with epigastric pain and n/v following. She was seen in the ED on two occasions for these symptoms. GI cocktail has helped. She is on PPI daily. Will order gallbladder US to rule out biliary colic. She will also undergo EGD to evaluate her upper GI tact for inflammation, erosion or ulcers. SHe has never had a screening colonoscopy therefore will undergo screening at the same time. She was agreeable to plan. -Continue PPI -Gallbladder US -EGD -Colonscopy Orders: Orders Gallbladder Today R10.9 - Unspecified abdominal pain Medications: Changed From pantoprazole (Protonix) 40 mg PO DAILY 30 days 30 tabs 0RF To pantoprazole (Protonix) 40 mg PO DAILY 90 tabs 3RF Discontinued oseltamivir Discontinued Reason: Pt no longer taking 75 mg PO BID 10 CAPSULES 0RF prednisone Discontinued Reason: Pt no longer taking 60 mg (3 x 20 mg) PO DAILY 15 TABLETS 0RF sucralfate (Carafate) Discontinued Reason: Pt no longer taking 1 g PO Q6H 60 tabs 0RF ondansetron Discontinued Reason: Pt no longer taking 4 mg PO Q8H PRN PRN 10 tabs 0RF Nausea
--- NOTE | 2025-06-06 09:05 | PCM.POST.ANE ---
Anesthesia: Postop Eval I Current Vital Signs Temperature: 97.6 F Pulse Rate: 72 Blood Pressure: 76/58 Respiratory Rate: 16 Pulse Ox: 96 Oxygen Delivery Method: Room Air Assessment Airway patent: Yes Spontaneous unlabored respirations: Yes Mental status: Asleep nausea: No Vomiting: No Anesthesia Complication: No Fluid Hydration Crystalloid volume administer (ml): 900 Total IV fluid infused: 900 Progress Note Anesthesia document: Postop Eval 1 completed: Yes
--- NOTE | 2025-06-06 09:08 | OP.EGD_ITS ---
Patient Name: Jeannie Vargas Procedure Date: 06/06/2025 8:23 AM Date of : 1965 Age: 59 Procedure: Upper GI endoscopy Indications: Epigastric abdominal pain, Functional Dyspepsia, Dysphagia Providers: Fabrizio Monroy DO Referring MD: Beverley Acuna Medicines: Monitored Anesthesia Care Patient Profile: This is a 59 year old female. Refer to note in patient chart for documentation of history and physical. Patient has symptoms of acute right upper quadrant abdominal pain, acute left upper quadrant abdominal pain, acute epigastric abdominal pain and chronic dysphagia. Complications: No immediate complications. Procedure: Pre-Anesthesia Assessment: - Prior to the procedure, a History and Physical was performed, and patient medications and allergies were reviewed. The patient is competent. The risks and benefits of the procedure and the sedation options and risks were discussed with the patient. All questions were answered and informed consent was obtained. Patient identification and proposed procedure were verified by the physician in the pre-procedure area. Mental Status Examination: alert and oriented. Airway Examination: normal oropharyngeal airway and neck mobility. Respiratory Examination: clear to auscultation. CV Examination: normal. ASA Grade Assessment: II - A patient with mild systemic disease. After reviewing the risks and benefits, the patient was deemed in satisfactory condition to undergo the procedure. The anesthesia plan was to use monitored anesthesia care (MAC). Immediately prior to administration of medications, the patient was re-assessed for adequacy to receive sedatives. The heart rate, respiratory rate, oxygen saturations, blood pressure, adequacy of pulmonary ventilation, and response to care were monitored throughout the procedure. The physical status of the patient was re-assessed after the procedure. After obtaining informed consent, the endoscope was passed under direct vision. Throughout the procedure, the patient's blood pressure, pulse, and oxygen saturations were monitored continuously. The Colonoscope was introduced through the mouth, and advanced to the third part of the duodenum. Small bowel enteroscopy was deemed necessary. The upper GI endoscopy was accomplished without difficulty. The patient tolerated the procedure well. Scope In: 8:35:32 AM Scope Out: 8:42:16 AM Total Procedure Duration Time 0 hours 6 minutes 44 seconds Findings: Abnormal motility was noted in the esophagus. The cricopharyngeus was abnormal. There are extra peristaltic waves in the esophageal body. The distal esophagus/lower esophageal sphincter is spastic, but gives up passage to the endoscope. A guidewire was placed and the scope was withdrawn. Dilation was performed with a Savary dilator with no resistance at 57 Fr. The dilation site was examined following endoscope reinsertion and showed moderate improvement in luminal narrowing. Estimated blood loss was minimal. LA Grade A (one or more mucosal breaks less than 5 mm, not extending between tops of 2 mucosal folds) esophagitis with no bleeding was found 38 to 40 cm from the incisors. Biopsies were taken with a cold forceps for histology. Verification of patient identification for the specimen was done. Estimated blood loss was minimal. Patchy mildly erythematous mucosa without bleeding was found in the gastric body. Biopsies were taken with a cold forceps for histology. Biopsies were taken with a cold forceps for Helicobacter pylori testing. Verification of patient identification for the specimen was done. Estimated blood loss was minimal. Patchy mildly erythematous mucosa without active bleeding and with no stigmata of bleeding was found in the duodenal bulb. Biopsies were taken with a cold forceps for histology. Impression: - Abnormal esophageal motility. Dilated. - LA Grade A reflux esophagitis with no bleeding. Biopsied. - Erythematous mucosa in the gastric body. Biopsied. - Erythematous duodenopathy. Biopsied. Recommendation: - Await pathology results. - Continue present medications. Procedure Code(s): --- Professional --- 20980, Esophagogastroduodenoscopy, flexible, transoral; with insertion of guide wire followed by passage of dilator(s) through esophagus over guide wire 66500, 59,51, Small intestinal endoscopy, enteroscopy beyond second portion of duodenum, not including ileum; with biopsy, single or multiple CPT copyright 2021 [employer]. All rights reserved. The codes documented in this report are preliminary and upon box annealer review may be revised to meet current compliance requirements. Fabrizio Monroy DO 06/06/2025 9:08:29 AM This report has been signed electronically. Number of Addenda: 0 Note Initiated On: 06/06/2025 8:23 AM
--- NOTE | 2025-06-06 09:09 | OP.PROVAT_ITS ---
06/06/2025 Beverley Podlogar Re : Upper GI endoscopy procedure for Jeannie Vargas Dear Podlogar This procedure was performed on May. My impressions and recommendations are as follows: Impressions : - Abnormal esophageal motility. Dilated. - LA Grade A reflux esophagitis with no bleeding. Biopsied. - Erythematous mucosa in the gastric body. Biopsied. - Erythematous duodenopathy. Biopsied. Recommendations : - Await pathology results. - Continue present medications. My findings are described in the full procedure note, which is enclosed. If I can be of further assistance, please feel free to contact me at . Sincerely, Fabrizio Monroy, 06/06/2025 9:08:29 AM This report has been signed electronically.
--- NOTE | 2025-06-06 09:10 | OP.COLON_ITS ---
Patient Name: Jeannie Vargas Procedure Date: 06/06/2025 8:42 AM Date of : 1965 Age: 59 Procedure: Colonoscopy Indications: Screening for colorectal malignant neoplasm Providers: Fabrizio Monroy DO Referring MD: Beverley Acuna Medicines: Monitored Anesthesia Care Patient Profile: This is a 59 year old female. Refer to note in patient chart for documentation of history and physical. Patient has symptoms of acute right upper quadrant abdominal pain, acute left upper quadrant abdominal pain, acute epigastric abdominal pain and chronic dysphagia. Last Colonoscopy: none. The patient's first colonoscopy is today. Complications: No immediate complications. Procedure: Pre-Anesthesia Assessment: - Prior to the procedure, a History and Physical was performed, and patient medications and allergies were reviewed. The patient is competent. The risks and benefits of the procedure and the sedation options and risks were discussed with the patient. All questions were answered and informed consent was obtained. Patient identification and proposed procedure were verified by the physician in the pre-procedure area. Mental Status Examination: alert and oriented. Airway Examination: normal oropharyngeal airway and neck mobility. Respiratory Examination: clear to auscultation. CV Examination: normal. ASA Grade Assessment: II - A patient with mild systemic disease. After reviewing the risks and benefits, the patient was deemed in satisfactory condition to undergo the procedure. The anesthesia plan was to use monitored anesthesia care (MAC). Immediately prior to administration of medications, the patient was re-assessed for adequacy to receive sedatives. The heart rate, respiratory rate, oxygen saturations, blood pressure, adequacy of pulmonary ventilation, and response to care were monitored throughout the procedure. The physical status of the patient was re-assessed after the procedure. After I obtained informed consent, the scope was passed under direct vision. Throughout the procedure, the patient's blood pressure, pulse, and oxygen saturations were monitored continuously. The Colonoscope was introduced through the anus and advanced to the cecum, identified by appendiceal orifice and ileocecal valve. The colonoscopy was performed without difficulty. The patient tolerated the procedure well. The quality of the bowel preparation was adequate. The ileocecal valve, appendiceal orifice, and rectum were photographed. Scope In: 8:44:12 AM Scope Withdrawal Time 0 hours 8 minutes 34 seconds Scope Out: 8:56:18 AM Total Procedure Duration Time 0 hours 12 minutes 6 seconds Findings: The perianal and digital rectal examinations were normal. A few small-mouthed diverticula were found in the recto-sigmoid colon and sigmoid colon. A 9 mm polyp was found in the descending colon. The polyp was sessile. The polyp was removed with a hot snare. Resection and retrieval were complete. Verification of patient identification for the specimen was done. Estimated blood loss was minimal. Impression: - Diverticulosis in the recto-sigmoid colon and in the sigmoid colon. - One 9 mm polyp in the descending colon, removed with a hot snare. Resected and retrieved. Recommendation: - Repeat colonoscopy in 5 years for surveillance. - Continue present medications. - No aspirin, ibuprofen, naproxen, or other non-steroidal anti-inflammatory drugs for 2 weeks after polyp removal. Procedure Code(s): --- Professional --- 04654, Colonoscopy, flexible; with removal of tumor(s), polyp(s), or other lesion(s) by snare technique CPT copyright 2021 [employer]. All rights reserved. The codes documented in this report are preliminary and upon prototype machine operator review may be revised to meet current compliance requirements. Fabrizio Monroy DO 06/06/2025 9:10:38 AM This report has been signed electronically. Number of Addenda: 0 Note Initiated On: 06/06/2025 8:42 AM
--- NOTE | 2025-06-06 09:10 | OP.PROVAT_ITS ---
06/06/2025 Beverley Podlogar Re : Colonoscopy procedure for Jeannie Vargas Dear Podlogar This procedure was performed on May. My impressions and recommendations are as follows: Impressions : - Diverticulosis in the recto-sigmoid colon and in the sigmoid colon. - One 9 mm polyp in the descending colon, removed with a hot snare. Resected and retrieved. Recommendations : - Repeat colonoscopy in 5 years for surveillance. - Continue present medications. - No aspirin, ibuprofen, naproxen, or other non-steroidal anti-inflammatory drugs for 2 weeks after polyp removal. My findings are described in the full procedure note, which is enclosed. If I can be of further assistance, please feel free to contact me at . Sincerely, Fabrizio Monroy, 06/06/2025 9:10:38 AM This report has been signed electronically.
--- NOTE | 2025-06-06 10:47 | PCM.POSTANE2 ---
Anesthesia Postop Eval I Sum Postop Eval Completion status Anesthesia document: Postop Eval 1 completed: Yes Anesthesia Postop Eval I Summary Anesthesia Postop Eval I Summary: Anesthesia Postop Eval I: Assessment Summary Airway patent Yes 06/06/25 09:06 [email or web address] Spontaneous unlabored Yes 06/06/25 09:06 [email or web address] respirations Mental status Asleep 06/06/25 09:06 [email or web address] nausea No 06/06/25 09:06 [email or web address] Vomiting No 06/06/25 09:06 [email or web address] Anesthesia Postop Eval I: Fluid Summary Crystalloid volume administer 900 06/06/25 09:06 [email or web address] (ml) Colloids volume administered ( ml) Blood Product volume administered (ml) Total IV fluid infused 900 06/06/25 09:06 [email or web address] Anesthesia Postop Eval I: Summary Notes Anesthesia Complication No 06/06/25 09:06 [email or web address] Anesthesia Complication Comment: Post-operative progress note Anesthesia: Postop Eval II Evaluation Mental status: Awake Pain Level: 0 nausea: No Vomiting: No
== END 2025-06-06 09:48 | disposition home or self-care (01) ==
LOC: EN 07:09 → AC 07:17
PROVIDERS: PCP Nurse Practitioner Primary Care; Referring Provider Nurse Practitioner Primary Care; Visit Provider Internal Medicine Gastroenterology
PROC: 0DJD8ZZ Inspection of Lower Intestinal Tract, Via Natural or Artificial Opening Endoscopic (ICD-10-PCS; CPT 45378; principal; 2025-06-06 07:55)
DX: Z12.11 Encounter for screening for malignant neoplasm of colon (principal); K21.00 Gastro-esophageal reflux disease with esophagitis, without bleeding; E78.00 Pure hypercholesterolemia, unspecified; Z79.899 Other long term (current) drug therapy; I10 Essential (primary) hypertension; K57.30 Diverticulosis of large intestine without perforation or abscess without bleeding; J45.909 Unspecified asthma, uncomplicated; K29.50 Unspecified chronic gastritis without bleeding; D12.4 Benign neoplasm of descending colon
CPT/HCPCS: 45385; 43248; 88305; C1769; J2405